=== PATIENT | male | born 1945 | race Caucasian/White ===

== ENCOUNTER 2020-01-14 12:02 | Outpatient (REF) | payer OTHER, SELFPAY ==
--- NOTE | 2020-01-14 12:10 | XR_ITS ---
EXAMINATION: XR KNEE, LEFT CLINICAL INFORMATION: Pain. Evaluate for arthritis. COMPARISON: None TECHNIQUE: Two views of the left knee. FINDINGS: Bone alignment is normal. No fracture or dislocation is seen. There is mild joint space narrowing at the medial femoral tibial joint. There are small osteophytes at the patellofemoral and femoral tibial joints. There is a small to moderate joint effusion. IMPRESSION: Mild osteoarthritis and joint effusion.
[2020-01-14 13:51] LABS: MANUAL DIFF FLAG NO
[2020-01-14 13:56] LABS: Basophils Percent Auto 0.3 % (0-2); Eosinophils Absolute Auto 0.1 X10*3/uL (0.0-0.4); Hematocrit 47.1 % (42-52); Hemoglobin 15.5 g/dl (14.0-18.0); Imm Gran Abs Auto 0.03 X10*3/uL (0.00-0.03); Imm Gran Pct Auto 0.3 % (0.0-0.4); Lymphocytes Absolute Auto 3.3 X10*3/uL (1.2-4.9); Lymphocytes Percent Auto 33.6 % (20-40); Mean Corpuscular HGB Conc 32.9 g/dl (31.0-36.0); Mean Corpuscular Volume 91.3 fL (80-98); Mean Platelet Volume 9.6 fL (9.4-12.4); Monocytes Absolute Auto 0.5 X10*3/uL (0.1-1.2); Monocytes Percent Auto 5.4 % (2-11); Neutrophils Absolute Auto 5.8 X10*3/uL (2.0-8.3); Neutrophils Percent Auto 59.4 % (45-73); Platelet Count 249 X10*3/uL (160-400); Red Blood Count 5.16 X10*6/uL (4.60-5.80); Red Cell Distribution Width 12.9 % (11.0-16.0); White Blood Count 9.7 X10*3/uL (4.8-10.8)
[2020-01-14 14:40] LABS: Anion Gap 10 (12-20); Blood Urea Nitrogen 15 mg/dL (9-16); C Reactive Protein 0.15 mg/dL (< or = 0.50); Calcium 9.1 mg/dL (8.4-10.2); Carbon Dioxide 32 mmol/L (22-29); Chloride 98 mmol/L (96-108); Estimated Glomerular Filt Rate 57; Glucose Random 120 mg/dL (60-115); Potassium 4.4 mmol/l (3.3-5.1); Sodium 136 mmol/L (135-145)
== END 2020-01-14 12:03 | disposition home or self-care (01) ==
LOC: HO.LAB 12:02
PROVIDERS: PCP Internal Medicine; Visit Provider Internal Medicine
DX: I12.9 Hypertensive chronic kidney disease with stage 1 through stage 4 chronic kidney disease, or unspecified chronic kidney disease (principal); N18.9 Chronic kidney disease, unspecified; I25.10 Atherosclerotic heart disease of native coronary artery without angina pectoris; M25.562 Pain in left knee
CPT/HCPCS: 36415; 73560; 80048; 85025; 86140

== ENCOUNTER 2020-02-07 14:15 | Outpatient (REF) | payer OTHER, SELFPAY ==
--- NOTE | 2020-02-07 14:17 | MR_ITS ---
EXAMINATION: MR KNEE WITHOUT CONTRAST, LEFT CLINICAL INFORMATION: Left knee pain. COMPARISON: Radiographs 01/14/2020. TECHNIQUE: MRI of the knee without contrast was performed using routine sequences on a high-field scanner. FINDINGS: MENISCI: Medial Meniscus: Irregular inner margin tearing throughout the posterior horn extending to the undersurface at the junction with the meniscal body which is slightly extruded. Lateral Meniscus: Ill-defined inner margin tearing of the body and posterior horn of a likely borderline discoid meniscus. LIGAMENTS: Cruciate: Intact. Collateral: Intact. EXTENSOR MECHANISM: Intact. ARTICULAR CARTILAGE/BONE: Patellofemoral Compartment: Articular cartilage thinning and surface irregularity throughout the medial patellar facet. There is focal near full-thickness cartilage loss with subchondral cyst formation of the medial trochlea. Medial Compartment: Diffuse cartilage thinning of the tibia. Partial-thickness loss and surface irregularity along the lateral aspect of the weightbearing femoral condyle. Full-thickness cartilage loss of the posterior nonweightbearing femoral condyle. Cartilage thinning with areas of full-thickness loss and prominent subchondral cysts throughout the posterior nonweightbearing femoral condyle. Lateral Compartment: Small marginal osteophytes with peripheral cartilage thinning. JOINT FLUID AND BURSAE: Moderate joint effusion and Marcelino's cyst. Lobulated fluid/ganglion extends along the popliteus tendon sheath. There is a small ganglion with synovitis in the posterior joint recess. MR/MR knee LT wo con IMPRESSION: Irregular inner margin tearing of the posterior horn of the medial meniscus extending to the undersurface at the junction with the extruded meniscal body. Probable discoid morphology with ill-defined inner margin tearing of the lateral meniscus. Moderate-severe medial compartment and mild patellofemoral/lateral compartment osteoarthritis with a moderate joint effusion and a small Marcelino's cyst. Diffuse synovitis.
== END 2020-02-07 14:16 | disposition home or self-care (01) ==
LOC: HO.MRI 14:15
PROVIDERS: Visit Provider Internal Medicine
DX: S83.402A Sprain of unspecified collateral ligament of left knee, initial encounter (principal)
CPT/HCPCS: 73721

== ENCOUNTER 2020-04-25 17:04 | Outpatient (REF) | payer OTHER, SELFPAY ==
[2020-04-25 18:03] LABS: MANUAL DIFF FLAG NO
[2020-04-25 18:04] LABS: Basophils Absolute Auto 0.1 X10*3/uL (0.0-0.2); Basophils Percent Auto 0.4 % (0-2); Eosinophils Absolute Auto 0.1 X10*3/uL (0.0-0.4); Eosinophils Percent Auto 0.6 % (0-4); Imm Gran Abs Auto 0.06 X10*3/uL (0.00-0.03); Imm Gran Pct Auto 0.5 % (0.0-0.4); Lymphocytes Absolute Auto 3.8 X10*3/uL (1.2-4.9); Lymphocytes Percent Auto 30.8 % (20-40); Mean Corpuscular HGB Conc 33.3 g/dl (31.0-36.0); Mean Corpuscular Hemoglobin 30.7 pg (27.0-33.0); Mean Platelet Volume 8.9 fL (9.4-12.4); Monocytes Absolute Auto 0.7 X10*3/uL (0.1-1.2); Monocytes Percent Auto 5.9 % (2-11); Neutrophils Absolute Auto 7.7 X10*3/uL (2.0-8.3); Neutrophils Percent Auto 61.8 % (45-73); Platelet Count 263 X10*3/uL (160-400); Red Blood Count 5.22 X10*6/uL (4.60-5.80); Red Cell Distribution Width 14.7 % (11.0-16.0); White Blood Count 12.4 X10*3/uL (4.8-10.8)
[2020-04-25 18:36] LABS: Alanine Aminotransferase 28 U/L (0-40); Albumin Level 4.3 g/dL (3.5-5.0); Alkaline Phosphatase 98 U/L (39-117); Anion Gap 13 (12-20); Aspartate Amino Transferase 25 U/L (5-37); Bilirubin Total 0.8 mg/dL (0.0-1.0); Blood Urea Nitrogen 18 mg/dL (9-16); C Reactive Protein 0.11 mg/dL (< or = 0.50); Calcium 9.1 mg/dL (8.4-10.2); Carbon Dioxide 30 mmol/L (22-29); Chloride 100 mmol/L (96-108); Estimated Glomerular Filt Rate 59; Glucose Random 111 mg/dL (60-115); Lactate Dehydrogenase 257 U/L (118-273); Potassium 4.2 mmol/L (3.3-5.1); Sodium 139 mmol/L (135-145); Total Protein 6.7 g/dL (6.5-8.0)
== END 2020-04-25 17:05 | disposition home or self-care (01) ==
LOC: HO.LAB 17:04
PROVIDERS: PCP Internal Medicine; Visit Provider Internal Medicine
DX: I12.9 Hypertensive chronic kidney disease with stage 1 through stage 4 chronic kidney disease, or unspecified chronic kidney disease (principal); N18.9 Chronic kidney disease, unspecified; J45.909 Unspecified asthma, uncomplicated; I25.10 Atherosclerotic heart disease of native coronary artery without angina pectoris
CPT/HCPCS: 36415; 80053; 83615; 85025; 86140

== ENCOUNTER → 2020-05-28 12:29 | Outpatient (BNVA) | payer OTHER, SELFPAY | PROVIDERS: PCP Internal Medicine; Visit Provider Internal Medicine Cardiovascular Disease | DX: I25.119 Atherosclerotic heart disease of native coronary artery with unspecified angina pectoris (principal); I10 Essential (primary) hypertension | CPT/HCPCS: 93005 ==

== ENCOUNTER → 2020-06-04 08:59 | Outpatient (REF) | payer OTHER, SELFPAY ==
--- NOTE | ~2020-06-04 | NM_ITS ---
EXERCISE MYOCARDIAL PERFUSION STUDY INDICATION: Chest pain, assess for coronary disease and ischemia TECHNIQUE: The patient was brought in for an exercise perfusion study on 06/04/2020. Patient performed exercise as per Ady protocol and was injected 30 mCi of sestamibi once target heart rate was achieved. Images were obtained using the SPECT gamma camera interlaced with the gating device. Images were obtained in supine position. Resting perfusion study was performed on 06/05/2020. Patient was administered 30 mCi of sestamibi intravenously at rest. Images were then obtained in supine position. Total DLP 112mGy-cm. Images were processed with the software and compared side to side in short axis, horizontal long axis and vertical long axis views. FINDINGS: Raw images were reviewed. The stress perfusion study showed mid to distal anterior wall, adjacent anterior septum, apical lateral wall, apical inferior wall, apex. Changes still present after attenuation correction changes are still present after CT attenuation correction. The gated study shows mildly diminished LV systolic function with calculated LVEF of 52%. LV cavity is normal in size. The gated study shows diminished wall thickening or contractility in the above segments. Resting study shows no significant perfusion abnormality. Gating at rest reveals normal wall motion with ejection fraction at 56%. The findings are consistent with reversible perfusion defect in the mid to distal anterior septum, adjacent septum, anterior wall, apex, apical lateral wall, apical inferior wall. NM/NM cardiolite stress test IMPRESSION: 1. Myocardial perfusion imaging study shows severe degree of ischemia in the LAD territory. 2. Gated LVEF is 52% during stress and 56% during rest.. 3. Transient ischemic dilatation ratio 1.42. EKG component of the test reported separately. Message sent to , primary aquatic scientist.
--- NOTE | 2020-06-04 09:15 | CA_ITS ---
Acquisition Time: 2020-06-04 09:12:01 Total Exercise Time: 00:05:05 Test Indications: Chest Pain Medications: AMLODIPINE HCTZ ASA ATORVASTATIN CARVEDILOL DIAZAPAM GABAPENTIN LOSARTAN EFFEXOR Protocol: NIGHAT Max HR: 125 BPM 85% of Pred: 146 BPM Max BP: 162/088 mmHG Max Work Load: 7.1 METS Exercises tress test using Nighat protocol, total of 5 min 5 sec. METS 7.20 and TAPHR up to 85%. Tolerated well CP 3/10 before exercise, that was gone after exercise. EKG with PVC's. Mild ST depressions in leads 2, 3. and V4-V6 Nuclear images to follow. Normotensive response to exercise. Test reviewed with Dr. Hendrix Referred By: Ki Connelly Overread By: Jose Harrington
== END ==
LOC: HO.CARD 08:59
PROVIDERS: PCP Internal Medicine; Visit Provider Internal Medicine Cardiovascular Disease
DX: I25.10 Atherosclerotic heart disease of native coronary artery without angina pectoris (principal)
CPT/HCPCS: 78452; 93016; 93017; 93018; A9500

== ENCOUNTER 2020-06-11 12:43 | Outpatient (REF) | payer OTHER, SELFPAY ==
[2020-06-11 13:10] LABS: Hematocrit 47.6 % (42-52); Hemoglobin 15.6 g/dl (14.0-18.0); Mean Corpuscular HGB Conc 32.8 g/dl (31.0-36.0); Mean Corpuscular Hemoglobin 30.4 pg (27.0-33.0); Mean Corpuscular Volume 92.6 fL (80-98); Mean Platelet Volume 8.8 fL (9.4-12.4); Platelet Count 210 X10*3/uL (160-400); Red Blood Count 5.14 X10*6/uL (4.60-5.80); Red Cell Distribution Width 13.3 % (11.0-16.0); White Blood Count 10.4 X10*3/uL (4.8-10.8)
[2020-06-11 13:15] LABS: INTERNATIONAL NORM RATIO 1.1 (0.9-1.1); Prothrombin Time 13.2 SEC (10.8-13.0)
[2020-06-11 15:20] LABS: Blood Urea Nitrogen 20 mg/dL (9-16); Calcium 8.9 mg/dL (8.4-10.2); Estimated Glomerular Filt Rate 52; Glucose Random 150 mg/dL (60-115)
[2020-06-11 15:21] LABS: Anion Gap 11 (12-20); Carbon Dioxide 33 mmol/L (22-29); Chloride 96 mmol/L (96-108); Potassium 4.2 mmol/L (3.3-5.1); Sodium 136 mmol/L (135-145)
== END 2020-06-11 12:44 | disposition home or self-care (01) ==
LOC: HO.LAB 12:43
PROVIDERS: PCP Internal Medicine; Visit Provider Internal Medicine Cardiovascular Disease
DX: R94.39 Abnormal result of other cardiovascular function study (principal)
CPT/HCPCS: 36415; 80048; 85027; 85610

== ENCOUNTER → 2020-07-17 14:27 | Outpatient (BNVA) | payer OTHER, SELFPAY | PROVIDERS: PCP Internal Medicine; Visit Provider Internal Medicine Cardiovascular Disease ==

== ENCOUNTER → 2020-08-05 15:19 | Outpatient (BNVA) | payer OTHER, SELFPAY | PROVIDERS: PCP Internal Medicine; Referring Provider Internal Medicine; Visit Provider Internal Medicine Cardiovascular Disease ==

== ENCOUNTER → 2020-11-20 14:48 | Outpatient (BNVA) | payer OTHER, SELFPAY | PROVIDERS: PCP Internal Medicine; Referring Provider Internal Medicine; Visit Provider Internal Medicine Cardiovascular Disease ==

== ENCOUNTER 2020-11-21 12:33 | Outpatient (REF) | payer OTHER, SELFPAY ==
[2020-11-21 13:28] LABS: Influenza A PCR NEGATIVE (Negative); Influenza B PCR NEGATIVE (Negative); Resp Syncy Virus RNA Qual PCR NEGATIVE (Negative); SARS COV2 PCR INHOUSE NEGATIVE (Negative)
== END 2020-11-21 12:34 | disposition home or self-care (01) ==
LOC: HO.LNP 12:33
PROVIDERS: Visit Provider Internal Medicine
DX: Z20.822 Contact with and (suspected) exposure to COVID-19 (principal); R05 Cough
CPT/HCPCS: 0241U

== ENCOUNTER 2020-11-28 10:31 | Outpatient (REF) | payer OTHER, SELFPAY ==
--- NOTE | ~2020-11-28 | XR_ITS ---
EXAMINATION: XR CHEST CLINICAL INFORMATION: Cough COMPARISON: Chest radiographs 04/02/2019, 02/19/2019 TECHNIQUE: 2 views of the chest were obtained. FINDINGS: There are subtle patchy groundglass opacities left lower zone. The remainder of the lungs are clear. The right lung shows no airspace consolidation or groundglass opacity. There is no effusion. The heart is normal in size. The vascularity is normal. There are low lung volumes. No hyperinflation. The hilar and mediastinal contours are normal. No acute bony abnormality. There is old hardware cervical spine. XR/XR chest 2V IMPRESSION: Subtle patchy groundglass opacities left lower zone. Right lung clear. No effusion.
--- NOTE | ~2020-11-28 | CT_ITS ---
EXAMINATION: CT CHEST WITHOUT CONTRAST CLINICAL INFORMATION: Cough and wheezing and rhonchi. Rule out Respiratory bronchiolitis and interstitial lung disease. COMPARISON: Previous chest x-ray from earlier the same day and chest CT February 2019 TECHNIQUE: Multidetector volumetric CT imaging of the chest was done. Axial MIP volume rendering provided. Sagittal and coronal reformatted images were obtained. This CT examination was performed using dose optimization techniques as appropriate, variously including the following: *Automated exposure control *Adjustment of mA and/or kV according to patient size (this includes techniques or standardized protocols for targeted exams where dose is matched to indication/reason for exam; i.e. extremities or head) *Use of iterative reconstruction technique DLP: 301 mGy-cm FINDINGS: LUNGS: There are clustered peribronchial nodular opacities and increased peribronchial attenuation seen in the lingula. There are denser peribronchial clustered nodular opacities and bronchial wall thickening and soft tissue opacification seen in the left lower lobe. Findings are suggestive of bronchopneumonia. Findings appear increased from November 2018 exam. These are seen in different areas on on on February 2019. Waxing and waning appearance favors an infectious or inflammatory process. There is a small area of increased peribronchial attenuation seen in the right upper lobe axial image 143 series 6 and bronchial wall thickening and increased peribronchial attenuation in the right lower lobe for example axial image 206 series 6 suggestive of airways disease as well. There is a 2 mm apical right upper lobe nodule axial image 38 series 6. This appears separate from areas of airways disease and is unchanged from 2019 exam.. No evidence of emphysema or interstitial lung disease is seen. MEDIASTINUM: There is shotty mediastinal lymphadenopathy. The heart does not appear enlarged. There is coronary artery calcification. There is no pericardial effusion. There is an esophageal hernia. PLEURA: There is no pleural effusion. No pleural mass or thickening. AXILLA: No lymphadenopathy. UPPER ABDOMEN: There is a 2 cm low-attenuation lesion in the upper pole of the right kidney probably representing a cyst. OSSEOUS STRUCTURES: There are degenerative changes of the spine. CT/CT chest wo con IMPRESSION: Left lower lobe and lingular bronchopneumonia. Follow-up chest CT scan following treatment to ensure resolution recommended. Scattered areas of mild airways disease in the right lung. Coronary artery calcification. Esophageal hernia.
[2020-11-28 11:33] LABS: MANUAL DIFF FLAG NO
[2020-11-28 11:39] LABS: Basophils Percent Auto 0.1 % (0-2); Eosinophils Percent Auto 0.1 % (0-4); Hematocrit 43.1 % (42-52); Hemoglobin 14.7 g/dl (14.0-18.0); Imm Gran Pct Auto 0.8 % (0.0-0.4); Lymphocytes Percent Auto 6.7 % (20-40); Mean Corpuscular HGB Conc 34.1 g/dl (31.0-36.0); Mean Corpuscular Hemoglobin 30.6 pg (27.0-33.0); Mean Corpuscular Volume 89.6 fL (80-98); Mean Platelet Volume 8.4 fL (9.4-12.4); Monocytes Percent Auto 3.5 % (2-11); Neutrophils Absolute Auto 19.2 X10*3/uL (2.0-8.3); Neutrophils Percent Auto 88.8 % (45-73); Platelet Count 328 X10*3/uL (160-400); Red Blood Count 4.81 X10*6/uL (4.60-5.80); Red Cell Distribution Width 12.9 % (11.0-16.0); White Blood Count 21.6 X10*3/uL (4.8-10.8)
[2020-11-28 11:40] LABS: Imm Gran Abs Auto 0.17 X10*3/uL (0.00-0.03); Lymphocytes Absolute Auto 1.4 X10*3/uL (1.2-4.9); Monocytes Absolute Auto 0.8 X10*3/uL (0.1-1.2)
[2020-11-28 11:54] LABS: Anion Gap 12 (12-20); Blood Urea Nitrogen 27 mg/dL (9-16); C Reactive Protein 0.46 mg/dL (< or = 0.50); Calcium 9.3 mg/dL (8.4-10.2); Carbon Dioxide 30 mmol/L (22-29); Chloride 92 mmol/L (96-108); Estimated Glomerular Filt Rate 54; Glucose Random 269 mg/dL (60-115); Potassium 3.8 mmol/L (3.3-5.1); Sodium 130 mmol/L (135-145)
== END 2020-11-28 10:32 | disposition home or self-care (01) ==
LOC: HO.XRAY 10:31
PROVIDERS: PCP Internal Medicine; Visit Provider Internal Medicine
DX: J84.115 Respiratory bronchiolitis interstitial lung disease (principal); R06.2 Wheezing; R05 Cough; I25.10 Atherosclerotic heart disease of native coronary artery without angina pectoris; I10 Essential (primary) hypertension
CPT/HCPCS: 36415; 71046; 71250; 80048; 85025; 86140

== ENCOUNTER 2020-12-25 10:04 | Outpatient (REF) | payer OTHER, SELFPAY ==
--- NOTE | ~2020-12-25 | XR_ITS ---
EXAMINATION: XR CHEST CLINICAL INFORMATION: Follow up pneumonia. COMPARISON: Previous dated 11/28/2020. TECHNIQUE: 2 views of the chest were obtained. FINDINGS: Persistent patchy left lower lobe density. No improvement and there may be some increase further cephalad in the lingula. There is increasing density at the right base consistent with atelectasis or infiltrate and some patchy opacity in the right midlung as well. There is no effusion. The hilar structures do not appear pathologically enlarged. Flowing osteophytes in the thoracic spine. XR/XR chest 2V IMPRESSION: No improvement and possible worsening at the left base with new findings at the right base and right midlung as described. This findings may be inflammatory in etiology. Continued follow-up is recommended. CT may be helpful for definitive evaluation.
[2020-12-25 11:01] LABS: Anion Gap 12 (12-20); Blood Urea Nitrogen 20 mg/dL (9-16); Calcium 8.9 mg/dL (8.4-10.2); Carbon Dioxide 31 mmol/L (22-29); Chloride 94 mmol/L (96-108); Estimated Glomerular Filt Rate 48; Glucose Random 198 mg/dL (60-115); Potassium 3.7 mmol/L (3.3-5.1); Sodium 133 mmol/L (135-145)
== END 2020-12-25 10:05 | disposition home or self-care (01) ==
LOC: HO.XRAY 10:04
PROVIDERS: PCP Internal Medicine; Visit Provider Internal Medicine
DX: R60.9 Edema, unspecified (principal); I12.9 Hypertensive chronic kidney disease with stage 1 through stage 4 chronic kidney disease, or unspecified chronic kidney disease; N18.9 Chronic kidney disease, unspecified; Z87.01 Personal history of pneumonia (recurrent)
CPT/HCPCS: 36415; 71046; 80048

== ENCOUNTER → 2021-01-06 12:51 | Outpatient (BNVA) | payer OTHER, SELFPAY | PROVIDERS: PCP Internal Medicine; Visit Provider Internal Medicine Pulmonary Disease ==

== ENCOUNTER 2021-01-07 12:19 | Outpatient (REF) | payer OTHER, SELFPAY ==
--- NOTE | ~2021-01-07 | US_ITS ---
EXAMINATION: US VENOUS ULTRASOUND WITH DOPPLER LOWER EXTREMITY, RIGHT ULTRASOUND ARTERIAL RIGHT LEG CLINICAL INFORMATION: Right leg pain and edema. COMPARISON: None TECHNIQUE: Ultrasound of the deep veins is performed from the hip to the calf with compression sonography and color and pulse Doppler assessment. Spectral analysis with color-flow imaging is performed. Routine ultrasound imaging of right lower leg and duplex arterial study was performed. FINDINGS: VENOUS STUDY: There is normal venous compression and respiratory variation and augmented flow. The visualized common femoral vein, superficial femoral vein, profunda femoral vein, popliteal vein, and the trifurcation region shows no evidence of deep venous thrombosis. There is no significant popliteal fossa cyst. Imaging through the right lower calf reveals moderate edema and fluid collection in the mid to distal calf midline around the plantaris/soleus tendon suggestive of plantaris tendon rupture. There is mild edema seen in medial gastrocnemius muscle. The lateral gastroc muscle is intact. ARTERIAL STUDY: There is normal patency and biphasic seen in CIVIL ENGINEERING PROJECT MANAGER, superficial proximal, middle and distal superficial femoral and popliteal arteries. A triphasic flow seen in the posterior tibial artery. There is mild atherosclerotic disease but no stenosis visualized. Peak systolic velocities common femoral arteries 116 cm/s, proximal profunda measures 68.6 cm/s, proximal and mid superficial femoral artery measures 90.3 and 86.8 cm/s, distal SFA measures 70.9 cm/s, popliteal artery measures 68.0 cm/s and posterior tibial artery measures 67.4 cm/s. US/US venous duplex LE RT IMPRESSION: No DVT demonstrated in the right lower extremity. Ruptured plantaris tendon with contusion of the medial gastroc muscle. Partial tear of the soleus/tendinous junction in the mid calf region cannot be excluded. The Achilles tendon appears minimally swollen but no tear visualized. Mild atherosclerotic changes of arteries of right leg but no focal stenosis or narrowing seen.
--- NOTE | ~2021-01-07 | US_ITS ---
EXAMINATION: US VENOUS ULTRASOUND WITH DOPPLER LOWER EXTREMITY, RIGHT ULTRASOUND ARTERIAL RIGHT LEG CLINICAL INFORMATION: Right leg pain and edema. COMPARISON: None TECHNIQUE: Ultrasound of the deep veins is performed from the hip to the calf with compression sonography and color and pulse Doppler assessment. Spectral analysis with color-flow imaging is performed. Routine ultrasound imaging of right lower leg and duplex arterial study was performed. FINDINGS: VENOUS STUDY: There is normal venous compression and respiratory variation and augmented flow. The visualized common femoral vein, superficial femoral vein, profunda femoral vein, popliteal vein, and the trifurcation region shows no evidence of deep venous thrombosis. There is no significant popliteal fossa cyst. Imaging through the right lower calf reveals moderate edema and fluid collection in the mid to distal calf midline around the plantaris/soleus tendon suggestive of plantaris tendon rupture. There is mild edema seen in medial gastrocnemius muscle. The lateral gastroc muscle is intact. ARTERIAL STUDY: There is normal patency and biphasic seen in SERVICES PROGRAM MANAGER, superficial proximal, middle and distal superficial femoral and popliteal arteries. A triphasic flow seen in the posterior tibial artery. There is mild atherosclerotic disease but no stenosis visualized. Peak systolic velocities common femoral arteries 116 cm/s, proximal profunda measures 68.6 cm/s, proximal and mid superficial femoral artery measures 90.3 and 86.8 cm/s, distal SFA measures 70.9 cm/s, popliteal artery measures 68.0 cm/s and posterior tibial artery measures 67.4 cm/s. US/US arterial duplex LE RT IMPRESSION: No DVT demonstrated in the right lower extremity. Ruptured plantaris tendon with contusion of the medial gastroc muscle. Partial tear of the soleus/tendinous junction in the mid calf region cannot be excluded. The Achilles tendon appears minimally swollen but no tear visualized. Mild atherosclerotic changes of arteries of right leg but no focal stenosis or narrowing seen.
== END 2021-01-07 12:20 | disposition home or self-care (01) ==
LOC: HO.US 12:19
PROVIDERS: PCP Internal Medicine; Visit Provider Internal Medicine
DX: R60.0 Localized edema (principal); M79.604 Pain in right leg
CPT/HCPCS: 93926; 93971

== ENCOUNTER 2021-01-09 14:13 | Outpatient (REF) | payer OTHER, SELFPAY ==
[2021-01-09 14:48] LABS: Basophils Absolute Auto 0.1 X10*3/uL (0.0-0.2); Basophils Percent Auto 0.4 % (0-2); Eosinophils Absolute Auto 0.2 X10*3/uL (0.0-0.4); Eosinophils Percent Auto 1.7 % (0-4); Hematocrit 39.6 % (42-52); Hemoglobin 13.6 g/dl (14.0-18.0); Imm Gran Abs Auto 0.12 X10*3/uL (0.00-0.03); Lymphocytes Absolute Auto 2.5 X10*3/uL (1.2-4.9); Lymphocytes Percent Auto 21.5 % (20-40); MANUAL DIFF FLAG NO; Mean Corpuscular HGB Conc 34.3 g/dl (31.0-36.0); Mean Corpuscular Hemoglobin 30.3 pg (27.0-33.0); Mean Corpuscular Volume 88.2 fL (80-98); Mean Platelet Volume 8.2 fL (9.4-12.4); Monocytes Absolute Auto 0.7 X10*3/uL (0.1-1.2); Monocytes Percent Auto 5.9 % (2-11); Neutrophils Absolute Auto 8.2 X10*3/uL (2.0-8.3); Neutrophils Percent Auto 69.5 % (45-73); Platelet Count 279 X10*3/uL (160-400); Red Blood Count 4.49 X10*6/uL (4.60-5.80); Red Cell Distribution Width 13.6 % (11.0-16.0); White Blood Count 11.8 X10*3/uL (4.8-10.8)
--- NOTE | 2021-01-09 17:30 | PFT_ITS ---
Forced vital capacity and FEV1 are both moderately reduced. [id number] and MVV also moderately reduced. Post bronchodilator therapy, there is no significant change. Total lung capacity is normal. Residual volume also normal. Diffusion capacity is markedly decreased. CONCLUSION: There is evidence of moderate degree of obstructive airway disorder. No response to bronchodilator therapy. Decreased diffusion capacity may be due to pulmonary emphysema, or non-pulmonary factors. For this, clinical correlation is recommended. MD TREASURE Neely/VALERIE / [phone]
[2021-01-10 11:42] LABS: IgA 130 mg/dL (70-320); IgG 925 mg/dL (600-1540); IgM 119 mg/dL (50-300)
[2021-01-14 20:36] LABS: Immunoglobulin G Subclass 1 474 mg/dL (382-929); Immunoglobulin G Subclass 2 239 mg/dL (241-700); Immunoglobulin G Subclass 3 94 mg/dL (22-178); Immunoglobulin G Subclass 4 46.9 mg/dL (4-86); Immunoglobulin G Total 927 mg/dL (600-1540)
== END 2021-01-09 14:14 | disposition home or self-care (01) ==
LOC: HO.RESP 14:13
PROVIDERS: PCP Internal Medicine; Visit Provider Internal Medicine Pulmonary Disease
DX: J45.909 Unspecified asthma, uncomplicated (principal); J18.9 Pneumonia, unspecified organism; Z01.82 Encounter for allergy testing
CPT/HCPCS: 36415; 82784; 82785; 85025; 86003; 94060; 94727; 94729

== ENCOUNTER → 2021-01-13 07:45 | Outpatient (REF) | payer OTHER, SELFPAY ==
--- NOTE | 2021-01-13 07:53 | CA_ITS ---
Transthoracic Echocardiogram Patient (Last, First, Middle): Lazaro Adams, Gender: Male Date of : 1945 Age: 75 Procedure Date: 01/13/2021 Procedure Type: Transthoracic Echocardiogram Location: OP Height: 170.18 cm Weight: 81.65 kg BSA: 1.93 m2 Heart Rate: bpm BP: 128 / 80 mmHg Night Patrol Inspector: Referring MD: Lan Dillon MD Symptoms: Z95.5 S/P ANGIOPLASY IMPLANT/GRAFT/R60.9 R05.9 COUGH S/P SHELBY Study Quality: Fair ECG Rhythm: Sinus Conclusions: - The left ventricular systolic function is normal. The calculated ejection fraction is 59% by biplane method. - No obvious valvular pathology seen on this study. Findings Left Ventricle Normal left ventricular cavity size. There is mildly increased left ventricular wall thickness. The left ventricular systolic function is normal. The calculated ejection fraction is 59% by biplane method. There is no evidence of regional wall motion abnormalities. Diastolic function is normal for age. Right Ventricle Normal right ventricular cavity size and systolic function. Atria The left atrium is mildly dilated. The right atrium is normal in size. Aortic Valve There is a normal trileaflet aortic valve. There is no aortic valve stenosis. There is no aortic valve regurgitation. Mitral Valve The mitral valve appears normal. There is no mitral valve regurgitation. There is no mitral valve stenosis. Pulmonic Valve The pulmonic valve was not well visualized. Tricuspid Valve Normal tricuspid valve structure. There is no tricuspid valve regurgitation. The pulmonary artery systolic pressure is normal. Great Vessels The aortic annulus, sinuses of valsalva, and asc aorta are normal in size. Venous The inferior vena cava is normal in size and collapses greater than 50% with inspiration. Pericardium/Pleural There is no evidence of pericardial effusion. Prior Study Comparison No significant change compared to prior study dated: 04/26/2018. Recommendations, Care & Conclusions No obvious valvular pathology seen on this study. Measurements 2D Linear Measurements IVSd: 1.41 0.6-0.9/0.6-1.0 cm LVIDd: 4.22 3.9-5.3/4.2-5.9 cm LVIDd Index: 2.19 2.4-3.2/2.2-3.1 cm/m2 LVIDs: 2.85 2.0-3.6 cm LVPWd: 1.43 0.7-1.1 cm Ao Root: 3.10 2.1-3.5 cm LA Diam: 3.80 2.7-3.8/3.0-4.0 cm LAIDs Index: 1.97 1.5-2.3 cm/m2 LV Mass: 287.81 67-162/88-224 g LV Mass Index: 149.13 43-95/49-115 g/m2 LVOT Diam: 2.00 3.0+(-)1.3 cm 2D Systolic Function EF 4C: 56.90 >55% EF 2C: 56.90 >55% EF BiP: 58.80 >55% Mitral Valve MV Pk E: 0.43 MV PK A: 0.55 MV Decel Time: 190.00 E/A: 0.80 E'Medial: 4.13 E/E' Med: 10.40 PHT: 56.00 MVA PHT: 3.93 Decel [place]: 2.25 Aortic Valve AoV Pk Sebastian: 1.13 AoV Mn Sebastian: 0.71 AoV VTI: 0.25 AoV Pk Grad: 5.00 Aov Mn Grad: 2.00 ANABELLA Cont.VTI: 2.11 LVOT LVOT Pk Sebastian: 0.76 LVOT Mn Sebastian: 0.48 LVOT VTI: 0.17 LVOT Pk Grad: 2.00 LVOT Mn Grad: 1.00 LVOT Diam: 2.00 LVOT Area: 3.14 Diastolic Function MV Pk E: 0.43 MV Pk A: 0.55 E/A: 0.80 E'Medial: 4.13 E/E' Med: 10.40 Right Ventricle TAPSE (mm): 29.00 TVS' Sebastian: 14.00 Tricuspid Valve TR Pk Sebastian: 1.96 TR Pk Grad: 15.00 Great Vessels Aorta Ao Root-2D: 3.10 2.0-3.7 cm Ao Asc: 3.20 2.1-3.4 cm Pulmonary Valve PV Pk Sebastian: 1.00 Peak PV Grad: 4.00 Updated in Other Vendor System with Status of Final Cristofer Steve MD electronically signed on 01/14/2021 12:05:13 PM with status of Final
== END ==
LOC: HO.CARD 07:45
PROVIDERS: PCP Internal Medicine; Visit Provider Internal Medicine
DX: R60.9 Edema, unspecified (principal); R05.9 Cough, unspecified; J18.9 Pneumonia, unspecified organism; Z95.5 Presence of coronary angioplasty implant and graft
CPT/HCPCS: 93306

== ENCOUNTER 2021-02-26 12:56 | Outpatient (REF) | payer OTHER, SELFPAY ==
--- NOTE | ~2021-02-26 | CT_ITS ---
EXAMINATION: CT CHEST WITHOUT CONTRAST CLINICAL INFORMATION: Pneumonia. COMPARISON: None. TECHNIQUE: Multidetector volumetric CT imaging of the chest was done. Axial MIP volume rendering provided. Sagittal and coronal reformatted images were obtained. This CT examination was performed using dose optimization techniques as appropriate, variously including the following: *Automated exposure control *Adjustment of mA and/or kV according to patient size (this includes techniques or standardized protocols for targeted exams where dose is matched to indication/reason for exam; i.e. extremities or head) *Use of iterative reconstruction technique DLP: 153 mGy-cm. FINDINGS: RENTAL AGENT: Unremarkable. LUNGS: The lungs are well expanded with patchy linear ground-glass attenuation changes in right upper lobe measuring approximately 7 mm on axial image 179/7. No additional ground-glass density changes seen. There is mild linear thickening of the right major fissure on axial image 291/7 and a focal 2 mL nodule left major fissure axial image 320/7. There is minimal reticular nodularity seen in the left lower lobe lateral basal segment axial image 320/7 through 362/7. There is mild bronchial wall thickening left lower lobe with intrabronchiolar debris on axial image 381/7 and lower, likely small airway disease or slowly resolving bronchopneumonic changes. Similar but lesser findings are seen in the right lower lobe posterior basal segment. There is plate-like atelectasis in both lower lobes. No large consolidation or mass seen. MEDIASTINUM: The thyroid lobes are symmetric and normal. The central trachea and bronchi are widely patent. Heart size and the great vessels are normal caliber. There are small shotty precarinal and subcarinal lymph nodes. There are coronary artery calcifications present. There is a small hiatal hernia. PLEURA: There is no pleural effusion. No pleural mass or thickening. AXILLA: No abnormal axillary lymph nodes seen. The chest wall appears unremarkable. UPPER ABDOMEN: Visualized liver, spleen, pancreas and bilateral adrenal glands are unremarkable. OSSEOUS STRUCTURES: There is mild ventral spondylosis mid and lower dorsal spine. No lytic or sclerotic process seen. CT/CT chest wo con IMPRESSION: Bilateral lower lobe peribronchial wall thickening, intrabronchiolar debris and patchy reticular opacities left greater than right, suggestive of resolving bronchopneumonitis and/or small airway disease. Associated linear atelectatic changes are seen in both lung bases. Mild thickening of the right major fissure and small nodule left major fissure likely intrafissural lymph node. No abnormal-sized mediastinal or hilar lymph nodes seen.
== END 2021-02-26 12:57 | disposition home or self-care (01) ==
LOC: HO.CT 12:56
PROVIDERS: PCP Internal Medicine; Visit Provider Internal Medicine Critical Care Medicine
DX: J18.9 Pneumonia, unspecified organism (principal)
CPT/HCPCS: 71250

== ENCOUNTER 2021-05-14 11:14 | Outpatient (REF) | payer OTHER, SELFPAY ==
[2021-05-14 13:57] LABS: MANUAL DIFF FLAG NO
[2021-05-14 14:05] LABS: Basophils Absolute Auto 0.1 X10*3/uL (0.0-0.2); Basophils Percent Auto 0.5 % (0-2); Eosinophils Absolute Auto 0.1 X10*3/uL (0.0-0.4); Eosinophils Percent Auto 0.8 % (0-4); Hematocrit 43.5 % (42.0-52.0); Hemoglobin 14.8 g/dl (14.0-18.0); Imm Gran Abs Auto 0.06 X10*3/uL (0.00-0.03); Imm Gran Pct Auto 0.6 % (0.0-0.4); Lymphocytes Absolute Auto 2.7 X10*3/uL (1.2-4.9); Lymphocytes Percent Auto 25.6 % (20-40); Mean Corpuscular Hemoglobin 29.4 pg (27.0-33.0); Mean Corpuscular Volume 86.5 fL (80.0-98.0); Mean Platelet Volume 8.6 fL (9.4-12.4); Monocytes Absolute Auto 0.8 X10*3/uL (0.1-1.2); Monocytes Percent Auto 7.6 % (2-11); Neutrophils Absolute Auto 6.9 x10*3/uL (2.0-8.3); Neutrophils Percent Auto 64.9 % (45-73); Platelet Count 308 X10*3/uL (160-400); Red Blood Count 5.03 X10*6/uL (4.60-5.80); Red Cell Distribution Width 13.6 % (11.0-16.0); White Blood Count 10.6 X10*3/uL (4.8-10.8)
[2021-05-14 14:12] LABS: Alanine Aminotransferase 21 U/L (0-40); Alkaline Phosphatase 78 U/L (39-117); Anion Gap 13 (12-20); Aspartate Amino Transferase 22 U/L (5-37); Bilirubin Total 0.5 mg/dL (0.0-1.0); Blood Urea Nitrogen 17 mg/dL (9-16); Calcium 9.3 mg/dL (8.4-10.2); Carbon Dioxide 29 mmol/L (22-29); Chloride 88 mmol/L (96-108); Estimated Glomerular Filt Rate 56; Glucose Random 149 mg/dL (60-115); Potassium 3.9 mmol/L (3.3-5.1); Sodium 126 mmol/L (135-145); Total Protein 6.6 g/dL (6.5-8.0)
[2021-05-14 14:13] LABS: Estimated Average Glucose 214 mg/dL; Hemoglobin A1c % 9.1 %
== END 2021-05-14 11:15 | disposition home or self-care (01) ==
LOC: HO.10HDL 11:14
PROVIDERS: Visit Provider Internal Medicine
DX: I10 Essential (primary) hypertension (principal); I25.10 Atherosclerotic heart disease of native coronary artery without angina pectoris; R73.03 Prediabetes
CPT/HCPCS: 36415; 80053; 83036; 85025

== ENCOUNTER 2021-05-15 07:56 | Outpatient (REF) | payer OTHER, SELFPAY ==
[2021-05-15 11:44] LABS: Creatinine Urine 82.34 mg/dL; Microalbumin Urine < 5.0 mg/L
== END 2021-05-15 07:57 | disposition home or self-care (01) ==
LOC: HO.10HDL 07:56
PROVIDERS: Visit Provider Internal Medicine
DX: I10 Essential (primary) hypertension (principal); I25.10 Atherosclerotic heart disease of native coronary artery without angina pectoris; R73.03 Prediabetes
CPT/HCPCS: 82043

== ENCOUNTER → 2021-05-25 14:49 | Outpatient (BNVA) | payer OTHER, SELFPAY | PROVIDERS: PCP Internal Medicine; Referring Provider Internal Medicine; Visit Provider Internal Medicine Cardiovascular Disease | DX: Z01.810 Encounter for preprocedural cardiovascular examination (principal); I25.119 Atherosclerotic heart disease of native coronary artery with unspecified angina pectoris | CPT/HCPCS: 93005 ==

== ENCOUNTER 2021-08-10 10:51 | Outpatient (REF) | payer OTHER, SELFPAY ==
[2021-08-10 13:54] LABS: Anion Gap 10 (12-20); Blood Urea Nitrogen 22 mg/dL (9-16); Calcium 9.2 mg/dL (8.4-10.2); Carbon Dioxide 31 mmol/L (22-29); Chloride 95 mmol/L (96-108); Estimated Glomerular Filt Rate 60; Glucose Random 152 mg/dL (60-115); Potassium 3.9 mmol/L (3.3-5.1); Sodium 132 mmol/L (135-145)
== END 2021-08-10 10:52 | disposition home or self-care (01) ==
LOC: HO.10HDL 10:51
PROVIDERS: Visit Provider Internal Medicine
DX: I12.9 Hypertensive chronic kidney disease with stage 1 through stage 4 chronic kidney disease, or unspecified chronic kidney disease (principal); N18.9 Chronic kidney disease, unspecified; E11.22 Type 2 diabetes mellitus with diabetic chronic kidney disease
CPT/HCPCS: 36415; 80048

== ENCOUNTER 2021-11-02 14:06 | Outpatient (REF) | payer OTHER, SELFPAY ==
[2021-11-02 14:56] LABS: Influenza A PCR NEGATIVE (Negative); Influenza B PCR NEGATIVE (Negative); Resp Syncy Virus RNA Qual PCR NEGATIVE (Negative); SARS COV2 PCR INHOUSE NEGATIVE (Negative)
== END 2021-11-02 14:07 | disposition home or self-care (01) ==
LOC: HO.LNP 14:06
PROVIDERS: Visit Provider Internal Medicine
DX: Z20.822 Contact with and (suspected) exposure to COVID-19 (principal); R53.83 Other fatigue; R11.0 Nausea
CPT/HCPCS: 0241U

== ENCOUNTER 2021-11-04 11:39 | Outpatient (REF) | payer OTHER, SELFPAY ==
[2021-11-04 13:40] LABS: MANUAL DIFF FLAG NO
[2021-11-04 13:47] LABS: Basophils Absolute Auto 0.1 X10*3/uL (0.0-0.2); Basophils Percent Auto 0.6 % (0-2); Eosinophils Absolute Auto 0.1 X10*3/uL (0.0-0.4); Hematocrit 41.7 % (42.0-52.0); Hemoglobin 14.1 g/dl (14.0-18.0); Imm Gran Abs Auto 0.04 X10*3/uL (0.00-0.03); Imm Gran Pct Auto 0.4 % (0.0-0.4); Lymphocytes Absolute Auto 2.1 X10*3/uL (1.2-4.9); Lymphocytes Percent Auto 21.5 % (20-40); Mean Corpuscular HGB Conc 33.8 g/dl (31.0-36.0); Mean Corpuscular Hemoglobin 30.2 pg (27.0-33.0); Mean Corpuscular Volume 89.3 fL (80.0-98.0); Mean Platelet Volume 8.7 fL (9.4-12.4); Monocytes Absolute Auto 0.7 X10*3/uL (0.1-1.2); Monocytes Percent Auto 6.7 % (2-11); Neutrophils Absolute Auto 6.8 x10*3/uL (2.0-8.3); Neutrophils Percent Auto 69.8 % (45-73); Platelet Count 291 X10*3/uL (160-400); Red Blood Count 4.67 X10*6/uL (4.60-5.80); Red Cell Distribution Width 13.2 % (11.0-16.0); White Blood Count 9.8 X10*3/uL (4.8-10.8)
[2021-11-04 14:10] LABS: Estimated Average Glucose 120 mg/dL; Hemoglobin A1C 150.6051 umol/L; Hemoglobin A1c % 5.8 %
[2021-11-04 14:17] LABS: Alanine Aminotransferase 20 U/L (0-40); Albumin Level 4.3 g/dL (3.5-5.0); Alkaline Phosphatase 85 U/L (39-117); Anion Gap 16 (12-20); Aspartate Amino Transferase 18 U/L (5-37); Bilirubin Total 0.5 mg/dL (0.0-1.0); Blood Urea Nitrogen 13 mg/dL (9-16); Calcium 9.2 mg/dL (8.4-10.2); Carbon Dioxide 27 mmol/L (22-29); Chloride 88 mmol/L (96-108); Estimated Glomerular Filt Rate > 60; Glucose Random 129 mg/dL (60-115); Potassium 4.1 mmol/L (3.3-5.1); Sodium 127 mmol/L (135-145); Total Protein 6.8 g/dL (6.5-8.0)
[2021-11-04 14:36] LABS: Vitamin B12 225 pg/mL (200-900)
[2021-11-04 14:40] LABS: Thyroid Stimulating Hormone 0.78 uIU/mL (0.32-4.0)
== END 2021-11-04 11:40 | disposition home or self-care (01) ==
LOC: HO.10HDL 11:39
PROVIDERS: Visit Provider Internal Medicine
DX: R53.83 Other fatigue (principal); D64.9 Anemia, unspecified; I25.10 Atherosclerotic heart disease of native coronary artery without angina pectoris; K21.9 Gastro-esophageal reflux disease without esophagitis
CPT/HCPCS: 36415; 80053; 82607; 83036; 84443; 85025

== ENCOUNTER 2022-01-18 10:49 | Outpatient (REF) | payer OTHER, SELFPAY ==
[2022-01-18 13:47] LABS: Alanine Aminotransferase 17 U/L (0-40); Alkaline Phosphatase 99 U/L (39-117); Anion Gap 14 (12-20); Aspartate Amino Transferase 18 U/L (5-37); Bilirubin Total 0.5 mg/dL (0.0-1.0); Blood Urea Nitrogen 19 mg/dL (9-16); Calcium 9.1 mg/dL (8.4-10.2); Carbon Dioxide 29 mmol/L (22-29); Chloride 94 mmol/L (96-108); Estimated Glomerular Filt Rate > 60; Glucose Random 163 mg/dL (60-115); Potassium 4.3 mmol/L (3.3-5.1); Sodium 133 mmol/L (135-145); Total Protein 6.3 g/dL (6.5-8.0)
== END 2022-01-18 10:50 | disposition home or self-care (01) ==
LOC: HO.10HDL 10:49
PROVIDERS: Absent Provider Internal Medicine Cardiovascular Disease; Visit Provider Internal Medicine
DX: I10 Essential (primary) hypertension (principal); I25.119 Atherosclerotic heart disease of native coronary artery with unspecified angina pectoris; R60.0 Localized edema; M19.079 Primary osteoarthritis, unspecified ankle and foot
CPT/HCPCS: 36415; 80053; 93005

== ENCOUNTER 2022-07-23 08:31 | Outpatient (REF) | payer MEDICARE, SELFPAY ==
[2022-07-23 10:18] LABS: MANUAL DIFF FLAG NO
[2022-07-23 10:22] LABS: Basophils Percent Auto 0.4 % (0-2); Eosinophils Absolute Auto 0.1 X10*3/uL (0.0-0.4); Eosinophils Percent Auto 1.1 % (0-4); Hematocrit 42.2 % (42.0-52.0); Hemoglobin 13.7 g/dl (14.0-18.0); Imm Gran Abs Auto 0.02 X10*3/uL (0.00-0.03); Imm Gran Pct Auto 0.2 % (0.0-0.4); Lymphocytes Absolute Auto 2.3 X10*3/uL (1.2-4.9); Lymphocytes Percent Auto 24.2 % (20-40); Mean Corpuscular HGB Conc 32.5 g/dl (31.0-36.0); Mean Corpuscular Hemoglobin 29.7 pg (27.0-33.0); Mean Corpuscular Volume 91.5 fL (80.0-98.0); Mean Platelet Volume 9.2 fL (9.4-12.4); Monocytes Absolute Auto 0.5 X10*3/uL (0.1-1.2); Monocytes Percent Auto 5.5 % (2-11); Neutrophils Absolute Auto 6.6 x10*3/uL (2.0-8.3); Neutrophils Percent Auto 68.6 % (45-73); Platelet Count 233 X10*3/uL (160-400); Red Blood Count 4.61 X10*6/uL (4.60-5.80); Red Cell Distribution Width 14.5 % (11.0-16.0); White Blood Count 9.6 X10*3/uL (4.8-10.8)
[2022-07-23 11:02] LABS: Estimated Average Glucose 117 mg/dL; Hemoglobin A1c % 5.7 %
[2022-07-23 11:22] LABS: Alanine Aminotransferase 26 U/L (0-40); Albumin Level 3.8 g/dL (3.5-5.0); Alkaline Phosphatase 90 U/L (39-117); Anion Gap 11 (12-20); Aspartate Amino Transferase 22 U/L (5-37); Bilirubin Total 0.6 mg/dL (0.0-1.0); Blood Urea Nitrogen 22 mg/dL (9-16); Carbon Dioxide 30 mmol/L (22-29); Chloride 96 mmol/L (96-108); Estimated Glomerular Filt Rate 57; Glucose Random 126 mg/dL (60-115); Potassium 4.1 mmol/L (3.3-5.1); Sodium 133 mmol/L (135-145)
[2022-07-23 11:24] LABS: Creatinine Urine 80.03 mg/dL; Microalbum/Creatinine Ratio Ur 23.7 ug/mg cr
== END 2022-07-23 08:32 | disposition home or self-care (01) ==
LOC: HO.10HDL 08:31
PROVIDERS: Visit Provider Internal Medicine
DX: I12.9 Hypertensive chronic kidney disease with stage 1 through stage 4 chronic kidney disease, or unspecified chronic kidney disease (principal); E11.22 Type 2 diabetes mellitus with diabetic chronic kidney disease; N18.9 Chronic kidney disease, unspecified
CPT/HCPCS: 36415; 80053; 82043; 83036; 85025

== ENCOUNTER → 2022-08-26 14:26 | Outpatient (BNVA) | payer MEDICARE, SELFPAY | PROVIDERS: PCP Internal Medicine; Referring Provider Internal Medicine; Visit Provider Internal Medicine Cardiovascular Disease | DX: I20.8 Other forms of angina pectoris (principal); I10 Essential (primary) hypertension | CPT/HCPCS: 93005; 99212 ==

== ENCOUNTER 2023-02-23 16:54 | Outpatient (REF) | payer MEDICARE, SELFPAY ==
--- NOTE | ~2023-02-23 | XR_ITS ---
EXAMINATION: XR CHEST CLINICAL INFORMATION: Cough COMPARISON: 02/03/2021 TECHNIQUE: 2 views of the chest were obtained. FINDINGS: There is mild opacification of the left lower lobe most likely due to pneumonia better visualized on the lateral view. XR/XR chest 2V IMPRESSION: Left lower lobe pneumonia
== END 2023-02-23 16:55 | disposition home or self-care (01) ==
LOC: HO.XRAY 16:54
PROVIDERS: PCP Internal Medicine; Visit Provider Internal Medicine
DX: R05.9 Cough, unspecified (principal)
CPT/HCPCS: 71046

== ENCOUNTER 2023-04-14 15:37 | Outpatient (REF) | payer MEDICARE, SELFPAY ==
[2023-04-14 15:52] LABS: MANUAL DIFF FLAG NO
[2023-04-14 17:32] LABS: Basophils Absolute Auto 0.1 X10*3/uL (0.0-0.2); Basophils Percent Auto 0.5 % (0-2); Eosinophils Absolute Auto 0.2 X10*3/uL (0.0-0.4); Eosinophils Percent Auto 1.4 % (0-4); Hematocrit 45.6 % (42.0-52.0); Imm Gran Abs Auto 0.05 X10*3/uL (0.00-0.03); Imm Gran Pct Auto 0.4 % (0.0-0.4); Lymphocytes Absolute Auto 3.3 X10*3/uL (1.2-4.9); Lymphocytes Percent Auto 27.6 % (20-40); Mean Corpuscular HGB Conc 32.9 g/dl (31.0-36.0); Mean Corpuscular Hemoglobin 30.1 pg (27.0-33.0); Mean Corpuscular Volume 91.4 fL (80.0-98.0); Mean Platelet Volume 9.7 fL (9.4-12.4); Monocytes Absolute Auto 0.7 X10*3/uL (0.1-1.2); Monocytes Percent Auto 6.2 % (2-11); Neutrophils Absolute Auto 7.6 x10*3/uL (2.0-8.3); Neutrophils Percent Auto 63.9 % (45-73); Platelet Count 230 X10*3/uL (160-400); Red Blood Count 4.99 X10*6/uL (4.60-5.80); Red Cell Distribution Width 14.4 % (11.0-16.0); White Blood Count 11.9 X10*3/uL (4.8-10.8)
[2023-04-14 18:07] LABS: Alanine Aminotransferase 36 U/L (0-40); Albumin Level 4.1 g/dL (3.5-5.0); Anion Gap 11 (12-20); Aspartate Amino Transferase 26 U/L (5-37); Bilirubin Total 0.5 mg/dL (0.0-1.0); Blood Urea Nitrogen 28 mg/dL (9-16); Calcium 9.5 mg/dL (8.4-10.2); Carbon Dioxide 32 mmol/L (22-29); Chloride 97 mmol/L (96-108); Cholesterol 135 mg/dL (<200); Estimated Glomerular Filt Rate 50; Glucose Random 96 mg/dL (60-115); HDL Cholesterol 53 mg/dL (>40); Potassium 3.8 mmol/L (3.3-5.1); Sodium 136 mmol/L (135-145); Triglycerides 86 mg/dL (<150)
[2023-04-14 18:08] LABS: Alkaline Phosphatase 89 U/L (39-117); LDL Cholesterol Calculated 65 mg/dL (<100)
[2023-04-14 18:14] LABS: Creatinine Urine 63.66 mg/dL; Microalbum/Creatinine Ratio Ur 9.4 ug/mg cr (<30)
[2023-04-15 05:27] LABS: Estimated Average Glucose 123 mg/dL; Hemoglobin A1c % 5.9 % (<6.0)
== END 2023-04-14 15:38 | disposition home or self-care (01) ==
LOC: HO.LAB 15:37
PROVIDERS: PCP Internal Medicine; Visit Provider Internal Medicine
DX: E11.9 Type 2 diabetes mellitus without complications (principal); I10 Essential (primary) hypertension; N18.9 Chronic kidney disease, unspecified; R97.20 Elevated prostate specific antigen [PSA]; K21.9 Gastro-esophageal reflux disease without esophagitis; K57.90 Diverticulosis of intestine, part unspecified, without perforation or abscess without bleeding; Z12.5 Encounter for screening for malignant neoplasm of prostate
CPT/HCPCS: 36415; 80053; 80061; 82043; 82570; 83036; 84153; 85025

== ENCOUNTER 2023-05-04 13:18 | Outpatient (AMB) | payer MEDICARE, SELFPAY ==
[2023-05-04 13:28] VITALS: BP 140/70; PULSE 91; BMI 26.0
--- NOTE | 2023-05-04 13:28 | MHC.OFFVIS ---
Intake Vital Signs 05/04/23 13:28 Height 5 ft 8 in Weight 171 lb 1.259 oz BMI 26.0 BP 140/70 H Blood Pressure Location Lt brachial Position Sitting Pulse 91 Intake Visit Reasons: 6 mthf/up Intake Note: pt its in the office today for a 6monht f/up pt states that he its feeling good. 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 Required: No Accompanied by: Self / Same As Patient Allergies latex Allergy (Unknown, Uncoded 08/26/22 14:36) uknown sulfa Allergy (Unknown, Uncoded 08/26/22 14:36) hives Medication List - Last Reconciled 05/04/23 by Ki Connelly MD aspirin (Adult Low Dose Aspirin) 81 mg PO DAILY atorvastatin 80 mg PO DAILY 90 days carvedilol 12.5 mg PO BID 90 days celecoxib (Celebrex) 200 mg PO BID diazepam 2.5 mg PO BEDTIME docusate sodium 100 mg PO BID gabapentin 600 mg PO TID glipizide ER 2.5 mg PO DAILY hydralazine 25 mg PO BID hydrochlorothiazide 12.5 mg PO DAILY losartan 100 mg PO DAILY venlafaxine ER (Effexor XR) 150 mg PO BID vitamin B complex (B Complex-Vitamin B12 tablet) 1 tab PO DAILY HPI HPI Comments History of Present Illness Details 78-year-old gentleman here for follow-up. He underwent cardiac catheterization and ostial LAD PCI with rotablation and drug-eluting stent. He also has background of hypertension. 05/04/2023: He returns for follow-up. He has been swimming more than 100 laps 3 times a week. No chest discomfort with exercise. He gets some pains on the side of his chest which are very different from his anginal discomfort. These are musculoskeletal pains. His blood pressure initially was 140/70 but repeat blood pressure manually is 132/70. He has been taking his medications regularly. Overall clinically stable. His labs were reviewed and in March 2023 he had lipid panel which showed total cholesterol of 135, triglyceride 86, LDL 65 and HDL 53. He is at target for LDL less than 70. [facility], [facility] Surgical History History of back surgery H/O heart artery stent History of orchiectomy History of knee surgery H/O hernia repair Family History Father CVD (cardiovascular disease) Mother Pancreatic cancer Social History Alcohol intake: current Alcohol intake frequency: holidays/special occasions only Patient Tobacco Use Status: Never used Tobacco Review of Systems Const Denies chills, Denies fatigue, Denies fever(s), Denies frequent falls, Denies weakness, Denies weight gain and Denies weight loss ENT Denies dizziness Card Denies chest pain, Denies leg edema, Denies lightheadedness, Denies palpitations, Denies dyspnea and Denies dyspnea on exertion Resp Denies cough, Denies dyspnea and Denies dyspnea on exertion GI Denies hematochezia Musc Denies abnormal gait, Denies muscle weakness, Denies numbness, Denies radiating pain into limb and Denies tingling Neuro Denies abnormal gait, Denies dizziness, Denies frequent falls, Denies numbness, Denies tingling and Denies weakness Endo Denies fatigue and Denies palpitations Physical Exam Vital Signs: BMI result Body Mass Index 26.0 GENERAL APPEARANCE: in no acute distress, pleasant. NECK: no carotid bruit, no jugular venous distention. SKIN: no suspicious lesions, warm and dry. HEART: no murmurs, regular rate and rhythm. LUNGS: clear to auscultation bilaterally. ABDOMEN: soft, nontender. EXTREMITIES: no edema. PERIPHERAL PULSES: equal. NEUROLOGIC: No gross deficits, AAO X 3 Office Procedures EKG Details: Sinus rhythm 91 beats per minute, left axis deviation, QTC 410 milliseconds. [id number], Complete Assessment & Plan Assessment & Plan (1) Stable angina: Code(s): I20.8 - Other forms of angina pectoris (2) Essential hypertension: Comment: Stable Code(s): I10 - Essential (primary) hypertension Plan Pleasant 78-year-old gentleman who is here for follow-up. He has known history of coronary disease with previous LAD PCI with rotablation. Clinically has been stable and doing well and has no exertional symptoms and is an avid swimmer 3 times a week. Blood pressure control is good. LDL is at target of less than 70. I think clinically he is doing quite well. He will follow-up with us in 6 months. Thank you for allowing me to participate in the care of your patient. Please feel free to contact me if you have any questions. Coding Level of Care Code Est Pt Level 4 (27273) Diagnoses Stable angina I20.8 Essential hypertension I10 CPT Codes EKG - CPT: 32245-[id number], Complete ([id number])
== END 2023-05-04 14:02 | disposition home or self-care (01) ==
PROVIDERS: PCP Internal Medicine; Visit Provider Internal Medicine Cardiovascular Disease
DX: I20.8 Other forms of angina pectoris (principal); I10 Essential (primary) hypertension
CPT/HCPCS: 93010; 99214

== ENCOUNTER → 2023-05-04 13:18 | Outpatient (BNVA) | payer MEDICARE, SELFPAY | PROVIDERS: PCP Internal Medicine; Visit Provider Internal Medicine Cardiovascular Disease | DX: I20.89 Other forms of angina pectoris (principal); I10 Essential (primary) hypertension | CPT/HCPCS: 93005; 99212 ==

== ENCOUNTER 2023-07-15 10:54 | Outpatient (REF) | payer MEDICARE, SELFPAY ==
--- NOTE | ~2023-07-15 | XR_ITS ---
EXAMINATION: XR CHEST CLINICAL INFORMATION: Patient states cough for 3 weeks. COMPARISON: 02/23/2023. TECHNIQUE: 2 views of the chest were obtained. FINDINGS: There is no gross pneumothorax. Cervical spinal hardware partially imaged. Dextroscoliosis of the thoracic spine. Heart size is normal. Persistent moderate left lower lobe opacity shows some interval improvement, suggesting improving pneumonia. No gross pleural effusion. XR/XR chest 2V IMPRESSION: Persistent moderate left lower lobe opacity shows some interval improvement, suggesting improving pneumonia.
== END 2023-07-15 10:55 | disposition home or self-care (01) ==
LOC: HO.XRAY 10:54
PROVIDERS: PCP Internal Medicine; Visit Provider Internal Medicine
DX: R05.9 Cough, unspecified (principal); R09.89 Other specified symptoms and signs involving the circulatory and respiratory systems
CPT/HCPCS: 71046

== ENCOUNTER 2023-07-20 14:23 | Outpatient (REF) | payer MEDICARE, SELFPAY ==
--- NOTE | ~2023-07-20 | CT_ITS ---
EXAMINATION: CT CHEST WITHOUT CONTRAST CLINICAL INFORMATION: Left lower lobe scarring. COMPARISON: Chest radiograph 07/15/2023: Persistent moderate left lower lobe opacity shows some interval improvement, suggesting improving pneumonia. CT chest 02/26/2021. TECHNIQUE: Multidetector volumetric CT imaging of the chest was done. Axial MIP volume rendering provided. Sagittal and coronal reformatted images were obtained. This CT examination was performed using dose optimization techniques as appropriate, variously including the following: *Automated exposure control *Adjustment of mA and/or kV according to patient size (this includes techniques or standardized protocols for targeted exams where dose is matched to indication/reason for exam; i.e. extremities or head) *Use of iterative reconstruction technique DLP: 160 mGy-cm. FINDINGS: LUNGS: Mild emphysematous changes are present. Moderate bronchial thickening is present, especially in the left lower lobe, with left lower lobe bronchial occlusion and dense left lower lobe consolidation, with some traction bronchiectasis. In 2020, multiple areas of bronchial inspissation were present along with tree-in-bud opacities, but the dense consolidation was not seen. Scattered ground-glass opacities are seen, some unchanged (for example, 1.3 cm right upper lobe 11:53, compare prior 7:171). Multiple new ground-glass opacities are present in the right middle lobe and lingula as well as in the right lower lobe (Dooley images have been saved). MEDIASTINUM: The mediastinum is normal. CORONARY ARTERY CALCIFICATION: Extensive. PLEURA: There is no pleural effusion. No pleural mass or thickening. AXILLA: No lymphadenopathy. UPPER ABDOMEN: Moderate-sized hiatal hernia is present. OSSEOUS STRUCTURES: Unremarkable. CT/CT chest wo IV con IMPRESSION: 1. Dense left lower lobe consolidation with bronchial occlusion and traction bronchiectasis. With multiple new ground-glass opacities in the right middle lobe, lingula and right lower lobe. Findings consistent with inflammatory/infectious disease 2. Moderate-sized hiatal hernia. 3. Mild emphysematous changes. Fleischner guidelines were followed.
== END 2023-07-20 14:24 | disposition home or self-care (01) ==
LOC: HO.CT 14:23
PROVIDERS: PCP Internal Medicine; Visit Provider Internal Medicine
DX: J84.10 Pulmonary fibrosis, unspecified (principal)
CPT/HCPCS: 71250

== ENCOUNTER 2023-09-12 01:50 | Emergency (ER) | payer MEDICARE, SELFPAY ==
[2023-09-12 01:53] VITALS: BP 152/68; PULSE 75; RESP 18; TEMP 36.4; O2SAT 89; BMI 23.9
--- NOTE | 2023-09-12 02:04 | PC.NURSE ---
maritime guard visable in triage in the back of the pt throat. Dr Estrada seen pt and removed the over 20 year old bite block.
--- NOTE | 2023-09-12 02:05 | ED.SKABFB ---
HPI - Skin/Abscess/Foreign Bdy General Chief complaint: Skin/Abscess/Foreign Body Stated complaint: swallowed deputy building guard Time Seen by Provider: 09/12/23 02:04 Source: patient Mode of arrival: ambulatory Limitations: no limitations History of Present Illness ED Provider: ADELAIDA HPI narrative: Patient wears deputy building guard apparently while sleeping swallowed the upper deputy building guard lodged in his throat no shortness of breath Related Data Home Medications ?Medication ?Instructions ?Recorded ?Confirmed aspirin 81 mg tablet,delayed 81 mg PO DAILY 05/28/20 05/04/23 release (Adult Low Dose Aspirin) docusate sodium 100 mg capsule 100 mg PO BID 05/28/20 05/04/23 losartan 100 mg tablet 100 mg PO DAILY 05/28/20 05/04/23 venlafaxine 150 mg 150 mg PO BID 05/28/20 05/04/23 capsule,extended release 24 hr (Effexor XR) diazepam 5 mg tablet 2.5 mg PO BEDTIME 07/17/20 05/04/23 celecoxib 100 mg capsule (Celebrex) 200 mg PO BID 11/20/20 05/04/23 glipizide 2.5 mg tablet, extended 2.5 mg PO DAILY 01/18/22 05/04/23 release 24 hr hydralazine 25 mg tablet 25 mg PO BID 01/18/22 05/04/23 hydrochlorothiazide 12.5 mg tablet 12.5 mg PO DAILY 01/18/22 05/04/23 vitamin B complex (B 1 tab PO DAILY 01/18/22 05/04/23 Complex-Vitamin B12 tablet) gabapentin 300 mg capsule 600 mg PO TID 08/26/22 05/04/23 Previous Rx's ?Medication ?Instructions ?Recorded atorvastatin 80 mg tablet 80 mg PO DAILY 90 days #90 tabs 03/24/20 carvedilol 12.5 mg tablet 12.5 mg PO BID 90 days #180 tabs 07/27/21 Allergies Allergy/AdvReac Type Severity Reaction Status Date / Time latex Allergy Unknown uknown Uncoded 09/12/23 01:55 sulfa Allergy Unknown hives Uncoded 09/12/23 01:55 Review of Systems Review of Systems: Yes all other systems are reviewed and are negative PMFSH Past Medical History Surgical History History of back surgery H/O heart artery stent History of orchiectomy History of knee surgery H/O hernia repair Family History Family History Father CVD (cardiovascular disease) Mother Pancreatic cancer Social History Social History Alcohol intake: never Patient Tobacco Use Status: Never used Tobacco Smoked in Last 30 Days: No Use of substances other than those prescribed or required for medical reasons: No Advance Directives: No Advance Directives Information Provided: Yes Do you have a plan to hurt others: No Plan Physical Exam Vital Signs: Vital Signs: Last Vital Signs Temp 97.6 F 09/12/23 02:13 Pulse 75 09/12/23 02:13 Resp 18 09/12/23 02:13 BP 152/68 H 09/12/23 02:13 Pulse Ox 98 09/12/23 02:13 O2 Del Method Room Air 09/12/23 02:13 BMI result Body Mass Index 23.9 Appearance: Alert. Oriented X3. No acute distress. ENT: deputy building guard in the oropharynx Oral Mucosa moist Neck: Normal inspection. Neck supple. CVS: Normal heart rate and rhythm. Pulses normal. Respiratory: No respiratory distress. Equal air entry bilateral, Abdomen: Soft and nontender. Bowel sounds are present, no mass palpable, no CVA tenderness Medical Decision Making Medical Decision Making MDM Narrative: Using Tanesha clamps foreign body deputy building guard was removed easily patient feels much better back to normal will discharge him on Discharge Plan Discharge Clinical Impression: Foreign body in throat Patient Disposition: Home, Self-Care Instructions: Foreign Body Ingestion (ED) Additional Instructions: Change your mouth guards to soft one Prescriptions: No Action atorvastatin 80 mg tablet 80 mg PO DAILY 90 Days Qty: 90 3RF carvedilol 12.5 mg tablet 12.5 mg PO BID 90 Days Qty: 180 2RF Rx Instructions: must administer with a meal/food aspirin [Adult Low Dose Aspirin] 81 mg tablet,delayed release (DR/EC) 81 mg PO DAILY venlafaxine [Effexor XR] 150 mg capsule,extended release 24hr 150 mg PO BID losartan 100 mg tablet 100 mg PO DAILY docusate sodium 100 mg capsule 100 mg PO BID diazepam 5 mg tablet 2.5 mg PO BEDTIME celecoxib [Celebrex] 100 mg capsule 200 mg PO BID hydrochlorothiazide 12.5 mg tablet 12.5 mg PO DAILY hydralazine 25 mg tablet 25 mg PO BID glipizide 2.5 mg tablet extended release 24hr 2.5 mg PO DAILY vitamin B complex [B Complex-Vitamin B12] Tablet 1 tab PO DAILY gabapentin 300 mg capsule 600 mg PO TID Interventions: ED Discharge Assessment Last Done: 09/12/23 02:13 Discharge Date/Time: 09/12/23 02:15 Print Language: Somali
[2023-09-12 02:13] VITALS: BP 152/68; PULSE 75; RESP 18; TEMP 36.4; O2SAT 98
== END 2023-09-12 02:15 | disposition home or self-care (01) ==
PROVIDERS: Emergency Provider Internal Medicine; PCP Internal Medicine
DX: T17.298A Other foreign object in pharynx causing other injury, initial encounter (principal); T17.208A Unspecified foreign body in pharynx causing other injury, initial encounter; W44.9XXA Unspecified foreign body entering into or through a natural orifice, initial encounter; Y93.9 Activity, unspecified; Y92.9 Unspecified place or not applicable; Y99.8 Other external cause status; Z79.899 Other long term (current) drug therapy
CPT/HCPCS: 42809; 99283; 99284

== ENCOUNTER 2023-12-19 15:19 | Outpatient (AMB) | payer MEDICARE, SELFPAY ==
[2023-12-19 15:23] VITALS: BP 124/72; PULSE 71; BMI 24.3
--- NOTE | 2023-12-19 15:23 | MHC.OFFVIS ---
Vital Signs 12/19/23 15:23 Height 5 ft 9 in Weight 164 lb 7.437 oz BMI 24.3 BP 124/72 Blood Pressure Location Lt brachial Position Sitting Pulse 71 Pulse Source Pulse Oximeter Intake Visit Reasons: 6 m follow up Intake Note: 6 mth f/up Senior Care Assistant Required: No Accompanied by: Self / Same As Patient Allergies latex Allergy (Unknown, Uncoded 09/12/23 01:55) uknown sulfa Allergy (Unknown, Uncoded 09/12/23 01:55) hives Medication List - Last Reconciled 12/19/23 by Ki Connelly MD aspirin (Adult Low Dose Aspirin) 81 mg PO DAILY atorvastatin 80 mg PO DAILY 90 days carvedilol 12.5 mg PO BID 90 days celecoxib (Celebrex) 200 mg PO BID diazepam 2.5 mg PO BEDTIME docusate sodium 100 mg PO BID gabapentin 600 mg PO TID glipizide ER 2.5 mg PO DAILY hydralazine 25 mg PO BID hydrochlorothiazide 12.5 mg PO DAILY losartan 100 mg PO DAILY venlafaxine ER (Effexor XR) 150 mg PO BID vitamin B complex (B Complex-Vitamin B12 tablet) 1 tab PO DAILY HPI Comments Details: 78-year-old gentleman here for follow-up. He underwent cardiac catheterization and ostial LAD PCI with rotablation and drug-eluting stent. He also has background of hypertension. 05/04/2023: He returns for follow-up. He has been swimming more than 100 laps 3 times a week. No chest discomfort with exercise. He gets some pains on the side of his chest which are very different from his anginal discomfort. These are musculoskeletal pains. His blood pressure initially was 140/70 but repeat blood pressure manually is 132/70. He has been taking his medications regularly. Overall clinically stable. His labs were reviewed and in March 2023 he had lipid panel which showed total cholesterol of 135, triglyceride 86, LDL 65 and HDL 53. He is at target for LDL less than 70. 12/19/2023: He is here for follow-up. Blood pressure is well controlled. Denying any anginal symptoms. He had severe pneumonia in 07/16/2023 and was on multiple antibiotic courses. He has seen his research program assistant and also had bronchoscopy performed. He is saying he has recovered and is back to his normal self and has started swimming recently. [facility] Surgical History History of back surgery H/O heart artery stent History of orchiectomy History of knee surgery H/O hernia repair Family History Father CVD (cardiovascular disease) Mother Pancreatic cancer Social History Alcohol intake: never Patient Tobacco Use Status: Never used Tobacco Review of Systems Const Denies chills, Denies fatigue, Denies fever(s), Denies frequent falls, Denies weakness, Denies weight gain and Denies weight loss ENT Denies dizziness Card Denies chest pain, Denies leg edema, Denies lightheadedness, Denies palpitations, Denies dyspnea and Denies dyspnea on exertion Resp Denies cough, Denies dyspnea and Denies dyspnea on exertion GI Denies hematochezia Musc Denies abnormal gait, Denies muscle weakness, Denies numbness, Denies radiating pain into limb and Denies tingling Neuro Denies abnormal gait, Denies dizziness, Denies frequent falls, Denies numbness, Denies tingling and Denies weakness Endo Denies fatigue and Denies palpitations Physical Exam Vital Signs: Last Vital Signs Pulse 71 12/19/23 15:23 BP 124/72 12/19/23 15:23 BMI result Body Mass Index 24.3 GENERAL APPEARANCE: in no acute distress, pleasant. NECK: no carotid bruit, no jugular venous distention. SKIN: no suspicious lesions, warm and dry. HEART: no murmurs, regular rate and rhythm. LUNGS: clear to auscultation bilaterally. ABDOMEN: soft, nontender. EXTREMITIES: no edema. PERIPHERAL PULSES: equal. NEUROLOGIC: No gross deficits, AAO X 3 Assessment & Plan Assessment & Plan (1) Stable angina: Code(s): I20.8 - Other forms of angina pectoris Category: Medical (2) Essential hypertension: Comment: Stable Code(s): I10 - Essential (primary) hypertension Category: Medical Plan [age] year gentleman who is here for follow-up. He has known history of coronary artery disease with previous ostial LAD PCI with rotablation. Blood pressure is well controlled. Clinically stable and has no anginal symptoms. Continue same medications for now. If he has any anginal symptoms then we will consider further workup. My inclination will be repeat angiography in that case. Thank you for allowing me to participate in the care of your patient. Please feel free to contact me if you have any questions. Coding Level of Care Code Est Pt Level 4 (48368) Diagnoses Stable angina I20.8 Essential hypertension I10
== END 2023-12-19 15:46 | disposition home or self-care (01) ==
PROVIDERS: PCP Internal Medicine; Visit Provider Internal Medicine Cardiovascular Disease
DX: I20.89 Other forms of angina pectoris (principal); I10 Essential (primary) hypertension
CPT/HCPCS: 99214

== ENCOUNTER → 2023-12-19 15:19 | Outpatient (BNVA) | payer MEDICARE, SELFPAY | PROVIDERS: PCP Internal Medicine; Visit Provider Internal Medicine Cardiovascular Disease | DX: I20.89 Other forms of angina pectoris (principal); I10 Essential (primary) hypertension | CPT/HCPCS: 99212 ==

== ENCOUNTER 2024-08-06 13:52 | Outpatient (AMB) | payer MEDICARE, SELFPAY ==
--- OUTSIDE RECORDS SUMMARY | 2024-08-06 14:09 | XMS_ITS | Patient Health Record ---
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 Name Role Phone Sukumar Beltran MD Primary Care Provider Meghana De La Rosa Unavailable [phone] Gaby Schneider Unavailable [phone] Allergies Allergen (clinical drug ingredient) Drug/Non Drug Allergy documented on EMR Reaction Allergy Type Onset Date Status sulfamethoxazole / trimethoprim Bactrim hives, swelling Drug Allergy Active Latex Latex skin irritation Allergy Acti ve Results Component Value Reference Range Notes HEMOGLOBIN A1C (GLYCOHEMOGLO BIN) Reviewed date:04/02/2024 08:05:35 AM Interpretation: Performing Lab: Notes/Report: HEMOGLOBIN A1C % (HH) 6.4 HEMOGLOBIN A1C (GLYCOHEMOGLO BIN) Reviewed date:04/26/2024 03:04:52 PM Interpretation: Performing Lab: Notes/Report: HEMOGLOBIN A1C % (HH) 5.7 HEMOGLOBIN A1C (GLYCOHEMOGLO BIN) Reviewed date:01/23/2024 03:14:07 PM Interpretation: Performing Lab: Notes/Report: TOTAL HEMOGLOBIN (HGBA1C) 6.4 Reason For Referral No Information Medications Medication SIG (Take, Route, Frequency, Duration) Notes Start Date End Date Status Ammonium Lactate 12 % 1 application Externally to affected areas of dry skin to feet except for between the toes Twice a day for 30 days Active diazePAM 5 MG Orally Active Atorvastatin Calcium 20 MG 1 tablet Oral ly Once a day for 30 day(s) Not-Taking Gabapentin 300 MG Orally 4 tabs daily Active Effexor XR 150 MG 1 capsule with food Orally Once a day for 30 day(s) Not-Taking Losartan Potassium 100 MG as directed Orally Active Cipro 500 MG 1 tablet Orally every 12 hrs for 7 days 08/28/2018 Not-Taking Atorvastatin Calcium 80 MG Orally Active Doxycycline Hyclate 100 MG 1 capsule Ora lly Twice a day for 7 days 08/22/2018 Not-Taking Ciclopirox Olamine 0.77 % 1 application to affected area Externally Twice a day for 14 days Not-Taking Ciclopirox Olamine 0.77 % 1 application to affected area Externally to feet Twice a day for 30 days Not-Taking Effexor 150 mg BID Active Carvedilol 12.5 MG as directed Orally Active Ciclopirox Olamine 0.77 % 1 application to affected area Externally to feet Twice a day for 30 days Not-Taking Aspirin 81 MG Orally Active Melatonin 3 MG 1 tablet at bedtime as needed Orally Once a day for 30 day(s) Active Lisinopril 10 MG 1 tablet Orally Once a day Not-Taking Celecoxib 200 MG 1 capsule with food Orally Once a day for 30 day(s) Active Cipro 500 MG 1 tablet Orally every 12 hrs for 10 days 11/15/2018 Not-Taking flonase PRN Active Iron Not-Taking Mucinex 600 MG 1 tablet as needed Orally every 12 hrs Active Brilinta 90 MG Orally Twice a day Not-Taking hydrALAZINE HCl 25 MG 1 tablet with food Orally Three times a day Active Clotrimazole-Betamethasone 1-0.05 % APPLY TOPICALLY TO THE AFFECTED AREA ON FEET TWICE DAILY. for 30 Not-Taking glipiZIDE Active Ammonium Lactate 12 % 1 application to affected area Externally to feet Once a day for 30 days Not-Taking OT Refurbishment Refurbish with full length extensions Hammertoes and pes planus b/l 12/15/2018 Not-Taking Vitamin B12 Active Betamethasone Dipropionate Aug 0.05 % 1 application to affected area Externally Once a day for 30 days 12/27/2018 Not-Taking Meloxicam 15 MG 1 tablet Orally Once a day for 30 day(s) Not-Taking Stool Softener Not-T aking clonazePAM 1 MG 1 tablet Orally Once a day Not-Taking Citrucel Active MiraLax Active Spironolactone 25 MG 1 tablet Orally Active amLODIPine Besylate 5 MG Orally Not-Taking Trelegy Ellipta Acti ve Move Free Joint Health Advance Not-Taking hydroCHLOROthiazide 12.5 MG as directed Orally Once a day for 30 days Not-Taking Stool Softener 100 MG 1 capsule as neede d Orally Once a day Not-Taking Wixela Inhub 100-50 MCG/DOSE 1 puff Inha lation Twice a day Not-Taking OT Refurbishment Refurbish with full length extensions 04/26/2017 Not-Taking Tylenol Active Gabapentin 300mg three times a day orally daily Not-Taking Tinactin 1 % 1 application Externally Once a day 12/06/2022 Active diazePAM 5 MG 1 tablet as needed Orally Twice a day Not-Taking Immunizations Vaccine Route Administration Date Status Comme nts Influenza Unknown 11/28/2017 Administered Influenza Unknown 11/26/2021 Administered Influenza Unknown 12/27/2022 Administered Social History Tobacco Use: Social History Observation Description Date Details (start date - stop date) Never Smoker NA - NA Tobacco Use/Smoking Question Answer Notes Are you a: nonsmoker Additional Findings: Tobacco Non-User Current no n-smoker Alcohol Screen Question Answer Notes Did you have a drink contain ing alcohol in the past year? Yes How often did you have a dri nk containing alcohol in the past year? Monthly or less (1 point) How many drinks did you have on a typical day when you were drinking in the past year? 1 or 2 drinks (0 point) How often did you have 6 or more drinks on one occasion in the past year? Never (0 point) Points 1 Interpretation Negative Tobacco use other than smoking: Question Answer Notes Are you an other tobacco user? No Problems Problem Type SNOMED Code ICD Code Onset Dates Problem Status W/U Status Risk Notes Problem Acquired hammer toe of right foot (2526491934212726) Other hammer toe(s) (acquired), right foot (M20.41) Active confirmed Problem Acquired hammer toe of left foot (6059766172405621) Other hammer toe(s) (acquired), left foot (M20.42) Active confirmed Problem Acquired hallux valgus (07314020) Hallux valgus (acquired), left foot (M20.12) Active confirmed Problem Type II diabetes mellitus without complication (980451853) Type 2 diabetes mellitus without complications (E11.9) Active confirmed Problem Raynaud's disease (805363653) Raynaud's disease without gangrene (I73.00) Active confirmed Problem Localized, primary osteoarthritis of the ankle and/or foot () Osteoarthritis of left ankle and foot (M19.072) Active confirmed Problem Atherosclerosis of grindstone arteries of the extremities (577632436470156) Atherosclerosis of grindstone artery of both lower extremities, with unspecified presence of clinical manifestation (I70.203) Active confirmed Q7(A), Q8(2B), Q9(1B,2 C) Problem Pronation of foot (36908037) 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) Active confirmed Problem Localized, primary osteoarthritis of the ankle and/or foot () Arthritis of joint of lesser toe, left (M19.072) Active confirmed Problem Localized, primary osteoarthritis of the ankle and/or foot () Arthritis of joint of lesser toe, right (M19.071) Active confirmed Vital Signs Blood pressure diastolic 70 mm Hg 04/26/2024 Height 5 ft 7 in in 04/26/2024 Blood pressure systolic 126 mm Hg 04/26/2024 Weight 169 lbs 04/26/2024 BMI 26.47 kg/m2 04/26/2024 Procedures Procedure Date Ordered Date Performed Result Body Sit e 74765-BILQXTO NAIL, 6 OR MORE 10/17/2023 N/A 84832-VOFO SKIN LESIONS, OVER 4 10/17/2023 N/A 42259-IVPZJVG NAIL, 6 OR MORE 01/23/2024 N/A 52580-BZNY SKIN LESIONS, OVER 4 01/23/2024 N/A 77308-GRIECSN NAIL, 6 OR MORE 04/26/2024 N/A 66410-FBYE SKIN LESIONS, OVER 4 04/26/2024 N/A Encounters Encounter [facility] Date [facility] [address] 10/17/2023 Meghana Black Tinea unguium B35.1 ; Atherosclerosis of artery of both lower extremities I70.203 ; Pain in right toe(s) M79.674 ; Pain in left toe(s) M79.675 and Type 2 diabetes mellitus without complications E11.9 [facility] [address] 11/07/2023 Meghana Black Pain in right toe(s) M79.674 ; Other hammer toe(s) (acquired), right foot M20.41 ; Pain in left toe(s) M79.675 and Other hammer toe(s) (acquired), left foot M20.[address] [address] 01/23/2024 Meghana Black Tinea unguium B35.1 ; Pain in right toe(s) M79.674 ; Pain in left toe(s) M79.675 ; Other hammer toe(s) (acquired), right foot M20.41 ; Arthritis of joint of lesser toe, right M19.071 ; Other hammer toe(s) (acquired), left foot M20.42 ; Arthritis of joint of lesser toe, left M19.072 ; Subluxation of metatarsophalangeal joint of toe, initial encounter S93.149A ; Atherosclerosis of grindstone artery of both lower extremities, with unspecified presence of clinical manifestation I70.203 and Diabetes mellitus with peripheral vascular disease E11.[address] [address] 04/26/2024 Meghana Black Tinea unguium B35.1 ; Atherosclerosis of grindstone artery of both lower extremities, with unspecified presence of clinical manifestation I70.203 ; Pain in right toe(s) M79.674 ; Pain in left toe(s) M79.675 ; Diabetes mellitus with peripheral vascular disease E11.51 and Xerosis of skin L85.[address] [address] 09/05/2023 Gaby Schneider [address] [address] 11/07/2023 Meghana Doty [address] [address] 07/26/2024 Meghana Doty Assessments Encounter Date Diagnosis (ICD Code) Assessment Notes Treatment Notes Treatment Clinical Notes Section Notes 10/17/2023 Tinea unguium (ICD-1 0 - B35.1) 10/17/2023 Atherosclerosis of artery of both lower extremities (ICD-10 - I70.203) 11/07/2023 Other hammer toe(s) (acquired), right foot (ICD-10 - M20.41) 11/07/2023 Pain in right toe(s) (ICD-10 - M79.674) 01/23/2024 Tinea unguium (ICD-1 0 - B35.1) 01/23/2024 Pain in right toe(s) (ICD-10 - M79.674) 04/26/2024 Tinea unguium (ICD-1 0 - B35.1) 04/26/2024 Atherosclerosis of grindstone artery of both lower extremities, with unspecified presence of clinical manifestation (ICD-10 - I70.203) Q7(A), Q8(2B), Q9(1B,2C) 04/26/2024 Pain in right toe(s) (ICD-10 - M79.674) 01/23/2024 Pain in left toe(s) (ICD-10 - M79.675) 11/07/2023 Pain in left toe(s) (ICD-10 - M79.675) 10/17/2023 Pain in right toe(s) (ICD-10 - M79.674) 10/17/2023 Pain in left toe(s) (ICD-10 - M79.675) 01/23/2024 Other hammer toe(s) (acquired), right foot (ICD-10 - M20.41) 11/07/2023 Other hammer toe(s) (acquired), left foot (ICD-10 - M20.42) 04/26/2024 Pain in left toe(s) (ICD-10 - M79.675) 04/26/2024 Diabetes mellitus wi th peripheral vascular disease (ICD-10 - E11.51) 01/23/2024 Arthritis of joint o f lesser toe, right (ICD-10 - M19.071) 10/17/2023 Type 2 diabetes mellitus without complications (ICD-10 - E11.9) 01/23/2024 Other hammer toe(s) (acquired), left foot (ICD-10 - M20.42) 04/26/2024 Xerosis of skin (ICD -10 - L85.3) 01/23/2024 Arthritis of joint o f lesser toe, left (ICD-10 - M19.072) 01/23/2024 Subluxation of metatarsophalangeal joint of toe, initial encounter (ICD-10 - S93.149A) 01/23/2024 Atherosclerosis of grindstone artery of both lower extremities, with unspecified presence of clinical manifestation (ICD-10 - I70.203) Q7(A), Q8(2B), Q9(1B,2C) 01/23/2024 Diabetes mellitus wi th peripheral vascular disease (ICD-10 - E11.51) Plan Of Treatment Pending Test Test Name Order Date X ray : Foot, left 3V 08/16/2012 40357-IDGOBBM NAIL, 6 OR MORE 02/10/2023 00714-TPNJSST NAIL, 6 OR MORE 05/26/2023 98878-YTMPGHR NAIL, 6 OR MORE 10/17/2023 28123-JPRPUHB NAIL, 6 OR MORE 01/23/2024 52502-ARPRETR NAIL, 6 OR MORE 04/26/2024 60558- Debride <25 sq cm 12/06/2022 83239 I&D ABSCESS- SIMPLE,SINGLE 023 99510-GBDF SKIN LESIONS, OVER 4 10/17/19 24 78076-TTTY SKIN LESIONS, OVER 4 01/23/20 24 72180-FXYR SKIN LESIONS, OVER 4 04/26/19 25 08135-DVJBXFLX OF HEMATOMA/FLUID 019 Next Appt Details Provider Name:Meghana Doty , 10/25/2024 03:00:00 PM, [address] [facility], [place], [address], Insurance Providers Payer Name Payer Address Payer Phone Subscriber Number Group Number Insured Name Patient Relationship to Insured Coverage Start Date Coverage End Date Medicare [facility] [address] [place] [address] [id number] Lazaro Esparza Self - patient is the insured [employer] [address] [place] [address] [id number] Lazaro Esparza Self - patient is the insured Medical (General) History Medical History History ICD Code back, hip, knee pain cholesterol cancer crohns disease depression diabetic high blood pressure raynauds syndrome chronic sinusitis chicken pox measles mumps hepatitis B Joint implants/screws Surgical History Surgery Date(Month/Year) orchiectomy 03/1993 inguinal hernia repair 03/2007 right knee arthroscopy testicular tumor removal cervial spinal fusion 02/2017 laminectomy radiculopathy failed rotator cuff tear repair 02/2016 heart stent 11/2017 spinal stenosis surgery 05/2017 Hospitalization History Reason Date(Month/Year) Manuel and woman 02/2017
--- OUTSIDE RECORDS SUMMARY | 2024-08-06 14:09 | XMS_ITS ---
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 Name Role Phone Ruby MARROQUIN, Sukumar Primary Care Provider Meghana De La Rosa [phone] Encounters Encounter Location Date Provider Diagnosis [address] [address] 07/26/2024 Meghana Doty Plan Of Treatment Next Appt Details Provider Name:Meghana Doty , 10/25/2024 03:00:00 PM, [address] [place], [address], Progress Notes * Lazaro GARCIADOB: [birth year] (79 yo M)Acc No.[id number]:07/26/2024 Progress Note Patient:?Lazaro GARCIA Provider:?Meghana Doty DPM :1945???Age:79 Y???Sex:Male Brock e:07/26/2024 Address:[address] [place] [address] Pcp:Sukumar Beltran MD Subjective: * Chief Complaints: * ??? * Medical History:? Objective: * Vitals:? Assessment: Plan: * Treatment: * Images: * The named appointment provid er may or may not be the originator of this progress note, and it is not deemed complete until electronically signed by the appointment provider. Sign off status: Pending * Provider:?Meghana Doty DPM Date:?2024 Generated for Wero wiggins/Mark/Christina on:?08/06/2024 02:09 PM EDT
--- OUTSIDE RECORDS SUMMARY | 2024-08-06 14:09 | XMS_ITS | Continuity of Care Document ---
Author Organization 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 Name Role Phone Fang Horton Unavailable Unavailable Allergies, Adverse Reactions, Alerts Substance Reaction Status Criticality Sulfa (Sulfonamide Antibiotics) Active No Information Medications Medication Instructions Dosage Effective Dates (start - stop) Status Comments EFFEXOR XR (unknown strength) take 1 capsule by oral route every day with food Not Available - Active MELOXICAM (unknown strength) take 5 milliliter by oral route every day Not Available - Active LISINOPRIL (unknown strength) take 1 tablet by oral route every day Not Available - Active LIPITOR (unknown strength) take 1 tablet by oral route every day Not Available - Active Procedures Procedure Date Office/outpatient visit,new, min 2012 Advance Directives Directive Yes / No Effective Date File Name No Information Encounters Encounter Description Practice Location Reason(s) For Visit Diagnoses Date Provider Office/outpatien t visit,new, min [facility], [address], [place], [id number], tel:[phone] DO IC PS sty in the right eye (chief complaint) [address] [facility], [address], [place], [address]. tel:[phone] Family History Family Member Type Diagnosis Age At Onset No Information Payers Payer name Insurance type Covered republican ID Authoriza tion(s) No Information Social History Type Description Quantity Date Captured Comments Sex Male Smoking Status No Information Vital Signs Date / Time: Height Weight BMI Pulse Rate Blood Pressure Temperature Respiratory Rate Body Surface Area Head Circumference Head Circ. Percentile Wt./Keyur. Percentile BMI percentile Pulse Ox Inhaled Ox 8:19 AM 68.00 in 170.00 lbs 25.8 5 kg/m eter (2) 87 /min 158/96 mm[Hg] 97.50 F 16 /min Chief Complaint And Reason For Visit From encounter dated '06/15/2012 08:45'. sty in the right eye (chief complaint) History Of Present Illness Encounter Date Complaint History Of Prese nt Illness No Information Instructions Date Instruction Additional Infor mation No Information Assessments Type Assessment Date No Information
--- OUTSIDE RECORDS SUMMARY | 2024-08-06 14:09 | XMS_ITS ---
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 Name Role Phone Sukumar Beltran MD Primary Care Provider Meghana De La Rosa Unavailable [phone] Allergies Allergen (clinical drug ingredient) Drug/Non Drug Allergy documented on EMR Reaction Allergy Type Onset Date Status sulfamethoxazole / trimethoprim Bactrim hives, swelling Drug Allergy Active Latex Latex skin irritation Allergy Acti ve REASON FOR VISIT At Risk Footcare, Painful nail(s) aggrevated by shoes causing difficulty standing/walking, Skin problem(s) Medications Medication SIG (Take, Route, Frequency, Duration) Notes Start Date End Date Status Stool Softener 100 MG 1 capsule as neede d Orally Once a day Not-Taking OT Refurbishment Refurbish with full length extensions 04/26/2017 Not-Taking diazePAM 5 MG 1 tablet as needed Orally Twice a day Not-Taking Meloxicam 15 MG 1 tablet Orally Once a day for 30 day(s) Not-Taking clonazePAM 1 MG 1 tablet Orally Once a day Not-Taking Gabapentin 300mg three times a day orally daily Not-Taking Atorvastatin Calcium 20 MG 1 tablet Oral ly Once a day for 30 day(s) Not-Taking Effexor XR 150 MG 1 capsule with food Orally Once a day for 30 day(s) Not-Taking Cipro 500 MG 1 tablet Orally every 12 hrs for 7 days 08/28/2018 Not-Taking Doxycycline Hyclate 100 MG 1 capsule Ora lly Twice a day for 7 days 08/22/2018 Not-Taking Ciclopirox Olamine 0.77 % 1 application to affected area Externally to feet Twice a day for 30 days Not-Taking Lisinopril 10 MG 1 tablet Orally Once a day Not-Taking Cipro 500 MG 1 tablet Orally every 12 hrs for 10 days 11/15/2018 Not-Taking Ciclopirox Olamine 0.77 % 1 application to affected area Externally Twice a day for 14 days Not-Taking Ciclopirox Olamine 0.77 % 1 application to affected area Externally to feet Twice a day for 30 days Not-Taking Iron Not-Taking Brilinta 90 MG Orally Twice a day Not-Taking Clotrimazole-Betamethasone 1-0.05 % APPLY TOPICALLY TO THE AFFECTED AREA ON FEET TWICE DAILY. for 30 Not-Taking Ammonium Lactate 12 % 1 application to affected area Externally to feet Once a day for 30 days Not-Taking Betamethasone Dipropionate Aug 0.05 % 1 application to affected area Externally Once a day for 30 days 12/27/2018 Not-Taking amLODIPine Besylate 5 MG Orally Not-Taking Move Free Joint Health Advance Not-Taking Wixela Inhub 100-50 MCG/DOSE 1 puff Inha lation Twice a day Not-Taking OT Refurbishment Refurbish with full length extensions Hammertoes and pes planus b/l 12/15/2018 Not-Taking Stool Softener Not-T aking hydroCHLOROthiazide 12.5 MG as directed Orally Once a day for 30 days Not-Taking Tylenol Active Tinactin 1 % 1 application Externally Once a day 12/06/2022 Active diazePAM 5 MG Orally Active Gabapentin 300 MG Orally 4 tabs daily Active Effexor 150 mg BID Active Carvedilol 12.5 MG as directed Orally Active Aspirin 81 MG Orally Active Losartan Potassium 100 MG as directed Orally Active Atorvastatin Calcium 80 MG Orally Active Melatonin 3 MG 1 tablet at bedtime as needed Orally Once a day for 30 day(s) Active Celecoxib 200 MG 1 capsule with food Orally Once a day for 30 day(s) Active flonase PRN Active Mucinex 600 MG 1 tablet as needed Orally every 12 hrs Active glipiZIDE Active Citrucel Active MiraLax Active Trelegy Ellipta Acti ve hydrALAZINE HCl 25 MG 1 tablet with food Orally Three times a day Active Vitamin B12 Active Spironolactone 25 MG 1 tablet Orally Active Ammonium Lactate 12 % 1 application Externally to affected areas of dry skin to feet except for between the toes Twice a day for 30 days Active Social History Tobacco Use: Social History Observation Description Date Details (start date - stop date) Never Smoker NA - NA Tobacco Use/Smoking Question Answer Notes Are you a: nonsmoker Additional Findings: Tobacco Non-User Current no n-smoker Tobacco use other than smoking: Question Answer Notes Are you an other tobacco user? No Problems Problem Type SNOMED Code ICD Code Onset Dates Problem Status W/U Status Risk Notes Problem Acquired hammer toe of right foot (9815592467273971) Other hammer toe(s) (acquired), right foot (M20.41) Active confirmed Problem Acquired hammer toe of left foot (3283645799200061) Other hammer toe(s) (acquired), left foot (M20.42) Active confirmed Problem Localized, primary osteoarthritis of the ankle and/or foot (292090092) Arthritis of joint of lesser toe, left (M19.072) Active confirmed Vital Signs Height 5 ft 7 in in 04/26/2024 Weight 169 lbs 04/26/2024 BMI 26.47 kg/m2 04/26/2024 Blood pressure systolic 126 mm Hg 04/26/19 25 Blood pressure diastolic 70 mm Hg 025 Procedures Procedure Date Ordered Date Performed Result Body Sit e 65378-EGZSWKP NAIL, 6 OR MORE 04/26/2024 N/A 95413-LAXG SKIN LESIONS, OVER 4 04/26/2024 N/A Encounters Encounter Location Date Provider Diagnosis [facility] [address] [place] [address] 04/26/2024 Meghana Black Tinea unguium B35.1 ; Atherosclerosis of nenana artery of both lower extremities, with unspecified presence of clinical manifestation I70.203 ; Pain in right toe(s) M79.674 ; Pain in left toe(s) M79.675 ; Diabetes mellitus with peripheral vascular disease E11.51 and Xerosis of skin L85.3 Assessments Encounter Date Diagnosis (ICD Code) Assessment Notes Treatment Notes Treatment Clinical Notes Section Notes 04/26/2024 Tinea unguium (ICD-10 - B35.1) 04/26/2024 Atherosclerosis of nenana artery of both lower extremities, with unspecified presence of clinical manifestation (ICD-10 - I70.203) Q7(A), Q8(2B), Q9(1B,2C) 04/26/2024 Pain in right toe(s) (ICD-10 - M79.674) 04/26/2024 Pain in left toe(s) (ICD-10 - M79.675) 04/26/2024 Diabetes mellitus with peripheral vascular disease (ICD-10 - E11.51) 04/26/2024 Xerosis of skin (ICD-10 - L85.3) Plan Of Treatment Medication Medication Name Sig Start Date Stop Date Notes Ammonium Lactate 12 % 1 application Exte rnally to affected areas of dry skin to feet except for between the toes Twice a day for 30 days Pending Test Test Name Order Date 91345-IGQIIMO NAIL, 6 OR MORE 04/26/2024 03999-ASKT SKIN LESIONS, OVER 4 04/26/19 25 Next Appt Details Follow Up: prn, Reason: Provider Name:Meghana Doty , 10/25/2024 03:00:00 PM, [address] [place] [address], [phone], Procedure Notes * Category Sub-Category Detail Notes Debride Nail 6-10 Nail debridement Due to the cl inical pathology outlined in the exam findings, performance of this nail treatment is medically necessary as its management by an unskilled/untrained nonprofessional would put this patients foot and overall health at risk. Therefore, debridement to affected nail(s), as described in exam ( ,T7, T8, T9, T2, T3, T4, ), was performed exclusively by the physician of record to reduce/remove overall nail length, girth, thickness, subungual debris, and necrotic tissue, by manual and/or electrical means through the use of a nail nipper and/or dremel-type nut grinder, to a more viable healthy nail plate or bed tissue 6-10 nails in total. Silver nitrate was used for any petechial bleeding as necessary. Definitive antifungal treatment options, both pharmaceutical and surgical, have been reviewed and discussed with the patient. The patient solely prefers the use of intermittent/as needed professional debridement services for their nail condition and understands the need for additional periodic treatments to maintain effectiveness in symptomatic relief - 24694 Keratoma Treatment Parring or Cutting o f Benign Hyperkeratotic Lesion(s) (-57) More than 4 Lesions - Due to the at risk nature of the patients medical condition as documented in the exam findings, performance of this keratoderma treatment is medically necessary as its management by an unskilled/untrained nonprofessional would put this patients foot and overall health at risk. Therefore, the benign hyperkeratotic lesions, ( 6 ) in total, locations as stated and described in the exam ( T1, T6, Dorsal, TA, , T5, Midfoot , Left , SUB MTH (s) , 5 , , Left ), were pared, and/or cut utilizing a sterile 15 blade, tissue nippers, and/or power dremel instrumentation by the physician of record - 46539 Progress Notes * Lazaro GARCIADOB: [birth year] (79 yo M)Acc No.[id number]:04/26/2024 Progress Note Patient:?JOSE Lazaro Provider:?Meghana Doty DPM :1945???Age:79 Y???Sex:Male Brock e:04/26/2024 Address:[address] [place], [place] [id number] Pcp:Sukumar Beltran MD Subjective: * Chief Complaints: * ???At Risk FootcarePainful n ail(s) aggrevated by shoes causing difficulty standing/walkingSkin problem(s) * HPI: ???Painful Nails:?Pt States Last PCP Visit:?Date:?01/19/2024 ???At Risk footcare:?Pt States Last PCP Visit:?Date?01/19/2024 ???Skin problems:?Nature:?dryness.?Location:?B/L.?Duration:?several days.?Course:?worse.? * ROS:?General/Constitutional:?Nausea?denies.?Vomiting?denies.?Hunger Thirst?denies.?Loss appetite?denies.?Chills?denies.?Fatigue?denies.?Fever?denies.?Night Sweats?denies.?Unexplained weight loss?denies.?Unexplained weight gain?denies.?HEENTM:?Dentures?denies.?Dizziness?denies.?Glasses/contacts?admits.?Retinopathy?den ies.?Blurred/double vision?denies.?TMJ?denies.?Discharge/drainage?denies.?Implants?denies.?Sore throat?denies.?Dental implants?denies.?Hard of hearing ?denies.?Difficulty chewing/swallowing/speaking?denies.?Nose bleeds?denies.?Sore mouth?denies.?Respiratory:?On O xygen?denies.?Pneumonia/pleurisy?denies.?Bronchitis?denies.?Emphysema?denies.?Co ughing?denies.?Cough blood?denies.?Shortness of breath?denies.?Wheezing?denies.?Cardiovascular:?Pacemaker?denies.?MVP?denies.?WPW?denies.?CHF?denies.?Heart attack?denies.?Septal defect?denies.?Rapid beat?denies.?Chest pain ?denies.?Atrial Fib.?denies.?Murmur/Palpitations?denies.?Gastrointestinal:?Hemorrhoids?denies.?Stomach/Abdominal pain?denies.?Dark blood stool?denies.?Irritable bowel ?denies.?Constipation?denies.?Diarrhea?denies.?Hematology:?Swelling?denies.?Clots?denies.?Varicose Veins?denies.?Bruising?denies.?Bleeding problem?denies.?Genitourinary:?Blood urine?denies.?Frequent/Painfu/urination/bladder control?denies.?Kidney stones?denies.?Infection (UTI)?denies.?Nephropathy?denies.?sex trans dis (STD)?denies.?Prostate?denies.?Musculoskeletal:?Hammertoes?admits.?Bunions?denies.?Back Pain?denies.?Muscle Cramps/ Resting?denies.?Muscle cramps / walking?denies.?Generalized aches and pains?admits.?Weakness?denies.?Integ.:?[place]?denies.?Scars?denies.?Corns/calluses?, admits.?Ingrown nails?denies.?Painful nails?admits.?Open Sores?denies.?Rashes?denies.?Neurologic:?Difficulty sleeping?denies.?Brain disorder?denies.?Numbness?denies.?Balance t rouble?denies.?Confusion?denies.?Fainting/blackouts?denies.?Tingling?denies.?Parker mors?denies.? * Medical History:? * Surgical History:?orchiectom y 03/1993inguinal hernia repair 03/2007right knee arthroscopy testicular tumor removal cervial spinal fusion 02/2017laminectomy radiculopathy failed rotator cuff tear repair 02/2016heart stent 11/2017spinal stenosis surgery 05/2017 * Hospitalization/Major Diagno stic Procedure:?[facility] 02/2017 * Family History:?Mother: dece ased, cancer, foot problems, high blood pressure, arthritis, diagnosed with Other malignant neoplasm of unspecified site.?Father: , foot problems, high blood pressure, arthritis.? * Social History:?Tobacco Use:?Tobacco Use/Smoking?Are you a:?nonsmoker ?Additional Findings: Tobacco Non-User?Current non-smoker ?Tobacco use other than smoking?Are you an other tobacco user??No ???Miscellaneous:?Caffeine: yes, frequency:, 3-5 cups per day. ?Children: no. ?Exercise: yes, swimming, , 3-4 times per week. ?Marital status: . 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 * Medications:?TakingSpironola ctone 25 MG Tablet 1 tablet Orally Trelegy Ellipta Citrucel MiraLax Vitamin B12 hydrALAZINE HCl 25 MG Tablet 1 tablet with food Orally Three times a day glipiZIDE flonase , Notes to Pharmacist: PRNMucinex 600 MG Tablet Extended Release 12 Hour 1 tablet as needed Orally every 12 hrs Melatonin 3 MG Tablet 1 tablet at bedtime as needed Orally Once a day Celecoxib 200 MG Capsule 1 capsule with food Orally Once a day Carvedilol 12.5 MG Tablet as directed Orally Aspirin 81 MG Tablet Delayed Release Orally Effexor 150 mg BID Losartan Potassium 100 MG Tablet as directed Orally Atorvastatin Calcium 80 MG Tablet Orally diazePAM 5 MG Tablet Orally Gabapentin 300 MG Capsule Orally 4 tabs daily Tylenol Tinactin 1 % Aerosol Powder 1 application Externally Once a day Taking Spironolactone 25 MG Tablet 1 tablet Orally Taking Trelegy Ellipta Taking Citrucel Taking MiraLax Taking Vitamin B12 Taking hydrALAZINE HCl 25 MG Tablet 1 tablet with food Orally Three times a day Taking glipiZIDE Taking flonase , Notes to Pharmacist: PRNTaking Mucinex 600 MG Tablet Extended Release 12 Hour 1 tablet as needed Orally every 12 hrs Taking Melatonin 3 MG Tablet 1 tablet at bedtime as needed Orally Once a day Taking Celecoxib 200 MG Capsule 1 capsule with food Orally Once a day Taking Carvedilol 12.5 MG Tablet as directed Orally Taking Aspirin 81 MG Tablet Delayed Release Orally Taking Effexor 150 mg BID Taking Losartan Potassium 100 MG Tablet as directed Orally Taking Atorvastatin Calcium 80 MG Tablet Orally Taking diazePAM 5 MG Tablet Orally Taking Gabapentin 300 MG Capsule Orally 4 tabs daily Taking Tylenol Taking Tinactin 1 % Aerosol Powder 1 application Externally Once a day Not-Taking/PRNhydroCHLOROthiazide 12.5 MG Tablet as directed Orally Once a day Wixela Inhub 100-50 MCG/DOSE Aerosol Powder Breath Activated 1 puff Inhalation Twice a day amLODIPine Besylate 5 MG Tablet Orally Move Free [facility] Advance Stool Softener OT Refurbishment Refurbish with full length extensions Hammertoes and pes planus b/l Betamethasone Dipropionate Aug 0.05 % Cream 1 application to affected area Externally Once a day Clotrimazole-Betamethasone 1-0.05 % Cream APPLY TOPICALLY TO THE AFFECTED AREA ON FEET TWICE DAILY. Ammonium Lactate 12 % Cream 1 application to affected area Externally to feet Once a day Iron Brilinta 90 MG Tablet Orally Twice a day Lisinopril 10 MG Tablet 1 tablet Orally Once a day Cipro 500 MG Tablet 1 tablet Orally every 12 hrs Ciclopirox Olamine 0.77 % Cream 1 application to affected area Externally to feet Twice a day Ciclopirox Olamine 0.77 % Cream 1 application to affected area Externally Twice a day Ciclopirox Olamine 0.77 % Cream 1 application to affected area Externally to feet Twice a day Cipro 500 MG Tablet 1 tablet Orally every 12 hrs Doxycycline Hyclate 100 MG Capsule 1 capsule Orally Twice a day Atorvastatin Calcium 20 MG Tablet 1 tablet Orally Once a day Effexor XR 150 MG Capsule Extended Release 24 Hour 1 capsule with food Orally Once a day Gabapentin 300mg tablets three times a day orally daily diazePAM 5 MG Tablet 1 tablet as needed Orally Twice a day Stool Softener 100 MG Capsule 1 capsule as needed Orally Once a day OT Refurbishment Refurbish with full length extensions clonazePAM 1 MG Tablet 1 tablet Orally Once a day Meloxicam 15 MG Tablet 1 tablet Orally Once a day Medication List reviewed and reconciled with the patientNot-Taking/PRN hydroCHLOROthiazide 12.5 MG Tablet as directed Orally Once a day Not-Taking/PRN Wixela Inhub 100-50 MCG/DOSE Aerosol Powder Breath Activated 1 puff Inhalation Twice a day Not-Taking/PRN amLODIPine Besylate 5 MG Tablet Orally Not-Taking/PRN Move Free Joint Health Advance Not-Taking/PRN Stool Softener Not-Taking/PRN OT Refurbishment Refurbish with full length extensions Hammertoes and pes planus b/l Not-Taking/PRN Betamethasone Dipropionate Aug 0.05 % Cream 1 application to affected area Externally Once a day Not-Taking/PRN Clotrimazole-Betamethasone 1-0.05 % Cream APPLY TOPICALLY TO THE AFFECTED AREA ON FEET TWICE DAILY. Not-Taking/PRN Ammonium Lactate 12 % Cream 1 application to affected area Externally to feet Once a day Not-Taking/PRN Iron Not-Taking/PRN Brilinta 90 MG Tablet Orally Twice a day Not-Taking/PRN Lisinopril 10 MG Tablet 1 tablet Orally Once a day Not-Taking/PRN Cipro 500 MG Tablet 1 tablet Orally every 12 hrs Not-Taking/PRN Ciclopirox Olamine 0.77 % Cream 1 application to affected area Externally to feet Twice a day Not-Taking/PRN Ciclopirox Olamine 0.77 % Cream 1 application to affected area Externally Twice a day Not-Taking/PRN Ciclopirox Olamine 0.77 % Cream 1 application to affected area Externally to feet Twice a day Not-Taking/PRN Cipro 500 MG Tablet 1 tablet Orally every 12 hrs Not-Taking/PRN Doxycycline Hyclate 100 MG Capsule 1 capsule Orally Twice a day Not-Taking/PRN Atorvastatin Calcium 20 MG Tablet 1 tablet Orally Once a day Not-Taking/PRN Effexor XR 150 MG Capsule Extended Release 24 Hour 1 capsule with food Orally Once a day Not-Taking/PRN Gabapentin 300mg tablets three times a day orally daily Not- Taking/PRN diazePAM 5 MG Tablet 1 tablet as needed Orally Twice a day Not-Taking/PRN Stool Softener 100 MG Capsule 1 capsule as needed Orally Once a day Not-Taking/PRN OT Refurbishment Refurbish with full length extensions Not-Taking/PRN clonazePAM 1 MG Tablet 1 tablet Orally Once a day Not-Taking/PRN Meloxicam 15 MG Tablet 1 tablet Orally Once a day Medication List reviewed and reconciled with the patient * Allergies:?Bactrim: hives, s wellingLatex: skin irritation - Side Effectsyes[Allergies Verified] Objective: * Vitals:?Ht: 5 ft 7 in, Wt: 1 69, BMI: 26.47, Shoe size: 10.5, BP: 126/70 mm Hg, BS: not taken, Ht-cm: 170.18 cm, Wt-k.66 kg. * ???Past Orders: ???Lab:HEMOGLOBIN A1C (GLYCO HEMOGLOBIN) (Order Date - 03/28/2024) (Collection Date & Time - 03/28/2024 03:04 PM) ? Value Reference Range ?HEMOGLOBIN A1C % (HH) 5.7 * Examination: ???Ophthalmology Referral: ?DIABETES EYE EXAM?Procedure Performed:?Yes ?Date of Exam Performed?10/27/2023 ?Findings of Diabetic Eye Exam:?no retinopathy?General Examination: ?GENERAL APPEARANCE:?Reveals a pleasant, alert, well nourished, well- developed, well hydrated individual, who demonstrates proper attention to hygiene/body habitus, and is in no acute distress, Pt serves as own historian for office visit today.?ORIENTED:?person, place, and time.?Nails: ?NAILS are:?Elongated, overgrown, dystrophic, lytic, greater than 3mm thick, discolored and friable with crumbly malodorous subungual debris, with pain on palpation ,T7, T8, T9,?T2, T3, T4,?.?Vascular: ?DP PULSES (B):?2/4, B/L.?PT PULSES (B):?, 1/4 , RIGHT , 0/4 , , LEFT ,.?CAPILLARY FILL TIME:?delayed, all digits, B/L?.?TROPHIC CONDITION-TEXTURE/ELASTICITY/TURGOR/HAIR GROWTH (B):?decreased, fragile, thin, shiny skin, with sparse to absent hair growth, B/L.?TEMPERTURE GRADIENT (C):? decreased, cool to cool, proximal to distal, B/L.?PIGMENTATION:?brawny , B/L?.?EDEMA (C):?3/4 , non-pitting , Left , 2/4 , Right ,?.?CLAUDICATION (C):?denies, B/L.?REST PAIN:?denies, B/L.?PARESTHESIA (C):?absent, B/L.?BURNING (C):?absent, B/L.?Neurological: ?SENSORY:?Neurological exam reveals intact sensorium, pain sensation normal, vibration sensation intact, pinprick sensation is normal in the lower extremities, Pt denies, anesthesia, burning, paresthesia, tingling, B/L ,?.?Dermatologic: ?SKIN FINDINGS:?Skin exam reveals Keratotic lesion(s) located at, T1, T6, Dorsal, TA, , T5, Midfoot , Left , SUB MTH (s) , 5 , , Left , Skin shows sign(s) of, dryness, scaling, in a stocking fashion, no fissure(s) present, B/L.? Assessment: * Assessment: 1.?Tinea unguium - B35.1???2 .?Atherosclerosis of nenana artery of both lower extremities, with unspecified presence of clinical manifestation - I70.203 (Primary)???Notes :Q7(A), Q8(2B), Q9(1B,2C)???3.?Pain in right toe(s) - M79.674???4.?Pain in left toe(s) - M79.675???5.?Diabetes mellitus with peripheral vascular disease - E11.51???6.?Xerosis of skin - L85.3???Specify :Acute problem, Uncomplicated (3),Rx Management (4)??? Plan: * Treatment: 2.?Tinea unguium?Procedure: [id number] NAIL, 6 OR MORE 3.?Xerosis of skin? Start Ammonium Lactate Cream, 12 %, 1 application, Externally to affected areas of dry skin to feet except for between the toes, Twice a day, 30 days, 280, Refills 3.?? * Procedures:?Debride Nail 6-10:?Nail debridement?Due to the clinical pathology outlined in the exam findings, performance of this nail treatment is medically necessary as its management by an unskilled/untrained nonprofessional would put this patients foot and overall health at risk. Therefore, debridement to affected nail(s), as described in exam ( ,T7, T8, T9, T2, T3, T4, ), was performed exclusively by the physician of record to reduce/remove overall nail length, girth, thickness, subungual debris, and necrotic tissue, by manual and/or electrical means through the use of a nail nipper and/or dremel-type nut grinder, to a more viable healthy nail plate or bed tissue 6-10 nails in total. Silver nitrate was used for any petechial bleeding as necessary. Definitive antifungal treatment options, both pharmaceutical and surgical, have been reviewed and discussed with the patient. The patient solely prefers the use of intermittent/as needed professional debridement services for their nail condition and understands the need for additional periodic treatments to maintain effectiveness in symptomatic relief - 78692.?Keratoma Treatment:?Parring or Cutting of Benign Hyperkeratotic Lesion(s)?(-57) More than 4 Lesions - Due to the at risk nature of the patients medical condition as documented in the exam findings, performance of this keratoderma treatment is medically necessary as its management by an unskilled/untrained nonprofessional would put this patients foot and overall health at risk. Therefore, the benign hyperkeratotic lesions, ( 6 ) in total, locations as stated and described in the exam ( T1, T6, Dorsal, TA, , T5, Midfoot , Left , SUB MTH (s) , 5 , , Left ), were pared, and/or cut utilizing a sterile 15 blade, tissue nippers, and/or power dremel instrumentation by the physician of record - 12218.? * Procedure Codes:?24847 DEBRI DE NAIL, 6 OR MORE, Modifiers: XS 55581 TRIM SKIN LESIONS, OVER 4, Modifiers: Q8 * Preventive Medicine:? ??Counseling:?Discussion:?-13: Office or other outpatient visit for the evaluation and management of an established patient, which required a medically appropriate history and/or examination and LOW level of DECISION MAKING for: 1 STABLE ACUTE UNCOMPLICATED PROBLEM, 2 OR MORE MINOR PROBLEMS, OR 1 STABLE CHRONIC PROBLEM, THAT POSE(S) A LOW RISK FOR MORBIDITY/MORTALITY. The visit on the day of the encounter encompassed interpreting the data and educating the patient as to the nature of their condition, treatment options available according to their individual PMH, meds, allergies, and overall health/living conditions, as well as any potential risks or complications that may occur from a failure to adhere to, and participate in, the recommended course of therapy. The discussion included a complete verbal, and/or written explanation of the examination results, any x-rays taken, the proposed diagnosis, and outline of the treatment plan. A schedule for future care needs was also explained. The patient verbalized an understanding of the instructions at this time and agreed to be an active participant in their treatment. If the patient should think of any questions or concerns after the visit, I have encouraged the patient to call the office.?Xerosis:?The patient was counseled on the diagnosis, potential etiologies, and treatment options for their skin condition. We discussed the risks and benefits of each option from performing no treatment, to utilizing OTC topical skin creams/ointments, to utilizing prescription topical creams/ointments, to utilizing customized compounded topical medications and use of nocturnal occlusion with any/all previously detailed therapies. We discussed the advantages and disadvantages of each possible treatment and importance for adherence to all the recommended therapies for optimum success and avoid potential complications such as open sore/infection/possible hospitalization. We discussed the potential effectiveness of each topical preparation as well as each ones possible side effects and/or patient medication interactions. Patient questions re: use, dosage, successful outcomes, and application consistency were reviewed and the patient verbalized that all answers were clearly understood. The patient has decided to apply Rx skin creams to their feet save the interspaces while paying special attention to the heels. Such was sent to their pharmacy at the time of visit.? * Follow Up:?prn * Images: * Sign off status: Completed true * Provider:?Meghana Doty DPM Date:?2024 Generated for Wero wiggins/Mark/Christina on:?08/06/2024 02:09 PM EDT History and Physical Notes * HPI (History of Present Illness) Category Sub-Category Detail Notes Category Not es Painful Nails Pt States Last PCP Visit: Date:: 01/19/2024 Skin problems Nature: dryness Location: B/L Duration: several days Course: worse At Risk footcare Pt States Last PCP Visit: Date: Examination Category Sub-Category Detail Notes Category Not es Neurological SENSORY: Neurological exa m reveals intact sensorium, pain sensation normal, vibration sensation intact, pinprick sensation is normal in the lower extremities, Pt denies, anesthesia, burning, paresthesia, tingling, B/L , TINEL'S COMPRESSION: Dermatologic SKIN FINDINGS: Skin exam reveal s Keratotic lesion(s) located at, T1, T6, Dorsal, TA, , T5, Midfoot , Left , SUB MTH (s) , 5 , , Left , Skin shows sign(s) of, dryness, scaling, in a stocking fashion, no fissure(s) present, B/L General Examination GENERAL APPEARANCE: Reveals a pleasant, alert, well nourished, well-developed, well hydrated individual, who demonstrates proper attention to hygiene/body habitus, and is in no acute distress, Pt serves as own historian for office visit today ORIENTED: person, place, and t krystina Ophthalmology Referral DIABETES EYE EXAM Procedure Perform ed:: Yes ?Date of Exam Performed: 10/27/2023 Findings of Diabetic Eye Exam:: no retin opathy Vascular DP PULSES (B): 2/4, B/L PT PULSES (B): , 1/4 , RIGHT , 0/4 , , LEFT , CAPILLARY FILL TIME: delayed, all digits , B/L TEMPERTURE GRADIENT (C): decreased, cool to cool, proximal to distal, B/L TROPHIC CONDITION-TEXTURE/ELASTICITY/TURGOR/HAIR GROWTH (B): decreased, fragile, thin, shiny skin, wi th sparse to absent hair growth, B/L EDEMA (C): 3/4 , non-pitting , Left , 2/4 , Right , ELEV. PALOR: CLAUDICATION (C): denies, B/L REST PAIN: denies, B/L PIGMENTATION: brawny , B/L PARESTHESIA (C): absent, B/L BURNING (C): absent, B/L Nails NAILS are: Elongated, overg rown, dystrophic, lytic, greater than 3mm thick, discolored and friable with crumbly malodorous subungual debris, with pain on palpation ,T7, T8, T9, T2, T3, T4,
--- OUTSIDE RECORDS SUMMARY | 2024-08-06 14:10 | XMS_ITS ---
Author Organization [facility] Address [address] [place] [address] Care Team Providers Care Sewing Machine Repairer Helper Name Role Phone Sukumar Beltran MD Primary Care Provider Meghana De La Rosa [phone] REASON FOR VISIT SD Reschedule/Cancel Encounters Encounter Location Date Provider Diagnosis [address] [address] 07/26/2024 Meghana Doty Plan Of Treatment Next Appt Details Provider Name:Meghana Canelo Doty , 10/25/2024 03:00:00 PM, [address] [place] [address], [id number], Progress Notes * JOSE LazaroDOB: [birth year] (79 yo M)Acc No.[id number]:07/26/2024 Patient:?JOHNNYHAZELJOAQUIN Lazaro :1945???Age:79 Y???Sex:Male Address:[address] [place] [address] * true * Date:? Generated for Printi ng/Faarchieg/eTransmitting on:?08/06/2024 02:09 PM EDT
--- NOTE | 2024-08-06 14:27 | MHC.OFFVIS ---
Vital Signs 08/06/24 14:28 Height 5 ft 9 in Weight 168 lb 13.985 oz BMI 24.9 BP 130/72 Blood Pressure Location Lt brachial Position Sitting Pulse 75 Pulse Source Monitor Intake Visit Reasons: 6 mth f/up Intake Note: 6 mth f/up Squilgeer Required: No Accompanied by: Self / Same As Patient Allergies latex Allergy (Unknown, Uncoded 09/12/23 01:55) uknown sulfa Allergy (Unknown, Uncoded 09/12/23 01:55) hives Medication List - Last Reconciled 08/06/24 by Ki Connelly MD aspirin (Adult Low Dose Aspirin) 81 mg PO DAILY atorvastatin 80 mg PO DAILY 90 days carvedilol 12.5 mg PO BID 90 days celecoxib (Celebrex) 200 mg PO BID diazepam 2.5 mg PO BEDTIME docusate sodium 100 mg PO BID gabapentin 600 mg PO TID glipizide ER 2.5 mg PO DAILY hydralazine 25 mg PO BID losartan 100 mg PO DAILY omeprazole 20 mg PO DAILY spironolactone 50 mg PO DAILY venlafaxine ER (Effexor XR) 150 mg PO BID vitamin B complex (B Complex-Vitamin B12 tablet) 1 tab PO DAILY HPI Comments Details: 79-year-old gentleman here for follow-up. He underwent cardiac catheterization and ostial LAD PCI with rotablation and drug-eluting stent. He also has background of hypertension. 05/04/2023: He returns for follow-up. He has been swimming more than 100 laps 3 times a week. No chest discomfort with exercise. He gets some pains on the side of his chest which are very different from his anginal discomfort. These are musculoskeletal pains. His blood pressure initially was 140/70 but repeat blood pressure manually is 132/70. He has been taking his medications regularly. Overall clinically stable. His labs were reviewed and in March 2023 he had lipid panel which showed total cholesterol of 135, triglyceride 86, LDL 65 and HDL 53. He is at target for LDL less than 70. 12/19/2023: He is here for follow-up. Blood pressure is well controlled. Denying any anginal symptoms. He had severe pneumonia in 07/16/2023 and was on multiple antibiotic courses. He has seen his host/hostess and also had bronchoscopy performed. He is saying he has recovered and is back to his normal self and has started swimming recently. 08/06/2024: He is here for follow-up. 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 He is saying he has been taking care of him and has not been able to exercise for approximately 3-4 months. His main exercise was swimming which he was doing quite well with and was able to 70 laps every day. More recently has noticed that when he is going uphill he gets short of breath but does not get any anginal symptoms. [facility] Surgical History History of back surgery H/O heart artery stent History of orchiectomy History of knee surgery H/O hernia repair Family History Father CVD (cardiovascular disease) Mother Pancreatic cancer Social History Alcohol intake: never Patient Tobacco Use Status: Never used Tobacco Review of Systems Const Denies chills, Denies fatigue, Denies fever(s), Denies frequent falls, Denies weakness, Denies weight gain and Denies weight loss ENT Denies dizziness Card Denies chest pain, Denies leg edema, Denies lightheadedness, Denies palpitations, Denies dyspnea and Denies dyspnea on exertion Resp Denies cough, Denies dyspnea and Denies dyspnea on exertion GI Denies hematochezia Musc Denies abnormal gait, Denies muscle weakness, Denies numbness, Denies radiating pain into limb and Denies tingling Neuro Denies abnormal gait, Denies dizziness, Denies frequent falls, Denies numbness, Denies tingling and Denies weakness Endo Denies fatigue and Denies palpitations Physical Exam Vital Signs: Last Vital Signs Pulse 75 08/06/24 14:28 BP 130/72 08/06/24 14:28 BMI result Body Mass Index 24.9 GENERAL APPEARANCE: in no acute distress, pleasant. NECK: no carotid bruit, no jugular venous distention. SKIN: no suspicious lesions, warm and dry. HEART: no murmurs, regular rate and rhythm. LUNGS: clear to auscultation bilaterally. ABDOMEN: soft, nontender. EXTREMITIES: no edema. PERIPHERAL PULSES: equal. NEUROLOGIC: No gross deficits, AAO X 3 Office Procedures EKG Details: Sinus rhythm 75 beats per minute, poor R-wave progression, QTC 393 milliseconds [id number], Complete Assessment & Plan Assessment & Plan (1) Stable angina: Code(s): I20.8 - Other forms of angina pectoris Category: Medical (2) Essential hypertension: Comment: Stable Code(s): I10 - Essential (primary) hypertension Category: Medical Plan Pleasant 79 year gentleman who is here for follow-up. He underwent complex PCI to ostial LAD in the past with rotablation. He has done well since then. He does not have any anginal symptoms at this point. He has some dyspnea on exertion but he has not been able to exercise for 3-4 months due to family issues. He is saying that he we will be restarting swimming. I think we can see how he progresses with exercise. if he does not progress with exercise and continues to have limiting dyspnea or develops any anginal symptoms during exercise and exercise stress testing will be indicated. Currently I think he has not been exercising and some of the dyspnea is related to chest deconditioning. Not in heart failure clinically. Same medications for now. Thank you for allowing me to participate in the care of your patient. Please feel free to contact me if you have any questions. Coding Level of Care Code Est Pt Level 4 (19797) Diagnoses Stable angina I20.8 Essential hypertension I10 CPT Codes EKG - CPT: [id number], Complete ([id number])
[2024-08-06 14:28] VITALS: BP 130/72; PULSE 75; BMI 24.9
== END 2024-08-06 14:49 | disposition home or self-care (01) ==
LOC: HO.HCS 13:52
PROVIDERS: PCP Internal Medicine; Visit Provider Internal Medicine Cardiovascular Disease
DX: I20.89 Other forms of angina pectoris (principal); I10 Essential (primary) hypertension
CPT/HCPCS: 93010; 99214

== ENCOUNTER → 2024-08-06 13:52 | Outpatient (BNVA) | payer MEDICARE, SELFPAY | PROVIDERS: PCP Internal Medicine; Visit Provider Internal Medicine Cardiovascular Disease | DX: I20.89 Other forms of angina pectoris (principal); I10 Essential (primary) hypertension; R94.31 Abnormal electrocardiogram [ECG] [EKG] | CPT/HCPCS: 93005; 99212 ==

== ENCOUNTER 2024-12-24 10:01 | Outpatient (AMB) | payer MEDICARE, SELFPAY ==
--- OUTSIDE RECORDS SUMMARY | 2024-07-26 11:00 | XMS_ITS ---
Author Organization [facility] Address [address] [place] [id number] Care Team Providers Care Vice President Biostatistics Name Role Phone Ruby MARROQUIN, Sukumar Primary Care Provider Meghana De La Rosa [phone] Encounters Encounter Location Date Provider Diagnosis [facility] [address] [place] [address] 07/26/2024 Meghana Doty Plan Of Treatment No Information Progress Notes * Lazaro GARCIADOB: [birth year] (79 yo M)Acc No.[id number]:07/26/2024 Progress Note Patient: Lazaro JOHN Provider: Meggan Doty DPM :1945 A ge:79 Y S ex:Male Date:07/26/2024 Address:[address] [place], [place] [id number] Pcp:Sukumar Beltran MD Subjective: * Chief Complaints: * * Medical History: Objective: * Vitals: Assessment: Plan: * Treatment: * Images: * The named appointment provid er may or may not be the originator of this progress note, and it is not deemed complete until electronically signed by the appointment provider. Sign off status: Pending * Provider: Meggan Doty DPM Date: 07/26/2024 Generated for Printi ng/Faxing/eTransmitting on: 12/24/2024 11:04 AM EDT
--- OUTSIDE RECORDS SUMMARY | 2024-10-25 11:00 | XMS_ITS ---
Author Organization [facility] Address [address] [place] [id number] Care Team Providers Care Heavy Equipment Service Technician Name Role Phone Ruby MARROQUIN, Sukumar Primary Care Provider Meghana De La Rosa [phone] Encounters Encounter Location Date Provider Diagnosis [facility] [address] [place] [address] 10/25/2024 Meghana Doty Plan Of Treatment No Information Progress Notes * Lazaro GARCIADOB: [birth year] (79 yo M)Acc No.[id number]:10/25/2024 Progress Note Patient: Lazaro JOHN Provider: Meggan Doty DPM :1945 A ge:79 Y S ex:Male Date:10/25/2024 Address:[address] [place], [place] [id number] Pcp:Sukumar Beltran MD Subjective: * Chief Complaints: * * Medical History: Objective: * Vitals: Assessment: Plan: * Treatment: * Images: * The named appointment provid er may or may not be the originator of this progress note, and it is not deemed complete until electronically signed by the appointment provider. Sign off status: Pending * Provider: Meggan Doty DPM Date: 10/25/2024 Generated for Printi ng/Faxing/eTransmitting on: 12/24/2024 11:00 AM EDT
--- OUTSIDE RECORDS SUMMARY | 2024-12-19 10:00 | XMS_ITS | Encounter Summary ---
Author Organization [facility] Address [email or web address] [place] [address] Phone Care Team Providers Care Straight Line Edger Name Role Phone Sukumar Beltran MD Primary Care Provider [phone] Reason for Visit * Auth/Cert (Routine) Specialty Diagnoses / Procedures Referred By Hilda mcdaniels Referred To Contact Referral ID Status Reason Start Date Expiration Date Visits Re quested Visits Authorized [id number] 1 1 Encounter Details Date Type Department Care Team (Late st Contact Info) Description 12/19/2024 10:00 AM EDT Home Care Visit [facility] [address] [place] [phone] Mary Flores, TAMELA [address] [place] [address] [email or web address] SN HOME VISIT Social History Tobacco Use Types Packs/Day Years Used Date Smoking Tobacco: Never Smokeless Tobacco: Never Alcohol Use Standard Drinks/Week Comments Not Currently 0 (1 standard drink = 0.6 oz pur e alcohol) Home Health Assessment: Transportation Answer Date Recorded Lack of Transportation (Medical) No 11/02/2024 Lack of Transportation (Non-Medical) No 11/02/2024 Patient Unable or Declines to Respond No 11/02/2024 Child or Family Care Answer Date Record ed Do you have problems with on e of the following making it difficult for you to work, study, or receive health care? No 12/28/2023 Education Answer Date Recorded Are you interested in more education? Not on rachael e 07/26/2022 Are you concerned about learning? Not on file 07/26/2022 No 07/26/2022 No 07/26/2022 Food Answer Date Recorded Within the past 6 months we worried whether our food would run out before we got money to buy more. Never True 10/24/2024 Within the past 6 months the food we bought just didn't last and we didn't have enough money to get more. Never True Residential Stability Answer Date Recor ded What is your housing situation today? I have katerina sing 10/24/2024 How many times have you move d in the past 12 months? Zero (I did not move) 10/24/2024 Paying for Meds Answer Date Recorded Do you have trouble paying for medicines? No 10/24/2024 Paying Utility Bills Answer Date Record ed Do you have trouble paying your heating or elect ricity bill? No 10/24/2024 Transportation Answer Date Recorded Has the lack of transportati on kept you from medical appointments or from getting medications? No 10/24/2024 Digital Access Answer Date Recorded No 10/24/2024 Yes 10/24/2024 Do you have reliable internet access at home? Ye s 10/24/2024 Do you have a device (e.g., phone, tablet, computer) with a working camera? Yes 10/24/2024 Intimate Partner Violence Answer Date R ecorded Are you denied basic needs s uch as food, clothing, or medical care? No 10/24/2024 In the past 12 months have y ou been in a relationship with a person who hurts, threatens, or tries to control you? No 10/24/2024 Are you denied basic needs s uch as food, clothing, or medical care? No 10/24/2024 In the past 12 months have y ou been in a relationship with a person who hurts, threatens, or tries to control you? No 10/24/2024 Sex and Gender Information Value Date Recorded Sex Assigned at Not on file Legal Sex Male 5:09 PM EST Gender Identity Not on file Sexual Orientation Not on file documented as of this encounter Last Filed Vital Signs Vital Sign Reading Time Taken Comments Blood Pressure 122/68 12/19/2024 10:22 AM EDT Pulse 90 12/19/2024 10:22 AM EDT Temperature 36.7 C (98.1 F) 12/19/2024 10:22 AM EDT Respiratory Rate - - Oxygen Saturation 98% 12/19/2024 10:22 AM EDT Inhaled Oxygen Concentration - - Weight - - Height - - Body Mass Index - - documented in this encounter Plan of Treatment Upcoming Encounters Date Type Department Care Team (Late st Contact Info) Description 12/13/2024 Procedure Pass [facility], Ct Scan - [address] [address] 12/24/2024 1:00 PM EDT [facility] [address] [place] [phone] Mary Flores RN [address] [place] [phone] 12/26/2024 1:00 AM EDT Home Care Visit [facility] [address] [place] [phone] Mary Flores RN [address] [place] [address] 12/28/2024 12:30 AM EDT Appointment [facility] [address] [place] [phone] Mary Flores RN [address] [place] [address] 12/31/2024 3:00 PM EDT Office Visit [address] [address] Sukumar Beltran MD 22 [facility], [address] [place] [address] 01/09/2025 2:30 PM EDT Office Visit [facility] [address] [place] [phone] Lee King DO [address] [facility], [place] [address] 01/10/2025 2:45 PM EDT Office Visit [address] [address] Lee King DO [address] [facility], [place] [address] Jessa Sanchez, PT [address] [place] [address] 01/15/2025 11:30 AM EDT Office Visit [address] [address] Lee King, DO [address] [facility], [place] [address] Jessa Sanchez, PT 8 [place] [address] 01/17/2025 2:00 PM EDT Office Visit [address] [place] [address] Lee King, DO [address] [facility], [place] [address] Jessa Sanchez, PT 8 [place] [address] 01/22/2025 11:30 AM EDT Office Visit [facility] [address] [place] [address] Lee King, DO 4 [facility], [facility] [place] [address] Jessa Sanchez, PT [address] [place] [address] 01/24/2025 2:00 PM EDT Office Visit [facility] [address] [place] [address] Lee King, DO 4 [facility], [facility] [place] [address] Jessa Sanchez, PT 8 [place] [address] 01/29/2025 11:30 AM EST Office Visit [facility] [address] [place] [address] Lee King, DO 4 [facility], [facility] [place] [address] Jessa Sanchez, PT [address] [place] [address] 01/31/2025 2:00 PM EST Office Visit [facility] [address] [place] [address] Lee King, DO 4 [facility], [place] [address] Jessa Sanchez, PT 8 [place] [address] 02/12/2025 11:30 AM EST Office Visit [facility] [address] [place] [address] Lee King, DO [address] [facility] Orth[facility] [place] [address] Laura Jessa, PT 8 [place] [address] 02/14/2025 2:00 PM EST Office Visit [facility] [address] [place] [address] Lee King, DO [address] [facility] Orthopedics [facility], [facility] [place] [address] Kika Sancheznifer, PT [address] [place] [address] 03/14/2025 1:30 PM EST Appointment [facility], Ct Scan - [address] [address] Sabino Green MD, MS [address] [address] 03/14/2025 2:00 PM EST Appointment [facility] [address] [place] [address] Sabino Green MD, [place] [address] [address] 04/03/2025 11:45 AM EST Office Visit [facility] [address] [place] [address] [place] [address] Sabino Green MD, MS [address] 2nd [place] [address] [email or web address] documented as of this encounter Visit Diagnoses Not on filedocumented in this encounter Additional Health Concerns Assessment Noted Time PHQ-2 Depression Total Score: 1 08/04/19 25 2:09 PM EDT documented as of this encounter Home Health Visit - Care Plan Visit Details Visit Type -SN HOME VISIT Discipline -Assisted Problems Problem Description Start Date Status Goals Interve ntions HH - Medication Management Disciplines: All Active Home Health Disciplines 11/02/2024 Active 1 goal linked to scheduled/document ed intervention 2 goal interventions scheduled/document ed in this visit HH - Focus of Care and Teaching Disciplines: All Active Home Health Disciplines w/RD 11/02/2024 Active 1 goal linked to scheduled/document ed intervention 1 goal intervention scheduled/document ed in this visit HH - Emergency Planning - Knowledge of Disciplines: All Active Home Health Disciplines 11/02/2024 Active 1 goal linked to scheduled/document ed intervention 2 goal interventions scheduled/document ed in this visit HH - Infection - Actual or Risk of Disciplines: All Active Home Health Disciplines 11/02/2024 Active 1 goal linked to scheduled/document ed intervention 1 goal intervention scheduled/document ed in this visit HH - Standard of Care Disciplines: All Active Home Health Disciplines 11/02/2024 Active 1 goal linked to scheduled/document ed intervention 2 goal interventions scheduled/document ed in this visit HH - Pain Disciplines: All Active Home Health Disciplines 11/02/2024 Active 1 goal linked to scheduled/document ed intervention 1 goal intervention scheduled/document ed in this visit HH - Wound Disciplines: All Active Home Health Disciplines, Assisted 11/02/2024 Active 1 goal linked to scheduled/document ed intervention 1 problem intervention scheduled/document ed in this visit 2 goal interventions scheduled/document ed in this visit Goals Goal Associated Problem Outcome Goal Met? Visit Notes HH - Safe medication management, avoid unnecessary harm related to medication errors and/or interactions HH - Medication Management No HH - Communication and collaboration to achieve patient goals HH - Focus of Care and Teaching No HH - Knowledge of options for managing care in the event of an emergency related situation. HH - Emergency Planning - Knowledge of No HH - Patient will have no new infection; any new infection that occurs will be identified and treated promptly; existing infection will resolve without complication Description: Patient and caregiver(s) will demonstrate understanding of infection prevention, monitoring, and treatment as appropriate HH - Infection - Actual or Risk of No HH - Achieve care management for a safe to home/community discharge from homecare HH - Standard of Care No HH - Frequency of pain interfering with patient's activity or movement will improve with activity or movement by discharge. Description: Pain will be managed over the course of care. Patient's acceptable level of pain is 1 - pain that doesn't interfere. HH - Pain No HH - Demonstrate/verbalize wound care management, wound/lesion will be free from complications HH - Wound No Interventions Intervention Associated Problem/Goal Status Variance Visit Notes - I/E medication management: administration, purpose, dosages, preparation, setup, scheduling, side effects, food/drug interactions, and potential complications as indicated Description: Update patient's copy of medication list as needed. Problem: - Medication Management Goal: - Safe medication management, avoid unnecessary harm related to medication errors and/or interactions Completed - Complete medication review every visit and medication reconciliation as indicated. Pharmacy information: Description: done soc Problem:HH - Medication Management Goal:HH - Safe medication management, avoid unnecessary harm related to medication errors and/or interactions Completed - Focus of care, teaching completed and plan for next visit Problem: - Focus of Care and Teaching Goal: - Communication and collaboration to achieve patient goals Completed Primary Clinical Focus this Visit & Instruction Provided: *vs wnl, pt a/ox3, occasional pain to right foot, feels it may be related to poor support from wearing croc shoe. no pain to wound site. no s/s infection noted. wound care provided. Instruction Provided to: patient Response to Instruction/Teachin g: Is partially able to teach back topics as evidenced by needs rienforcement. Plan for Next Visit Specific Focus & Education Needed: wound care New Orders: Updated Discharge Plan: - I/E management of care in an urgent or emergency (ER) situation: When to call your Home Care Team/911, ER plans, supplies, evacuation, when to contact local ER officials and how to stay informed Problem: - Emergency Planning - Knowledge of Goal:HH - Knowledge of options for managing care in the event of an emergency related situation. Completed - Emergency planning assessment: the emergency plan, supplies needed, emergency contact numbers and an evacuation plan were reviewed Description: Patient and Caregiver is/are knowledgeable of emergency plans. Problem:HH - Emergency Planning - Knowledge of Goal:HH - Knowledge of options for managing care in the event of an emergency related situation. Completed - I/E infection Description: adhere to infection precautions, infection prevention measures and s/s of infection Problem:HH - Infection - Actual or Risk of Goal:HH - Patient will have no new infection; any new infection that occurs will be identified and treated promptly; existing infection will resolve without complication Completed - Assess vital signs, pulse oximetry, pain, and as indicated, orthostatic vital signs Description: use agency-specific parameters Problem: - Standard of Care Goal: - Achieve care management for a safe to home/community discharge from homecare Completed - Assess skin integrity Problem: - Standard of Care Goal:HH - Achieve care management for a safe to home/community discharge from homecare Completed - I/E pain management Problem: - Pain Goal: - Frequency of pain interfering with patient's activity or movement will improve with activity or movement by discharge. Completed HH - Assess wounds/lesions/flores Description: LOCATION: R heel Problem: - Wound Goal:HH - Demonstrate/verbalize wound care management, wound/lesion will be free from complications Completed - I/E wound management Description: edema management and nutrition to promote wound healing Problem: - Wound Goal:HH - Demonstrate/verbalize wound care management, wound/lesion will be free from complications Completed - Wound care: Description: right heel Wound care to E, 3x/week Remove old dressing. Cleanse as follows: Vashe Apply (dressing type): apply collagen dressing to wound care cover with foam, kerlex and elysia Problem:HH - Wound Completed documented in this encounter Care Teams Straight Line Edger Relationship Specialty Start Date End Date Sukumar Beltran MD [address] [place] [address], [address] [place] [address] [email or web address] PCP - General Family Medicine 12/28/23 documented as of this encounter Additional Source Comments The information contained in this document represents components of the legal health record. It is not the complete legal health record.[facility]
--- OUTSIDE RECORDS SUMMARY | 2024-12-21 10:30 | XMS_ITS | Encounter Summary ---
Author Organization [facility] Address [facility] [address] [place] [address] Phone Care Team Providers Care Receiving Weigher Name Role Phone Sukumar Beltran MD Primary Care Provider [phone]- [phone] Reason for Visit * Auth/Cert (Routine) Specialty Diagnoses / Procedures Referred By Hilda mcdaniels Referred To Contact Referral ID Status Reason Start Date Expiration Date Visits Re quested Visits Authorized [id number] 1 1 Encounter Details Date Type Department Care Team (Late st Contact Info) Description 12/21/2024 10:30 AM EDT Home Care Visit [facility] [address] [place] [phone] Izabella Melgar RN 30 [place] [address] [email or web address] SN HOME VISIT Social History Tobacco Use [...] Sign Reading Time Taken Comments Blood Pressure 112/60 12/21/2024 10:37 AM EDT Pulse 72 12/21/2024 10:37 AM EDT Temperature 36.5 C (97.7 F) 12/21/2024 10:37 AM EDT Respiratory Rate 16 12/21/2024 10:37 AM EDT Oxygen Saturation 97% 12/21/2024 10:37 AM EDT Inhaled Oxygen Concentration - - Weight - - Height - - Body Mass Index - - documented in this encounter Plan of Treatment Upcoming Encounters Date Type Department Care Team (Late st Contact Info) Description 12/13/2024 Procedure Pass [facility], Ct Scan - [address] [address] 12/24/2024 1:00 PM EDT Home Care Visit [facility] [address] [place] [phone] Mary Flores RN [address] [place] [phone] [email or web address] 12/26/2024 1:00 AM EDT Home Care Visit [facility] [address] [place] [address] Mary Flores RN [address] [place] [phone] [email or web address] 12/28/2024 12:30 AM EDT Appointment [facility] [address] [place] [address] Mary Flores RN [address] [place] [phone] [email or web address] 12/31/2024 3:00 PM EDT Office Visit [facility] Medical [address] [place] [address] Sukumar Beltran MD 22 [facility], [address] [place] [address] 01/09/2025 2:30 PM EDT Office Visit [facility] Medicine [address] [place] [address] Lee King, DO 4 [facility], [place] [address] 01/10/2025 2:45 PM EDT Office Visit [address] [address] Lee King, DO 4 [facility], [place] [address] Jessa Sanchez, PT 8 [place] [address] 01/15/2025 11:30 AM EDT Office Visit [address] [address] Lee King, DO 4 [facility], [place] [address] [email or web address] Jessa Sanchez, PT 8 [place] [address] 01/17/2025 2:00 PM EDT Office Visit [facility] 8 [place] [address] Lee King, DO 4 [facility], [place] [address] Jessa Sanchez, PT 8 [place] [address] 01/22/2025 11:30 AM EDT Office Visit [facility] [address] [place] [address] Lee King, DO 4 [facility] [place] [facility], [facility] [place] [address] Jessa Sanchez, PT 8 [place] [address] 01/24/2025 2:00 PM EDT Office Visit [facility] [address] [place] [address] Lee King, DO 4 [facility], [place] [address] Jessa Sanchez, PT 8 [place] [address] 01/29/2025 11:30 AM EST Office Visit [facility] [address] [place] [address] Lee King, DO 4 [facility], [place] [address] Jessa Sanchez, PT 8 [place] [address] 01/31/2025 2:00 PM EST Office Visit [facility] [address] [place] [address] Lee King, DO 4 [facility], [facility] [place] [address] Jessa Sanchez, PT 8 [place] [address] 02/12/2025 11:30 AM EST Office Visit [facility] 8 [place] [address] Lee King, DO 4 [facility] [place] [address] [email or web address] RubensJessa melissa, PT 8 [place] [address] 02/14/2025 2:00 PM EST Office Visit [facility] 8 [place] [address] Lee King, DO 4 [facility], [place] [address] [email or web address] Rubenskota Jessa, PT 8 [place] [address] 03/14/2025 1:30 PM EST Appointment [facility], Ct Scan - [address] [address] Sabino Green MD, MS [address] [address] 03/14/2025 2:00 PM EST Appointment [facility] PFT Lab 30 [place] [address] Sabino Green MD, MS [address] [address] 04/03/2025 11:45 AM EST Office Visit [facility] Pulmonary, Allergy and Critical Care Medicine [address] [place] [address] Sabino Green MD, MS 10 [facility] 2nd [place] [address] [email or web address] documented as of this encounter Visit Diagnoses Not on filedocumented in this encounter Additional Health Concerns Assessment Noted Time PHQ-2 Depression Total Score: 1 08/04/19 25 2:09 PM EDT documented as of this encounter Home Health Visit - Care Plan Visit Details Visit Type -SN HOME VISIT Discipline -Halfway Problems Problem Description Start Date Status Goals [...] scheduled/document ed in this visit HH - Falls - Risk of Disciplines: All Active Home Health Disciplines 11/02/2024 Active 1 goal linked to scheduled/document ed intervention HH - Standard of Care Disciplines: All Active Home Health Disciplines 11/02/2024 Active 1 goal linked to scheduled/document ed intervention 2 goal interventions scheduled/document ed in this visit HH - Pain Disciplines: All Active Home Health Disciplines 11/02/2024 Active 1 goal linked to scheduled/document ed intervention 1 goal intervention scheduled/document ed in this visit HH - Wound Disciplines: All Active Home Health Disciplines, Halfway 11/02/2024 Active 1 goal linked to scheduled/document ed intervention 1 problem intervention scheduled/document ed in this visit 1 goal intervention scheduled/document ed in this visit Goals Goal Associated Problem Outcome Goal Met? Visit Notes HH - Safe medication management, avoid unnecessary harm related to medication errors and/or interactions HH - Medication Management Progressing No HH - Communication and collaboration to [...] - Infection - Actual or Risk of Progressing No HH - Knowledge and management of fall prevention measures. HH - Falls - Risk of Progressing No HH - Achieve care management for a safe to home/community discharge from homecare HH - Standard of Care Progressing No HH - Frequency of pain interfering with patient's activity or movement will improve with activity or movement by discharge. Description: Pain will be managed over the course of care. Patient's acceptable level of pain is 1 - pain that doesn't interfere. HH - Pain Progressing No HH - Demonstrate/verbalize wound care management, wound/lesion will be free from complications HH - Wound Progressing No Interventions Intervention Associated Problem/Goal Status Variance Visit Notes - I/E medication management: administration, purpose, dosages, preparation, setup, scheduling, side effects, food/drug interactions, and potential complications as indicated Description: Update patient's copy of medication list as needed. Problem:HH - Medication Management Goal:HH - Safe medication management, avoid unnecessary harm related to medication errors and/or interactions Completed HH - Complete medication review every visit and [...] Clinical Focus this Visit & Instruction Provided: Pt A/Ox4, VSS, afebrile, BS BL clear, breathing unlabored, Pt reports he is doing well today, Wound care comp[leted per order. No S/S of infection. Pt tolerated wound care. Instruction Provided to: patient Response to Instruction/Teaching : Is fully able to teach back topics as evidenced by acknowledges understanding. Plan for Next Visit Specific Focus & Education Needed: wound care New Orders: no Updated Discharge Plan: when wound resolves HH - I/E management of care in an [...] of an emergency related situation. Completed - Assess infection risk and s/s Problem: - Infection - Actual or Risk of [...] safe to home/community discharge from homecare Completed HH - Assess pain Problem: - Pain Goal: - Frequency of pain interfering with patient's activity or movement will improve with activity or movement by discharge. Completed - Assess wounds/lesions/flores Description: LOCATION: R heel Problem: - Wound Goal: - Demonstrate/verbalize wound care management, wound/lesion will be free from complications Completed - Wound care: Description: right heel Wound care to [facility], 3x/week Remove old dressing. Cleanse as follows: Vashe Apply (dressing type): apply collagen dressing to wound care cover with foam, kerlex and elysia Problem:HH - Wound Completed documented in this encounter Care Teams Receiving Weigher Relationship Specialty Start Date End Date Sukumar Beltran MD [address] [place] [address], [address] [place] [phone] [email or web address] PCP - General Family Medicine 12/28/23 documented as of this encounter Additional Source Comments The information contained in this document represents components of the legal health record. It is not the complete legal health record.[facility]
[2024-12-24 10:19] VITALS: BP 120/62; PULSE 74; BMI 23.6
--- NOTE | 2024-12-24 10:19 | A.OFFVIS_ITS ---
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 Required: No Accompanied by: Self / Same As Patient Allergies latex Allergy (Unknown, Uncoded 09/12/23 01:55) uknown sulfa Allergy (Unknown, Uncoded 09/12/23 01:55) hives Medication List - Last Reconciled 12/24/24 by Ki Connelly MD acetaminophen ER (Tylenol 8 Hour) 650 mg PO Q8H PRN aspirin (Adult Low Dose Aspirin) 81 mg PO DAILY atorvastatin 80 mg PO DAILY 90 days carvedilol 12.5 mg PO BID 90 days celecoxib (Celebrex) 200 mg PO BID diazepam 2.5 mg PO BEDTIME docusate sodium 100 mg PO BID aolyosiqeqa-qzrqflhjl-mprzzfyj 200-62.5-25 mcg (Trelegy Ellipta) 1 inh inhalation DAILY gabapentin 600 mg PO TID glipizide ER 2.5 mg PO DAILY hydralazine 25 mg PO BID losartan 100 mg PO DAILY melatonin 3 mg PO BEDTIME PRN omeprazole 20 mg PO DAILY PRN spironolactone 25 mg PO DAILY venlafaxine ER (Effexor XR) 150 mg PO BID vitamin B complex (B Complex-Vitamin B12 tablet) 1 tab PO DAILY HPI Comments Details: 79-year-old gentleman here for follow-up. He underwent cardiac catheterization and ostial LAD PCI with rotablation and drug-eluting stent. He also has background of hypertension. 05/04/2023: He returns for follow-up. He has been swimming more than 100 laps 3 times a week. No chest discomfort with exercise. He gets some pains on the side of his chest which are very different from his anginal discomfort. These are musculoskeletal pains. His blood pressure initially was 140/70 but repeat blood pressure manually is 132/70. He has been taking his medications regularly. Overall clinically stable. His labs were reviewed and in March 2023 he had lipid panel which showed total cholesterol of 135, triglyceride 86, LDL 65 and HDL 53. He is at target for LDL less than 70. 12/19/2023: He is here for follow-up. Blood pressure is well controlled. Denying any anginal symptoms. He had severe pneumonia in 07/16/2023 and was on multiple antibiotic courses. He has seen his burrer hand and also had bronchoscopy performed. He is saying he has recovered and is back to his normal self and has started swimming recently. 08/06/2024: He is here for follow-up. 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 He is saying he has been taking care of him and has not been able to exercise for approximately 3-4 months. His main exercise was swimming which he was doing quite well with and was able to 70 laps every day. More recently has noticed that when he is going uphill he gets short of breath but does not get any anginal symptoms. 12/24/2024: He is here for follow-up. He had Achilles tendon rupture in the left side. He has been conservatively managed and surgery was not offered to him because of poor circulation issues reportedly. He also had some open wounds and is currently following with wound care. No chest discomfort shortness of breath. Blood pressure controlled. [facility] Surgical History History of back surgery H/O heart artery stent History of orchiectomy History of knee surgery H/O hernia repair Family History Father CVD (cardiovascular disease) Mother Pancreatic cancer Social History Alcohol intake: never Patient Tobacco Use Status: Never used Tobacco Review of Systems Const Denies daytime sleepiness, Denies difficulty sleeping, Denies snoring, Denies stops breathing during sleep and Denies weakness Card Denies chest pain, Denies rapid heart rate, Denies irregular heart rhythm, Denies claudication, Denies leg edema, Denies lightheadedness, Denies palpi tations, Denies dyspnea, Denies dyspnea on exertion, Denies orthopnea, Denies paroxysmal nocturnal dyspnea and Denies slow heart rate Resp Denies cough, Denies dyspnea, Denies dyspnea on exertion and Denies snoring GI Reports no additional complaints, Denies hematochezia, Denies change in stool character and Denies dyspepsia Musc Denies abnormal gait, Denies muscle weakness and Denies numbness Neuro Denies abnormal gait, Denies numbness and Denies weakness Endo Denies palpitations Physical Exam Vital Signs: Last Vital Signs Pulse 74 12/24/24 10:19 BP 120/62 12/24/24 10:19 BMI result Body Mass Index 23.6 GENERAL APPEARANCE: in no acute distress, pleasant. NECK: no carotid bruit, no jugular venous distention. SKIN: no suspicious lesions, warm and dry. HEART: no murmurs, regular rate and rhythm. LUNGS: clear to auscultation bilaterally. ABDOMEN: soft, nontender. EXTREMITIES: no edema. PERIPHERAL PULSES: equal. NEUROLOGIC: No gross deficits, AAO X 3 Assessment & Plan Assessment & Plan (1) Stable angina: Code(s): I20.8 - Other forms of angina pectoris Category: Medical (2) Essential hypertension: Comment: Stable Code(s): I10 - Essential (primary) hypertension Category: Medical Plan Pleasant 79 year gentleman who is here for follow-up. He underwent complex PCI to ostial LAD in the past with rotablation. He has done well since then. He does not have any anginal symptoms at this point. Blood pressure is well controlled. He is recovering from tendon Achilles rupture. Clinically stable currently and we will see us back in 4 months. Thank you for allowing me to participate in the care of your patient. Please feel free to contact me if you have any questions. Coding Level of Care Code Est Pt Level 4 (75136) Diagnoses Stable angina I20.8 Essential hypertension I10
--- OUTSIDE RECORDS SUMMARY | 2024-12-24 11:00 | XMS_ITS | Encounter Summary ---
Author Organization [facility] Address [facility] [address] [place] [address] Phone Care Team Providers Care Painter Aircraft Name Role Phone Sukumar Beltran MD Primary Care Provider [phone]- [phone] Encounter Details Date Type Department Care Team (Late st Contact Info) Description 07/16/2024 Ancillary Orders [address] [phone] Ashley Holden MD [address] [place] [address] Orthopedics & Sports Medicine, [facility]. [place], [place] [phone] [email or web address] Bilateral shoulder pain, unspecified chronicity (Primary Dx) Social History Tobacco Use Types Packs/Day Years Used Date Smoking Tobacco: Never Smokeless Tobacco: Never Alcohol Use Standard Drinks/Week Comments Not Currently 0 (1 standard drink = 0.6 oz pur e alcohol) Child or Family Care Answer Date Record [...] got money to buy more. Never True 07/11/2024 Within the past 6 months the food we bought just didn't last and we didn't have enough money to get more. Never True Residential Stability Answer Date Recor ded What is your housing situation today? I have katerina sing 07/11/2024 How many times have you move d in the past 12 months? Zero (I did not move) 07/11/2024 Paying for Meds Answer Date Recorded Do you have trouble paying for medicines? No 07/11/2024 Paying Utility Bills Answer Date Record ed Do you have trouble paying your heating or elect ricity bill? No 07/11/2024 Transportation Answer Date Recorded Has the lack of transportati on kept you from medical appointments or from getting medications? No 07/11/2024 Digital Access Answer Date Recorded No 07/11/2024 Yes 07/11/2024 Do you have reliable internet access at home? Ye s 07/11/2024 Do you have a device (e.g., phone, tablet, computer) with a working camera? Yes 07/11/2024 Intimate Partner Violence Answer Date R ecorded Are you denied basic needs s uch as food, clothing, or medical care? No 07/11/2024 In the past 12 months have y ou been in a relationship with a person who hurts, threatens, or tries to control you? No 07/11/2024 Are you denied basic needs s uch as food, clothing, or medical care? No 07/11/2024 In the past 12 months have y ou been in a relationship with a person who hurts, threatens, or tries to control you? No 07/11/2024 Sex and Gender Information Value Date Recorded Sex Assigned at Not on file Legal Sex Male 5:09 PM EST Gender Identity Not on file Sexual Orientation Not on file documented as of this encounter Plan of Treatment Upcoming Encounters Date Type Department Care Team (Late st Contact Info) Description 12/13/2024 Procedure Pass [facility], Ct Scan - [address] [address] 12/24/2024 1:00 PM EDT Home Care Visit [facility] [address] [place] [phone] aMry Flores RN [address] [place] [address] 12/26/2024 1:00 AM EDT Home Care Visit [facility] [address] [place] [phone] Mary Flores RN [address] [place] [address] 12/28/2024 12:30 AM EDT Appointment [facility] [address] [place] [phone] Mary Flores RN [address] [place] [address] 12/31/2024 3:00 PM EDT Office Visit [facility] Family Medicine [address] [place] [address] Sukumar Beltran MD 22 [facility], [address] [place] [address] 01/09/2025 2:30 PM EDT Office Visit [facility]ics [facility] Sports Medicine [address] [place] [address] Lee King DO 4 [facility] Orth[facility] [place] [address] 01/10/2025 2:45 PM EDT Office Visit [facility] Rehabilitation Services 8 [place] [address] Lee King DO 4 [facility] Orthopedics & Sports [facility] [place] [address] Jessa Sanchez, PT 8 [place] [address] 01/15/2025 11:30 AM EDT Office Visit [facility] [address] [place] [address] Lee King, DO 4 [facility] Orthopedics Sports [facility] [place] [address] Jessa Sanchez, PT 8 [place] [address] 01/17/2025 2:00 PM EDT Office Visit [facility] 8 [place] [address] Lee King, DO 4 [facility] Orthoped[facility] Sports [facility] [place] [address] Jessa Sanchez, PT 8 [place] [address] 01/22/2025 11:30 AM EDT Office Visit [facility] [address] [place] [address] Lee King, DO 4 [facility] Sports [facility], [facility] [place] [address] Jessa Sanchez, PT 8 [place] [address] 01/24/2025 2:00 PM EDT Office Visit [facility] [address] [place] [address] Lee King, DO 4 [facility] Sports [facility] [place] [address] Jessa Sanchez, PT 8 [place] [address] 01/29/2025 11:30 AM EST Office Visit [facility] 8 [place] [address] Lee King, DO 4 [facility], [facility] [place] [address] Jessa Sanchez, PT 8 [place] [address] 01/31/2025 2:00 PM EST Office Visit [facility] 8 [place] [address] Lee King, DO 4 [facility], [place] [address] Jessa Sanchez, PT 8 [place] [address] 02/12/2025 11:30 AM EST Office Visit [facility] 8 [place] [address] Lee King, DO 4 [facility], [facility] [place] [address] Jessa Sanchez, PT 8 [place] [address] 02/14/2025 2:00 PM EST Office Visit [facility] Rehabilitation Services 8 [place] [address] Lee King DO 4 [facility] Orthopedics & Sports Medicine, [facility] [place] [address] Jessa Sanchez, PT 8 [place] [address] 03/14/2025 1:30 PM EST Appointment [facility], Ct Scan - [address] [address] Sabino Green MD, MS [address] [address] 03/14/2025 2:00 PM EST Appointment [facility] PFT Lab [address] [place] [address] Sabino Green MD, MS [address] [address] 04/03/2025 11:45 AM EST Office Visit [facility] Pulmonary, Allergy and Critical Care Medicine [address] [place] [address] Sabino Green MD, MS [address] [address] Pending Results Name Type Priority Associated Diagnoses Date /Time FL Guidance Needle Placement Non-Spine Imaging Routine Bilateral shoulder pain, unspecified chronicity 07/17/2024 12:00 PM EDT Scheduled Orders Name Type Priority Associated Diagnoses Orde r Schedule FL Guidance Needle Placement Non-Spine Imaging Routine Bilateral shoulder pain, unspecified chronicity 1 Occurrences starting 07/16/2024 until 10/15/2024 documented as of this encounter Visit Diagnoses Diagnosis Bilateral shoulder pain, unspecified chronicity- Primary documented in this encounter Additional Health Concerns Assessment Noted Time PHQ-2 Depression Total Score: 1 12/28/19 24 11:18 AM EDT documented as of this encounter Care Teams Painter Aircraft Relationship Specialty Start Date End Date Sukumar Beltran MD [address] [place] [address], [address] [place] [phone] [email or web address] PCP - General Family Medicine 12/28/23 documented as of this encounter Additional Source Comments The information contained in this document represents components of the legal health record. It is not the complete legal health record.[facility]
--- OUTSIDE RECORDS SUMMARY | 2024-12-24 11:00 | XMS_ITS | Encounter Summary ---
Author Organization [facility] Address [address] [place] [address] Phone Care Team Providers Care Cath Lab Technologist Name Role Phone Sukumar Beltran MD Primary Care Provider [phone]- [phone] Encounter Details Date Type Department Care Team (Late st Contact Info) Description 04/19/2024 Procedure Pass [facility], Ct Scan - [facility] [address] [place] [address] Social History Tobacco Use Types Packs/Day Years [...] got money to buy more. Never True 12/28/2023 Within the past 6 months the food we bought just didn't last and we didn't have enough money to get more. Never True Residential Stability Answer Date Recor ded What is your housing situation today? I have katerina tamayo 12/28/2023 How many times have you move d in the past 12 months? Zero (I did not move) 12/28/2023 Paying for Meds Answer Date Recorded Do you have trouble paying for medicines? No 12/28/2023 Paying Utility Bills Answer Date Record ed Do you have trouble paying your heating or elect ricity bill? No 12/28/2023 Transportation Answer Date Recorded Has the lack of transportati on kept you from medical appointments or from getting medications? No 12/28/2023 Digital Access Answer Date Recorded No 12/28/2023 Yes 12/28/2023 Do you have reliable internet access at home? Ye s 12/28/2023 Do you have a device (e.g., phone, tablet, computer) with a working camera? Yes 12/28/2023 Intimate Partner Violence Answer Date R ecorded Are you denied basic needs s uch as food, clothing, or medical care? No 12/28/2023 In the past 12 months have y ou been in a relationship with a person who hurts, threatens, or tries to control you? No 12/28/2023 Are you denied basic needs s uch as food, clothing, or medical care? No 12/28/2023 In the past 12 months have y ou been in a relationship with a person who hurts, threatens, or tries to control you? No 12/28/2023 Sex and Gender Information Value Date Recorded Sex Assigned at Not on file Legal Sex Male 5:09 PM EST Gender Identity Not on file Sexual Orientation Not on file documented as of this encounter Plan of Treatment Upcoming Encounters Date Type Department Care Team (Late st Contact Info) Description 12/13/2024 Procedure Pass [facility] - [facility] [address] [place] [address] 12/24/2024 1:00 PM EDT Home Care Visit [facility] [address] [place] [address] Mary Flores, TAMELA [address] [place] [address] 12/26/2024 1:00 AM EDT Home Care Visit [facility] [address] [place] [address] Mary Flores RN [address] [place] [address] 12/28/2024 12:30 AM EDT Appointment [facility] [address] [place] [address] Mary Flores RN [address] [place] [address] 12/31/2024 3:00 PM EDT Office Visit [facility] Medicine [address] [place] [address] Sukumar Beltran MD 22 [facility], [address] [place] [address] 01/09/2025 2:30 PM EDT Office Visit [facility] Orth[facility]ics [facility] Sports Medicine [address] [place] [address] Lee King DO [address] [place] [address] Orthopedics & Sports [facility] [place] [address] 01/10/2025 2:45 PM EDT Office Visit [facility] Services [address] [place] [address] Lee King DO 4 [facility] Orthopedics Sports [facility] [place] [address] Jessa Sanchez, PT 8 [place] [address] 01/15/2025 11:30 AM EDT Office Visit [facility] [address] [place] [address] Lee King, DO 4 [facility] Sports [facility], [facility] [place] [address] Jessa Sanchez, PT [address] [place] [address] 01/17/2025 2:00 PM EDT Office Visit [facility] [address] [place] [address] Lee King, DO 4 [facility], [place] [address] Jessa Sanchez, PT [address] [place] [address] 01/22/2025 11:30 AM EDT Office Visit [facility] [address] [place] [address] Lee King, DO 4 [facility], [place] [address] Jessa Sanchez, PT [address] [place] [address] 01/24/2025 2:00 PM EDT Office Visit [facility] [address] [place] [address] Lee King, DO 4 [facility], [place] [address] Jessa Sanchez, PT [address] [place] [address] 01/29/2025 11:30 AM EST Office Visit [facility] [address] [place] [address] Lee Kign, DO 4 [facility] Orthopedics Sports [facility], [facility] [place] [address] Jessa Sanchez, PT [address] [place] [address] 01/31/2025 2:00 PM EST Office Visit [facility] 8 [place] [address] Lee King, DO 4 [facility], [facility] [place] [address] Jessa Sanchez, PT [address] [place] [address] 02/12/2025 11:30 AM EST Office Visit [facility] [address] [place] [address] Lee King, DO 4 [facility] Sports [facility] [place] [address] Jessa Sanchez, PT 8 [place] [address] 02/14/2025 2:00 PM EST Office Visit [facility] [address] [place] [address] Lee King, DO 4 [facility] Orthopedics Sports [facility] [place] [address] Jessa Sanchez, PT 8 [place] [address] 03/14/2025 1:30 PM EST Appointment [facility], Ct Scan - [address] [address] Sabino Green MD, MS [address] [address] 03/14/2025 2:00 PM EST Appointment [facility] [address] [place] [address] Sabino Green MD, MS [address] [address] 04/03/2025 11:45 AM EST Office Visit [facility], All[facility] Critical [facility] Medicine [address] [place] [address] [phone] Sabino Green MD, MS [address] [phone] documented as of this encounter Visit Diagnoses Not on filedocumented in this encounter Additional Health Concerns Assessment Noted Time PHQ-2 Depression Total Score: 1 12/28/19 11:18 AM EDT documented as of this encounter Care Teams Cath Lab Technologist Relationship Specialty Start Date End Date Sukumar Beltran MD 22 [facility], [address] [place] [address] PCP - General Family Medicine 12/28/23 documented as of this encounter Additional Source Comments The information contained in this document represents components of the legal health record. It is not the complete legal health record.[facility]
--- OUTSIDE RECORDS SUMMARY | 2024-12-24 11:00 | XMS_ITS | Encounter Summary ---
Author Organization [facility] Address [address] [place] [address] Phone Care Team Providers Care Certified Caregiver Name Role Phone Sukumar Beltran MD Primary Care Provider [phone]- [phone] Encounter Details Date Type Department Care Team (Late st Contact Info) Description 09/07/2024 Procedure Pass [facility], Ct Scan - [facility] [address] [place] [address] Social History Tobacco Use Types Packs/Day Years [...] housing situation today? I have katerina tamayo 07/11/2024 How many times have you move [...] as food, clothing, or medical care? No 08/03/2024 In the past 12 months have y ou been in a relationship with a person who hurts, threatens, or tries to control you? No 08/03/2024 Are you denied basic needs s uch as food, clothing, or medical care? No 08/03/2024 In the past 12 months have y ou been in a relationship with a person who hurts, threatens, or tries to control you? No 08/03/2024 Sex and Gender Information Value Date Recorded Sex Assigned at Not on file Legal Sex Male 5:09 PM EST Gender Identity Not on file Sexual Orientation Not on file documented as of this encounter Plan of Treatment Upcoming Encounters Date Type Department Care Team (Late st Contact Info) Description 12/13/2024 Procedure Pass [facility], Ct [facility] - [facility] [address] [place] [address] 12/24/2024 1:00 PM EDT Home Care Visit [facility] [address] [place] [address] Mary Flores, TAMELA [address] [place] [address] 12/26/2024 1:00 AM EDT Home Care Visit [facility] [address] [place] [address] Mary Flores RN 168 [place] [address] 12/28/2024 12:30 AM EDT Appointment [facility] [address] [place] [address] Mary Flores RN 168 [place] [address] 12/31/2024 3:00 PM EDT Office Visit [facility] 22 [place] [address] Sukumar Beltran MD 22 [facility], [address] [place] [address] 01/09/2025 2:30 PM EDT Office Visit [facility] Orthopedics & Sports Medicine [address] [place] [address] Lee King DO [address] [place] [address] Orthopedics & Sports [facility] [address] 01/10/2025 2:45 PM EDT Office Visit [facility] Services [address] [place] [address] Lee King DO 4 [facility] Orthopedics Sports [facility] [place] [address] Jessa Sanchez, PT 8 [place] [address] 01/15/2025 11:30 AM EDT Office Visit [facility] [address] [place] [address] Lee King, DO 4 [facility] Sports [facility], [facility] [place] [address] Jessa Sanchez, PT 8 [place] [address] 01/17/2025 2:00 PM EDT Office Visit [facility] [address] [place] [address] Lee King, DO 4 [facility], [place] [address] Jessa Sanchez, PT 8 [place] [address] 01/22/2025 11:30 AM EDT Office Visit [facility] [address] [place] [address] Lee King, DO 4 [facility], [place] [address] Jessa Sanchez, PT 8 [place] [address] 01/24/2025 2:00 PM EDT Office Visit [facility] [address] [place] [address] Lee King, DO 4 [facility], [place] [address] Jessa Sanchez, PT 8 [place] [address] 01/29/2025 11:30 AM EST Office Visit [facility] [address] [place] [address] Lee King, DO 4 [facility] Orthopedics Sports [facility], [facility] [place] [address] Jessa Sanchez, PT 8 [place] [address] 01/31/2025 2:00 PM EST Office Visit [facility] 8 [place] [address] Lee King, DO 4 [facility], [facility] [place] [address] Jessa Sanchez, PT 8 [place] [address] 02/12/2025 11:30 AM EST Office Visit [facility] 8 [place] [address] Lee King, DO 4 [facility] Sports [facility] [place] [address] Jessa Sanchez, PT 8 [place] [address] 02/14/2025 2:00 PM EST Office Visit [facility] [address] [place] [address] Lee King, DO 4 [facility] Orthopedics Sports [facility] [place] [address] Jessa Sanchez, PT 8 [place] [address] 03/14/2025 1:30 PM EST Appointment [facility], Ct Scan - [address] [address] Sabino Green MD, MS [address] [address] 03/14/2025 2:00 PM EST Appointment [facility] [address] [place] [address] Sabino Green MD, MS [address] [address] 04/03/2025 11:45 AM EST Office Visit [facility] [address] [place] [address] [phone] Sabino Green MD, MS [address] [phone] documented as of this encounter Visit Diagnoses Not on filedocumented in this encounter Additional Health Concerns Assessment Noted Time PHQ-2 Depression Total Score: 1 08/04/19 25 2:09 PM EDT documented as of this encounter Care Teams Certified Caregiver Relationship Specialty Start Date End Date Sukumar Beltran MD 22 [facility], [address] [place] [address] PCP - General Family Medicine 12/28/23 documented as of this encounter Additional Source Comments The information contained in this document represents components of the legal health record. It is not the complete legal health record.[facility]
--- OUTSIDE RECORDS SUMMARY | 2024-12-24 11:00 | XMS_ITS | Encounter Summary ---
Author Organization [facility] Address [facility] [address] [place] [address] Phone Care Team Providers Care Service Captain Name Role Phone Lan Dillon MD Primary Care Provider Sukumar Beltran MD Primary Care Provider [phone]- [phone] Encounter Details Date Type Department Care Team (Late st Contact Info) Description 03/06/2021 Ancillary Orders [facility],Outside Imaging [address] [place] [address] System, Provider [place] In, [place] [address] Social History Tobacco Use Types Packs/Day Years Used Date Smoking Tobacco: Never Smokeless Tobacco: Never Alcohol Use Standard Drinks/Week Comments Yes 2 (1 standard drink = 0.6 oz pur e alcohol) Sex and Gender Information Value Date Recorded Sex Assigned at Not on file Legal Sex Male 5:09 PM EST Gender Identity Not on file Sexual Orientation Not on file documented as of this encounter Plan of Treatment Upcoming Encounters Date Type Department Care Team (Late Contact Info) Description 12/13/2024 Procedure Pass [facility], Ct Scan - [facility] 30 [place] [address] 12/24/2024 1:00 PM EDT Home Care Visit [facility] [address] [place] [address] Mary Flores RN 168 [place] [address] 12/26/2024 1:00 AM EDT Home Care Visit [facility] [address] [place] [address] Mary Flores RN 168 [place] [address] 12/28/2024 12:30 AM EDT Appointment [facility] [address] [place], [place] [phone] Mary Flores RN 168 [place] [address] 12/31/2024 3:00 PM EDT Office Visit [facility] [address] [place] [address] Sukumar Beltran MD 22 [facility], [address] [place] [address] 01/09/2025 2:30 PM EDT Office Visit [facility] Orthopedics & Sports Medicine [address] [place] [address] Lee King DO 4 [facility] Orthopedics & Sports [place], [place] [address] 01/10/2025 2:45 PM EDT Office Visit [facility] Rehabilitation Services 8 [place] [address] Lee King DO 4 [facility] Orthopedics & Sports [place], [place] [address] Jessa Sanchez, PT 8 [place] [address] 01/15/2025 11:30 AM EDT Office Visit [facility] [address] [place] [address] Lee King, DO 4 [facility], [place] [address] Jessa Sanchez, PT 8 [place] [address] 01/17/2025 2:00 PM EDT Office Visit [facility] 8 [place] [address] Lee King, DO 4 [facility], [place] [address] Jessa Sanchez, PT 8 [place] [address] 01/22/2025 11:30 AM EDT Office Visit [facility] [address] [place] [address] Lee King, DO 4 [facility], [place] [address] Jessa Sanchez, PT 8 [place] [address] 01/24/2025 2:00 PM EDT Office Visit [facility] [address] [place] [address] Lee King, DO 4 [facility], [place] [address] [email or web address] Jessa Sanchez, PT 8 [place] [address] [email or web address] 01/29/2025 11:30 AM EST Office Visit [facility] [address] [place] [address] Lee King, DO 4 [facility] Orthopedics Sports [facility] [place] [address] Jessa Sanchez, PT 8 [place] [address] 01/31/2025 2:00 PM EST Office Visit [facility] [address] [place] [address] Lee King, DO 4 [facility], [place] [address] Jessa Sanchez, PT 8 [place] [address] [email or web address] 02/12/2025 11:30 AM EST Office Visit [facility] [address] [place] [address] Lee King, DO 4 [facility] [place] [address] Jessa Sanchez, PT 8 [place] [address] 02/14/2025 2:00 PM EST Office Visit [facility] 8 [place] [address] Lee King DO 4 [facility] Orthopedics & Sports Medicine, [place] [address] Rubensbelén Jessa, PT 8 [place] [address] 03/14/2025 1:30 PM EST Appointment [facility], Ct Scan - [address] [address] Sabino Green MD, MS [address] [address] 03/14/2025 2:00 PM EST Appointment [facility] [address] [place] [address] Sabino Green MD, MS [address] [address] 04/03/2025 11:45 AM EST Office Visit [facility] [address] [place] [address] Sabino Green MD, MS [address] [phone] documented as of this encounter Results * CT Chest Outside (No Interpretation) (02/26/2021 12:00 AM EST) Narrative SYSTEMGENERATED, DOCUMENTATION - 03/06/2021 11:57 AM EST This study is for PACS storage only and not for interpretation. us Provider Not In System PhD IMG OUTSIDE IMAGING W /OUT INTERPRETATION Final Result documented in this encounter Visit Diagnoses Not on filedocumented in this encounter Additional Health Concerns Infection Onset Date Last Indicated Resolved Time Metapneumovirus 10/10/2023 10/10/2023 10/17/2023 1 :22 AM EDT documented as of this encounter Care Teams Service Captain Relationship Specialty Start Date End Date Lan Dillon MD [address] [place] [address] [facility] [place] [address] PCP - General Internal Medicine 12/13/16 12/27/23 Sukumar Beltran MD [address] [place] [address], [address] [place] [address] [email or web address] PCP - General Family Medicine 12/28/23 documented as of this encounter Additional Source Comments The information contained in this document represents components of the legal health record. It is not the complete legal health record.[facility]
--- OUTSIDE RECORDS SUMMARY | 2024-12-24 11:00 | XMS_ITS | Encounter Summary ---
Author Organization [facility] Address [facility] [address] [place] [address] Phone Care Team Providers Care Adolescent Counselor Name Role Phone Lan Dillon MD Primary Care Provider Sukumar Beltran MD Primary Care Provider [phone]- [phone] Reason for Visit * Reason Comments Medication Refill Encounter Details Date Type Department Care Team (Late st Contact Info) Description 01/27/2018 Refill [facility] Department of Orthopaedics [address] [place] [address] Jeanie Hammer PA-C [address] [place] [address] [email or web address] Medication Refill Social History Tobacco Use Types Packs/Day Years [...] st Contact Info) Description 12/13/2024 Procedure Pass [facility], Ct Scan - [address] [address] 12/24/2024 1:00 PM EDT Home Care Visit [facility] [address] [place] [address] Mary Flores RN [address] [place] [address] 12/26/2024 1:00 AM EDT Home Care Visit [facility] [address] [place] [address] Mary Flores RN 168 [place] [address] 12/28/2024 12:30 AM EDT Appointment [facility] [address] [place] [address] Mary Flores RN 168 [place] [address] 12/31/2024 3:00 PM EDT Office Visit [facility] Medicine [address] [place] [address] Sukumar Beltran MD 22 [facility], [address] [place] [address] 01/09/2025 2:30 PM EDT Office Visit [facility] Orthopedics & Sports Medicine 4 [place] [address] Lee King DO 4 [facility] Orthopedics & Sports Medicine, [facility] [place] [address] 01/10/2025 2:45 PM EDT Office Visit [facility] Rehabilitation Services [address] [place] [address] Lee King DO 4 [facility] [place] [address] Jessa Sanchez, PT 8 [place] [address] 01/15/2025 11:30 AM EDT [facility] [address] [place] [address] Lee King, DO 4 [facility] Orthopedics Sports [facility] [place] [address] Jessa Sanchez, PT 8 [place] [address] 01/17/2025 2:00 PM EDT [facility] [address] [place] [address] Lee King, DO 4 [facility] [place] [address] Jessa Sacnhez, PT 8 [place] [address] 01/22/2025 11:30 AM EDT [facility] [address] [place] [address] Lee King, DO 4 [facility] [place] [address] Jessa Sanchez, PT 8 [place] [address] 01/24/2025 2:00 PM EDT [facility] [address] [place] [address] Lee King, DO 4 [facility], [place] [address] Jessa Sanchez, PT 8 [place] [address] 01/29/2025 11:30 AM EST [facility] [address] [place] [address] Lee King, DO 4 [facility], [place] [address] Jessa Sanchez, PT 8 [place] [address] 01/31/2025 2:00 PM EST [facility] [address] [place] [address] Lee King, DO 4 [facility], [place] [address] Jessa Sanchez, PT 8 [place] [address] 02/12/2025 11:30 AM EST [facility] [address] [place] [address] Lee King, 4 [facility], [place] [address] Jessa Sanchez, PT 8 [place] [address] [email or web address] 02/14/2025 2:00 PM EST Office Visit [facility] Rehabilitation Services 8 [place] [address] Lee King DO 4 [facility] Orthopedics & Sports Medicine, [facility] [place] [address] Jessa Sanchez, PT 8 [place] [address] 03/14/2025 1:30 PM EST Appointment [facility], Ct Scan - [address] [address] Sabino Green MD, MS [address] [address] [email or web address] 03/14/2025 2:00 PM EST Appointment [facility] [address] [place] [address] Sabino Green MD, MS [address] [address] [email or web address] 04/03/2025 11:45 AM EST Office Visit [facility], All[facility] Critical [facility] Medicine [address] [place] [address] Sabino Green MD, MS [address] [address] documented as of this encounter Visit Diagnoses Not on filedocumented in this encounter Additional Health Concerns Infection Onset Date Last Indicated Resolved Time Metapneumovirus 10/10/2023 10/10/2023 10/17/2023 1 :22 AM EDT documented as of this encounter Care Teams Adolescent Counselor Relationship Specialty Start Date End Date Lan Dillon MD [address] [place] [address] [place] [address] PCP - General Internal Medicine 12/13/16 12/27/23 Sukumar Beltran MD [address] [place] [address], [address] [place] [address] [email or web address] PCP - General Family Medicine 12/28/23 documented as of this encounter Additional Source Comments The information contained in this document represents components of the legal health record. It is not the complete legal health record.[facility]
--- OUTSIDE RECORDS SUMMARY | 2024-12-24 11:01 | XMS_ITS | Encounter Summary ---
Author Organization [facility] Address [address] [facility] [address] [place] [address] Phone Care Team Providers Care Crook Operator Name Role Phone Lan Dillon MD Primary Care Provider Sukumar Beltran MD Primary Care Provider +1- [phone] Encounter Details Date Type Department Care Team (Late st Contact Info) Description 02/24/2017 Procedure Pass [facility] Periop 6th floor [address] [place] [address] Social History Tobacco Use Types Packs/Day Years Used Date Smoking Tobacco: Never Smokeless Tobacco: Never Sex and Gender Information Value Date Recorded Sex Assigned at Not on file Legal Sex Male 5:09 PM EST Gender Identity Not on file Sexual Orientation Not on file documented as of this encounter Plan of Treatment Upcoming Encounters Date Type Department Care Team (Late st Contact Info) Description 12/13/2024 Procedure Pass [facility], Ct Scan - [facility] 30 [place] [address] 12/24/2024 1:00 PM EDT Home Care Visit [facility] 30 [place] [phone] Mary Flores RN [address] [place] [address] 12/26/2024 1:00 AM EDT Home Care Visit [facility] 30 [place] [address] Mary Flores RN [address] [place] [address] 12/28/2024 12:30 AM EDT Appointment [facility] 30 [place] [address] Mary Flores RN [address] [place] [address] 12/31/2024 3:00 PM EDT Office Visit [facility] Medicine 22 [place] [address] Sukumar Beltran MD 22 [facility], [address] [place] [address] 01/09/2025 2:30 PM EDT Office Visit [facility] Orth[facility]ics & Sports Medicine [address] [place] [address] Lee King, DO [address] [place] [address] [facility] [place] [address] 01/10/2025 2:45 PM EDT Office Visit [facility] Services 8 [place] [address] Lee King DO [address] [facility] Orth[facility], [place] [address] Jessa Sanchez, PT 8 [place] [address] 01/15/2025 11:30 AM EDT Office Visit [facility] [address] [place] [address] Lee King, DO 4 [facility], [facility] [place] [address] Jessa Sanchez, PT 8 [place] [address] 01/17/2025 2:00 PM EDT Office Visit [facility] [address] [place] [address] Lee King, DO 4 [facility], [place] [address] Jessa Sanchez, PT 8 [place] [address] 01/22/2025 11:30 AM EDT Office Visit [facility] [address] [place] [address] Lee King, DO 4 [facility], [place] [address] Jessa Sanchez, PT 8 [place] [address] 01/24/2025 2:00 PM EDT Office Visit [facility] [address] [place] [address] Lee King, DO 4 [facility], [place] [address] Jessa Sanchez, PT 8 [place] [address] 01/29/2025 11:30 AM EST Office Visit [facility] [address] [place] [address] Lee King, DO 4 [facility], [place] [address] Jessa Sanchez, PT 8 [place] [address] 01/31/2025 2:00 PM EST Office Visit [facility] 8 [place] [address] Lee King, DO 4 [facility], [place] [address] Jessa Sanchez, PT 8 [place] [address] 02/12/2025 11:30 AM EST Office Visit [facility] [address] [place] [address] Lee King, DO 4 [facility], [place] [address] Jessa Sanchez, PT 8 [place] [address] 02/14/2025 2:00 PM EST Office Visit [facility] [address] [place] [address] Lee King, DO 4 [facility], [place] [address] Jessa Sanchez, PT 8 [place] [address] 03/14/2025 1:30 PM EST Appointment [facility], Ct Scan - [address] [address] Sabino Green MD, MS [address] [address] 03/14/2025 2:00 PM EST Appointment [facility] [address] [place] [address] [phone] Sabino Green MD, MS [address] [phone] 04/03/2025 11:45 AM EST Office Visit [facility], Allergy and Critical Care Medicine [address] [place] [address] [phone] Sabino Green MD, MS [address] [phone] documented as of this encounter Visit Diagnoses Not on filedocumented in this encounter Additional Health Concerns Infection Onset Date Last Indicated Resolved Time Metapneumovirus 10/10/2023 10/10/2023 10/17/2023 1 :22 AM EDT documented as of this encounter Care Teams Crook Operator Relationship Specialty Start Date End Date Lan Dillon MD [address] [place] [address] [place] [address] PCP - General Internal Medicine 12/13/16 12/27/23 Sukumar Beltran MD 22 [facility], [address] [place] [address] [email or web address] PCP - General Family Medicine 12/28/23 documented as of this encounter Additional Source Comments The information contained in this document represents components of the legal health record. It is not the complete legal health record.[facility]
--- OUTSIDE RECORDS SUMMARY | 2024-12-24 11:01 | XMS_ITS | Encounter Summary ---
Author Organization [facility] Address [address] [place] [address] [address] [place] [address] Phone Care Team Providers Care Vat Washer Name Role Phone Sukumar Beltran MD Primary Care Provider [phone]- [phone] Reason for Visit * Reason Onset Date Comments Patient Called Back Inquiring Status 10/18/2024 Pt missed call from office 10/18 Encounter Details Date Type Department Care Team (Late st Contact Info) Description 10/18/2024 Telephone [employer] [address] [phone] Sukumar Beltran MD 22 [facility], [address] [place], [place] [phone] [email or web address] Patient Called Back Inquiring Status (Pt missed call from office 10/18) Social History Tobacco Use Types Packs/Day Years [...] on file documented as of this encounter Progress Notes * Batsheva Roth RN - 10/18/2024 11:21 AM EDT No documented outgoing calls from triage * Shaun Keisha - 10/18/2024 11:13 AM EDT Pt called in stating he received a call from our office and when he answered the line was . No TE outgoing call to pt. Please contact and advise. Central Support Marketing Business Analyst (Please do not reply to this user; this inbox is not monitored.) Thank you. documented in this encounter Plan of Treatment Upcoming Encounters Date Type Department Care Team (Late st Contact Info) Description 12/13/2024 Procedure Pass [facility], Ct Scan - [address] [address] 12/24/2024 1:00 PM EDT [facility] [address] [place] [phone] Mary Flores RN [address] [place] [address] 12/26/2024 1:00 AM EDT [facility] [address] [place] [phone] Mary Flores RN [address] [place] [address] 12/28/2024 12:30 AM EDT Appointment [facility] [address] [place] [phone] Mary Flores RN [address] [place] [address] 12/31/2024 3:00 PM EDT Office Visit [facility] [address] [place] [address] Sukumar Beltran MD 22 [facility], [address] [place] [address] 01/09/2025 2:30 PM EDT Office Visit [facility] & Sports Medicine [address] [place] [address] Lee King, DO [address] [place] [address] [facility], [place] [address] 01/10/2025 2:45 PM EDT Office Visit [address] [address] Lee King, DO [address] [place] [address] [facility], [place] [address] Jessa Sanchez, PT 8 [place] [address] 01/15/2025 11:30 AM EDT Office Visit [address] [address] Lee King, DO [address] [place] [address] [facility], [place] [address] Jessa Sanchez, PT 8 [place] [address] 01/17/2025 2:00 PM EDT Office Visit [address] [place] [address] Lee King, DO [address] [place] [address] [facility], [place] [address] Jessa Sanchez, PT 8 [place] [address] 01/22/2025 11:30 AM EDT Office Visit [facility] [address] [place] [address] Lee King, DO 4 [facility], [facility] [place] [address] Jessa Sanchez, PT 8 [place] [address] 01/24/2025 2:00 PM EDT Office Visit [address] [address] Lee King, DO 4 [facility], [place] [address] Jessa Sanchez, PT 8 [place] [address] 01/29/2025 11:30 AM EST Office Visit [facility] 8 [place] [address] Lee King, DO 4 [facility], [facility] [place] [address] Jessa Sanchez, PT 8 [place] [address] 01/31/2025 2:00 PM EST Office Visit [facility] 8 [place] [address] Lee King, DO 4 [facility] [place] [address] Jessa Sanchez, PT 8 [place] [address] 02/12/2025 11:30 AM EST Office Visit [facility] [address] [place] [address] Lee King, 4 [facility] Orthopedics & Sports [facility] [place] [address] Jessa Sanchez, PT 8 [place] [address] 02/14/2025 2:00 PM EST Office Visit [facility] 8 [place] [address] Lee King, DO 4 [facility] [place] [address] Jessa Sanchez, PT 8 [place] [address] 03/14/2025 1:30 PM EST Appointment [facility], Ct Scan - [address] [address] Sabino Green MD, MS [address] [address] 03/14/2025 2:00 PM EST Appointment [facility] [address] [place] [address] Sabino Green MD, MS [address] [address] 04/03/2025 11:45 AM EST Office Visit [facility] All[facility] Critical [facility] Medicine [address] [place] [address] Sabino Green MD, MS [address] [address] [email or web address] documented as of this encounter Visit Diagnoses Not on filedocumented in this encounter Additional Health Concerns Assessment Noted Time PHQ-2 Depression Total Score: 1 08/04/19 25 2:09 PM EDT documented as of this encounter Care Teams Vat Washer Relationship Specialty Start Date End Date Sukumar Beltran MD [address] [place] [address], [address] [place] [address] [email or web address] PCP - General Family Medicine 12/28/23 documented as of this encounter Additional Source Comments The information contained in this document represents components of the legal health record. It is not the complete legal health record.[facility]
--- OUTSIDE RECORDS SUMMARY | 2024-12-24 11:01 | XMS_ITS | Encounter Summary ---
Author Organization [facility] Address [email or web address] [place] [address] Phone Care Team Providers Care Client Coordinator Name Role Phone Sukumar Beltran MD Primary Care Provider +1- [phone] Encounter Details Date Type Department Care Team (Late st Contact Info) Description 10/26/2024 Procedure Pass [facility] 30 [place] [address] Social History Tobacco Use Types Packs/Day Years [...] housing situation today? I have katerina tamayo 10/24/2024 How many times have you move [...] Contact Info) Description 12/13/2024 Procedure Pass [facility], [facility] 30 [place] [address] 12/24/2024 1:00 PM EDT Home Care Visit [facility] and Hospice 30 [place] [address] Mary Flores, TAMELA [address] [place] [address] 12/26/2024 1:00 AM EDT Home Care Visit [facility] H[facility] 30 [place] [address] Mary Flores RN 168 [place] [address] 12/28/2024 12:30 AM EDT Appointment [facility] 30 [place] [address] Mary Flores RN 168 [place] [address] 12/31/2024 3:00 PM EDT Office Visit [facility] Medicine 22 [place] [address] Sukumar Beltran MD 22 [facility], 201 [place] [address] 01/09/2025 2:30 PM EDT Office Visit [facility] Orthopedics & Sports Medicine [address] [place] [address] Lee King DO [address] [place] [address] Orthopedics & Sports [facility] [place] [address] 01/10/2025 2:45 PM EDT Office Visit [facility] [address] [place] [address] Lee King DO 4 [facility] Orth[facility] [place] [address] Jessa Sanchez, PT 8 [place] [address] 01/15/2025 11:30 AM EDT Office Visit [facility] 8 [place] [address] Lee King, DO 4 [facility], [place] [address] Jessa Sanchez, PT 8 [place] [address] 01/17/2025 2:00 PM EDT Office Visit [facility] [address] [place] [address] Lee King, DO 4 [facility], [place] [address] Jessa Sanchez, PT 8 [place] [address] 01/22/2025 11:30 AM EDT Office Visit [facility] [address] [place] [address] Lee King, DO 4 [facility], [place] [address] Jessa Sanchez, PT 8 [place] [address] 01/24/2025 2:00 PM EDT Office Visit [facility] [address] [place] [address] Lee King, DO 4 [facility], [place] [address] Jessa Sanchez, PT 8 [place] [address] 01/29/2025 11:30 AM EST Office Visit [facility] [address] [place] [address] Lee King, DO 4 [facility] [place] [address] Jessa Sanchez, PT 8 [place] [address] 01/31/2025 2:00 PM EST Office Visit [facility] 8 [place] [address] Lee King, DO 4 [facility], [place] [address] Jessa Sanchez, PT 8 [place] [address] 02/12/2025 11:30 AM EST Office Visit [facility] 8 [place] [address] Lee King, DO 4 [facility] [place] [address] Jessa Sanchez, PT 8 [place] [address] 02/14/2025 2:00 PM EST Office Visit [facility] [address] [place] [address] Lee King, DO 4 [facility] [place] [address] Jessa Sanchez, PT 8 [place] [address] 03/14/2025 1:30 PM EST Appointment [facility], Ct Scan - [address] [address] Sabino Green MD, MS [address] [address] 03/14/2025 2:00 PM EST Appointment [facility] [address] [place] [address] Sabino Green MD, MS [address] [address] 04/03/2025 11:45 AM EST Office Visit [facility], Allergy and Critical Care Medicine [address] [place] [address] Sabino Green MD, MS [address] [phone] documented as of this encounter Visit Diagnoses Not on filedocumented in this encounter Additional Health Concerns Assessment Noted Time PHQ-2 Depression Total Score: 1 08/04/19 25 2:09 PM EDT documented as of this encounter Care Teams Client Coordinator Relationship Specialty Start Date End Date Sukumar Beltran MD 22 [facility], [address] [place] [address] PCP - General Family Medicine 12/28/23 documented as of this encounter Additional Source Comments The information contained in this document represents components of the legal health record. It is not the complete legal health record.[facility]
--- OUTSIDE RECORDS SUMMARY | 2024-12-24 11:01 | XMS_ITS | Encounter Summary ---
Author Organization [facility] Address [facility] [address] [place] [address] Phone Care Team Providers Care Cooker Syrup Name Role Phone Sukumar Beltran MD Primary Care Provider +1- [phone] Reason for Visit * Reason Onset Date Comments VNA Update 11/13/2024 Encounter Details Date Type Department Care Team (Late st Contact Info) Description 11/13/2024 Telephone [employer] [facility] 22 [place], [place] [phone] Sukumar Beltran MD 22 [facility], [address] [place], [place] [phone] [email or web address] VNA Update Social History Tobacco Use Types Packs/Day Years [...] as of this encounter Progress Notes * Vikram Atkinson - 11/15/2024 2:46 PM EDT VNA called to f/u. Caller stated that OT Evaluation of the pt has been completed, and that the pt does not require OT at this time. Central Support Log Buncher (Please do not reply to this user; this inbox is not monitored.) Thank you. * Aubree Monge - 11/13/2024 3:46 PM EDT Calling to report a delay in OT intake - pt is scheduled for 11/15/2024 Central Support Log Buncher (Please do not reply to this user; this inbox is not monitored.) Thank you. documented in this encounter Plan of Treatment Upcoming Encounters Date Type Department Care Team (Late st Contact Info) Description 12/13/2024 Procedure Pass [facility], Ct Scan - [address] [address] 12/24/2024 1:00 PM EDT [facility] [address] [place] [address] Mary Flores, TAMELA [address] [place] [address] 12/26/2024 1:00 AM EDT [facility] [address] [place] [address] Mary Flores RN [address] [place] [address] 12/28/2024 12:30 AM EDT [facility]ointment [facility] [address] [place] [address] Mary Flores RN [address] [place] [address] 12/31/2024 3:00 PM EDT Office Visit [facility] 22 [place] [address] Sukumar Beltran MD 22 [facility], [address] [place] [address] 01/09/2025 2:30 PM EDT Office Visit [facility] Orthopedics & Sports Medicine [address] [place] [address] Lee King, DO [address] [place] [address] Orthopedics Sports [facility], [place] [address] 01/10/2025 2:45 PM EDT Office Visit [facility] 8 [place] [address] Lee King, DO [address] [place] [address] Orthopedics [facility], [place] [address] Jessa Sanchez, PT 8 [place] [address] 01/15/2025 11:30 AM EDT Office Visit [facility] 8 [place] [address] Lee King DO [address] [place] [address] Orth[facility], [place] [address] Jessa Sanchez, PT 8 [place] [address] 01/17/2025 2:00 PM EDT Office Visit [facility] [address] [place] [address] Lee King, DO 4 [facility] Sports [facility] [place] [place] [address] Jessa Sanchez, PT 8 [place] [address] 01/22/2025 11:30 AM EDT Office Visit [facility] 8 [place] [address] Lee King, DO 4 [facility], [place] [address] Jessa Sanchez, PT 8 [place] [address] 01/24/2025 2:00 PM EDT Office Visit [address] [address] Lee King, DO 4 [facility], [place] [address] Jessa Sanchez, PT 8 [place] [address] 01/29/2025 11:30 AM EST Office Visit [facility] 8 [place] [address] Lee King DO 4 [facility], [facility] [place] [address] Jessa Sanchez, PT 8 [place] [address] 01/31/2025 2:00 PM EST Office Visit [facility] [address] [place] [address] Lee King, DO 4 [facility] Orthopedics Sports [facility], [place] [address] Jessa Sanchez, PT 8 [place] [address] 02/12/2025 11:30 AM EST Office Visit [facility] [address] [place] [address] Lee King, 4 [facility] Orthopedics [facility], [place] [address] Jessa Sanchez, PT 8 [place] [address] 02/14/2025 2:00 PM EST Office Visit [facility] 8 [place] [address] Lee King, DO 4 [facility] Orthopedics Sports [facility], [place] [address] Jessa Sanchez, PT 8 [place] [address] 03/14/2025 1:30 PM EST Appointment [facility], Ct Scan - [address] [address] Sabino Green MD, MS [address] [address] 03/14/2025 2:00 PM EST Appointment [facility] 30 [place] [address] Sabino Green MD, MS [address] [address] 04/03/2025 11:45 AM EST Office Visit [facility], All[facility] Critical [facility] Medicine [address] [place] [address] Sabino Green MD, MS [address] [address] [email or web address] documented as of this encounter Visit Diagnoses Not on filedocumented in this encounter Additional Health Concerns Assessment Noted Time PHQ-2 Depression Total Score: 1 08/04/19 25 2:09 PM EDT documented as of this encounter Care Teams Cooker Syrup Relationship Specialty Start Date End Date Sukumar Beltran MD [address] [place] [address], [address] [place] [address] [email or web address] PCP - General Family Medicine 12/28/23 documented as of this encounter Additional Source Comments The information contained in this document represents components of the legal health record. It is not the complete legal health record.[facility]
--- OUTSIDE RECORDS SUMMARY | 2024-12-24 11:01 | XMS_ITS | Patient Health Record ---
Author Organization [facility] Address [address] [place] [address] Care Team Providers Care Legislative Advocate Name Role Phone Santana (RETIRED) Lan MARROQUIN Primary Care Provide r Unavailable Jeremías Tate Unavailable [phone] Reason For Referral No Information Plan Of Treatment No Information
--- OUTSIDE RECORDS SUMMARY | 2024-12-24 11:01 | XMS_ITS | Encounter Summary ---
Author Organization [facility] Address [address] [facility] [address] [place] [address] Phone Care Team Providers Care Medical Instrument Cable Fabricator Name Role Phone Lan Dillon MD Primary Care Provider Sukumar Beltran MD Primary Care Provider [phone]- [phone] Encounter Details Date Type Department Care Team (Late st Contact Info) Description 05/02/2017 Procedure Pass [facility], [place] [address] [place] [address] Social History Tobacco Use Types Packs/Day Years [...] st Contact Info) Description 12/13/2024 Procedure Pass [facility], Ct Scan - [facility] [address] [place] [address] 12/24/2024 1:00 PM EDT Home Care Visit [facility] [address] [place] [phone] Mary Flores RN [address] [place] [address] 12/26/2024 1:00 AM EDT Home Care Visit [facility] [address] [place] [address] Mary Flores RN [address] [place] [address] 12/28/2024 12:30 AM EDT Appointment [facility] [address] [place] [address] Mary Flores RN [address] [place] [address] 12/31/2024 3:00 PM EDT Office Visit [facility] Family Medicine [address] [place] [address] Sukumar Beltran MD 22 [facility], [address] [place] [address] 01/09/2025 2:30 PM EDT Office Visit [facility] Medicine [address] [place] [address] Lee King, DO [address] [place] [address] [facility] [place] [place] [address] 01/10/2025 2:45 PM EDT Office Visit [facility] [address] [place] [address] Lee King DO 4 [facility], [place] [address] Jessa Sanchez, PT 8 [place] [address] 01/15/2025 11:30 AM EDT Office Visit [facility] [address] [place] [address] Lee King, DO 4 [facility] [place] [address] Jessa Sanchez, PT 8 [place] [address] 01/17/2025 2:00 PM EDT Office Visit [facility] [address] [place] [address] Lee King, DO 4 [facility], [place] [address] Jessa Sanchez, PT 8 [place] [address] 01/22/2025 11:30 AM EDT Office Visit [facility] [address] [place] [address] Lee King, DO 4 [facility], [place] [address] Jessa Sanchez, PT 8 [place] [address] 01/24/2025 2:00 PM EDT Office Visit [facility] [address] [place] [address] Lee King, DO 4 [facility], [place] [address] Jessa Sanchez, PT 8 [place] [address] 01/29/2025 11:30 AM EST Office Visit [facility] [address] [place] [address] Lee King, DO 4 [facility], [place] [address] Jessa Sanchez, PT 8 [place] [address] 01/31/2025 2:00 PM EST Office Visit [facility] 8 [place] [address] Lee King, DO 4 [facility], [place] [address] Jessa Sanchez, PT 8 [place] [address] 02/12/2025 11:30 AM EST Office Visit [facility] [address] [place] [address] Lee King, DO 4 [facility], [place] [address] Jessa Sanchez, PT 8 [place] [address] 02/14/2025 2:00 PM EST Office Visit [facility] [address] [place] [address] Lee King, DO 4 [facility], [place] [address] Jessa Sanchez, PT 8 [place] [address] 03/14/2025 1:30 PM EST Appointment [facility], Ct Scan - [address] [address] Sabino Green MD, MS [address] [address] 03/14/2025 2:00 PM EST Appointment [facility] [address] [place] [address] [phone] Sabino Green MD, MS [address] [phone] 04/03/2025 11:45 AM EST Office Visit [facility] All[facility] Critical [facility] Medicine [address] [place] [address] [phone] Sabino Green MD, MS [address] [phone] documented as of this encounter Visit Diagnoses Not on filedocumented in this encounter Additional Health Concerns Infection Onset Date Last Indicated Resolved Time Metapneumovirus 10/10/2023 10/10/2023 10/17/2023 1 :22 AM EDT documented as of this encounter Care Teams Medical Instrument Cable Fabricator Relationship Specialty Start Date End Date Lan Dillon MD [address] [place] [address] [place] [address] PCP - General Internal Medicine 12/13/16 12/27/23 Sukumar Beltran MD 22 [facility], [address] [place] [address] [email or web address] PCP - General Family Medicine 12/28/23 documented as of this encounter Additional Source Comments The information contained in this document represents components of the legal health record. It is not the complete legal health record.[facility]
--- OUTSIDE RECORDS SUMMARY | 2024-12-24 11:01 | XMS_ITS | Encounter Summary ---
Author Organization [facility] Address [address] [place] [address] [address] [place] [address] Phone Care Team Providers Care Fretted Instrument Repairer Name Role Phone Sukumar Beltran MD Primary Care Provider [phone]- [phone] Reason for Visit * Reason Onset Date Comments No Show 10/17/2024 SV 10/18 Encounter Details Date Type Department Care Team (Late st Contact Info) Description 10/17/2024 Telephone [facility] 22 [place], [place] [phone] Sukumar Beltran MD 22 [facility], [address] [place], [place] [phone] [email or web address] No Show (SV 10/18) Social History Tobacco Use Types Packs/Day [...] as of this encounter Progress Notes * Keisha Dunn - 10/17/2024 4:15 PM EDT [facility] PEN Top Smart Phrases: 24-48 Hour No-Show Notice If caller not the patient: Name: Relationship: Cancel Appt Visit Type: SICK VISIT Cancelation Reason: Personal Reasons Cancelation Detail: Pt saw ortho provider for heel pain Was Appt Reschedule: Yes Why Reschedule was not performed (W/Detail) R/s as FUV with PCP for 10/29 regarding treated heel pain Awareness: I have reiterated our late cancellation policy to the caller. Agent Action: > Reason for Call: NO SHOW > Comment: Enter Cancel Appt date > Route: Route to FD if the No-Show is a future date. > Route: OXBOW SDV and Sick Visit No-Show, route to RN for rescheduling. Do not Call Center: Ensure the appt has been cancel from the future tab > Reiterate Scripting: Provide our late cancellation policy to the caller Required Scripting for Existing Patients: Thank you for notifying us about the cancellation. We will inform the provider. As a reminder, our policy requires at least 24 hours' notice for cancellations, as providers reserve time for your appointment, and short notice often makes it difficult to reschedule. You can cancel appointments anytime through your Patient [facility]. We appreciate your understanding. Required Scripting for New Patients: Thank you for notifying us about the cancellation. We will inform the provider. Please be aware of our 48-hour cancellation policy for new patients. If you need to cancel or reschedule, we ask for at least 48 hours' notice. If you miss an appointment or cancel without sufficient notice, it will be marked as a No-Show appointment. We allow for two unforeseen circumstances under this policy. This policy ensures that our providers can manage their schedules effectively. Additionally, you can cancel appointments anytime through your Patient Keller. documented in this encounter Plan of Treatment Upcoming Encounters Date Type Department Care Team (Late st Contact Info) Description 12/13/2024 Procedure Pass [facility], Ct Scan - [facility] [address] [place] [address] 12/24/2024 1:00 PM EDT Home Care Visit [facility] [address] [place] [phone] Mary Flores, TAMELA [address] [place] [address] [place] [address] 12/26/2024 1:00 AM EDT Home Care Visit [facility] [address] [place] [address] Mary Flores RN 168 [place] [address] 12/28/2024 12:30 AM EDT Appointment [facility] [address] [place] [address] Mary Flores RN 168 [place] [address] 12/31/2024 3:00 PM EDT Office Visit [facility] Medicine [address] [place] [address] Sukumar Beltran MD 22 [facility], [address] [place] [address] 01/09/2025 2:30 PM EDT Office Visit [facility] Orthopedics & Sports Medicine [address] [place] [address] Lee King DO 4 [facility] Orthopedics & Sports [facility] [place] [address] 01/10/2025 2:45 PM EDT Office Visit [facility] [address] [place] [address] Lee King DO 4 [facility] [address] Jessa Sanchez, PT 8 [place] [address] 01/15/2025 11:30 AM EDT Office Visit [facility] [address] [place] [address] Lee King, DO 4 [facility], [place] [address] Jessa Sanchez, PT 8 [place] [address] 01/17/2025 2:00 PM EDT Office Visit [facility] [address] [place] [address] Lee King, DO 4 [facility], [place] [address] Jessa Sanchez, PT 8 [place] [address] 01/22/2025 11:30 AM EDT Office Visit [facility] 8 [place] [address] Lee King, DO 4 [facility] [place] [address] Jessa Sanchez, PT 8 [place] [address] 01/24/2025 2:00 PM EDT Office Visit [facility] [address] [place] [address] Lee King, DO 4 [facility], [place] [address] Jessa Sanchez, PT 8 [place] [address] 01/29/2025 11:30 AM EST Office Visit [facility] [address] [place] [address] Lee King DO 4 [facility], [place] [address] Jessa Sanchez, PT 8 [place] [address] 01/31/2025 2:00 PM EST Office Visit [facility] [address] [place] [address] Lee King, DO 4 [facility], [place] [address] Jessa Sanchez, PT 8 [place] [address] 02/12/2025 11:30 AM EST Office Visit [facility] [address] [place] [address] Lee King, DO 4 [facility], [place] [address] Jessa Sanchez, PT 8 [place] [address] 02/14/2025 2:00 PM EST Office Visit [facility] [address] [place] [address] Lee King DO 4 [facility] [place] [address] Jessa Sanchez, PT 8 [place] [address] 03/14/2025 1:30 PM EST Appointment [facility], Ct Scan - [address] [address] Sabino Green MD, MS [address] [address] 03/14/2025 2:00 PM EST Appointment [facility] [address] [place] [address] Sabino Green MD, MS [address] [address] 04/03/2025 11:45 AM EST Office Visit [facility] All[facility] [address] [place] [address] [phone] Sabino Green MD, MS [address] [phone] documented as of this encounter Visit Diagnoses Not on filedocumented in this encounter Additional Health Concerns Assessment Noted Time PHQ-2 Depression Total Score: 1 08/04/19 25 2:09 PM EDT documented as of this encounter Care Teams Fretted Instrument Repairer Relationship Specialty Start Date End Date Sukumar Beltran MD 22 [facility], [address] [place] [address] PCP - General Family Medicine 12/28/23 documented as of this encounter Additional Source Comments The information contained in this document represents components of the legal health record. It is not the complete legal health record.[facility]
--- OUTSIDE RECORDS SUMMARY | 2024-12-24 11:01 | XMS_ITS | Encounter Summary ---
Author Organization [facility] Address [address] [place] [address] Phone Care Team Providers Care Counseling Aide Name Role Phone Sukumar Beltran MD Primary Care Provider [phone]- [phone] Encounter Details Date Type Department Care Team (Late st Contact Info) Description 07/11/2024 Procedure Pass [facility], Ct Scan - [facility] [address] [place] [address] Social History Tobacco Use Types Packs/Day Years [...] on file documented as of this encounter Functional Status * Calculated C-SSRS Risk Score (Lifetime/Recent) Answer Date of Assessment Author No Risk Indicated 07/11/2024 1:32 PM EDT Andi Del Rosario, RN * [place] Suicide Severity Rating Scale (Screener/Recent Self-Report) Question Answer Date of Assessment Author 1. Wish to be (Past 1 Month) No 025 1:32 PM EDT Andi Del Rosario, RN 2. Non-Specific Active Suici danika Thoughts (Past 1 Month) No 07/11/2024 1:32 PM EDT Andi Del Rosario, RN 6. Suicidal Behavior (Lifetime) No 1:32 PM EDT Andi Del Rosario RN documented as of this encounter Plan of Treatment Upcoming Encounters Date Type Department Care Team (Late st Contact Info) Description 12/13/2024 Procedure Pass [facility], Ct Scan - [address] [address] 12/24/2024 1:00 PM EDT [facility] [address] [place] [phone] Mary Flores RN [address] [place] [address] 12/26/2024 1:00 AM EDT [facility] [address] [place] [phone] Mary Flores RN [address] [place] [address] 12/28/2024 12:30 AM EDT Appointment [facility] [address] [place] [phone] Mary Flores RN [address] [place] [address] 12/31/2024 3:00 PM EDT Office Visit [address] [address] Sukumar Beltran MD [address] [place], [place] [phone] [place] [address] 01/09/2025 2:30 PM EDT Office Visit [facility]ics [facility] Sports Medicine [address] [place] [address] Lee King DO [address] [place] [address] Orthopedics & Sports Medicine, [facility] [place] [address] 01/10/2025 2:45 PM EDT [facility] [address] [place] [address] Lee King, DO 4 [facility] Sports [facility], [place] [address] Jessa Sanchez, PT 8 [place] [address] 01/15/2025 11:30 AM EDT [facility] [address] [place] [address] Lee King, DO 4 [facility], [place] [address] Jessa Sanchez, PT 8 [place] [address] 01/17/2025 2:00 PM EDT [facility] [address] [place] [address] Lee King, DO 4 [facility], [place] [address] Jessa Sanchez, PT 8 [place] [address] 01/22/2025 11:30 AM EDT [facility] [address] [place] [address] Lee King, DO 4 [facility], [place] [address] Jessa Sanchez, PT 8 [place] [address] 01/24/2025 2:00 PM EDT [facility] [address] [place] [address] Lee King, DO 4 [facility] Sports [facility], [facility] [place] [address] Jessa Sanchez, PT 8 [place] [address] 01/29/2025 11:30 AM EST [facility] 8 [place] [address] Lee King DO 4 [facility], [facility] [address] Jessa Sanchez, PT 8 [place] [address] 01/31/2025 2:00 PM EST [facility] Visit [facility] 8 [place] [address] Lee King, 4 [facility], [facility] [address] Jessa Sanchez, PT 8 [place] [address] 02/12/2025 11:30 AM EST [facility] [address] [place] [address] Lee King DO 4 [facility] [place] [address] Rubensbelén Jessa, PT 8 [place] [address] 02/14/2025 2:00 PM EST Office Visit [facility] 8 [place] [address] Lee King DO 4 [facility] Orthopedics & Sports [facility] [place] [address] Rubenskota Jessa, PT 8 [place] [address] 03/14/2025 1:30 PM EST Appointment [facility], Ct Scan - [address] [address] Sabino Green MD, MS [address] [place] [address] 03/14/2025 2:00 PM EST Appointment [facility] [address] [place] [address] Sabino Green MD, MS [address] [address] 04/03/2025 11:45 AM EST Office Visit [facility] [address] [place] [address] [phone] Sabino Green MD, MS [address] [address] documented as of this encounter Visit Diagnoses Not on filedocumented in this encounter Additional Health Concerns Assessment Noted Time PHQ-2 Depression Total Score: 1 12/28/19 24 11:18 AM EDT documented as of this encounter Care Teams Counseling Aide Relationship Specialty Start Date End Date Sukumar Beltran MD [address] [place] [address], [address] [place] [phone] [email or web address] PCP - General Family Medicine 12/28/23 documented as of this encounter Additional Source Comments The information contained in this document represents components of the legal health record. It is not the complete legal health record.[facility]
--- OUTSIDE RECORDS SUMMARY | 2024-12-24 11:01 | XMS_ITS | Clinical Summary ---
Author Organization [facility] Address Pending sale to [facility] [address] [place] [address] Phone Care Team Providers Care Manager Talent Name Role Phone Sukumar Beltran MD Primary Care Provider [phone] Allergies Active Allergy Reactions Criticality Noted Date Comments Amlodipine Swelling Low 12/28/2023 Latex, Natural Rubber Itching Low 06/10/2017 Levofloxacin Tendonitis High 10/26/2023 Course complicated by tendinopathy ~ 2013, but tolerated a 7-days course of Levaquin 500 mg in August 2023. Lisinopril Cough Low 12/28/2023 Sulfamethoxazole-Trimethop rim Rash Low 06/03/2021 Other reaction(s): hives, swelling Medications methylcellulose, laxative, (CITRUCEL) Powd Take 2 g by mouth daily. Active docusate sodium (COLACE) 100 MG capsule Take 200 mg by mouth 3 (three) times a day. Taking 4 tables at night daily Active melatonin 3 mg Tab Take 5 mg by mouth nightly at bedtime. Active acetaminophen (TYLENOL) 650 MG CR tablet Take 1,300 mg by mouth 2 (two) times a day. Active polyethylene glycol (MIRALAX) 17 gram/dose powder Take 17 g by mouth daily. holding 11/03/19 25 Active aspirin (ASPIR-81 ORAL) Take by mouth. Active cyanocobalamin, vitamin B-12, (VITAMIN B12 ORAL) Take by mouth. Activ e guaiFENesin (MUCINEX) 600 mg ER biphasic tablet 1 tablet as needed Orally every 12 hrs Active TRELEGY ELLIPTA 200-62.5-25 mcg inhalerIndicatio ns:Severe persistent asthma, uncomplicated Inhale 1 puff into the lungs daily. 180 each 3 12/28/19 24 Active glipiZIDE (GLUCOTROL XL) 2.5 MG 24 hr tablet Take 1 tablet (2.5 mg total) by mouth daily. 90 tablet 3 12/28/19 24 Active fluticasone propionate (FLONASE) 50 mcg/actuation nasal spray SHAKE LIQUID AND INSTILL 1 SPRAY INTO EACH NOSTRIL TWICE DAILY. 16 g 11 12/28/19 24 Active carvedilol (COREG) 12.5 MG tablet Take 1 tablet (12.5 mg total) by mouth 2 (two) times a day. 180 tablet 3 12/28/19 24 2024 Active atorvastatin (LIPITOR) 80 MG tablet Take 1 tablet (80 mg total) by mouth nightly at bedtime. 90 tablet 3 12/28/19 24 Active gabapentin (NEURONTIN) 300 MG capsule Take 3 capsules (900 mg total) by mouth 2 (two) times a day. 540 capsule 1 04/11/19 25 Active celecoxib (CELEBREX) 200 MG capsule Take 1 capsule (200 mg total) by mouth 2 (two) times a day. 180 capsule 3 04/11/19 25 2025 Active omeprazole (PRILOSEC) 20 MG capsule TAKE 1 CAPSULE BY MOUTH EVERY DAY 90 capsule 3 07/11/19 25 Active hydrALAZINE (APRESOLINE) 25 MG tablet TAKE 1 TABLET BY MOUTH TWICE A DAY 180 tablet 1 07/31/19 25 Active venlafaxine (EFFEXOR-XR) 150 MG 24 hr capsule Take 1 capsule (150 mg total) by mouth 2 (two) times a day. 180 capsule 3 08/04/19 25 2025 Active benzonatate (TESSALON) 200 MG capsule Take 1 capsule (200 mg total) by mouth nightly at bedtime. 60 capsule 1 08/29/19 25 Active losartan (COZAAR) 50 MG tablet Take 50 mg by mouth daily. Active gabapentin (NEURONTIN) 300 MG capsule Take 900 mg by mouth 2 (two) times a day. 11/02 holding 11/03/19 25 Active Saccharomyces boulardii (FLORASTOR) 250 mg capsule Take 250 mg by mouth 2 (two) times a day. 11/03/19 25 Active loperamide (IMODIUM) 2 mg capsule Take 2 mg by mouth 4 (four) times a day as needed for diarrhea. 11/03/19 25 Active ammonium lactate (AMLACTIN) 12 % cream Apply 1 Application topically as needed. Active spironolactone (ALDACTONE) 50 MG tabletIndication s:Primary hypertension TAKE 1 AND 1/2 TABLETS BY MOUTH DAILY 135 tablet 1 11/17/19 25 Active diazePAM (VALIUM) 5 MG tablet TAKE 1/2 TO 1 TABLET (2.5 TO 5MG) BY MOUTH IN THE EVENING AT BEDTIME 90 tablet 11/24/19 25 Active triamcinolone acetonide 0.1 % creamIndications :Eczema, unspecified type Apply topically daily for 14 days. Apply to eczematous rash daily for 2 weeks. 30 g 12/04/19 25 Active oxyCODONE 5 MG immediate release tablet Take 1 tablet (5 mg total) by mouth every 6 (six) hours as needed for pain (specific location in comments). Partial fill ok 12 tablet 11/07/19 25 2024 Discontinued celecoxib (CELEBREX) 200 MG capsule Take 200 mg by mouth daily. 2024 Discontinued ammonium lactate (AMLACTIN) 12 % cream Apply 1 Application topically as needed (for itch). 280 g 1 11/10/19 25 2024 Active Problems Problem Noted Date Diagnosed Date Open wound of ankle and foot 11/09/2024 Transaminitis 10/24/2024 Assessment & Plan (10/31/2024 3:06 PM EDT): Mild, resolving Assessment & Plan (10/30/2024 1:39 PM EDT): Mild, resolving Assessment & Plan (10/29/2024 10:31 AM EDT): Mild, resolving Assessment & Plan (10/28/2024 10:42 AM EDT): Mild, resolving Recommend follow-up LFTs Assessment & Plan (10/27/2024 10:03 AM EDT): Resolved Assessment & Plan (10/26/2024 10:10 AM EDT): Resolved Assessment & Plan (10/25/2024 12:06 PM EDT): Improved -Mild transminitis on admission: AST 47; ALT 66; Alk Phos 180 -likely due to hypovolemia and dehydration due to decreased oral intake in combination with cellulitis -AST & ALT normal; Alk Phos remains mildly elevated at 129 but consistent with recent labs Assessment & Plan (10/24/2024 3:47 PM EDT): -Mild transminitis on admission: AST 47; ALT 66; Alk Phos 180 -likely due to hypovolemia and dehydration due to decreased oral intake in combination with cellulitis -IVF, LFTs with morning labs Pulmonary nodules 09/07/2024 Assessment & Plan (12/13/2024 1:24 PM EDT): New 7 mm pulmonary nodule noted on recent CT, though overall parenchymal appearance has improved. We will repeat a chest CT scan in 3 months and reconvene thereafter. Orders: CT Chest; Future Assessment & Plan (09/07/2024 1:50 PM EDT): We will repeat a chest CT scan in a few month interval, sometime in late October, prior to follow-up.. Orders: CT Chest; Future Decreased diastolic blood pressure 07/26/2024 Assessment & Plan (07/26/2024 2:18 PM EDT): Plan to hold spironolactone tomorrow morning, push PO fluids, and if feeling better in 48 hours, restart at 1 tablet (50 mg) instead of 1-1/2 tab. He is seeing his PCP on 08/03 for BP recheck and med adjustment. Osteoarthritis, localized, shoulder, left 2024 Primary localized osteoarthrosis of ankle and fo ot 05/20/2024 Bilateral renal cysts 05/20/2024 Aspergillus 01/19/2024 Overview (01/19/2024): Grew from bronchial washings performed 10/10/2023 along with Mycelia sterilia. Assessment & Plan (07/26/2024 2:18 PM EDT): Suspect colonizer. Repeat fungal sputum analysis. Assessment & Plan (04/19/2024 2:30 PM EST): Grew from bronchial washings performed 10/10/2023 along with Mycelia sterilia. Suspect colonizer. Assessment & Plan (01/19/2024 4:09 PM EDT): Suspect colonizer. Cross-sectional chest imaging not suggestive of invasive fungal infection. Clinical improvements were also argue against this. Additionally, none of these organisms were identified on BAL or brushings. For now, would monitor clinically. If he develops recurrent infectious symptoms, would send sputum analysis for Gram stain and culture, AFB and fungal analyses. Additionally, if future chest CT scans reveal progressive parenchymal abnormalities, consideration could be given to additional serologic testing with galactomannan, Fungitell and possibly ABPA testing, though I do not believe this is indicated at the current juncture. 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 Suspect colonizer, never treated. 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 Suspect colonizer, never treated. Assessment & Plan (07/26/2024 2:18 PM EDT): Suspect colonizer. Repeat sputum AFB. Assessment & Plan (04/19/2024 2:30 PM EST): Suspect colonization. Monitor clinically without intervention at this time. Assessment & Plan (01/19/2024 4:07 PM EDT): Suspect colonizer. Assessment & Plan (10/26/2023 1:52 PM EDT): Suspect NTM, and probably a colonizer. If so, likely will not warrant treatment at this juncture. Awaiting identification and sensitivities. S/P total knee replacement using cement, right 0 08/31/2021 Coronary artery disease invo lving [place] coronary artery of [place] heart without angina pectoris 07/24/2021 Assessment & Plan (10/31/2024 3:06 PM EDT): History of stents Continue aspirin, Coreg, atorvastatin Assessment & Plan (10/30/2024 1:39 PM EDT): History of coronary stents Continue aspirin, Coreg, atorvastatin Assessment & Plan (10/29/2024 10:31 AM EDT): History of coronary stents Continue aspirin, Coreg, atorvastatin Assessment & Plan (10/28/2024 10:42 AM EDT): History of coronary stents Continue aspirin, Coreg, atorvastatin Assessment & Plan (10/27/2024 10:03 AM EDT): S/P coronary stents x2 No active chest symptoms Assessment & Plan (10/26/2024 10:10 AM EDT): S/P coronary stents x2 No active chest symptoms continue home medication regimen Assessment & Plan (10/25/2024 12:06 PM EDT): S/P coronary stents x2 -cont ASA, Statin, Hydralazine Assessment & Plan (10/24/2024 3:47 PM EDT): S/P coronary stents x2 -cont ASA, Statin Assessment & Plan (08/05/2024 4:02 PM EDT): I recommend that he discuss any potential medication change with regards to beta-blockade with his director of billing on Tuesday. Type 2 diabetes mellitus wit hout complication, without long-term current use of insulin 07/24/2021 Assessment & Plan (10/31/2024 3:06 PM EDT): 08/19 A1c 7.0, glucoses controlled here -patient on glipizide 2.5g QD, HOLD while inpatient -POCC/ISS Assessment & Plan (10/30/2024 1:39 PM EDT): 08/19 A1c 7.0 -patient on glipizide 2.5g QD, HOLD while inpatient C/w jg Glucoses have been fairly well-controlled Assessment & Plan (10/29/2024 10:31 AM EDT): 08/19 A1c 7.0 -patient on glipizide 2.5g QD, HOLD while inpatient C/w jg Glucoses have been fairly well-controlled Assessment & Plan (10/28/2024 10:42 AM EDT): 08/19 A1c 7.0 -patient on glipizide 2.5g QD, HOLD while inpatient C/w jg Glucoses have been fairly well-controlled Assessment & Plan (10/27/2024 10:03 AM EDT): 08/19 A1c 7.0 -patient on glipizide 2.5g QD, HOLD while inpatient C/w jg Assessment & Plan (10/26/2024 10:10 AM EDT): 08/19 A1c 7.0 -patient on glipizide 2.5g QD, HOLD while inpatient -lispro SS Stable overnight Assessment & Plan (10/25/2024 8:18 AM EDT): 08/19 A1c 7.0 -patient on glipizide 2.5g QD, HOLD while inpatient -lispro SS (low) as patient is insulin niave; [facility] Assessment & Plan (10/24/2024 3:47 PM EDT): 525 A1c 7.0 -patient on glipizide 2.5g QD, HOLD while inpatient -lispro SS (low) as patient is insulin niave; [facility] Assessment & Plan (07/24/2021 8:26 AM EDT): This is a relatively new diagnosis to the patient. He tells me his last hemoglobin A1c was 9 and he was started on glipizide 2.5 mg twice daily. His hemoglobin A1c has quickly fallen to 7.4. He will not take the glipizide on the morning of surgery. He should be on a consistent carbohydrate diet. The hospitalist service should be consulted for basal bolus insulin therapy during the hospital stay GERD (gastroesophageal reflux disease) Assessment & Plan (04/19/2024 2:30 PM EST): Continue PPI. Adequate control of reflux symptoms is important in the setting of underlying obstructive lung disease. Assessment & Plan (07/24/2021 1:49 PM EDT): Continue H2 nicki. Adequate control of reflux symptoms is important in the setting of underlying obstructive lung disease. Assessment & Plan (04/13/2021 4:22 PM EST): Continue H2 nicki. Adequate control of reflux symptoms is important in the setting of underlying obstructive lung disease. Recurrent pneumonia 02/03/2021 Assessment & Plan (12/13/2024 1:24 PM EDT): Overall improved without evidence of active infection currently. Assessment & Plan (09/07/2024 1:50 PM EDT): No evidence of recurrence at this time. Monitor clinically off antibiotics. Encouraged use of incentive spirometer. Assessment & Plan (07/26/2024 2:18 PM EDT): The presence of waxing and waning pulmonary nodules along with groundglass opacities and lower lobe predominant bronchial wall thickening and mucous plugging remains of unclear etiology. For now, we agreed to monitor clinically, obtain basic blood work and repeat sputum analyses, and repeat a chest CT scan in approximately 6 weeks. If symptoms (cough) or radiographic abnormalities persist, would then consider prescribing a nebulizer, albuterol and Hypersal Nebules and initiating a pulmonary toilet regimen with Aerobika or Acapella PCP therapy. Additionally, repeat bronchoscopy could be considered. Finally, barium swallow could be considered as well to rule out silent aspiration. Orders: CBC and differential; Future C-Reactive Protein; Future Sedimentation rate (ESR) Comprehensive metabolic panel; Future Respiratory Culture/Gram Stain; Future Mycobacterial culture/smear; Future Fungal culture; Future Procalcitonin; Future CT Chest; Future Assessment & Plan (04/19/2024 2:38 PM EST): Etiology for this remains unclear, though his chest CT scans reveal possible mild bronchiectasis, which I reviewed with him today, along with bronchial airway wall thickening in the context of underlying asthma. Immunoglobulins are normal. Bronchoscopy last September revealed several colonizers including Aspergillus and ROXANNA. For now, will monitor clinically and repeat a chest CT scan in 3 months. Overall, his recent CT performed few weeks ago reveals ongoing improvements compared to December and August cross-sectional imaging studies. Orders: CT Chest; Future Assessment & Plan (01/19/2024 4:07 PM EDT): Etiology for this is unclear. Immunoglobulins are normal. Summer infection was felt secondary to human metapneumovirus, which was identified at the time of bronchoscopy. Recent chest CT scan is markedly improved compared to prior. Faint right upper lobe and lingular opacities are noted, and we will follow-up with a repeat CT scan in 3 months. That being said, clinical presentation today along with normal inflammatory markers and WBC would argue against active infection. Will monitor clinically for now. I gave him 2 sterile sputum cups in specimen bags to keep at home in case he were to develop recurrent productive cough in months to come. Assessment & Plan (10/26/2023 1:52 PM EDT): Underwent bronchoscopy 10/05/2023. Will plan repeat chest CT in approximately 3 months, to be performed with IV contrast, and reconvene thereafter. Assessment & Plan (10/05/2023 5:02 PM EDT): Etiology is unclear. He has been unable to submit a sputum for analysis. Immunoglobulins are normal. His most recent chest CT performed 2 weeks ago revealed bilateral multifocal consolidative airspace opacities for which he was prescribed Levaquin. Thankfully, he has clinically improved as a result, though continues to feel weak with an ongoing cough and some sputum production. At this juncture, we agreed that bronchoscopy is indicated as next step. This will be scheduled next Monday 10/09 while I am covering the hospital critical care and pulmonary service given limited time I have available for these procedures. He will stop Celebrex 3 days prior to the procedure, continue aspirin 81 mg daily throughout. Instructions provided both verbally and in writing to the patient. Continue symptomatic management with Mucinex and Tessalon. No indication for further antibiotic or prednisone therapy at this juncture. Assessment & Plan (08/09/2023 4:22 PM EDT): Based on history, I suspect his chest CT findings represent resolving pneumonia. However, symptoms have not completely resolved. There does not appear to be enough sputum to send for analysis based on history. Therefore, will empirically treat with 7 days of Augmentin. Will obtain basic blood work now, and repeat in about a month. Will plan repeat chest CT in about 6 weeks, and we will reconvene thereafter. If the opacities persist, will consider PET CT scan versus bronchoscopy. I have asked my office staff to obtain prior chest imaging performed at [facility] in the past 6 months. Assessment & Plan (04/13/2021 4:21 PM EST): Clinically and radiographically, this has resolved. That being said, his chest [place]20[place] [facility] [place] lower lobe peribronchial wall thickening with central bronchial or debris and patchy reticular opacities, likely consistent with bronchitis which was clinically present at the time of the scan per his history. Additional chest CT scanning should be performed as determined by clinical need. No further dedicated longitudinal CT is warranted. Assessment & Plan (02/03/2021 1:28 PM EST): He has had 2 pneumonias within the span of 2 years. While this may be bad luck , IgG subclasses were checked, and are nearly normal. He did have recurrent episodes of bronchitis as a child, but outgrew these in adulthood and was mostly healthy and had a few years ago. Therefore, I would be inclined to monitor him clinically going forward. We will plan a repeat chest CT scan and evaluate for bronchiectasis or any other underlying pulmonary parenchymal abnormality in the near future as long as his chest x-ray remains mostly clear. If he continues to develop recurrent pneumonias, then repeat immunoglobulins and additional work-up with serologic testing of response to vaccines could be considered. Severe persistent asthma, uncomplicated 02/04/20 21 Assessment & Plan (12/13/2024 1:24 PM EDT): Thankfully, his respiratory status has remained fairly stable. We will continue low-dose Trelegy. We will repeat PFT in 3 months at an annual interval and reconvene thereafter. Unfortunately, he is not able to swim currently because of his Achilles injury and ankle cellulitis. He is being seen by physical therapy. I encouraged him to remain active as able. Orders: Pulmonary Function Test Reason for Exam: Asthma; Type of PFT Test: Spirometry with bronchodilator, Lung Volumes, DLCO; Additional Testing: Exhaled Nitric Oxide Test ([facility], [facility], [facility], [facility] and [facility] only); Performing Location: [facility]; Future albuterol 90 mcg/actuation inhaler 2-4 puff albuterol 2.5 mg /3 mL (0.083 %) nebulizer solution 2.5 mg Assessment & Plan (09/07/2024 1:50 PM EDT): Will continue Trelegy for now. Consider repeating PFT this fall at an annual interval. Assessment & Plan (08/05/2024 4:02 PM EDT): Continue inhaler regimen. Follow-up with pulmonology. Assessment & Plan (07/26/2024 2:18 PM EDT): Continue high-dose Trelegy. Consider repeat annual spirometry next fall. Assessment & Plan (04/19/2024 2:38 PM EST): Continue high-dose Trelegy. Consider repeat PFT next December at an annual interval. Assessment & Plan (01/19/2024 4:07 PM EDT): Continue high-dose Trelegy. Consider repeat PFT next December on an annual basis. Assessment & Plan (10/26/2023 1:52 PM EDT): Will continue high-dose Trelegy for now. Will plan to obtain repeat PFT in 3 months and reconvene thereafter. Assessment & Plan (10/05/2023 4:59 PM EDT): Will continue high-dose Trelegy. Consider repeat PFT once recurrent pulmonary infections are no longer an issue. Assessment & Plan (08/09/2023 4:20 PM EDT): Continue high-dose Trelegy for now. Consider repeat PFT once cough/acute respiratory symptoms have improved. Assessment & Plan (07/24/2021 1:48 PM EDT): Doing very well on low-dose Trelegy (a significant improvement compared to Wixela), which we will continue. We will reconvene in 6 months and consider repeat annual pulmonary function studies then. Assessment & Plan (07/24/2021 8:25 AM EDT): Patient follows with Dr. Green. He had a couple of bad pneumonias with the last being at the end of November 2000. His asthma was not being very well controlled. They subsequently switched him to Trelegy and as needed albuterol. He is doing much better and has returned to being able to swim 74 laps without difficulty. He is not using his rescue inhaler frequently at all. Again early ambulation is [place]. Increase pulmonary toilet if necessary. Patient is to bring his Trelegy with him Assessment & Plan (04/13/2021 4:22 PM EST): We will try to switch from Wixela to low-dose Trelegy (adding a LAMA component). A sample was given to him along with instructions, and a prescription was sent to his pharmacy. Assessment & Plan (02/03/2021 1:29 PM EST): The diagnosis is uncertain to me based on history and symptoms, and PFT are difficult to interpret. I would consider repeat PFT once his cough is improved; this could potentially be ordered at his next visit here. Post-traumatic osteoarthritis of right knee 10/27 HTN (hypertension) 03/03/2017 Assessment & Plan (10/31/2024 4:01 PM EDT): Home meds were held due to low normal blood pressures however with some hypertensive rates today will resume his home care aide Called placed to update but reached Assessment & Plan (10/30/2024 1:39 PM EDT): Patient's blood pressures are still lower than baseline, will continue to hold Cozaar and spironolactone for now Assessment & Plan (10/29/2024 10:31 AM EDT): Patient's blood pressures are still lower than baseline, will continue to hold Cozaar and spironolactone for now Assessment & Plan (10/28/2024 10:42 AM EDT): Patient's blood pressures are still lower than baseline, will continue to hold Cozaar and spironolactone for now Assessment & Plan (10/27/2024 10:03 AM EDT): Restart home meds am Assessment & Plan (10/26/2024 10:10 AM EDT): Nephrotoxic meds on hold in the setting of MARIAELENA Assessment & Plan (10/25/2024 8:54 AM EDT): Uncontrolled Patient with hx of CAD and HLD; s/p stents x2 Cont hydralazine, carvedilol, -Hold spironolactone and losartan 2/2 MARIAELENA -pain management Assessment & Plan (10/24/2024 3:53 PM EDT): Uncontrolled Patient with hx of CAD and HLD; s/p stents x2 Cont losartan, hydralazine, carvedilol, -Hold spironolactone 2/2 MARIAELENA -pain management Assessment & Plan (08/05/2024 4:02 PM EDT): Continue present antihypertensive regimen. BP improved with reduced dose of spironolactone. Orders: spironolactone (ALDACTONE) 50 MG tablet; Take 1 tablet (50 mg total) by mouth daily. Assessment & Plan (02/12/2024 11:01 AM EST): Recent change in diuretic to spironolactone due to concern for sodium levels. Blood pressure elevated at current visit. -Monitor blood pressure. -Continue spironolactone as prescribed. Assessment & Plan (07/24/2021 8:24 AM EDT): Patient has decent control that we will need some fine-tuning as an outpatient. He will continue his Coreg through the perioperative period. He can take his amlodipine as well on the morning of surgery. He is losartan needs to be held on the morning of surgery, and if he is on hydrochlorothiazide at the time of surgery that needs to be held on the morning of surgery as well. He will also need a BMP after surgery. Cervical spinal stenosis Spinal stenosis of lumbar re gion with neurogenic claudication Chronic pain Assessment & Plan (10/31/2024 3:06 PM EDT): Continue gabapentin, avoid nephrotoxic medications Assessment & Plan (10/30/2024 1:39 PM EDT): Continue gabapentin, avoid nephrotoxic medications Assessment & Plan (10/29/2024 10:31 AM EDT): Continue gabapentin, avoid nephrotoxic medications Assessment & Plan (10/28/2024 10:42 AM EDT): Continue gabapentin, NSAIDs are on hold in the setting of MARIAELENA Assessment & Plan (10/27/2024 10:03 AM EDT): Continue gabapentin NSAIDs are on hold Assessment & Plan (10/26/2024 10:10 AM EDT): Patient with hx of cervical spinal stenosis, OA, and total right knee replacement -CR[employer] SPECIALIST reviewed -Cont gabapentin, will reduce dose to 300mg BID due to kidney function -Hold celebrex 2/2 MARIAELENA, avoid NSAIDs and nephrotoxic meds -tylenol and oxy IR for pain Assessment & Plan (10/25/2024 10:54 AM EDT): Patient with hx of cervical spinal stenosis, OA, and total right knee replacement -CROP SPECIALIST reviewed -Cont gabapentin, will reduce dose to 300mg BID due to kidney function -Hold celebrex 2/2 MARIAELENA, avoid NSAIDs and nephrotoxic meds -tylenol and oxy IR for pain Assessment & Plan (10/24/2024 3:53 PM EDT): Patient with hx of cervical spinal stenosis, OA, and total right knee replacement -CROP SPECIALIST reviewed -Cont gabapentin -Hold celebrex 2/2 MARIAELENA, avoid NSAIDs and nephrotoxic meds -tylenol and oxy IR for pain Resolved Problems Problem Noted Date Diagnosed Date Resolved Date Cellulitis of right lower extremity 10/24/2024 12/03/2024 Assessment & Plan (10/31/2024 3:06 PM EDT): -Leukocytosis resolved after switching to Zosyn, prev on ancef, remains afebrile -Orthopedics felt this was a nonsurgical cellulitis, recommended weightbearing as tolerated. Team discussed results of MRI with dr king. He recommends wound care. - if any inc pain, would repeat imaging to rule out abscess however all other parameters seem to indicate improvement -ct wound care, jorge in outpt setting once dc will aid with healing Assessment & Plan (10/30/2024 2:12 PM EDT): Leukocytosis resolved after switching to Zosyn Orthopedist felt this was a nonsurgical cellulitis, recommended weightbearing as tolerated. Discussed results of MRI with orthopedist yesterday, he will reround on the patient but feels that fluid is related to the patient's injury rather than abscess. Afebrile, CRP trending down Patient received 2.5 days (#5 doses) of Ancef 1 g Q12H before being transitioned to Zosyn every 8H on 10/27 (we are on day #4). Will consider transitioning to oral augmentin or Doxy for gram negative coverage when stable. Patient has bactrim allergy - Although 5 days of antibiotics are typically sufficient for cellulitis due to patient's condition consider covering for 7 days. 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 No indication for further imaging at this time Will continue elevation, Zosyn for now, suspect polymicrobial cellulitis, no wound cultures were done on admission as there were no open wounds at that time and it appears they opened over the weekend on their own. Blood cultures NTD. MRSA screen negative. -Continue wound care, will order morphine as needed with dressing changes; PT - I reached out to orthopedics in regards if he needs a special walking device or boot for right lower extremity upon DC. Per Dr King he does not. Patient was informed that he may use croc or slippers with open back to avoid friction on heel Assessment & Plan (10/29/2024 12:48 PM EDT): Leukocytosis resolved after switching to Zosyn Orthopedist felt this was a nonsurgical cellulitis, recommended weightbearing as tolerated. Discussed results of MRI with orthopedist yesterday, he will reround on the patient but feels that fluid is related to the patient's injury rather than abscess. Afebrile, CRP trending down Patient received 2.5 days (#5 doses) of Ancef 1 g Q12H before being transitioned to Zosyn every 8H on 10/27 (we are on day #3). Will consider transitioning to oral augmentin or Doxy for gram negative coverage. Patient has bactrim allergy Will continue elevation, Zosyn for now, suspect polymicrobial cellulitis, no wound cultures were done on admission. Blood cultures NTD. MRSA screen negative. Continue wound care; PT Assessment & Plan (10/28/2024 10:42 AM EDT): Leukocytosis resolved after switching to Zosyn Orthopedist felt this was a nonsurgical cellulitis, recommended weightbearing as tolerated. Discussed results of MRI with orthopedist yesterday, he will reround on the patient but feels that fluid is related to the patient's injury rather than abscess. Afebrile, CRP now trending down Will continue elevation, Zosyn for now, suspect polymicrobial cellulitis, no wound cultures were done on admission. Blood cultures NTD. MRSA screen negative. Exam today shows considerable improvement, marked decrease in erythema edema warmth and intensity Assessment & Plan (10/27/2024 10:03 AM EDT): White blood cell count slowly coming down overnight, afebrile no tachycardia or hypotension Orthopedist felt this was a nonsurgical cellulitis, recommended weightbearing as tolerated Patient feels he is not clinically improving, ongoing pain, wound is draining at times. Still with a leukocytosis although no fever Patient continues on Ancef consider broadening to Zosyn, discussed with attending MD Just back from MRI, rule out fluid collection/abscess Assessment & Plan (10/26/2024 10:10 AM EDT): White blood cell count slowly coming down overnight, afebrile no tachycardia or hypotension Orthopedist felt this was a nonsurgical cellulitis, recommended weightbearing as tolerated Patient continues on Ancef Will MRSA screen Continue elevation and antibiotics, patient clinically improving, PT feels that he will be able to go home Assessment & Plan (10/25/2024 12:06 PM EDT): Patient presented with right lower extremity edema and erythema following recent rupture of achilles tendon. experienced rupture of right achilles tendon approx 1.5 weeks ago. Seen by Ortho 10/17, placed in boot. Was told to f/u in a week with plans to start PT in a couple of weeks. He states he was told to remove boot for bathing only. -blood cultures taken and final results pending -Patient experienced suspected brief episode of hypoxia in ED, will order d dimer ordered, elevated. Will hold on CTA chest due to poor kidney function -follow up RLE U/S positive for fluid collection v cystic lesion to right heel - BLE venous duplex negative for DVT -IVF Normal saline to LR -cont Ancef -elevate RLE -Pt/OT -CTA chest r/o PE -surgery consult / presence of fluid in right heel -ortho consult pending Assessment & Plan (10/24/2024 3:47 PM EDT): Patient presented with right lower extremity edema and erythema following recent rupture of achilles tendon. experienced rupture of right achilles tendon approx 1.5 weeks ago. Seen by Ortho 10/17, placed in boot. Was told to f/u in a week with plans to start PT in a couple of weeks. He states he was told to remove boot for bathing only. -blood cultures taken and final results pending -IVF overnight -cont Ancef 2gm Q8H -elevate RLE -follow up ultrasound of right ankle/foot to assess for fluid collection -Pt/OT MARIAELENA (acute kidney injury) 10/24/2024 Assessment & Plan (10/28/2024 10:42 AM EDT): Resolved Blood pressures are still borderline low I will continue to hold his ARB and spironolactone today Assessment & Plan (10/27/2024 10:03 AM EDT): resolved Restart ARB and spironolactone in a.m. Assessment & Plan (10/26/2024 10:10 AM EDT): Improving -UA positive for trace blood -US of kidney and bladder ordered due to increase in creat overnight: Negative for stenosis and hydronephrosis. Positive for right renal atrophy -Post void Bladder scan: 196 mL Nephrotoxic medications on hold Stop IV fluid Assessment & Plan (10/25/2024 12:06 PM EDT): Creatinine on admit 2.2. Baseline appears to be 1.2-1.3 -patient reports decreased oral intake the last few days -reports hx of urinary hesitancy and frequency -Given 1L NS bolus in ED -UA positive for trace blood -US of kidney and bladder ordered due to increase in creat overnight: Negative for stenosis and hydronephrosis. Positive for right renal atrophy -Post void Bladder scan: 196 mL Plan: -NS 150/hr switched to LR 150/H -avoid nephrotoxic meds -home celebrex not ordered during admission -holding spironolactone; Losartan -gabapenten dose reduced to 300mg bid -consider nephrology referral if kidney function worsens -1500 BMP Assessment & Plan (10/24/2024 7:36 PM EDT): Creatinine on admit 2.2. Baseline appears to be 1.2-1.3 -patient reports decreased oral intake the last few days -reports hx of urinary hesitancy and frequency -Given 1L NS bolus in ED -NS 150/hr overnight -avoid nephrotoxic meds -home celebrex not ordered during admission -Bladder scan to r/o post renal obstruction -UA with reflex to culture -holding spironolactone Pneumonia due to human metapneumovirus 10/26/2023 01/19/2024 Overview (10/26/2023): Found during bronchoscopy performed 10/15/2023. Assessment & Plan (01/19/2024 2:50 PM EDT): This appears clinically and radiographically resolved. Assessment & Plan (10/26/2023 1:53 PM EDT): Patient has clinically recovered. Pre-op exam 07/24/2021 08/09/2023 Assessment & Plan (07/24/2021 8:23 AM EDT): This is a medically complex patient of Dr. Dillon, Dr. Singh, Dr Green and Dr. Wise for planned elective right knee replacement in early August. The patient's surgical risk assessment is as follows. His Edward cardiovascular score shows a 0.7% percent risk of cardiovascular event perioperatively or in the first 30 days. His RCRI score shows a 0.9% risk of cardiovascular event including arrhythmia and CHF. This is considered a low risk score on the scale. His NSQIP cardiovascular score was 0.5% risk of event with a slightly elevated risk of any other complication for his age. His stop bang score was 3, which puts him at high risk for apnea though he has no history of or symptoms to suggest that he has significant sleep apnea. This will just need to be monitored closely in the PACU. He has a calcium score of 48.45 and is able to achieve 8.7 METS. 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 We will get the EKG and cardiology note scanned into the chart. He stopped taking Plavix on May 26 for his most recent LAD stent placed in 2019. This patient swims 74 laps in the pool every day and is in decent condition for this procedure. He will be seeing Dr. Green in the near future as well. His asthma seems to have come under excellent control with the Trelegy inhaler added at the last visit. He should take that on the morning of surgery and bring it with him since we do not have it. Aggressive pulmonary toilet would be appropriate with early ambulation. Will need standard DVT and antibiotic prophylaxis after the surgery. The patient did his outpatient blood work for the surgery on the . This shows an unremarkable CBC and INR. His hemoglobin A1c is acceptable at 7.4, and is down from his most recent of 9 with the addition of glipizide. Sodium was noted to be 128, only prior is going back to 2018 in the area of 132. He is seeing his PCP about this on the . I gave Lazaro a note of my concern to give to Dr. Dillon, with my phone number to call if we can be of any assistance. This may be his hydrochlorothiazide, Dr. Dillon will have more recent BMPs to make an adequate assessment. We will need to monitor this postoperatively. His surgery we will recommend that he hold his hydrochlorothiazide( assuming he is still on it), Cozaar, and glipizide on the morning of surgery. He should take his amlodipine, Coreg and Trelegy inhaler the morning of surgery. He is stopped his supplements 1 week prior to surgery and specifically stop his Celebrex 1 week prior to surgery. Given his coronary disease, it would be ideal if surgery and anesthesia would allow him to continue his aspirin through the perioperative period. If not, I would favor a short discontinuation of about 3 days and reinitiation immediately after surgery. Hyponatremia 07/24/2021 10/31/2024 Assessment & Plan (10/31/2024 3:06 PM EDT): Resolved Assessment & Plan (10/30/2024 1:39 PM EDT): Resolved Chronic, will continue to monitor while inpatient Assessment & Plan (10/29/2024 10:31 AM EDT): Resolved Chronic, will continue to monitor while inpatient Assessment & Plan (10/28/2024 10:42 AM EDT): Resolved Assessment & Plan (10/27/2024 10:03 AM EDT): Resolved Assessment & Plan (10/26/2024 10:10 AM EDT): Resolved Assessment & Plan (10/25/2024 12:06 PM EDT): Resolved. -Chronic -Patient admitted with MARIAELENA -Admitted with level of 129. Baseline appears to be 127-131 -Noted to be confused at PCP office morning of admission. Patient reports taking extra Valium last night for insomnia due to persistent pain. Neurologically intact upon admission Plan: -cont to monitor neuro status and BMP -IV fluids as above Assessment & Plan (10/24/2024 3:47 PM EDT): Chronic -Patient admitted with MARIAELENA -Admitted with level of 129. Baseline appears to be 127-131 -Noted to be confused at PCP office this morning. Patient reports taking extra Valium last night for insomnia due to persistent pain. Neurologically intact upon admission - IVF as Above -cont to monitor neuro status and BMP Preop pulmonary/respiratory exam 07/24/2021 08/09/2023 Assessment & Plan (07/24/2021 1:46 PM EDT): Patient has been scheduled for right knee replacement by Dr. Wise in early August. I would expect he is at low risk of perioperative pulmonary complications. He is doing very well on Trelegy. In this context, I would proceed to the operating without additional pulmonary testing or intervention. He should continue to use Trelegy on a daily basis, including on the day of the operation. Routine perioperative pulmonary management (incentive spirometry, early ambulation) recommended at the discretion of the surgical team. Abnormal chest CT 02/03/2021 04/13/2021 Assessment & Plan (02/03/2021 1:26 PM EST): His chest CTs from February 2019 and November 2020 revealed scattered areas of consolidative and nodular / groundglass bronchopneumonia, and a different distribution between the 2 studies suggesting an inflammatory/infectious etiology. This is supported by his clinical pneumonia (cough, sputum production, dyspnea, fevers and leukocytosis) back in early November. [place] [facility] [place] a persistent left basilar infiltrate vs. scarring. We agreed to repeat a CXR today, and if mostly clear, to proceed with a repeat chest CT scan in early February, at a 3-month interval. 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 Assessment & Plan (02/03/2021 8:51 AM EST): This is just below the lower limit of normal. My first step in evaluation would probably be to repeat this in a few months. If concerns persist about underlying immunodeficiency, then additional work-up could be considered. Post-traumatic osteoarthritis of left knee 11/21/2020 07/24/2021 Left shoulder pain 06/07/2018 Degenerative lumbar spinal stenosis 06/16/2017 07/24/2021 Hyperlipidemia 03/03/2017 07/24/2021 Degenerative spondylolisthesis 07/24/2021 Encounters Date Type Department Care Team Description 12/21/2024 10:30 AM EDT Home Care Visit [facility] [address] [place] [phone] Izabella Melgar, RN SN HOME VISIT 12/20/2024 Telephone [facility] [address] [address] [place] [address] Sukumar Beltran MD Request For Records 12/19/2024 10:00 AM EDT Home Care Visit [facility] [address] [place] [address] Mary Flores, TAMELA SN HOME VISIT 12/17/2024 11:30 AM EDT Home Care Visit [facility] [address] [place] [address] Brianna Alfredo RN SN HOME VISIT 12/14/2024 1:30 PM EDT Home [facility] Visit [facility] [address] [place] [address] Mary Flores RN SN HOME VISIT 12/13/2024 1:00 PM EDT Office Visit [facility] [address] [place] [phone] Sabino Green MD, MS Severe persistent asthma, uncomplicated (Primary Dx); Pulmonary nodules; Recurrent pneumonia; Pulmonary mycobacteria 12/12/2024 12:30 PM EDT Home Care Visit [facility] [address] [place] [address] Paulette Osborn, PT PT DISCIPLINE DISCHARGE VISIT 12/12/2024 11:00 AM EDT Home Care Visit [facility] [address] [place] [phone] Mary Flores, TAMELA SN HOME VISIT 12/10/2024 2:30 AM EDT Home Care Visit [facility] [address] [place] [phone] Gurinder Monsalve LPN HOME VISIT 12/07/2024 12:30 PM EDT Home Care Visit [facility] [address] [place] [address] Mary Flores RN SN HOME VISIT 12/05/2024 12:00 PM EDT Home Care Visit [facility] [address] [place] [address] Paulette Osborn, PT PT HOME VISIT 12/05/2024 11:30 AM EDT Home Care Visit [facility] [address] [place] [phone] Mary Flores, RN SN HOME VISIT 12/03/2024 2:30 PM EDT Office Visit [address] [address] Sukumar Beltran MD Open wound of ankle and foot (Primary Dx); Primary hypertension; Spinal stenosis of lumbar region with neurogenic claudication; Eczema, unspecified type; Dry skin 12/03/2024 11:30 AM EDT Home Care Visit [facility] [address] [place] [address] Mary Flores RN SN HOME VISIT 12/03/[address] [address] Sukumar Beltran MD VNA Update; Wound Care 11/30/2024 12:00 PM EDT Home Care Visit [facility] [address] [place] [address] Gurinder Monsalve REMARKETING REP HOME VISIT 11/28/2024 12:00 PM EDT Home Care Visit [facility] [address] [place] [address] Paulette Osborn, PT PT HOME VISIT 11/28/2024 11:00 AM EDT Home Care Visit [facility] [address] [place] [phone] Barbie Guan LPN REMARKETING REP HOME VISIT 11/25/2024 11:30 AM EDT [facility] [address] [place] [phone] Riccardo Vega RN SN HOME VISIT 11/23/2024 12:30 PM EDT [facility] [address] [place] [phone] Mary Flores RN SN HOME VISIT 11/23/2024 9:45 AM EDT Office Visit [facility] [address] [place] [address] Lee King DO Rupture of right Achilles tendon, sequela (Primary Dx); Cellulitis of right heel 11/22/2024 11:31 AM EDT - 11/22/2024 11:59 PM EDT Hospital Encounter [facility], Ct Scan - [address] [address] Sabino Green MD, MS Discharge Disposition: Home or Self Care 11/22/2024 Refill [facility] [address] [place] [address] Sukumar Beltran MD Medication Refill 11/21/2024 12:30 PM EDT Home Care Visit [facility] [address] [place] [phone] Mary Flores RN SN HOME VISIT 11/19/2024 10:30 AM EDT Home Care Visit [facility] [address] [place] [phone] Gurinder Monsalve LPN HOME VISIT 11/19/2024 9:30 AM EDT Home Care Visit [facility] [address] [place] [phone] Milly Machado, PT PT EVALUATION 11/19/2024 Episode Documentation Update [facility] [address] [place] [phone] Gill Bautista 11/17/2024 1:00 AM EDT Home Care Visit [facility] [address] [place] [phone] Gurinder Monsalve LPN HOME VISIT 11/16/[address] [place] [address] Sukumar Beltran MD Medication Refill 11/15/2024 2:00 PM EDT Home [facility] Visit [facility] [address] [place] [phone] Isak Nieves, OT OT EVALUATION 11/15/2024 12:30 AM EDT Home Care Visit [facility] [address] [place] [phone] Carol Ann Locke LPN LPN HOME VISIT 11/13/2024 2:00 AM EDT Home Care Visit [facility] [address] [place] [phone] Gurinder Monsalve LPN HOME VISIT 11/13/2024 Home Care Visit [facility] [address] [place] [phone] Isak Nieves, OT TELEPHONE ENCOUNTER 11/13/2024 Home Care Visit [facility] [address] [place] [phone] Isak Nieves, OT TELEPHONE ENCOUNTER 11/13/[address] [place] [address] Sukumar Beltran MD VNA Update 11/12/2024 Home Care Visit [facility] [address] [place] [phone] Roshni Reeves, RADIO PROGRAM CHECKER CLINICAL COMMUNICATION 11/12/[address] [place] [address] Sukumar Beltran MD Flu Vaccine 11/10/2024 2:00 AM EDT Home Care Visit [facility] [address] [place] [phone] Gurinder Monsalve LPN HOME VISIT 11/09/2024 2:15 PM EDT Office Visit [address] [address] Sukumar Beltran MD Altered mental status, unspecified altered mental status type (Primary Dx); Cellulitis of right lower extremity; Primary hypertension; Open wound of ankle and foot; Severe persistent asthma, uncomplicated 11/09/2024 10:30 AM EDT [facility] [address] [place] [phone] Mary Flores, TAMELA SN HOME VISIT 11/08/2024 1:30 PM EDT Home Care Visit [facility] [address] [place] [phone] Mary Flores, TAMELA SN HOME VISIT 11/08/[address] [address] Sukumar Beltran MD 11/07/2024 12:00 PM EDT Home Care Visit [facility] [address] [place] [phone] Mary Flores, RN SN HOME VISIT 11/06/2024 2:30 AM EDT Home Care Visit [facility] [address] [place] [phone] Gurinder Monsalve LPN HOME VISIT 11/06/2024 Home Care Visit [facility] [address] [place] [phone] Keyonna Martinez, PT TELEPHONE ENCOUNTER 11/06/[address] [address] Sukumar Beltran MD Medication Refill (/oxyCODONE 5 MG immediate release tablet /) 11/05/2024 10:30 AM EDT Home Care Visit [facility] [address] [place] [phone] Izabella Melgar, RN SN HOME VISIT 11/04/2024 12:30 PM EDT Home Care Visit [facility] [address] [place] [phone] Mary Flores, TAMELA SN HOME VISIT 11/03/2024 1:30 PM EDT Home Care Visit [facility] [address] [place] [phone] Srinivas Williamson, TAMELA SN HOME VISIT 11/02/2024 1:00 PM EDT Home Care Visit [facility] [address] [place] [phone] Indiana Licea, TAMELA SN OASIS START OF CARE (SOC) 11/02/2024 Plan of Care [facility] [address] [place] [phone] 11/02/2024 Nurse Triage [facility] [address] [place] [address] Sukumar Beltran MD Triage (VNA Update + Diarrhea) 10/26/2024 Procedure Pass [facility], [facility] [address] [place] [phone] 10/26/2024 Orders Only [facility] [address] [place] [phone] Homehealth, Interface MD Nata 10/24/2024 10:29 AM EDT - 11/01/2024 10:39 AM EDT Hospital Encounter [facility] [address] [address] Du Schmitz MD Russo, Margaret A, MD Arepally, Sandeep, MD Barbosa-Angles, Brianna R, DO, MPH Cole Byrne DO, MPH Discharge Disposition: Home-Health Care [facility] 10/24/2024 9:45 AM EDT Office Visit [address] [place] [address] Sukumar Beltran MD Altered mental status, unspecified altered mental status type (Primary Dx); Cellulitis of right lower extremity; Hypoxemia 10/23/[address] [place] [address] Sukumar Beltran MD Triage (Red + mental confusion/memory issues + 1 week) 10/18/[address] [place] [address] Sukumar Beltran MD Patient Called Back Inquiring Status (Pt missed call from office 10/18) 10/17/2024 2:45 PM EDT Office Visit [facility] [address] [place] [address] Lee King DO Rupture of right Achilles tendon, sequela (Primary Dx); Pain of both shoulder joints; Rotator cuff arthropathy of both shoulders 10/17/2024 2:31 PM EDT - 10/17/2024 11:59 PM EDT Hospital Encounter [address] [address] Lee King DO Discharge Disposition: Home or Self Care 10/17/2024 2:30 PM EDT Hospital Encounter [address] [address] Lee King DO Discharge Disposition: Home or Self Care 10/17/[address] [place] [address] Sukumar Beltran MD No Show (SV 10/18) 10/17/[address] [place] [address] Sukumar Beltran MD Triage (Green - Heel Pain) 10/09/2024 10:30 AM EDT Office Visit [address] [place] [address] Sukumar Beltran MD Generalized pruritus (Primary Dx); Intrinsic eczema; Primary hypertension; Dizziness 10/04/2024 Telephone [facility] [address] [place] [address] Sukumar Beltran MD Triage (Red+difficulty breathing+dizzy+Rash +laceration on leg,Bruising on arms) 09/07/2024 Procedure Pass [facility], Ct Scan - [address] [address] from Last 3 Months Immunizations Immunization Administration Dates Next Due Influenza High-Dose Quadriva lent Preservative Free IM 11/17/2022,12/03/2021 Influenza High-Dose Trivalen t Preservative Free IM 11/01/2023,12/06/2016,12/17/2015,12/06,12/22/2013,12/19/2012,12/24/2011 Influenza Trivalent Adjuvant ed Preservative free IM 11/12/2024 Pneumococcal conjugate PCV20 12/21/2022 Pneumococcal polysaccharide PPSV23 12/19/2012 RSV Vaccine (bivalent) 11/17/2022 Td (adult) 5 Lf Tetanus Toxo id, PF, Adsorbed 02/17/2024 Zoster live 12/19/2012 Zoster recombinant 03/15/2018,01/10/2018 Family History Medical History Relation Comments Heart disease Father Cancer Mother Pancreatic cancer Mother Infl. arthritis Unspecified Lung disease Neg Hx Relation Status Comments Brother Other Father Mother Unspecified Social History Tobacco Use Types Packs/Day Years Used Date Smoking Tobacco: Never Smokeless Tobacco: Never Tobacco Cessation:Counseling Given: Not Answered Alcohol Use Standard Drinks/Week Comments Not Currently [...] on file Sexual Orientation Not on file Last Filed Vital Signs Vital Sign Reading Time Taken Comments Blood Pressure 112/60 12/21/2024 10:37 AM EDT Pulse 72 12/21/2024 10:37 AM EDT Temperature 36.5 C (97.7 F) 12/21/2024 10:37 AM EDT Respiratory Rate 16 12/21/2024 10:37 AM EDT Oxygen Saturation 97% 12/21/2024 10:37 AM EDT Inhaled Oxygen Concentration 22% 10/10/2023 1 :32 PM EDT Weight 71.5 kg (157 lb 9.6 oz) 12/13/2024 12:46 PM EDT Height 162.6 cm (5' 4.02 ) 12/03/2024 2:20 PM ED T Body Mass Index 27.04 12/03/2024 2:20 PM EDT Plan of Treatment Upcoming Encounters Date Type Department Care Team (Late st Contact Info) Description 12/13/2024 Procedure Pass [facility], Ct Scan - [address] [address] 12/24/2024 1:00 PM EDT [facility] [address] [place] [phone] Mary Flores, TAMELA [address] [place] [address] 12/26/2024 1:00 AM EDT [facility] [address] [place] [phone] Mary Flores, TAMELA [address] [place] [address] 12/28/2024 12:30 AM EDT Appointment [facility] [address] [place] [phone] Mary Flores, TAMELA [address] [place] [address] 12/31/2024 3:00 PM EDT Office Visit [facility] [address] [place] [address] Sukumar Beltran MD [address] [facility], [address] [place] [address] 01/09/2025 2:30 PM EDT Office Visit [facility] [address] [place] [address] Lee King, DO 4 [facility], [place] [address] 01/10/2025 2:45 PM EDT Office Visit [facility] [address] [place] [address] Lee King DO 4 [facility] [place] [address] Jessa Sanchez, PT 8 [place] [address] 01/15/2025 11:30 AM EDT Office Visit [facility] [address] [place] [address] Lee King DO 4 [facility], [facility] [address] Jessa Sanchez, PT 8 [place] [address] 01/17/2025 2:00 PM EDT Office Visit [facility] [address] [place] [address] Lee King, DO 4 [facility] [place] [address] Jessa Sanchez, PT 8 [place] [address] 01/22/2025 11:30 AM EDT Office Visit [facility] [address] [place] [address] Lee King, DO 4 [facility], [facility] [place] [address] Jessa Sanchez, PT 8 [place] [address] 01/24/2025 2:00 PM EDT Office Visit [facility] [address] [place] [address] Lee King, DO 4 [facility], [facility] [place] [address] Jessa Sanchez, PT 8 [place] [address] 01/29/2025 11:30 AM EST Office Visit [facility] [address] [place] [address] Lee King, DO 4 [facility], [facility] [place] [address] Jessa Sanchez, PT 8 [place] [address] 01/31/2025 2:00 PM EST Office Visit [facility] [address] [place] [address] Lee King, 4 [facility] [place] [address] Jessa Sanchez, PT 8 [place] [address] 02/12/2025 11:30 AM EST Office Visit [address] [place] [address] Lee King, 4 [facility] [place] [address] Jessa Sanchez, PT 8 [place] [address] 02/14/2025 2:00 PM EST Office Visit [facility] [address] [place] [address] Lee King, 4 [facility] [place] [address] Jessa Sanchez, PT 8 [place] [address] 03/14/2025 1:30 PM EST Appointment [facility], Ct Scan - [address] [address] Sabino Green MD, MS [address] [address] 03/14/2025 2:00 PM EST Appointment [facility] [address] [place] [address] Sabino Green MD, MS [address] [address] [email or web address] 04/03/2025 11:45 AM EST Office Visit [facility] 10 [facility] [place] [address] Sabino Green MD, MS [address] [address] [email or web address] Health Maintenance Due Date Last Done Comments DIABETIC EYE EXAM 07/24/2021 HEMOGLOBIN A1C 02/01/2025 08/01/2024, 10/0 10/2023, 07/20/2021 BLOOD PRESSURE 06/20/2025 12/21/2024 DEPRESSION SCREENING 08/03/2025 08/03/2024 CREATININE LEVEL 11/01/2025 11/01/2024, 07/2024, 10/29/2024, Additional history exists POTASSIUM LEVEL 11/01/2025 11/01/2024, 0807/2024, 10/29/2024, Additional history exists Adult Td,Tdap Booster 02/16/2034 02/17/2024 ZOSTER VACCINES Completed 03/15/2018, 12/26, 12/19/2012 RSV VACCINE Completed 11/17/2022 PNEUMOCOCCAL VACCINES (50+ years) Completed 12/21/2022, 12/19/2012 HEPATITIS C SCREENING Completed 01/03/2024 COVID-19 VACCINE Completed 06/18/2024, 03/2023, 12/13/2022, Additional history exists INFLUENZA VACCINE Completed 11/12/2024, , 11/17/2022, Additional history exists SMOKING STATUS SCREENING (Once After 26 Yrs) Completed 12/03/2024 HEPATITIS A VACCINES Aged Out No long er eligible based on patient's age to complete this topic HIB VACCINES Aged Out No longer eligi ble based on patient's age to complete this topic MENINGOCOCCAL VACCINES (ACWY) Aged Out No longer eligible based on patient's age to complete this topic MENINGOCOCCAL VACCINES (B) Aged Out N o longer eligible based on patient's age to complete this topic Medical Devices Implanted Type 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 Or 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 Device Identifier Shelf Expiration Date Model / Serial / Lot Screw Nicki 3.5mm Bone Spine Posterior Cervical Ti Oasys Elenita Ii Ea - [id number] Implanted:Qty: 10 on 03/17/2017 by Danial Marcano MD at [facility] NODATA Spine Cervical JESSICA SPINE [id number] / / Screw Bone 7x50mm Spine Polyaxial Expedium Titanium Ea - [id number] Implanted:Qty: 6 on 06/16/2017 by Danial Marcano MD at [facility] NODATA N/A: Back [facility] [employer]ISION [id number] / / Screw Bone Spine Inner Set Single Titanium Ea - [id number] Implanted:Qty: 6 on 06/16/2017 by Danial Marcano MD at [facility] NODATA N/A: Back [facility] [employer] [id number] / / Julio Spinal Pre Lordosed W/ Ln 65mm - [id number] Implanted:Qty: 2 on 06/16/2017 by Danial Marcano MD at [facility] NODATA N/A: Back [facility] [employer] [id number] / / Stent Implanted:Qty: 2 Stent Heart 4 Pins Right Shoulder Screw Bone 3.5x14mm Posterior Cervical Oasys Polyaxial Biased Angle Ea - [id number] Implanted:Qty: 10 on 03/17/2017 by Danial Marcano MD at [facility] Spine Cervical JESSICA SPINE [id number] / / Julio Oasys 3.5x70mm - [id number] Implanted:Qty: 2 on 03/17/2017 by Danial Marcano MD at [facility] Spine Cervical JESSICA SPINE [id number] / / Bone Cement Antibiotic Refobacin - [id number] Implanted:Qty: 2 on 08/31/2021 by Alonso Wise MD at [facility] Right: Knee SONAL / DIV OF [employer] 08/26/2023 [id number] / / [id number] Knee Implant 5.0deg Component Tibial Persona Titanium Stemmed Cemented Rt Size G - [id number] Implanted:Qty: 1 on 08/31/2021 by Alonso Wise MD at [facility] Right: Knee SONAL / DIV OF [facility] 12/23/2030 [id number] / / [id number] Knee Implant 9.5x38mm Persona Vivacit E Highly Crossedlinked All Poly Patella Cemented 06 Nc - [id number] Implanted:Qty: 1 on 08/31/2021 by Alonso Wise MD at [facility] Right: Knee SONAL / DIV OF [facility] 08/08/2025 [id number] / / [id number] Knee Implant Component Size 9 Femoral Persona [place] Cement Cruciate Retaining Narrow Right - [id number] Implanted:Qty: 1 on 08/31/2021 by Alonso Wise MD at [facility] Right: Knee SONAL / DIV OF [facility] 12/06/2030 [id number] / / [id number] Knee Implant 10mm 8 11 Component Articular Surface Persona Polyethylene Vivacite E Cruciate Retaining Fixed Rt Gh - [id number] Implanted:Qty: 1 on 08/31/2021 by Alonso Wise MD at [facility] Right: Knee SONAL / DIV OF [facility] [employer] 04/14/2026 [id number] / / [id number] Procedures Procedure Name Priority Date/Time Associated Diagnosis Comments CT CHEST WITHOUT CONTRAST Routine 11/22/2024 11:44 AM EDT Pulmonary nodule 1 cm or greater in diameter POCT GLUCOSE Routine 11/01/2024 8:02 AM EDT SEDIMENTATION RATE (ESR) Routine 11/01/2024 5:33 AM EDT C-REACTIVE PROTEIN Routine 11/01/2024 5: 33 AM EDT CBC Routine 11/01/2024 5:33 AM EDT COMPREHENSIVE METABOLIC PANEL Routine 11/01/2024 5:33 AM EDT POCT GLUCOSE Routine 10/31/2024 8:35 PM EDT POCT GLUCOSE Routine 10/31/2024 4:45 PM EDT POCT GLUCOSE Routine 10/31/2024 11:43 AM EDT POCT GLUCOSE Routine 10/31/2024 7:13 AM EDT POCT GLUCOSE Routine 10/30/2024 9:22 PM EDT POCT GLUCOSE Routine 10/30/2024 4:52 PM EDT POCT GLUCOSE Routine 10/30/2024 11:50 AM EDT POCT GLUCOSE Routine 10/30/2024 8:30 AM EDT C-REACTIVE PROTEIN Routine 10/30/2024 5: 41 AM EDT CBC Routine 10/30/2024 5:41 AM EDT BASIC METABOLIC PANEL Routine 10/30/2024 5:41 AM EDT POCT GLUCOSE Routine 10/29/2024 8:03 PM EDT POCT GLUCOSE Routine 10/29/2024 4:36 PM EDT POCT GLUCOSE Routine 10/29/2024 11:36 AM EDT POCT GLUCOSE Routine 10/29/2024 7:40 AM EDT C-REACTIVE PROTEIN Routine 10/29/2024 5: 32 AM EDT BASIC METABOLIC PANEL Routine 10/29/2024 5:32 AM EDT CBC Routine 10/29/2024 5:32 AM EDT POCT GLUCOSE Routine 10/28/2024 9:02 PM EDT POCT GLUCOSE Routine 10/28/2024 4:10 PM EDT POCT GLUCOSE Routine 10/28/2024 11:38 AM EDT POCT GLUCOSE Routine 10/28/2024 7:45 AM EDT C-REACTIVE PROTEIN Routine 10/28/2024 6: 30 AM EDT COMPREHENSIVE METABOLIC PANEL Routine 10/28/2024 6:30 AM EDT CBC Routine 10/28/2024 6:30 AM EDT POCT GLUCOSE Routine 10/27/2024 8:41 PM EDT POCT GLUCOSE Routine 10/27/2024 5:26 PM EDT POCT GLUCOSE Routine 10/27/2024 11:41 AM EDT MRI FOOT WITH AND WITHOUT CONTRAST (RIGHT) Routine 10/27/2024 9:21 AM EDT POCT GLUCOSE Routine 10/27/2024 7:57 AM EDT C-REACTIVE PROTEIN Routine 10/27/2024 5: 53 AM EDT COMPREHENSIVE METABOLIC PANEL Routine 10/27/2024 5:53 AM EDT CBC AND DIFFERENTIAL Routine 10/27/2024 5:53 AM EDT POCT GLUCOSE Routine 10/26/2024 8:27 PM EDT POCT GLUCOSE Routine 10/26/2024 4:43 PM EDT MRSA PCR SCREEN Routine 10/26/2024 2:09 PM EDT POCT GLUCOSE Routine 10/26/2024 11:47 AM EDT IP CONSULT TO WOUND NURSE Routine 10/26/2024 11:02 AM EDT MRSA NASAL SCREEN Routine 10/26/2024 8:1 1 AM EDT POCT GLUCOSE Routine 10/26/2024 7:57 AM EDT BASIC METABOLIC PANEL Routine 10/26/2024 5:52 AM EDT CBC Routine 10/26/2024 5:52 AM EDT POCT GLUCOSE Routine 10/25/2024 8:59 PM EDT POCT GLUCOSE Routine 10/25/2024 4:21 PM EDT BASIC METABOLIC PANEL Routine 10/25/2024 4:21 PM EDT POCT GLUCOSE Routine 10/25/2024 11:42 AM EDT US LOWER EXTREMITY VEINS DUPLEX COMPLETE (BILATERAL) Routine 10/25/2024 9:41 AM EDT Edema, unspecified type Swelling, limb Right leg pain US KIDNEYS AND BLADDER Routine 9:40 AM EDT US LOWER EXTREMITY NON-VASCULAR LIMITED (RIGHT) Routine 10/25/2024 9:39 AM EDT Edema, unspecified type Swelling, limb POCT GLUCOSE Routine 10/25/2024 7:45 AM EDT PHOSPHORUS Routine 10/25/2024 6:06 AM EDT MAGNESIUM Routine 10/25/2024 6:06 AM EDT CBC Routine 10/25/2024 6:06 AM EDT COMPREHENSIVE METABOLIC PANEL Routine 10/25/2024 6:06 AM EDT D-DIMER Routine 10/25/2024 6:06 AM EDT POCT GLUCOSE Routine 10/24/2024 8:09 PM EDT URINALYSIS W/REFLEX URINE CULTURE STAT 10/24/2024 5:22 PM EDT POCT GLUCOSE Routine 10/24/2024 5:02 PM EDT LAB ADD ON Routine 10/24/2024 2:50 PM EDT ECG 12-LEAD STAT 10/24/2024 12:35 PM EDT XR CHEST PORTABLE Routine 10/24/2024 11: 01 AM EDT LACTIC ACID (LACTATE) STAT 10/24/2024 11:01 AM EDT LFTS (HEPATIC PANEL) STAT 10/24/2024 11:01 AM EDT BASIC METABOLIC PANEL STAT 10/24/2024 11:01 AM EDT CBC AND DIFFERENTIAL STAT 10/24/2024 11:01 AM EDT BLOOD CULTURE, ROUTINE STAT 11:01 AM EDT BLOOD CULTURE, ROUTINE STAT 11:01 AM EDT XR SHOULDER 2 VIEWS (RIGHT) Routine 10/17/2024 2:52 PM EDT Pain of both shoulder joints XR SHOULDER 2 VIEWS (LEFT) Routine 10/17/2024 2:52 PM EDT Pain of both shoulder joints HEMOGLOBIN A1C Routine 08/01/2024 9:48 AM EDT Type 2 diabetes mellitus without complication, without long-term current use of insulin HEPATITIS C ANTIBODY, QUALITATIVE Routine 01/03/2024 10:30 AM EDT Need for hepatitis C screening test from Last 3 Months or Most Recently Relevant to Health Maintenance Results * CT CHEST WITHOUT CONTRAST (11/22/2024 11:44 AM EDT) Anatomical Region Laterality Modality Chest Computed Tomogra phy 11/27/2024 7:29 AM EDT Impressions 11/27/2024 7:40 AM EDT 1. Waxing and waning, with overall decrease, in centrilobular nodules most likely representing recurrent aspiration or pneumonia. Narrative 11/27/2024 7:[address] CHEST WITHOUT CONTRAST Referring clinician's provided indication for this examination in Epic: * Lung nodule, > 8mm TECHNIQUE: Multidetector CT of the chest was performed without intravenous contrast using tailored dose modulation. COMPARISON: CT CHEST WITHOUT CONTRAST FINDINGS: Devices/Tubes/Lines: None. Lungs: The central airways are patent. Increase in debris or mucous plugging in the right mainstem bronchus. Unchanged debris or mucous plugging and associated mild cylindrical bronchiectasis involving the segmental bronchi of the left lower lobe. Decrease in mucous plugging within basilar segmental bronchi of the right lower lobe. Resolution of previously demonstrated 11 mm nodule in the right upper lobe. Interval development of a 7 mm peripheral nodule in the right upper lobe. Decrease in centrilobular nodularity in the right lower lobe and left lower lobe and left lingula. Unchanged 4 mm right lower lobe nodule, 3:58. Pleura: Normal. No pleural effusion or pneumothorax. Mediastinum: Normal. No thyroid nodules. Heart and pericardium are normal. Severe amount of coronary calcifications. Small hiatal hernia. Lymph Nodes: Normal. No enlarged supraclavicular, axillary, mediastinal, or hilar lymph nodes. Upper Abdomen: Cortical cyst left kidney. Relative atrophy of the right kidney which may be renovascular. Chest Wall: Normal. No chest wall mass. Bones: No suspicious lytic or blastic lesions. Procedure Note Luis Stevenson MD - 11/27/2024 CT CHEST WITHOUT CONTRAST Referring clinician's provided indication for this examination in Epic: *Lung nodule, > 8mm TECHNIQUE: Multidetector CT of the chest was performed without intravenouscontrast using tailored dose modulation. COMPARISON: CT CHEST WITHOUT CONTRAST FINDINGS: Devices/Tubes/Lines: None. Lungs: The central airways are patent. Increase in debris or mucousplugging in the right mainstem bronchus. Unchanged debris or mucousplugging and associated mild cylindrical bronchiectasis involving thesegmental bronchi of the left lower lobe. Decrease in mucous pluggingwithin basilar segmental bronchi of the right lower lobe. Resolution of previously demonstrated 11 mm nodule in the right upperlobe. Interval development of a 7 mm peripheral nodule in the right upperlobe. Decrease in centrilobular nodularity in the right lower lobe and leftlower lobe and left lingula. Unchanged 4 mm right lower lobe nodule, 3:58. Pleura: Normal. No pleural effusion or pneumothorax. Mediastinum: Normal. No thyroid nodules. Heart and pericardium are normal.Severe amount of coronary calcifications. Small hiatal hernia. Lymph Nodes: Normal. No enlarged supraclavicular, axillary, mediastinal,or hilar lymph nodes. Upper Abdomen: Cortical cyst left kidney. Relative atrophy of the rightkidney which may be renovascular. Chest Wall: Normal. No chest wall mass. Bones: No suspicious lytic or blastic lesions. IMPRESSION: 1. Waxing and waning, with overall decrease, in centrilobular nodulesmost likely representing recurrent aspiration or pneumonia. us Sabino Green MD, MS IMG CT CHEST Final Re sult * (ABNORMAL) POCT Glucose (11/01/2024 8:02 AM EDT) Only the most recent of31 resultswithin the time period is included. Glucose, POCT 104(H) 70 - 100 mg/dL [facility] 11/01/2024 8:02 AM EDT 11/01/2024 8:04 AM EDT us Cole Byrne DO, MPH POINT OF CARE TEST ORDERAB LES Final Result [address] [address] * (ABNORMAL) Comprehensive metabolic panel (11/01/2024 5:33 AM EDT) Only the most recent of4 resultswithin the time period is included. SODIUM 136 133 - 146 mmol/L [facility] POTASSIUM 4.0 3.3 - 5.1 mmol/L [facility] CHLORIDE 99 96 - 108 mmol/L [facility] CO2 23 21 - 35 mmol/L [facility] BUN 13 6 - 19 mg/dL [facility] CREATININE 1.20 0.5 - 1.5 mg/dL [facility] GLUCOSE 109(H) 70 - 99 mg/dL [facility] ALBUMIN 3.0(L) 3.9 - 4.8 g/dL [facility] TOTAL PROTEIN 6.9 6.5 - 8.0 g/dL [facility] CALCIUM 8.6 8.4 - 10.3 mg/dL [facility] ALKALINE PHOSPHATASE 145(H) 39 - 117 U/L [facility] TOTAL BILIRUBIN 0.4 0.0 - 1.2 mg/dL [facility] AST 30 0 - 37 U/L [facility] ALT 17 0 - 40 U/L [facility] GLOBULIN 3.9 1 - 4.8 g/dL [facility] EGFR 62 >59 mL/min/1.7 3m2 [facility] Comment:Estimated glomerular filtration rate calculated using the CKD-EPI refit equation. ANION GAP 18 10 - 20 mmol/L [facility] Blood 11/01/2024 5:33 AM EDT 11/01/2024 5:40 AM EDT us Cole Byrne DO, MPH LAB BLOOD ORDERABLES Final Result [address] [address] * (ABNORMAL) Sedimentation rate (ESR) (11/01/2024 5:33 AM EDT) ESR 78(H) 0 - 20 mm/h [facility] Blood 11/01/2024 5:33 AM EDT 11/01/2024 5:40 AM EDT us Cole Byrne DO, MPH LAB BLOOD ORDERABLES Final Result Performing Organization Address [facility]/ZIP Co de Phone Number [address] [address] * (ABNORMAL) CBC (11/01/2024 5:33 AM EDT) Only the most recent of6 resultswithin the time period is included. WBC 10.87 4.00 - 11.00 K/uL [facility] RBC 3.71(L) 4.50 - 5.90 M/uL [facility] HGB 10.8(L) 13.5 - 17.5 g/dL [facility] HCT 33.7(L) 41.0 - 53.0 % [facility] PLT 471(H) 150 - 450 K/uL [facility] MCV 90.8 80.0 - 100.0 fL [facility] MCH 29.1 27.0 - 31.0 pg [facility] MCHC 32.0 32.0 - 36.0 g/dL [facility] RDW 13.8 11.5 - 14.5 % [facility] MPV 8.5 8.4 - 12.0 fL [facility] NRBC 0.00 0.00 /100 WBCs [facility] ABSOLUTE NRBC 0.00 0.00 K/uL [facility] Blood 11/01/2024 5:33 AM EDT 11/01/2024 5:40 AM EDT us Cole Byrne DO, MPH LAB BLOOD ORDERABLES Final Result Performing Organization Address City/[facility]/ZIP Co de Phone Number [address] [address] * (ABNORMAL) C-Reactive Protein (11/01/2024 5:33 AM EDT) Only the most recent of5 resultswithin the time period is included. Pathologist [facility] C REACTIVE PROTEIN 28.6(H) 0.0 - 4.0 mg/L [facility] Blood 11/01/2024 5:33 AM EDT 11/01/2024 5:40 AM EDT us Cole Byrne DO, MPH LAB BLOOD ORDERABLES Final Result Performing Organization Address [facility] Co de Phone Number [address] [address] * Basic metabolic panel (10/30/2024 5:41 AM EDT) Only the most recent of5 resultswithin the time period is included. [facility] SODIUM 134 133 - 146 mmol/L [facility] CHLORIDE 98 96 - 108 mmol/L [facility] POTASSIUM 4.1 3.3 - 5.1 mmol/L [facility] CO2 27 21 - 35 mmol/L [facility] BUN 14 6 - 19 mg/dL [facility] CREATININE 1.20 0.5 - 1.5 mg/dL [facility] GLUCOSE 93 70 - 99 mg/dL [facility] CALCIUM 8.6 8.4 - 10.3 mg/dL [facility] EGFR 62 >59 mL/min/1.7 3m2 [facility] Comment:Estimated glomerular filtration rate calculated using the CKD-EPI refit equation. 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 discussed by phone [facility] Anatomical Region Laterality Modality Foot Right Magnetic Resonan ce 10/27/2024 9:38 AM EDT Impressions 10/27/2024 10:20 AM EDT 1. Subacute rupture of the Achilles tendon with a long segment rim-enhancing fluid collection within the defect which extends to the skin surface posteriorly. Given the patient's history (including leukocytosis), superinfection/abscess is possible. No findings of osteomyelitis. 2. Diffuse subcutaneous edema with skin thickening, and diffuse muscular atrophy with edema. A clinically significant result was initiated on 10/27/2024 10:20 AM, Message ID [id number]. Narrative 10/27/2024 10:20 AM EDT MRI FOOT WITH AND WITHOUT CONTRAST (RIGHT) Referring clinician's provided indication for this examination in Epic: * Soft tissue mass, foot, no prior imaging TECHNIQUE: Multi-sequence, multi-planar MRI of the foot (centered on the hindfoot)with and without intravenous contrast. COMPARISON: None FINDINGS: Some sequences are motion degraded which limits evaluation. There is subacute complete rupture of the Achilles tendon in the critical zone noting a rim enhancing fluid collection within the defect. The collection extends posteriorly to the skin surface at the level of the talus (series 13, image 31; series 12, image 45). In short axis, the collection measures 1.3 x 0.7 cm. The craniocaudal dimension is difficult to measure as the collection courses cranially out of the [id number], however it is at least 10.0 cm. Distally, the collection extends to the retro-Achilles space, posterior to the Achilles insertion at the calcaneal tuberosity. Otherwise, there is diffuse subcutaneous edema. Diffuse muscular atrophy with edema is also seen. No evidence of osteomyelitis. The peroneal tendons, posterior tibialis and flexor tendons, and extensor tendons are within normal limits. The distal tibiofibular syndesmotic ligaments, anterior talofibular, calcaneofibular, and posterior talofibular ligaments are intact. The deltoid ligament complex is difficult to evaluate due to the motion degradation. Spring ligament is intact. Subcentimeter subcortical cystic change versus fibro-osseous lesion in the posteromedial tibia is seen. Procedure Note Leonardo Stuart MD - 10/27/2024 MRI FOOT WITH AND WITHOUT CONTRAST (RIGHT) Referring clinician's provided indication for this examination in Epic: *Soft tissue mass, foot, no prior imaging TECHNIQUE: Multi-sequence, multi-planar MRI of the foot (centered on thehindfoot)with and without intravenous contrast. COMPARISON: None FINDINGS: Some sequences are motion degraded which limits evaluation. There is subacute complete rupture of the Achilles tendon in the criticalzone noting a rim enhancing fluid collection within the defect. Thecollection extends posteriorly to the skin surface at the level of thetalus (series 13, image 31; series 12, image 46). In short axis, thecollection measures 1.3 x 0.7 cm. The craniocaudal dimension is difficultto measure as the collection courses cranially out of the [id number],however it is at least 10.0 cm. Distally, the collection extends to theretro-Achilles space, posterior to the Achilles insertion at the calcanealtuberosity. Otherwise, there is diffuse subcutaneous edema. Diffuse muscular atrophywith edema is also seen. No evidence of osteomyelitis. The peronealtendons, posterior tibialis and flexor tendons, and extensor tendons arewithin normal limits. The distal tibiofibular syndesmotic ligaments,anterior talofibular, calcaneofibular, and posterior talofibular ligamentsare intact. The deltoid ligament complex is difficult to evaluate due tothe motion degradation. Spring ligament is intact. Subcentimetersubcortical cystic change versus fibro-osseous lesion in the posteromedialtibia is seen. IMPRESSION: 1. Subacute rupture of the Achilles tendon with a long segmentrim-enhancing fluid collection within the defect which extends to the skinsurface posteriorly. Given the patient's history (including leukocytosis),superinfection/abscess is possible. No findings of osteomyelitis. 2. Diffuse subcutaneous edema with skin thickening, and diffuse muscularatrophy with edema. A clinically significant result was initiated on 10/27/2024 10:20 AM,Message ID [id number]. us Jessa Phelan [employer] IMG MR EXTREMITY Final Result * (ABNORMAL) CBC and differential (10/27/2024 5:53 AM EDT) Only the most recent of2 resultswithin the time period is included. WBC 15.29(H) 4.00 - 11.00 K/uL [facility] RBC 3.86(L) 4.50 - 5.90 M/uL [facility] HGB 11.3(L) 13.5 - 17.5 g/dL [facility] HCT 35.0(L) 41.0 - 53.0 % [facility] PLT 355 150 - 450 K/uL [facility] MCV 90.7 80.0 - 100.0 fL [facility] MCH 29.3 27.0 - 31.0 pg [facility] MCHC 32.3 32.0 - 36.0 g/dL [facility] RDW 13.9 11.5 - 14.5 % [facility] MPV 8.4 8.4 - 12.0 fL [facility] NRBC 0.00 0.00 /100 WBCs [facility] ABSOLUTE NRBC 0.00 0.00 K/uL [facility] DIFF METHOD Auto [facility] NEUTS 76.3(H) 48.0 - 76.0 % [facility] LYMPHS 16.7(L) 18.0 - 41.0 % [facility] MONOS 4.6 4.0 - 11.0 % [facility] EOS 1.2 0.0 - 5.0 % [facility] BASOS 0.4 0.0 - 1.5 % [facility] Granulocytes, immature (%) 0.8 0.0 - 0.9 % [facility] ABSOLUTE NEUTS 11.68(H) 1.92 - 7.60 K/uL [facility] ABSOLUTE LYMPHS 2.55 0.72 - 4.10 K/uL [facility] ABSOLUTE MONOS 0.70 0.16 - 1.10 K/uL [facility] ABSOLUTE EOS 0.18 0.00 - 0.50 K/uL [facility] ABSOLUTE BASOS 0.06 0.00 - 0.15 K/uL [facility] Granulocytes, immature 0.12(H) 0.00 - 0.09 K/uL [facility] Blood 10/27/2024 5:53 AM EDT 10/27/2024 6:02 AM EDT Jessa Phelan NP LAB BLOOD ORDERABLES Fi nal Result Performing Organization Address [facility]/ZIP Co de Phone Number [address] [address] * MRSA PCR SCREEN (10/26/2024 2:09 PM EDT) Pathologist [facility] MRSA PCR SCREEN Negative Negative [facility] Comment:The Xpert MRSA Assay is intended to aid in the prevention and control of MRSA infections in healthcare settings. The assay is not intended to diagnose nor to guide or monitor treatment for MRSA infections. Other (Nasal) 10/26/2024 2:0 9 PM EDT 10/26/2024 3:03 PM EDT us Jessa Phelan NP NON CULTURE MICROBIOLOG Y Final Result Performing Organization Address [facility] de Phone Number [address] [address] * MRSA Nasal Screen (10/26/2024 8:11 AM EDT) Pathologist [facility] Special Requests None 10/26/2024 8:11 AM EDT [facility] MRSA Nasal Culture NEGATIVE FOR MRSA (Methicillin Resistant S.aureus) 10/27/2024 12:29 PM EDT [facility] Other (Nasal) 10/26/2024 8:1 1 AM EDT 10/26/2024 11:13 AM EDT us Jessa Phelan NP MICROBIOLOGY - GENERAL ORDERABLES Final Result Performing Organization Address [facility]/ZIP Co de Phone Number [address] [address] * US Lower Extremity Veins Duplex Complete (Bilateral) (10/25/2024 9:41 AM EDT) Anatomical Region Laterality Modality Ultrasound 10/25/2024 11:0 3 AM EDT Impressions 10/25/2024 11:06 AM EDT * No evidence of deep or superficial venous thrombosis in the visualized veins of the right lower extremity. * No evidence of deep or superficial venous thrombosis in the visualized veins of the left lower extremity. Narrative 10/25/2024 11:06 AM EDT US LOWER EXTREMITY VEINS DUPLEX COMPLETE (BILATERAL) Referring clinician's provided indication for this examination in Epic: Edema; Right Leg Pain; Swelling of Limb TECHNIQUE: Lower extremity venous ultrasound with color and spectral Doppler. COMPARISON: US LOWER EXTREMITY NON-VASCULAR LIMITED (RIGHT) 08:40:18.000 FINDINGS: Exam Quality: Technically adequate exam demonstrates: Right lower extremity: Common femoral vein: Normal compressibility and flow characteristics. Femoral vein: Normal compressibility and flow characteristics. Proximal profunda femoral vein: Normal compressibility. Popliteal vein: Normal compressibility and flow characteristics. Posterior tibial veins: Normal compressibility. Peroneal veins: Normal compressibility. Great saphenous vein: Normal compressibility at the saphenofemoral junction. Right calf fluid collection spanning a length of approximately 17 cm. This is more completely characterized on the separately acquired and reported same day musculoskeletal protocol ultrasound. Left lower extremity: Common femoral vein: Normal compressibility and flow characteristics. Femoral vein: Normal compressibility and flow characteristics. Proximal profunda femoral vein: Normal compressibility. Popliteal vein: Normal compressibility and flow characteristics. Posterior tibial veins: Normal compressibility. Peroneal veins: Normal compressibility. Great saphenous vein: Normal compressibility at the saphenofemoral junction. Procedure Note Mil Kendall MD, KEREN - 10/25/2024 US LOWER EXTREMITY VEINS DUPLEX COMPLETE (BILATERAL) Referring clinician's provided indication for this examination in Epic:Edema; Right Leg Pain; Swelling of Limb TECHNIQUE: Lower extremity venous ultrasound with color and spectralDoppler. COMPARISON: US LOWER EXTREMITY NON-VASCULAR LIMITED (RIGHT) :40:18.000 FINDINGS: Exam Quality: Technically adequate exam demonstrates: Right lower extremity: Common femoral vein: Normal compressibility and flow characteristics. Femoral vein: Normal compressibility and flow characteristics. Proximal profunda femoral vein: Normal compressibility. Popliteal vein: Normal compressibility and flow characteristics. Posterior tibial veins: Normal compressibility. Peroneal veins: Normal compressibility. Great saphenous vein: Normal compressibility at the saphenofemoraljunction. Right calf fluid collection spanning a length of approximately 17 cm. Thisis more completely characterized on the separately acquired and musculoskeletal protocol ultrasound. Left lower extremity: Common femoral vein: Normal compressibility and flow characteristics. Femoral vein: Normal compressibility and flow characteristics. Proximal profunda femoral vein: Normal compressibility. Popliteal vein: Normal compressibility and flow characteristics. Posterior tibial veins: Normal compressibility. Peroneal veins: Normal compressibility. Great saphenous vein: Normal compressibility at the saphenofemoraljunction. IMPRESSION: * No evidence of deep or superficial venous thrombosis in the visualizedveins of the right lower extremity. * No evidence of deep or superficial venous thrombosis in the visualizedveins of the left lower extremity. us [employer] CV US VASCULAR Final Result * US Kidneys and Bladder (10/25/2024 9:40 AM EDT) Anatomical Region Laterality Modality Abdomen, Kidney Ultrasound 10/25/2024 9:42 AM EDT Impressions 10/25/2024 9:44 AM EDT 1. No hydronephrosis 2. Right renal atrophy. Narrative 10/25/2024 9:44 AM EDT US KIDNEYS AND BLADDER Referring clinician's provided indication for this examination in Epic: Renal failure, acute; incre TECHNIQUE: Kidney Ultrasound. COMPARISON: MRI ABDOMEN (KIDNEYS) WITH AND WITHOUT CONTRAST ; US KIDNEYS FINDINGS: Right Kidney: Size: 8.1 cm Cortical thinning. No stones or hydronephrosis. Simple cysts measure up to 1 cm. Left Kidney: Size: 12 cm No stones or hydronephrosis. Similar simple cysts measuring up to 1.8 cm. Bladder: Normal. Procedure Note Jose Alvarenga MD - 10/25/2024 US KIDNEYS AND BLADDER Referring clinician's provided indication for this examination in Epic:Renal failure, acute; incre TECHNIQUE: Kidney Ultrasound. COMPARISON: MRI ABDOMEN (KIDNEYS) WITH AND WITHOUT CONTRAST ;US KIDNEYS FINDINGS: Right Kidney: Size: 8.1 cm Cortical thinning. No stones or hydronephrosis. Simple cysts measure upto 1 cm. Left Kidney: Size: 12 cm No stones or hydronephrosis. Similar simple cysts measuring up to 1.8cm. Bladder: Normal. IMPRESSION: 1. No hydronephrosis 2. Right renal atrophy. us [employer] [facility] IMG US RENAL Final Result * US LOWER EXTREMITY NON-VASCULAR LIMITED (RIGHT) (10/25/2024 9:39 AM EDT) Anatomical Region Laterality Modality Hip Right, Thigh Right, Knee Right, Leg Right, Ankle Right, Foot Right Ultrasound 10/25/2024 9:52 AM EDT Impressions 10/25/2024 9:57 AM EDT Complex fluid collection or cystic lesion within the soft tissues of the right heel, measuring at least 3.7 x 2.1 x 3.0 cm. Internal debris and complexity, but no demonstrable internal vascularity. Etiology and clinical significance is uncertain. Correlate clinically for infection, as this could represent an abscess in the clinical setting of infection. (Please note that the same day lower extremity venous study is performed and reported separately, however the technologist indicates that this collection may communicate with the fluid collections seen within the calf on this separate exam). If the etiology is uncertain, MRI of the lower extremity could provide further assessment. Narrative 10/25/2024 9:57 AM EDT CLINICAL HISTORY: Pain, edema, swelling, assess for fluid collection. COMPARISONS: None. FINDINGS: Targeted grayscale and color Doppler sonography was performed in the region of the right heel in the area of reported clinical concern. There appears to be a large complex fluid collection or cystic lesion imaged, measuring at least 3.7 x 2.1 x 3.0 cm. It is difficult to fully and accurately evaluate this collection or cystic lesion on this study. There is however no significant internal vascularity demonstrated. There are internal echoes and some areas of debris in complexity within it. The deeper soft tissues and adjacent bones are not assessed on this study. Adjacent vessels not assessed on this exam. Procedure Note Marlo Cano MD - 10/25/2024 CLINICAL HISTORY: Pain, edema, swelling, assess for fluid collection. COMPARISONS: None. FINDINGS: Targeted grayscale and color Doppler sonography was performedin the region of the right heel in the area of reported clinical concern.There appears to be a large complex fluid collection or cystic lesionimaged, measuring at least 3.7 x 2.1 x 3.0 cm. It is difficult to fullyand accurately evaluate this collection or cystic lesion on this study.There is however no significant internal vascularity demonstrated. Thereare internal echoes and some areas of debris in complexity within it. Thedeeper soft tissues and adjacent bones are not assessed on this study.Adjacent vessels not assessed on this exam. IMPRESSION: Complex fluid collection or cystic lesion within the soft tissues of theright heel, measuring at least 3.7 x 2.1 x 3.0 cm. Internal debris andcomplexity, but no demonstrable internal vascularity. Etiology andclinical significance is uncertain. Correlate clinically for infection, asthis could represent an abscess in the clinical setting of infection.(Please note that the same day lower extremity venous study is performedand reported separately, however the technologist indicates that thiscollection may communicate with the fluid collections seen within the calfon this separate exam). If the etiology is uncertain, MRI of the lowerextremity could provide further assessment. us [employer] IMG US EXTREMITY Final Result * (ABNORMAL) D-dimer (10/25/2024 6:06 AM EDT) D-DIMER 1,896(H) <500 ng/mL FEU [facility] Comment:In patients with low to moderate pre-test probability scores for VTE (PE or DVT), a D-Dimer cut-off less than 500 ng/mL (FEU) has a negative predictive value (NPV) of 97 to 100%. Blood 10/25/2024 6:06 AM EDT 10/25/2024 6:16 AM EDT [facility] LAB BLOOD ORDERABLES Final Res ult Performing Organization Address City/[facility]/ZIP Co de Phone Number [address] [address] * Phosphorus (10/25/2024 6:06 AM EDT) PHOSPHORUS 4.5 2.7 - 4.5 mg/dL [facility] 10/25/2024 6:06 AM EDT 10/25/2024 6:16 AM EDT [facility] LAB BLOOD ORDERABLES Final Res ult Performing Organization Address [facility] Co de Phone Number [address] [address] * Magnesium (10/25/2024 6:06 AM EDT) MAGNESIUM 2.0 1.6 - 2.6 mg/dL [facility] 10/25/2024 6:06 AM EDT 10/25/2024 6:16 AM EDT [facility] LAB BLOOD ORDERABLES Final Res ult Performing Organization Address [facility] Co de Phone Number [address] [address] * (ABNORMAL) Urinalysis w/reflex Urine Culture (10/24/2024 5:22 PM EDT) COLOR Yellow Yellow [facility] CLARITY Clear [facility] GLUCOSE Negative Negative [facility] BILI Negative Negative [facility] KETONES Negative Negative [facility] SPECIFIC GRAVITY <1.005 1.005 - 1.030 [facility] BLOOD Trace(A) Negative [facility] PH 6.0 5.0 - 8.0 [facility] Protein-UA Negative Negative [facility] NITRITE Negative Negative [facility] Leukocyte esterase, ur Negative Negative [facility] Urine (Urine) 10/24/2024 5:2 2 PM EDT 10/24/2024 5:27 PM EDT [employer] [facility] URINE ORDERABLES Final Result Performing Organization Address [facility] Co de Phone Number [address] [address] * Lab Add On: d dimer (10/24/2024 2:50 PM EDT) TEST REQUESTED D DIMER [facility] Comments (Chemistry) Add on order being processed. Floor or provider will be notified if testing cannot be performed [facility] 10/24/2024 2:50 PM EDT 10/24/2024 2:52 PM EDT [employer] [facility] LAB BLOOD ORDERABLES Final Res ult Performing Organization Address [facility] Co de Phone Number [address] [address] * ECG 12-LEAD (10/24/2024 12:35 PM EDT) Ventricular Rate EKG/MIN 81 BPM [facility] Atrial Rate 81 BPM [facility] TX Interval 152 ms [facility] QRS Duration 94 ms [facility] QT Interval 374 ms [facility] QTC Interval 434 ms [facility] P Iron 61 degrees [facility] R Wave Iron -27 degrees [facility] T Wave Iron 31 degrees [facility] 10/24/2024 12:3 5 PM EDT 10/24/2024 10:40 PM EDT Narrative [facility] - 10/24/2024 10:40 PM EDT Normal sinus rhythm Normal ECG When compared with ECG of 21-Jul-2021 16:17, No significant change was found Confirmed by Narciso GARCIAS ([id number]) on 10/24/2024 10:40:41 PM us Du Schmitz MD ECG ORDERABLES Final Result [facility] * XR Chest Portable (10/24/2024 11:01 AM EDT) Anatomical Region Laterality Modality Chest Computed Radiogr aphy 10/24/2024 11:5 5 AM EDT Impressions 10/24/2024 11:56 AM EDT Mild atelectasis at the lung bases. Possible small left pleural effusion. Narrative 10/24/2024 11:56 AM EDT XR CHEST PORTABLE Referring clinician's provided indication for this examination in [facility]: Cough; Pneumonia COMPARISON: XR CHEST PA AND LATERAL 2 VIEWS FINDINGS: Devices/Tubes/Lines: None. Lungs: There is atelectasis at the lung bases. No other airspace consolidation. Pleura: Possible small left effusion. No pneumothorax. Heart/Mediastinum: Stable mild cardiac silhouette enlargement. Bones/Soft Tissues: Degenerative changes of the thoracic spine. Procedure Note Chantale Darby MD, PhD - 10/24/2024 XR CHEST PORTABLE Referring clinician's provided indication for this examination in [facility]:Cough; Pneumonia COMPARISON: XR CHEST PA AND LATERAL 2 VIEWS FINDINGS: Devices/Tubes/Lines: None. Lungs: There is atelectasis at the lung bases. No other airspaceconsolidation. Pleura: Possible small left effusion. No pneumothorax. Heart/Mediastinum: Stable mild cardiac silhouette enlargement. Bones/Soft Tissues: Degenerative changes of the thoracic spine. IMPRESSION: Mild atelectasis at the lung bases. Possible small left pleuraleffusion. us Du Schmitz MD IMG XR CHEST Final Result * Blood Culture, Routine (10/24/2024 11:01 AM EDT) Only the most recent of2 resultswithin the time period is included. Special Requests None 10/24/2024 10:48 AM EDT [facility] BLOOD CULTURE NO GROWTH 5 DAYS 10/29/2024 11:44 AM EDT [facility] Blood (Blood) 10/24/2024 11: 01 AM EDT 10/24/2024 11:33 AM EDT us Du Schmitz MD MICROBIOLOGY - GENERAL ORDERABL ES Final Result Performing Organization Address City/[facility]/ZIP Co de Phone Number [address] [address] * (ABNORMAL) LFTs (hepatic panel) (10/24/2024 11:01 AM EDT) ALKALINE PHOSPHATASE 180(H) 39 - 117 U/L [facility] TOTAL BILIRUBIN 0.6 0.0 - 1.2 mg/dL [facility] DIRECT BILIRUBIN 0.3(H) 0.0 - 0.2 mg/dL [facility] Bilirubin (Indirect) 0.3 0 - 1.5 mg/dL [facility] AST 47(H) 0 - 37 U/L [facility] ALT 66(H) 0 - 40 U/L [facility] TOTAL PROTEIN 8.0 6.5 - 8.0 g/dL [facility] ALBUMIN 3.6(L) 3.9 - 4.8 g/dL [facility] GLOBULIN 4.4 1 - 4.8 g/dL [facility] A/G Ratio 0.82(L) 1.00 - 4.80 RATIO [facility] Blood 10/24/2024 11:0 1 AM EDT 10/24/2024 11:35 AM EDT us Du Schmitz MD LAB BLOOD ORDERABLES Final Resu lt [address] [address] * Lactate (10/24/2024 11:01 AM EDT) LACTATE 1.95 0.50 - 2.20 mmol/L [facility] Blood 10/24/2024 11:0 1 AM EDT 10/24/2024 11:31 AM EDT Du Schmitz MD LAB BLOOD ORDERABLES Final Resu lt [address] [address] * XR SHOULDER 2 VIEWS (RIGHT) (10/17/2024 2:52 PM EDT) Narrative SYSTEMGENERATED, DOCUMENTATION - 10/17/2024 2:52 PM EDT This image report has been auto-finalized and has not been read by a Radiologist. Interpretation has been included in the provider encounter note for this date of service. Lee King DO IMG XR UPPER EXTREMITY Martha l Result * XR SHOULDER 2 VIEWS (LEFT) (10/17/2024 2:52 PM EDT) Narrative SYSTEMGENERATED, DOCUMENTATION - 10/17/2024 2:52 PM EDT This image report has been auto-finalized and has not been read by a Radiologist. Interpretation has been included in the provider encounter note for this date of service. us Lee King DO IMG XR UPPER EXTREMITY Martha l Result * (ABNORMAL) Hemoglobin A1c (08/01/2024 9:48 AM EDT) HEMOGLOBIN A1C 7.0(H) 4.3 - 5.8 % [facility] Blood 08/01/2024 9:48 AM EDT 08/01/2024 9:51 AM EDT Sukumar Beltran MD LAB BLOOD ORDERABLES Final Result [address] [address] * Hepatitis C antibody, qualitative (01/03/2024 10:30 AM EDT) HCV NON-REACTIV E NON-REACTI VE [facility] Blood 01/03/2024 10:3 0 AM EDT 01/03/2024 10:49 AM EDT us Sukumar Beltran MD LAB BLOOD ORDERABLES Final Result Performing Organization Address City/[facility]/ZIP Co de Phone Number [address] [address] from Last 3 Months or Most Recently Relevant to Health Maintenance Insurance MEDICARE PART A & B [facility] MEDEX SUPPLEMENT MEDICARE PART A & B [employer] SUPPLEMENT MEDICARE PART A & B [employer] SUPP[employer]MENT MEDICARE PART A & B [employer] SUPPLEMENT MEDICARE PART A & B [employer] SUPPLEMENT MEDICARE PART A & B [facility] MEDEX SUPPLEMENT Advance Directives For more information, please contact: [phone] (9AM - 5PM [place], Tuesday-Tuesday) Documents on File Type Date Recorded Patient Second [facility] Proxy 09/02/2021 11:10 AM Healthcare Proxy 06/18/2017 7:35 AM signed on 05/16/2003 * Full Code (Latest Code Status on File) Date Activated Date Inactivated Comments 10/24/2024 3:01 PM Question Answer Comments Code Status Confirmed With: Patient * Full Code Date Activated Date Inactivated Comments 08/31/2021 3:40 PM 10/24/2024 3:01 PM Question Answer Comments Code Status Confirmed With: Patient * Full Code Date Activated Date Inactivated Comments 08/31/2021 6:18 AM 08/31/2021 3:40 PM Question Answer Comments Code Status Confirmed With: Patient * Full Code (Presumed) Date Activated Date Inactivated Comments 06/16/2017 6:13 PM 06/21/2017 3:11 PM * Full Code (Presumed) Date Activated Date Inactivated Comments 06/16/2017 7:20 AM 06/16/2017 6:13 PM Healthcare Agents on File Name Relationship Healthcare Agent Relationship Communication Jeremías Hughes Spouse .Primary Health Care Agent (Proxy form on file) Care Teams Manager Talent Relationship Specialty Start Date End Date Sukumar Beltran MD [address] [place] [address], [address] [place] [address] PCP - General Family Medicine 12/28/23 Additional Source Comments The information contained in this document represents components of the legal health record. It is not the complete legal health record.[facility]
--- OUTSIDE RECORDS SUMMARY | 2024-12-24 11:01 | XMS_ITS | Encounter Summary ---
Author Organization [facility] Address [facility] [address] [place] [address] Phone Care Team Providers Care Instructor Pilot Name Role Phone Sukumar Beltran MD Primary Care Provider [phone]- [phone] Reason for Visit * Reason Onset Date Comments Request For Records 12/20/2024 Encounter Details Date Type Department Care Team (Late st Contact Info) Description 12/20/2024 Telephone [facility] [address] [phone] Sukumar Beltran MD [address] [facility], [address] [place], [place] [phone] [email or web address] Request For Records Social History Tobacco Use Types Packs/Day Years [...] as of this encounter Progress Notes * Abby Russ - 12/20/2024 10:52 AM EDT Called and informed pt that I had faxed over the notes to Dr Connelly office today, . Received conformation that the fax went through. Pt called in. 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 He is looking for office notesfrom 10/24 and 12/03 along with his hospital stay faxed over to Dr Connelly [phone]. Please let pt know when all set. Central Support Senior Adults Director (Please do not reply to this user; this inbox is not monitored.) Thank you. * Alejandrina Gillette - 12/20/2024 10:43 AM EDT Pt called in. 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 He is looking for office notesfrom 10/24 and 12/03 along with his hospital stay faxed over to Dr Connelly [phone]. Please let pt know when all set. Central Support Senior Adults Director (Please do not reply to this user; this inbox is not monitored.) Thank you. documented in this encounter Plan of Treatment Upcoming Encounters Date Type Department Care Team (Late st Contact Info) Description 12/13/2024 Procedure Pass [facility], Ct Scan - [address] [address] 12/24/2024 1:00 PM EDT [facility] [address] [place] [address] Mary Flores RN [address] [place] [address] 12/26/2024 1:00 AM EDT Home Care Visit [facility] [address] [place] [address] Mary Flores RN 168 [place] [address] 12/28/2024 12:30 AM EDT Appointment [facility] 30 [place] [address] Mary Flores RN 168 [place] [address] 12/31/2024 3:00 PM EDT Office Visit [facility] Family Medicine [address] [place] [address] Sukumar Beltran MD 22 [facility], [address] [place] [address] 01/09/2025 2:30 PM EDT Office Visit [facility] Orthopedics & Sports Medicine [address] [place] [address] Lee King, 4 [facility] [place] [address] 01/10/2025 2:45 PM EDT Office Visit [facility] Services [address] [place] [address] Lee King DO [address] [facility] Orthopedics [facility] [place] [address] Jessa Sanchez, PT 8 [place] [address] 01/15/2025 11:30 AM EDT Office Visit [facility] Rehabilitation Services 8 [place] [address] Lee King DO [address] [facility] Orthopedics [facility] [place] [address] Jessa Sanchez, PT 8 [place] [address] 01/17/2025 2:00 PM EDT Office Visit [facility] [address] [place] [address] Lee King, DO [address] [facility] Orthopedics [facility] [place] [address] Jessa Sanchez, PT 8 [place] [address] 01/22/2025 11:30 AM EDT Office Visit [facility] [address] [place] [address] Lee King, DO 4 [facility] [place] [address] Jessa Sanchez, PT 8 [place] [address] 01/24/2025 2:00 PM EDT Office Visit [facility] [address] [place] [address] Lee King, DO 4 [facility], [place] [address] Jessa Sanchez, PT 8 [place] [address] 01/29/2025 11:30 AM EST Office Visit [facility] [address] [place] [address] Lee King, DO 4 [facility], [facility] [place] [address] Jessa Sanchez, PT 8 [place] [address] 01/31/2025 2:00 PM EST Office Visit [facility] [address] [place] [address] Lee King, 4 [facility], [place] [address] Jessa Sanchez, PT 8 [place] [address] 02/12/2025 11:30 AM EST Office Visit [facility] [address] [place] [address] Lee King, DO 4 [facility], [place] [address] Jessa Sanchez, PT 8 [place] [address] 02/14/2025 2:00 PM EST Office Visit [facility] [address] [place] [address] Lee King, DO 4 [facility], [place] [address] Jessa Sanchez, PT 8 [place] [address] 03/14/2025 1:30 PM EST Appointment [facility], Ct Scan - [address] [address] Sabino Green MD, MS [address] [address] 03/14/2025 2:00 PM EST Appointment [facility] [address] [place] [address] Sabino Green MD, MS [address] [address] 04/03/2025 11:45 AM EST Office Visit [facility] Pulmonary, Allergy and Critical Care Medicine [address] [place] [address] Sabino Green MD, MS [address] [address] documented as of this encounter Visit Diagnoses Not on filedocumented in this encounter Additional Health Concerns Assessment Noted Time PHQ-2 Depression Total Score: 1 08/04/19 25 2:09 PM EDT documented as of this encounter Care Teams Instructor Pilot Relationship Specialty Start Date End Date Sukumar Beltran MD [address] [place], [place] [id number] [place] [address] PCP - General Family Medicine 12/28/23 documented as of this encounter Additional Source Comments The information contained in this document represents components of the legal health record. It is not the complete legal health record.[facility]
--- OUTSIDE RECORDS SUMMARY | 2024-12-24 11:01 | XMS_ITS | Encounter Summary ---
Author Organization [facility] Address [facility] [address] [place] [address] Phone Care Team Providers Care Manufacturing Software Engineer Name Role Phone Lan Dillon MD Primary Care Provider Sukumar Beltran MD Primary Care Provider [phone]- [phone] Encounter Details Date Type Department Care Team (Late st Contact Info) Description 02/06/2021 Ancillary Orders [facility],Outside Imaging [address] [place] [address] System, Provider [place] In, [place] [address] Social History Tobacco Use Types Packs/Day Years [...] (Late Contact Info) Description 12/13/2024 Procedure Pass [facility], Ct Scan - [facility] 30 [place] [address] 12/24/2024 1:00 PM EDT Home Care Visit [facility] 30 [place] [address] Mary Flores RN 168 [place] [address] 12/26/2024 1:00 AM EDT Home Care Visit [facility] 30 [place] [address] Mary Flores RN [address] [place] [address] 12/28/2024 12:30 AM EDT Appointment [facility] [address] [place], [place] [phone] Mary Flores RN [address] [place] [address] 12/31/2024 3:00 PM EDT Office Visit [facility] Family Medicine 22 [place] [address] Sukumar Beltran MD 22 [facility], [address] [place] [address] 01/09/2025 2:30 PM EDT Office Visit [facility] Orthopedics & Sports Medicine [address] [place] [address] Lee King DO 4 [facility] Orthopedics & Sports Medicine, [place] [address] 01/10/2025 2:45 PM EDT Office Visit [facility] Rehabilitation Services 8 [place] [address] Lee King DO 4 [facility] Orth[facility], [place] [address] Jessa Sanchez, PT 8 [place] [address] 01/15/2025 11:30 AM EDT Office Visit [facility] [address] [place] [address] Lee King, DO 4 [facility], [place] [address] Jessa Sanchez, PT 8 [place] [address] 01/17/2025 2:00 PM EDT Office Visit [facility] 8 [place] [address] Lee King, DO 4 [facility], [place] [address] Jessa Sanchez, PT 8 [place] [address] 01/22/2025 11:30 AM EDT Office Visit [facility] [address] [place] [address] Lee King, DO 4 [facility], [facility] [place] [address] Jessa Sanchez, PT 8 [place] [address] 01/24/2025 2:00 PM EDT Office Visit [facility] [address] [place] [address] Lee King, DO 4 [facility], [place] [address] Jessa Sanchez, PT 8 [place] [address] 01/29/2025 11:30 AM EST Office Visit [facility] [address] [place] [address] Lee King, DO 4 [facility] Orthopedics Sports [facility], [place] [address] Jessa Sanchez, PT 8 [place] [address] 01/31/2025 2:00 PM EST Office Visit [facility] [address] [place] [address] Lee King, DO 4 [facility], [facility] [place] [address] Jessa Sanchez, PT 8 [place] [address] 02/12/2025 11:30 AM EST Office Visit [facility] [address] [place] [address] Lee King, DO 4 [facility], [place] [address] Jessa Sanchez, PT 8 [place] [address] 02/14/2025 2:00 PM EST Office Visit [facility] 8 [place] [address] Lee King DO 4 [facility] Orthopedics & Sports Medicine, [facility] [place] [address] Rubensbelén Jessa, PT 8 [place] [address] 03/14/2025 1:30 PM EST Appointment [facility], Ct Scan - [address] [address] Sabino Green MD, MS [address] [address] 03/14/2025 2:00 PM EST Appointment [facility] [address] [place] [address] Sabino Green MD, MS [address] [address] 04/03/2025 11:45 AM EST Office Visit [facility] Allergy [facility] Critical [facility] Medicine [address] [place] [address] Sabino Green MD, MS [address] [address] documented as of this encounter Results * CT Chest Outside (No Interpretation) (11/28/2020 12:15 AM EDT) Narrative SYSTEMGENERATED, DOCUMENTATION - 02/06/2021 11:59 AM EST This study is for PACS [...] documented as of this encounter Care Teams Manufacturing Software Engineer Relationship Specialty Start Date End Date Lan Dillon MD [address] [place] [address] [place] [address] PCP - General Internal Medicine 12/13/16 12/27/23 Sukumar Beltran MD [address] [place] [address], [address] [place] [address] [email or web address] PCP - General Family Medicine 12/28/23 documented as of this encounter Additional Source Comments The information contained in this document represents components of the legal health record. It is not the complete legal health record.[facility]
--- OUTSIDE RECORDS SUMMARY | 2024-12-24 11:02 | XMS_ITS | Encounter Summary ---
Author Organization [facility] Address [facility] [address] [place] [address] Phone Care Team Providers Care Electro Mechanical Solar Technician Name Role Phone Lan Dillon MD Primary Care Provider Sukumar Beltran MD Primary Care Provider [phone]- [phone] Encounter Details Date Type Department Care Team (Latest Contact Info) Description 10/21/2023 Ancillary Orders [address] [phone] Ashley Holden MD [address] [place] [address] Orthopedics & Sports Medicine, [place], [place] [phone] [email or web address] Osteoarthritis of both shoulders, unspecified osteoarthritis type (Primary Dx) Social History Tobacco Use Types Packs/Day Years Used Date Smoking Tobacco: Never Smokeless Tobacco: Never Alcohol Use Standard Drinks/Week Comments Not Currently 0 (1 standard drink = 0.6 oz pur e alcohol) Education Answer Date Recorded Are you interested in more education? Not on rachael e 07/26/2022 Are you concerned about learning? Not on file 07/26/2022 No 07/26/2022 No 07/26/2022 Digital Access Answer Date Recorded No 08/22/2022 No 08/22/2022 Reliable internet access at home? Not on file 08/22/2022 Device with a working camera? Not on file Sex and Gender Information Value Date Recorded Sex Assigned at Not on file Legal Sex Male 5:09 PM EST Gender Identity Not on file Sexual Orientation Not on file documented as of this encounter Plan of Treatment Upcoming Encounters Date Type Department Care Team (Late st Contact Info) Description 12/13/2024 Procedure Pass [facility], Ct Scan - [facility] [address] [place] [address] 12/24/2024 1:00 PM EDT [facility] [address] [place] [phone] Mary Flores RN [address] [place] [address] 12/26/2024 1:00 AM EDT [facility] [address] [place] [phone] Mary Flores RN [address] [place] [address] 12/28/2024 12:30 AM EDT Appointment [facility] [address] [place] [phone] Mary Flores RN [address] [place] [address] 12/31/2024 3:00 PM EDT Office Visit [facility] Family Medicine [address] [place] [address] Sukumar Beltran MD [address] [place] [address], [address] [place] [address] 01/09/2025 2:30 PM EDT Office Visit [facility] Orthopedics & Sports Medicine [address] [place] [address] Lee King DO 4 [facility] Sports [facility] [place] [place] [address] 01/10/2025 2:45 PM EDT Office Visit [facility] [address] [place] [address] Lee King, DO 4 [facility], [facility] Sports [facility], [facility] [place] [address] Jessa Sanchez, PT 8 [place] [address] 01/15/2025 11:30 AM EDT Office Visit [facility] [address] [place] [address] Lee King, DO 4 [facility] Sports [facility] [place] [address] Jessa Sanchez, PT 8 [place] [address] 01/17/2025 2:00 PM EDT Office Visit [facility] [address] [place] [address] Lee King, DO 4 [facility], [facility] [place] [address] Jessa Sanchez, PT 8 [place] [address] 01/22/2025 11:30 AM EDT Office Visit [facility] [address] [place] [address] Lee King, DO 4 [facility] Sports [facility] [place] [address] Jessa Sanchez, PT 8 [place] [address] 01/24/2025 2:00 PM EDT Office Visit [facility] [address] [place] [address] Lee King, DO 4 [facility], [facility] [place] [address] Jessa Sanchez, PT 8 [place] [address] 01/29/2025 11:30 AM EST Office Visit [facility] 8 [place] [address] Lee King, DO 4 [facility], [place] [address] Jessa Sanchez, PT 8 [place] [address] 01/31/2025 2:00 PM EST Office Visit [facility] [address] [place] [address] Lee King, DO 4 [facility], [facility] [place] [address] Jessa Sanchez, PT 8 [place] [address] 02/12/2025 11:30 AM EST Office Visit [facility] 8 [place] [address] Lee King DO 4 [facility] Orthopedics & Sports [facility], [facility] [place] [address] Jessa Sanchez, PT 8 [place] [address] 02/14/2025 2:00 PM EST Office Visit [facility] 8 [place] [address] Lee King DO 4 [facility] Orthopedics [facility], [place] [address] Jessa Sanchez, PT 8 [place] [address] 03/14/2025 1:30 PM EST Appointment [facility], Ct Scan - [address] [address] Sabino Green MD, MS [address] [address] 03/14/2025 2:00 PM EST Appointment [facility] [address] [place] [address] Sabino Green MD, MS [address] [address] 04/03/2025 11:45 AM EST Office Visit [facility] Critical [facility] Medicine [address] [place] [address] Sabino Green MD, MS [address] [address] [email or web address] Pending Results Name Type Priority Associated Diagnoses Date /Time FL Guidance Needle Placement Non-Spine Imaging Routine Osteoarthritis of both shoulders, unspecified osteoarthritis type 10/25/2023 11:42 AM EDT Scheduled Orders Name Type Priority Associated Diagnoses Orde r Schedule FL Guidance Needle Placement Non-Spine Imaging Routine Osteoarthritis of both shoulders, unspecified osteoarthritis type 1 Occurrences starting 10/21/2023 until 01/21/2024 documented as of this encounter Visit Diagnoses Diagnosis Osteoarthritis of both shoulders, unspecified osteoarthritis type- Primary documented in this encounter Care Teams Electro Mechanical Solar Technician Relationship Specialty Start Date End Date Lan Dillon MD [address] [place] [address] [place] [address] PCP - General Internal Medicine 12/13/16 12/27/23 Sukumar Beltran MD [address] [place] [address], [address] [place] [address] [email or web address] PCP - General Family Medicine 12/28/23 documented as of this encounter Additional Source Comments The information contained in this document represents components of the legal health record. It is not the complete legal health record.[facility]
--- OUTSIDE RECORDS SUMMARY | 2024-12-24 11:02 | XMS_ITS | Encounter Summary ---
Author Organization [facility] Address [address] [employer] [facility] [address] [place] [address] Phone Care Team Providers Care Poultry Trimmer Name Role Phone Lan Dillon MD Primary Care Provider Sukumar Beltran MD Primary Care Provider [phone]- [phone] Encounter Details Date Type Department Care Team (Late st Contact Info) Description 01/06/2022 Procedure Pass [facility] MR Imaging, [place] [address] [place] [address] Social History Tobacco Use Types Packs/Day Years [...] st Contact Info) Description 12/13/2024 Procedure Pass [facility], Ct Scan - [facility] 30 [place] [address] 12/24/2024 1:00 PM EDT Home Care Visit [facility] 30 [place] [phone] Mary Flores RN 168 [place] [address] 12/26/2024 1:00 AM EDT Home Care Visit [facility] 30 [place] [address] Mary Flores RN 168 [place] [address] 12/28/2024 12:30 AM EDT Appointment [facility] 30 [place] [address] Mary Flores RN 168 [place] [address] 12/31/2024 3:00 PM EDT Office Visit [facility] Medicine 22 [place] [address] Sukumar Beltran MD 22 [facility], 201 [place] [address] 01/09/2025 2:30 PM EDT Office Visit [facility] Orthopedics & Sports Medicine [address] [place] [address] Lee King DO [address] [place] [place] [address] Orthopedics & Sports [facility], [place] [address] 01/10/2025 2:45 PM EDT Office Visit [facility] Rehabilitation Services 8 [place] [address] Lee King DO 4 [facility] Orthopedics & Sports [facility], [place] [address] Jessa Sanchez, PT 8 [place] [address] 01/15/2025 11:30 AM EDT Office Visit [facility] [address] [place] [address] Lee King, DO 4 [facility] Sports [facility], [facility] [place] [address] Jessa Sanchez, PT 8 [place] [address] 01/17/2025 2:00 PM EDT Office Visit [facility] [address] [place] [address] Lee King, DO 4 [facility], [facility] [place] [address] Jessa Sanchez, PT 8 [place] [address] 01/22/2025 11:30 AM EDT Office Visit [facility] [address] [place] [address] Lee King, DO 4 [facility], [facility] [place] [address] Jessa Sanchez, PT 8 [place] [address] 01/24/2025 2:00 PM EDT Office Visit [facility] [address] [place] [address] Lee King, DO 4 [facility], [facility] [place] [address] Jessa Sanchez, PT 8 [place] [address] 01/29/2025 11:30 AM EST Office Visit [facility] 8 [place] [address] Lee King, DO 4 [facility] Sports [facility], [facility] [place] [address] Jessa Sanchez, PT 8 [place] [address] 01/31/2025 2:00 PM EST Office Visit [facility] 8 [place] [address] Lee King, DO 4 [facility], [facility] [place] [address] Jessa Sanchez, PT 8 [place] [address] 02/12/2025 11:30 AM EST Office Visit [facility] 8 [place] [address] Lee King, DO 4 [facility], [facility] [address] Jessa Sanchez, PT 8 [place] [address] 02/14/2025 2:00 PM EST Office Visit [facility] [address] [place] [address] Lee King, DO 4 [facility] Orthopedics [facility] Sports [place], [place] [address] Rubensbelén Jessa, PT 8 [place] [address] 03/14/2025 1:30 PM EST Appointment [facility], Ct Scan - [address] [address] Sabino Green MD, MS [address] [address] 03/14/2025 2:00 PM EST Appointment [facility] [address] [place] [address] Sabino Green MD, MS [address] [address] 04/03/2025 11:45 AM EST Office Visit [facility] Pul[facility], Allergy and Critical Care Medicine [address] [place] [address] Sabino Green MD, MS [address] [address] [email or web address] documented as of this encounter Visit Diagnoses Not on filedocumented in this encounter Additional Health Concerns Infection Onset Date Last Indicated Resolved Time Metapneumovirus 10/10/2023 10/10/2023 10/17/2023 1 :22 AM EDT documented as of this encounter Care Teams Poultry Trimmer Relationship Specialty Start Date End Date Lan Dillon MD [address] [place] [address] [place] [address] PCP - General Internal Medicine 12/13/16 12/27/23 Sukumar Beltran MD [address] [place] [address], [address] [place] [address] [email or web address] PCP - General Family Medicine 12/28/23 documented as of this encounter Additional Source Comments The information contained in this document represents components of the legal health record. It is not the complete legal health record.[facility]
--- OUTSIDE RECORDS SUMMARY | 2024-12-24 11:02 | XMS_ITS | Encounter Summary ---
Author Organization [facility] Address [address] access hospital [address] [place] [address] Phone Care Team Providers Care Salvage Grinder Name Role Phone Lan Dillon MD Primary Care Provider Sukumar Beltran MD Primary Care Provider +1- [phone] Encounter Details Date Type Department Care Team (Late Contact Info) Description 10/26/2023 Procedure Pass [facility], Ct Scan - [address] [address] Social History Tobacco Use Types Packs/Day Years [...] (Late Contact Info) Description 12/13/2024 Procedure Pass [facility], Ct Scan - Main Hospital 30 [place] [address] 12/24/2024 1:00 PM EDT Home Care Visit [facility] 30 [place] [address] Mary Flores RN [address] [place] [address] 12/26/2024 1:00 AM EDT Home Care Visit [facility] [address] [place] [address] Mary Flores RN [address] [place] [address] 12/28/2024 12:30 AM EDT Appointment [facility] [address] [place] [phone] Mary Flores RN [address] [place] [address] 12/31/2024 3:00 PM EDT Office Visit [facility] Family Medicine [address] [place] [address] Sukumar Beltran MD 22 [facility], [address] [place] [address] 01/09/2025 2:30 PM EDT Office Visit [facility] Medicine [address] [place] [address] Lee King DO [address] [place] [address] Orthopedics & Sports Medicine, [place] [address] 01/10/2025 2:45 PM EDT Office Visit [facility] Rehabilitation Services 8 [place] [address] Lee King, DO 4 [facility], [place] [address] Jessa Sanchez, PT 8 [place] [address] 01/15/2025 11:30 AM EDT Office Visit [facility] [address] [place] [address] Lee King, DO 4 [facility], [place] [address] Jessa Sanchez, PT 8 [place] [address] 01/17/2025 2:00 PM EDT Office Visit [facility] [address] [place] [address] Lee King, DO 4 [facility], [place] [address] Jessa Sanchez, PT 8 [place] [address] 01/22/2025 11:30 AM EDT Office Visit [facility] [address] [place] [address] Lee King, DO 4 [facility], [place] [address] Jessa Sanchez, PT 8 [place] [address] 01/24/2025 2:00 PM EDT Office Visit [facility] [address] [place] [address] Lee King, DO 4 [facility], [place] [address] Jessa Sanchez, PT 8 [place] [address] 01/29/2025 11:30 AM EST Office Visit [facility] [address] [place] [address] Lee King, DO 4 [facility], [place] [address] Jessa Sanchez, PT 8 [place] [address] 01/31/2025 2:00 PM EST Office Visit [facility] [address] [place] [address] Lee King, DO 4 [facility] [place] [address] Jessa Snachez, PT 8 [place] [address] 02/12/2025 11:30 AM EST Office Visit [facility] [address] [place] [address] Lee King, DO 4 [facility] [place] [address] Jessa Sanchez, PT 8 [place] [address] 02/14/2025 2:00 PM EST Office Visit [facility] Rehabilitation Services 8 [place] [address] Lee King DO 4 [facility], [place] [address] Jessa Sanchez, PT 8 [place] [address] 03/14/2025 1:30 PM EST Appointment [facility], Ct Scan - [address] [address] Sabino Green MD, MS [address] [place] [address] 03/14/2025 2:00 PM EST Appointment [facility] [address] [place] [address] Sabino Green MD, MS [address] [address] 04/03/2025 11:45 AM EST Office Visit [facility] Pulmonary, Allergy and Critical Care Medicine [address] [place] [address] Sabino Green MD, MS [address] [phone] documented as of this encounter Visit Diagnoses Not on filedocumented in this encounter Additional Health Concerns Assessment Noted Time PHQ-2 Depression Total Score: 1 12/28/19 24 11:18 AM EDT documented as of this encounter Care Teams Salvage Grinder Relationship Specialty Start Date End Date Lan Dillon MD [address] [place] [address] [place] [address] PCP - General Internal Medicine 12/13/16 12/27/23 Sukumar Beltran MD [address] [place] [address], [address] [place] [address] [email or web address] PCP - General Family Medicine 12/28/23 documented as of this encounter Additional Source Comments The information contained in this document represents components of the legal health record. It is not the complete legal health record.[facility]
--- OUTSIDE RECORDS SUMMARY | 2024-12-24 11:02 | XMS_ITS | Encounter Summary ---
Author Organization [facility] Address [address] [facility] [address] [place] [address] Phone Care Team Providers Care Shaving Machine Operator Name Role Phone Lan Dillon MD Primary Care Provider Sukumar Beltran MD Primary Care Provider [phone]- [phone] Encounter Details Date Type Department Care Team (Late st Contact Info) Description 03/17/2017 Procedure Pass [facility] Periop [address] [place] [address] Social History Tobacco Use Types Packs/Day Years [...] st Contact Info) Description 12/13/2024 Procedure Pass [facility], Ct Scan - [facility] 30 [place] [address] 12/24/2024 1:00 PM EDT Home Care Visit [facility] 30 [place] [phone] Mary Flores, TAMELA 168 [place] [address] 12/26/2024 1:00 AM EDT Home Care Visit [facility] 30 [place] [address] Mary Flores RN 168 [place] [address] 12/28/2024 12:30 AM EDT Appointment [facility] 30 [place] [address] Mary Flores RN 168 [place] [address] 12/31/2024 3:00 PM EDT Office Visit [facility] Medicine 22 [place] [address] Sukumar Beltran MD 22 [facility], [address] [place] [address] 01/09/2025 2:30 PM EDT Office Visit [facility] Orthopedics & Sports Medicine [address] [place] [address] Lee King DO [address] [place] [address] Orthopedics & Sports [facility], [place] [address] 01/10/2025 2:45 PM EDT Office Visit [facility] Services 8 [place] [address] Lee King DO 4 [facility] Orthopedics & Sports [facility], Inc. [place], [place] [phone] Jessa Sanchez, PT 8 [place] [address] 01/15/2025 11:30 AM EDT Office Visit [facility] 8 [facility] [place] [address] Lee King, DO 4 [facility], [place] [address] Jessa Sanchez, PT 8 [place] [address] 01/17/2025 2:00 PM EDT Office Visit [facility] [address] [place] [address] Lee King, DO 4 [facility], [place] [address] Jessa Sanchez, PT 8 [place] [address] 01/22/2025 11:30 AM EDT Office Visit [facility] [address] [place] [address] Lee King, DO 4 [facility], [place] [address] Jessa Sanchez, PT 8 [place] [address] 01/24/2025 2:00 PM EDT Office Visit [facility] [address] [place] [address] Lee King, 4 [facility], [place] [address] Jessa Sanchez, PT 8 [place] [address] 01/29/2025 11:30 AM EST Office Visit [facility] [address] [place] [address] Lee King, DO 4 [facility], [facility] [place] [address] Jessa Sanchez, PT 8 [place] [address] 01/31/2025 2:00 PM EST Office Visit [facility] [address] [place] [address] Lee King, DO 4 [facility], [place] [address] Jessa Sanchez, PT 8 [place] [address] 02/12/2025 11:30 AM EST Office Visit [facility] [address] [place] [address] Lee King, DO 4 [facility], [facility] [place] [address] Jessa Sanchez, PT 8 [place] [address] 02/14/2025 2:00 PM EST Office Visit [facility] [address] [place] [address] Lee King, DO 4 [facility], [facility] [place] [address] Jessa Sanchez, PT 8 [place] [address] 03/14/2025 1:30 PM EST Appointment [facility], Ct Scan - [address] [address] Sabino Green MD, MS [address] [address] 03/14/2025 2:00 PM EST Appointment [facility] [address] [place] [address] Sabino Green MD, MS [address] [address] 04/03/2025 11:45 AM EST Office Visit [facility] Allergy [facility] Critical [facility] Medicine [address] [place] [address] Sabino Green MD, MS [address] [address] documented as of this encounter Visit Diagnoses Not on filedocumented in this encounter Additional Health Concerns Infection Onset Date Last Indicated Resolved Time Metapneumovirus 10/10/2023 10/10/2023 10/17/2023 1 :22 AM EDT documented as of this encounter Care Teams Shaving Machine Operator Relationship Specialty Start Date End Date Lan Dillon MD [address] [place] [address] [place] [address] PCP - General Internal Medicine 12/13/16 12/27/23 Sukumar Beltran MD 22 [facility], [address] [place] [address] ([email or web address]) [email or web address] PCP - General Family Medicine 12/28/23 documented as of this encounter Additional Source Comments The information contained in this document represents components of the legal health record. It is not the complete legal health record.[facility]
--- OUTSIDE RECORDS SUMMARY | 2024-12-24 11:02 | XMS_ITS | Encounter Summary ---
Author Organization [facility] Address [address] [facility] [address] [place] [address] Phone Care Team Providers Care Applied Technologist Name Role Phone Lan Dillon MD Primary Care Provider Sukumar Beltran MD Primary Care Provider [phone]- [phone] Encounter Details Date Type Department Care Team (Late st Contact Info) Description 02/11/2017 Procedure Pass [facility], [place] [address] [place] [address] Social History Tobacco Use Types Packs/Day Years [...] st Contact Info) Description 12/13/2024 Procedure Pass [facility], Ct Scan - [facility] 30 [place] [address] 12/24/2024 1:00 PM EDT Home Care Visit [facility] 30 [place] [phone] Mary Flores RN [address] [place] [address] 12/26/2024 1:00 AM EDT Home Care Visit [facility] 30 [place] [address] Mary Flores RN 168 [place] [address] 12/28/2024 12:30 AM EDT Appointment [facility] 30 [place] [address] Mary Flores RN 168 [place] [address] 12/31/2024 3:00 PM EDT Office Visit [facility] Family Medicine 22 [place] [address] Sukumar Beltran MD 22 [facility], [address] [place] [address] 01/09/2025 2:30 PM EDT Office Visit [facility] Orthopedics & Sports Medicine [address] [place] [address] Lee King, DO [address] [place] [address] Orthopedics & Sports [place], [place] [address] 01/10/2025 2:45 PM EDT Office Visit [facility] Services 8 [place] [address] Lee King DO 4 [facility] Orthopedics & Sports Medicine, [place] [address] Jessa Sanchez, PT 8 [place] [address] 01/15/2025 11:30 AM EDT Office Visit [facility] 8 [place] [address] Lee King, DO 4 [facility], [facility] [place] [address] Jessa Sanchez, PT 8 [place] [address] 01/17/2025 2:00 PM EDT Office Visit [facility] [address] [place] [address] Lee King, DO 4 [facility], [place] [address] Jessa Sanchez, PT 8 [place] [address] 01/22/2025 11:30 AM EDT Office Visit [facility] [address] [place] [address] Lee King, DO 4 [facility], [place] [address] Jessa Sanchez, PT 8 [place] [address] 01/24/2025 2:00 PM EDT Office Visit [facility] [address] [place] [address] Lee King, DO 4 [facility], [place] [address] Jessa Sanchez, PT 8 [place] [address] 01/29/2025 11:30 AM EST Office Visit [facility] [address] [place] [address] Lee King, DO 4 [facility], [place] [address] Jessa Sanchez, PT 8 [place] [address] 01/31/2025 2:00 PM EST Office Visit [facility] 8 [place] [address] Lee King, DO 4 [facility], [place] [address] Jessa Sanchez, PT 8 [place] [address] 02/12/2025 11:30 AM EST Office Visit [facility] [address] [place] [address] Lee King, DO 4 [facility], [place] [address] Jessa Sanchez, PT 8 [place] [address] 02/14/2025 2:00 PM EST Office Visit [facility] [address] [place] [address] Lee King, DO 4 [facility], [place] [address] Jessa Sanchez, PT 8 [place] [address] 03/14/2025 1:30 PM EST Appointment [facility], Ct Scan - [address] [address] Sabino Green MD, MS [address] [address] 03/14/2025 2:00 PM EST Appointment [facility] [address] [place] [id number] Sabino Green MD, MS [address] [phone] 04/03/2025 11:45 AM EST Office Visit [facility], Allergy and Critical Care Medicine [address] [place] [phone] Sabino Green MD, MS [address] [phone] documented as of this encounter Visit Diagnoses Not on filedocumented in this encounter Additional Health Concerns Infection Onset Date Last Indicated Resolved Time Metapneumovirus 10/10/2023 10/10/2023 10/17/2023 1 :22 AM EDT documented as of this encounter Care Teams Applied Technologist Relationship Specialty Start Date End Date Lan Dillon MD [address] [place] [address] [place] [address] PCP - General Internal Medicine 12/13/16 12/27/23 Sukumar Beltran MD 22 [facility], [address] [place] [address] [email or web address] PCP - General Family Medicine 12/28/23 documented as of this encounter Additional Source Comments The information contained in this document represents components of the legal health record. It is not the complete legal health record.[facility]
--- OUTSIDE RECORDS SUMMARY | 2024-12-24 11:02 | XMS_ITS | Encounter Summary ---
Author Organization [facility] Address [facility] [address] [place] [address] Phone Care Team Providers Care Diesel Engine Inspector Name Role Phone Lan Dillon MD Primary Care Provider Sukumar Beltran MD Primary Care Provider [phone]- [phone] Encounter Details Date Type Department Care Team (Late st Contact Info) Description 10/10/2023 Procedure Pass [facility] Admitting Dept Virtual Department 30 [place], [place] [id number] Social History Tobacco Use Types Packs/Day Years [...] st Contact Info) Description 12/13/2024 Procedure Pass [facility], Ct Scan - Main Hospital 30 [place] [address] 12/24/2024 1:00 PM EDT Home Care Visit [facility] 30 [place] [address] Mary Flores RN 168 [place] [address] 12/26/2024 1:00 AM EDT [facility] [address] [place] [phone] Mary Flores RN 168 [place] [address] 12/28/2024 12:30 AM EDT Appointment [facility] [address] [place] [phone] Mary Flores RN [address] [place] [address] 12/31/2024 3:00 PM EDT Office Visit [facility] Family Medicine 22 [place] [address] Sukumar Beltran MD 22 [facility], [address] [place] [address] 01/09/2025 2:30 PM EDT Office Visit [facility] Orthopedics & Sports Medicine [address] [place] [address] Lee King DO [address] [place] [address] Orthopedics & Sports Medicine, Inc. [place], [place] [phone] 01/10/2025 2:45 PM EDT Office Visit [facility] Rehabilitation Services 8 [place] [address] Lee King, DO 4 [facility], [facility] [place] [address] Jessa Sanchez, PT 8 [place] [address] 01/15/2025 11:30 AM EDT Office Visit [facility] [address] [place] [address] Lee King, DO 4 [facility], [place] [address] Jessa Sanchez, PT 8 [place] [address] 01/17/2025 2:00 PM EDT Office Visit [facility] [address] [place] [address] Lee King, DO 4 [facility], [place] [address] Jessa Sanchez, PT 8 [place] [address] 01/22/2025 11:30 AM EDT Office Visit [facility] [address] [place] [address] Lee King, DO 4 [facility], [facility] [place] [address] Jessa Sanchez, PT 8 [place] [address] 01/24/2025 2:00 PM EDT Office Visit [facility] [address] [place] [address] Lee King, DO 4 [facility] Orthopedics Sports [facility], [facility] [place] [address] Jessa Sanchez, PT 8 [place] [address] 01/29/2025 11:30 AM EST Office Visit [facility] [address] [place] [address] Lee King, DO 4 [facility], [facility] [place] [address] Jessa Sanchez, PT 8 [place] [address] 01/31/2025 2:00 PM EST Office Visit [address] [address] Lee King, DO 4 [facility] [place] [address] Jessa Sanchez, PT 8 [place] [address] 02/12/2025 11:30 AM EST Office Visit [facility] [address] [place] [address] Lee King, DO 4 [facility] [place] [address] [email or web address] [email or web address] Jessa, PT 8 [place] [address] [email or web address] 02/14/2025 2:00 PM EST Office Visit [facility] Rehabilitation Services 8 [place] [address] Lee King DO 4 [facility] Orthopedics [facility] Sports Medicine, [facility] [place] [address] [email or web address] Jessa Sanchez, PT 8 [place] [address] [email or web address] 03/14/2025 1:30 PM EST Appointment [facility], Ct Scan - [address] [address] Sabino Green MD, MS [address] [address] [email or web address] 03/14/2025 2:00 PM EST Appointment [facility] [address] [place] [address] Sabino Green MD, MS [address] [address] [email or web address] 04/03/2025 11:45 AM EST Office Visit [facility] All[facility] Critical [facility] Medicine [address] [place] [address] Sabino Green MD, MS [address] [address] documented as of this encounter Visit Diagnoses Not on filedocumented in this encounter Additional Health Concerns Infection Onset Date Last Indicated Resolved Time Metapneumovirus 10/10/2023 10/10/2023 10/17/2023 1 :22 AM EDT documented as of this encounter Care Teams Diesel Engine Inspector Relationship Specialty Start Date End Date Lan Dillon MD [address] [place] [address] [place] [address] PCP - General Internal Medicine 12/13/16 12/27/23 Sukumar Beltran MD [address] [place] [address], [address] [place] [address] [email or web address] PCP - General Family Medicine 12/28/23 documented as of this encounter Additional Source Comments The information contained in this document represents components of the legal health record. It is not the complete legal health record.[facility]
--- OUTSIDE RECORDS SUMMARY | 2024-12-24 11:02 | XMS_ITS | Encounter Summary ---
Author Organization [facility] Address [facility] [address] [place] [address] Phone Care Team Providers Care Cash Applications Analyst Name Role Phone Lan Dillon MD Primary Care Provider Sukumar Beltran MD Primary Care Provider +1- [phone] Encounter Details Date Type Department Care Team (Late st Contact Info) Description 12/03/2022 Ancillary Orders [address] [phone] Ashley Holden MD [address] [place] [address] Orthopedics & Sports Medicine, [place], [place] [phone] [email or web address] Left shoulder pain, unspecified chronicity Social History Tobacco Use Types Packs/Day Years [...] Contact Info) Description 12/13/2024 Procedure Pass [facility], Ct Scan - [address] [address] 12/24/2024 1:00 PM EDT Home Care Visit [facility] [place] [facility] [address] [place] [phone] Mary Flores RN [address] [place] [address] 12/26/2024 1:00 AM EDT [facility] [address] [place] [phone] Mary Flores RN [address] [place] [address] 12/28/2024 12:30 AM EDT [facility]ointment [facility] [address] [place] [phone] Mary Flores RN [address] [place] [address] 12/31/2024 3:00 PM EDT Office Visit [facility] Family Medicine [address] [place] [address] Sukumar Beltran MD [address] [place] [address], [address] [place] [address] 01/09/2025 2:30 PM EDT Office Visit [facility] Orthopedics & Sports Medicine [address] [place] [address] Lee King DO 4 [facility] [place] [address] 01/10/2025 2:45 PM EDT Office Visit [facility] [address] [place] [address] Lee King, DO 4 [facility] [place] [address] Jessa Sanchez, PT 8 [place] [address] 01/15/2025 11:30 AM EDT Office Visit [facility] 8 [place] [address] Lee King, DO 4 [facility] [place] [address] Jessa Sanchez, PT 8 [place] [address] 01/17/2025 2:00 PM EDT Office Visit [facility] [address] [place] [address] Lee King, DO 4 [facility] [place] [address] Jessa Sanchez, PT 8 [place] [address] 01/22/2025 11:30 AM EDT Office Visit [facility] [address] [place] [address] Lee King, DO 4 [facility] [place] [address] Jessa Sanchez, PT 8 [place] [address] 01/24/2025 2:00 PM EDT Office Visit [facility] [address] [place] [address] Lee King, DO 4 [facility], [facility] [place] [address] Jessa Sanchez, PT 8 [place] [address] 01/29/2025 11:30 AM EST Office Visit [facility] 8 [place] [address] Lee King, DO 4 [facility] [place] [address] Jessa Sanchez, PT 8 [place] [address] 01/31/2025 2:00 PM EST Office Visit [address] [place] [address] Lee King, DO 4 [facility] [place] [address] Jessa Sanchez, PT 8 [place] [address] 02/12/2025 11:30 AM EST Office Visit [facility] 8 [place] [address] Lee King DO [address] [facility] Orthopedics Sports [facility], [place] [address] Jessa Sanchez, PT 8 [place] [address] 02/14/2025 2:00 PM EST Office Visit [facility] 8 [place] [address] Lee King, [address] [facility] Orthopedics [facility], [place] [address] Jessa Sanchez, PT 8 [place] [address] 03/14/2025 1:30 PM EST Appointment [facility], Ct Scan - [address] [address] Sabino Green MD, MS [address] [address] 03/14/2025 2:00 PM EST Appointment [facility] [address] [place] [address] Sabino Green MD, MS [address] [address] 04/03/2025 11:45 AM EST Office Visit [facility] Allergy [facility] Critical Care Medicine [address] [place] [address] Sabino Green MD, MS [address] [phone] [email or web address] Pending Results Name Type Priority Associated Diagnoses Date /Time FL Guidance Needle Placement Non-Spine Imaging Routine Left shoulder pain, unspecified chronicity 12/07/2022 10:55 AM EDT Scheduled Orders Name Type Priority Associated Diagnoses Orde r Schedule FL Guidance Needle Placement Non-Spine Imaging Routine Left shoulder pain, unspecified chronicity 1 Occurrences starting 12/03/2022 until 03/04/2023 documented as of this encounter Visit Diagnoses Diagnosis Left shoulder pain, unspecified chronicity documented in this encounter Additional Health Concerns Infection Onset Date Last Indicated Resolved Time Metapneumovirus 10/10/2023 10/10/2023 10/17/2023 1 :22 AM EDT documented as of this encounter Care Teams Cash Applications Analyst Relationship Specialty Start Date End Date Lan Dillon MD [address] [place] [address] [place] [address] PCP - General Internal Medicine 12/13/16 12/27/23 Sukumar Beltran MD [address] [place] [address], [address] [place] [address] [email or web address] PCP - General Family Medicine 12/28/23 documented as of this encounter Additional Source Comments The information contained in this document represents components of the legal health record. It is not the complete legal health record.[facility]
--- OUTSIDE RECORDS SUMMARY | 2024-12-24 11:02 | XMS_ITS | Encounter Summary ---
Author Organization [facility] Address [address] [place] [address] Phone Care Team Providers Care Assistant Case Manager Name Role Phone Sukumar Beltran MD Primary Care Provider +1- [phone] Encounter Details Date Type Department Care Team (Late st Contact Info) Description 07/26/2024 Procedure Pass [facility], Ct Scan - [facility] [address] [place] [address] Social History Tobacco Use Types Packs/Day Years [...] Pass [facility] - [facility] [address] [place] [address] 12/24/2024 1:00 PM EDT Home Care Visit [facility] [address] [place] [address] Mary Flores, TAMELA [address] [place] [address] 12/26/2024 1:00 AM EDT Home Care Visit [facility] [address] [place] [address] Mary Flores RN [address] [place] [address] 12/28/2024 12:30 AM EDT Appointment [facility] [address] [place] [address] Mary Flores RN [address] [place] [address] 12/31/2024 3:00 PM EDT Office Visit [facility] Medicine [address] [place] [address] Sukumar Beltran MD 22 [facility], [address] [place] [address] 01/09/2025 2:30 PM EDT Office Visit [facility] Orthopedics & Sports Medicine [address] [place] [address] Lee King DO [address] [place] [address] Orthopedics & Sports [facility] [place] [address] 01/10/2025 2:45 PM EDT Office Visit [facility] [address] [place] [address] Lee King DO 4 [facility] Orthopedics Sports [facility] [place] [address] Jessa Sanchez, PT 8 [place] [address] 01/15/2025 11:30 AM EDT Office Visit [facility] [address] [place] [address] Lee King, DO 4 [facility] Sports [facility], [place] [address] Jessa Sanchez, PT 8 [place] [address] 01/17/2025 2:00 PM EDT Office Visit [facility] [address] [place] [address] Lee King, DO 4 [facility], [place] [address] Jessa Sanchez, PT 8 [place] [address] 01/22/2025 11:30 AM EDT Office Visit [facility] [address] [place] [address] Lee King, DO 4 [facility], [place] [address] Jessa Sanchez, PT 8 [place] [address] 01/24/2025 2:00 PM EDT Office Visit [facility] [address] [place] [address] Lee King, DO 4 [facility], [place] [address] Jessa Sanchez, PT 8 [place] [address] 01/29/2025 11:30 AM EST Office Visit [facility] [address] [place] [address] Lee King, DO 4 [facility] Orthopedics Sports [facility], [place] [address] Jessa Sanchez, PT 8 [place] [address] 01/31/2025 2:00 PM EST Office Visit [facility] 8 [place] [address] Lee King, DO 4 [facility], [place] [address] Jessa Sanchez, PT 8 [place] [address] 02/12/2025 11:30 AM EST Office Visit [facility] 8 [place] [address] Lee King, DO 4 [facility] Sports [facility] [place] [address] Jessa Sanchez, PT 8 [place] [address] 02/14/2025 2:00 PM EST Office Visit [facility] [address] [place] [address] Lee King, DO 4 [facility] Orthopedics Sports [facility] [place] [address] Jessa Sanchez, PT 8 [place] [address] 03/14/2025 1:30 PM EST Appointment [facility], Ct Scan - [address] [address] Sabino Green MD, MS [address] [address] 03/14/2025 2:00 PM EST Appointment [facility] [address] [place] [address] Sabino Green MD, MS [address] [address] 04/03/2025 11:45 AM EST Office Visit [facility] Allergy [facility] Critical Care Medicine [address] [place] [address] [phone] Sabino Green MD, MS [address] [phone] documented as of this encounter Visit Diagnoses Not on filedocumented in this encounter Additional Health Concerns Assessment Noted Time PHQ-2 Depression Total Score: 1 08/04/19 25 2:09 PM EDT documented as of this encounter Care Teams Assistant Case Manager Relationship Specialty Start Date End Date Sukumar Beltran MD 22 [facility], [address] [place] [address] PCP - General Family Medicine 12/28/23 documented as of this encounter Additional Source Comments The information contained in this document represents components of the legal health record. It is not the complete legal health record.[facility]
--- OUTSIDE RECORDS SUMMARY | 2024-12-24 11:02 | XMS_ITS | Encounter Summary ---
Author Organization [facility] Address [facility] [address] [place] [address] Phone Care Team Providers Care Glove Parts Cutter Name Role Phone Lan Dillon MD Primary Care Provider Sukumar Beltran MD Primary Care Provider +1- [phone] Encounter Details Date Type Department Care Team (Late st Contact Info) Description 12/03/2022 Ancillary Orders [facility] Orthopedics & Sports Medicine [address] [place] [address] [phone] Ashley Holden MD [address] [place] [address] Orthopedics & Sports Medicine, [facility] [place], [place] [phone] [email or web address] Social History Tobacco Use Types Packs/Day Years [...] st Contact Info) Description 12/13/2024 Procedure Pass [facility], Ct Scan - [address] [address] 12/24/2024 1:00 PM EDT Home Care Visit [facility] [address] [place] [phone] Mary Flores RN 168 [place] [address] 12/26/2024 1:00 AM EDT [facility] [address] [place] [phone] Mary Flores RN 168 [place] [address] 12/28/2024 12:30 AM EDT [facility]ointment [facility] [address] [place] [phone] Mary Flores RN 168 [place] [address] 12/31/2024 3:00 PM EDT Office Visit [facility] Family Medicine [address] [place] [address] Sukumar Beltran MD [address] [place] [address], [address] [place] [address] 01/09/2025 2:30 PM EDT Office Visit [facility] Orthopedics & Sports Medicine [address] [place] [address] [phone] Lee King DO [address] [place] [address] Orthopedics & Sports [place] [address] 01/10/2025 2:45 PM EDT Office Visit [facility] [facility] [address] [place] [address] Lee King, DO 4 [facility], [facility] [place] [address] Jessa Sanchez, PT 8 [place] [address] 01/15/2025 11:30 AM EDT Office Visit [address] [address] Lee King, DO 4 [facility], [facility] [place] [address] Jessa Sanchez, PT 8 [place] [address] 01/17/2025 2:00 PM EDT Office Visit [facility] 8 [place] [address] Lee King, DO 4 [facility] [place] [address] Jessa Sanchez, PT 8 [place] [address] 01/22/2025 11:30 AM EDT Office Visit [facility] [address] [place] [address] Lee King, DO 4 [facility] [place] [place] [address] Jessa Sanchez, PT 8 [place] [address] 01/24/2025 2:00 PM EDT Office Visit [facility] [address] [place] [address] Lee King, DO 4 [facility] Orthopedics Sports [facility], [facility] [place] [address] Jessa Sanchez, PT 8 [place] [address] 01/29/2025 11:30 AM EST Office Visit [address] [address] Lee King, DO 4 [facility], [facility] [place] [address] Jessa Sanchez, PT 8 [place] [address] 01/31/2025 2:00 PM EST Office Visit [facility] [address] [place] [address] Lee King, DO 4 [facility] Orthopedics [facility], [facility] [place] [address] Jessa Sanchez, PT 8 [place] [address] 02/12/2025 11:30 AM EST Office Visit [facility] [address] [place] [address] Lee King DO 4 [facility] Orthopedics [facility], [facility] [place] [address] Jessa Sanchez, PT 8 [place] [address] 02/14/2025 2:00 PM EST Office Visit [facility] [address] [place] [address] Lee King DO 4 [facility] Orthopedics [facility], [place] [address] Jessa Sanchez, PT 8 [place] [address] 03/14/2025 1:30 PM EST Appointment [facility], Ct Scan - [address] [address] Sabino Green MD, MS [address] [address] 03/14/2025 2:00 PM EST Appointment [facility] [address] [place] [address] Sabino Green MD, MS [address] [address] 04/03/2025 11:45 AM EST Office [place] [facility], Allergy and Critical Care Medicine [address] [place] [address] Sabino Green MD, MS [address] [address] [email or web address] documented as of this encounter Visit Diagnoses Not on filedocumented in this encounter Additional Health Concerns Infection Onset Date Last Indicated Resolved Time Metapneumovirus 10/10/2023 10/10/2023 10/17/2023 1 :22 AM EDT documented as of this encounter Care Teams Glove Parts Cutter Relationship Specialty Start Date End Date Lan Dillon MD [address] [place] [address] [place] [address] PCP - General Internal Medicine 12/13/16 12/27/23 Sukumar Beltran MD [address] [place] [address], [address] [place] [address] [email or web address] PCP - General Family Medicine 12/28/23 documented as of this encounter Additional Source Comments The information contained in this document represents components of the legal health record. It is not the complete legal health record.[facility]
--- OUTSIDE RECORDS SUMMARY | 2024-12-24 11:03 | XMS_ITS | Encounter Summary ---
Author Organization [facility] Address [address] [facility] [address] [place] [address] Phone Care Team Providers Care Lead Producer Name Role Phone Lan Dillon MD Primary Care Provider Sukumar Beltran MD Primary Care Provider [phone]- [phone] Encounter Details Date Type Department Care Team (Late st Contact Info) Description 06/16/2017 Procedure Pass [facility] Periop [address] [place] [address] Social History Tobacco Use Types Packs/Day Years [...] st Contact Info) Description 12/13/2024 Procedure Pass [facility], Ct Scan - [facility] [address] [place] [address] 12/24/2024 1:00 PM EDT Home Care Visit [facility] [address] [place] [phone] Mary Flores, TAMELA [address] [place], [place] [phone] 12/26/2024 1:00 AM EDT Home Care Visit [facility] [address] [place] [address] Mary Flores RN [address] [place] [address] 12/28/2024 12:30 AM EDT Appointment [facility] [address] [place] [address] Mary Flores RN [address] [place] [address] 12/31/2024 3:00 PM EDT Office Visit [facility] Medicine 22 [place] [address] Sukumar Beltran MD 22 [facility], [address] [place] [address] 01/09/2025 2:30 PM EDT Office Visit [facility] Orthopedics & Sports Medicine [address] [place] [address] Lee King DO [address] [place] [address] Orthopedics & Sports [facility], [place] [address] 01/10/2025 2:45 PM EDT Office Visit [facility] Services 8 [place] [address] Lee King DO 4 [facility] Orthopedics & Sports [facility], [place] [address] Jessa Sanchez, PT 8 [place] [address] 01/15/2025 11:30 AM EDT Office Visit [facility] [address] [place] [address] Lee King, DO 4 [facility] Sports [facility], [place] [address] Jessa Sanchez, PT 8 [place] [address] 01/17/2025 2:00 PM EDT Office Visit [facility] [address] [place] [address] Lee King, DO 4 [facility], [place] [address] Jessa Sanchez, PT 8 [place] [address] 01/22/2025 11:30 AM EDT Office Visit [facility] [address] [place] [address] Lee King, DO 4 [facility], [place] [address] Jessa Sanchez, PT 8 [place] [address] 01/24/2025 2:00 PM EDT Office Visit [facility] [address] [place] [address] Lee King, DO 4 [facility], [place] [address] Jessa Sanchez, PT 8 [place] [address] [email or web address] 01/29/2025 11:30 AM EST Office Visit [facility] [address] [place] [address] Lee King, DO 4 [facility] Orthopedics Sports [facility] [place] [address] Jessa Sanchez, PT 8 [place] [address] [email or web address] 01/31/2025 2:00 PM EST Office Visit [facility] 8 [place] [address] Lee King, DO 4 [facility] Sports [facility] [place] [address] [email or web address] Jessa Sanchez, PT 8 [place] [address] [email or web address] 02/12/2025 11:30 AM EST Office Visit [facility] [address] [place] [address] Lee King, DO 4 [facility] Sports [facility] [place] [address] [email or web address] Jessa Sanchez, PT 8 [place] [address] 02/14/2025 2:00 PM EST Office Visit [facility] [address] [place] [address] Lee King, DO 4 [facility] Orthopedics [facility] [place] [address] Jessa Sanchez, PT 8 [place] [address] 03/14/2025 1:30 PM EST Appointment [facility], Ct Scan - [address] [address] Sabino Green MD, MS [address] [address] 03/14/2025 2:00 PM EST Appointment [facility] [address] [place] [address] Sabino Green MD, MS [address] [address] 04/03/2025 11:45 AM EST Office Visit [facility] Pulmonary, Allergy and Critical Care Medicine [address] [place] [address] Sabino Green MD, MS [address] [address] documented as of this encounter Visit Diagnoses Not on filedocumented in this encounter Additional Health Concerns Infection Onset Date Last Indicated Resolved Time Metapneumovirus 10/10/2023 10/10/2023 10/17/2023 1 :22 AM EDT documented as of this encounter Care Teams Lead Producer Relationship Specialty Start Date End Date Lan Dillon MD [address] [place] [address] [place] [address] PCP - General Internal Medicine 12/13/16 12/27/23 Sukumar Beltran MD [address] [place] [address], [address] [place] [address] [email or web address] PCP - General Family Medicine 12/28/23 documented as of this encounter Additional Source Comments The information contained in this document represents components of the legal health record. It is not the complete legal health record.[facility]
--- OUTSIDE RECORDS SUMMARY | 2024-12-24 11:03 | XMS_ITS | Encounter Summary ---
Author Organization [facility] Address [address] [place] [address] Phone Care Team Providers Care Gold Charmer Name Role Phone Sukumar Beltran MD Primary Care Provider [phone]- [phone] Encounter Details Date Type Department Care Team (Late st Contact Info) Description 01/19/2024 Procedure Pass [facility], Ct Scan - [facility] [address] [place] [address] Social History Tobacco Use Types Packs/Day Years [...] st Contact Info) Description 12/13/2024 Procedure Pass [facility], [facility] Scan - [facility] 30 [place] [address] 12/24/2024 1:00 PM EDT Home Care Visit [facility] 30 [place] [address] Mary Flores, TAMELA [address] [place] [address] 12/26/2024 1:00 AM EDT Home Care Visit [facility] 30 [place] [address] Mary Flores RN [address] [place] [address] 12/28/2024 12:30 AM EDT Appointment [facility] 30 [place] [address] Mary Flores RN [address] [place] [address] 12/31/2024 3:00 PM EDT Office Visit [facility] 22 [place] [address] Sukumar Beltran MD 22 [facility], [address] [place] [address] 01/09/2025 2:30 PM EDT Office Visit [facility] Orthopedics & Sports Medicine [address] [place] [address] Lee King DO [address] [place] [address] Orthopedics & Sports [facility] [address] 01/10/2025 2:45 PM EDT Office Visit [facility] [address] [place] [address] Lee King DO 4 [facility] Orthopedics Sports [facility] [place] [address] Jessa Sanchez, PT 8 [place] [address] 01/15/2025 11:30 AM EDT Office Visit [facility] [address] [place] [address] Lee King, DO 4 [facility] Sports [facility], [facility] [place] [address] Jessa Sanchez, PT 8 [place] [address] 01/17/2025 2:00 PM EDT Office Visit [facility] [address] [place] [address] Lee King, DO 4 [facility], [place] [address] Jessa Sanchez, PT 8 [place] [address] 01/22/2025 11:30 AM EDT Office Visit [facility] [address] [place] [address] Lee Kign, DO 4 [facility], [place] [address] Jessa Sanchez, PT 8 [place] [address] 01/24/2025 2:00 PM EDT Office Visit [facility] [address] [place] [address] Lee King, DO 4 [facility], [place] [address] Jessa Sanchez, PT 8 [place] [address] 01/29/2025 11:30 AM EST Office Visit [facility] [address] [place] [address] Lee King, DO 4 [facility] Orthopedics Sports [facility], [facility] [place] [address] Jessa Sanchez, PT 8 [place] [address] 01/31/2025 2:00 PM EST Office Visit [facility] 8 [place] [address] Lee King, DO 4 [facility], [facility] [place] [address] Jessa Sanchez, PT 8 [place] [address] 02/12/2025 11:30 AM EST Office Visit [facility] 8 [place] [address] Lee King, DO 4 [facility] [place] [address] Jessa Sanchez, PT 8 [place] [address] 02/14/2025 2:00 PM EST Office Visit [facility] [address] [place] [address] Lee King, DO 4 [facility] Orthopedics Sports [facility] [place] [address] Jessa Sanchez, PT 8 [place] [address] 03/14/2025 1:30 PM EST Appointment [facility], Ct Scan - [address] [address] Sabino Green MD, MS [address] [address] 03/14/2025 2:00 PM EST Appointment [facility] [address] [place] [address] Sabino Green MD, MS [address] [address] 04/03/2025 11:45 AM EST Office Visit [facility] All[facility] Critical [facility] Medicine [address] [place] [address] [phone] Sabino Green MD, MS [address] [phone] documented as of this encounter Visit Diagnoses Not on filedocumented in this encounter Additional Health Concerns Assessment Noted Time PHQ-2 Depression Total Score: 1 12/28/19 11:18 AM EDT documented as of this encounter Care Teams Gold Charmer Relationship Specialty Start Date End Date Sukumar Beltran MD 22 [facility], [address] [place] [address] PCP - General Family Medicine 12/28/23 documented as of this encounter Additional Source Comments The information contained in this document represents components of the legal health record. It is not the complete legal health record.[facility]
--- OUTSIDE RECORDS SUMMARY | 2024-12-24 11:04 | XMS_ITS | Encounter Summary ---
Author Organization [facility] Address [facility] [address] [place] [address] Phone Care Team Providers Care Truck Mechanic Name Role Phone Lan Dillon MD Primary Care Provider Sukumar Beltran MD Primary Care Provider [phone]- [phone] Encounter Details Date Type Department Care Team (Late st Contact Info) Description 01/09/2021 Ancillary [address] [facility],Outside Imaging [address] [place] [address] System, Provider [place] In, [place] [address] Social History Tobacco Use Types Packs/Day Years [...] (Late Contact Info) Description 12/13/20[address] Procedure [address] [facility], Ct Scan - [facility] 30 [place] [address] 12/24/2024 1:00 PM EDT Home Care Visit [facility] 30 [place] [address] Mary Flores RN 168 [place] [address] 12/26/2024 1:00 AM EDT Home Care Visit [facility] 30 [place] [address] Mary Flores RN 168 [place] [address] 12/28/2024 12:30 AM EDT Appointment [facility] 30 [place], [place] [phone] Mary Flores RN 168 [place] [address] 12/31/2024 3:00 PM EDT Office Visit [facility] Medicine 22 [place] [address] Sukumar Beltran MD 22 [facility], [address] [place] [address] 01/09/2025 2:30 PM EDT Office Visit [facility] Orthopedics & Sports Medicine [address] [place] [address] Lee King DO 4 [facility] Orthopedics & Sports Medicine, [place] [address] 01/10/2025 2:45 PM EDT Office Visit [facility] Rehabilitation Services 8 [place] [address] Lee King DO 4 [facility] Orth[facility]ics [facility] Sports [facility], [place] [address] Jessa Sanchez, PT 8 [place] [address] 01/15/2025 11:30 AM EDT Office Visit [facility] [address] [place] [address] Lee King, DO 4 [facility], [place] [address] Jessa Sanchez, PT 8 [place] [address] 01/17/2025 2:00 PM EDT Office Visit [facility] 8 [place] [address] Lee King, DO 4 [facility], [place] [address] Jessa Sanchez, PT 8 [place] [address] 01/22/2025 11:30 AM EDT Office Visit [facility] [address] [place] [address] Lee King, DO 4 [facility], [facility] [place] [address] Jessa Sanchez, PT 8 [place] [address] 01/24/2025 2:00 PM EDT Office Visit [facility] [address] [place] [address] Lee King, DO 4 [facility], [place] [address] Jessa Sanchez, PT 8 [place] [address] 01/29/2025 11:30 AM EST Office Visit [facility] [address] [place] [address] Lee King, DO 4 [facility] Orthopedics Sports [facility] [place] [address] Jessa Sanchez, PT 8 [place] [address] 01/31/2025 2:00 PM EST Office Visit [facility] [address] [place] [address] Lee King, DO 4 [facility], [facility] [place] [address] Jessa Sanchez, PT 8 [place] [address] 02/12/2025 11:30 AM EST Office Visit [facility] [address] [place] [address] Lee King, DO 4 [facility] [place] [address] Jessa Sanchez, PT 8 [place] [address] 02/14/2025 2:00 PM EST Office Visit [facility] 8 [place] [address] Lee King DO 4 [facility] Orthopedics & Sports Medicine, [facility] [place] [address] Rubensbelén Jessa, PT 8 [place] [address] 03/14/2025 1:30 PM EST Appointment [facility], Ct Scan - [address] [address] Sabino Green MD, MS [address] [id number] 03/14/2025 2:00 PM EST Appointment [facility] [address] [place] [address] Sabino Green MD, MS [address] [address] 04/03/2025 11:45 AM EST Office Visit [facility] [address] [place] [address] [phone] Sabino Green MD, MS [address] [phone] documented as of this encounter Results * US Upper/Lower Extremity Non-Vascular Outside (No Interpretation) (01/07/2021 12:00 AM EDT) Narrative SYSTEMGENERATED, DOCUMENTATION - 01/09/2021 7:58 AM EDT This study is for PACS storage only and not for interpretation. us Provider Not In System PhD IMG OUTSIDE IMAGING W /OUT INTERPRETATION Final Result documented in this encounter Visit Diagnoses Not on filedocumented in this encounter Additional Health Concerns Infection Onset Date Last Indicated Resolved Time Metapneumovirus 10/10/2023 10/10/2023 10/17/2023 1 :22 AM EDT documented as of this encounter Care Teams Truck Mechanic Relationship Specialty Start Date End Date Lan Dillon MD [address] [place] [address] [facility] [place] [address] PCP - General Internal Medicine 12/13/16 12/27/23 Sukumar Beltran MD [address] [place] [address], [address] [place] [address] [email or web address] PCP - General Family Medicine 12/28/23 documented as of this encounter Additional Source Comments The information contained in this document represents components of the legal health record. It is not the complete legal health record.[facility]
--- OUTSIDE RECORDS SUMMARY | 2024-12-24 11:04 | XMS_ITS | Encounter Summary ---
Author Organization [facility] Address [facility] Image Searcher [facility] [address] [place] [address] Phone Care Team Providers Care Land Management Forester Name Role Phone Lan Dillon MD Primary Care Provider Sukumar Beltran MD Primary Care Provider [phone]- [phone] Encounter Details Date Type Department Care Team (Latest Contact Info) Description 03/25/2023 Ancillary Orders [address] [phone] Ashley Holden MD [address] [place] [address] Orthopedics & Sports Medicine, [place], [place] [phone] [email or web address] Localized osteoarthritis of shoulder regions, bilateral (Primary Dx) Social History Tobacco Use Types [...] st Contact Info) Description 12/13/2024 Procedure Pass [facility], Ct Scan - [address] [address] 12/24/2024 1:00 PM EDT [facility] [address] [place] [phone] Mary Flores RN [address] [place] [address] 12/26/2024 1:00 AM EDT [facility] [address] [place] [phone] Mary Flores RN [address] [place] [address] 12/28/2024 12:30 AM EDT Appointment [facility] [address] [place] [phone] Mary Flores RN [address] [place] [address] 12/31/2024 3:00 PM EDT Office Visit [facility] [address] [place] [address] Sukumar Beltran MD [address] [place] [address], [address] [place] [address] 01/09/2025 2:30 PM EDT Office Visit [facility] Orthopedics & Sports Medicine [address] [place] [address] Lee King DO 4 [facility], [facility] [place] [address] 01/10/2025 2:45 PM EDT Office Visit [facility] [address] [place] [address] Lee King, DO 4 [facility], [facility] [place] [address] Jessa Sanchez, PT 8 [place] [address] 01/15/2025 11:30 AM EDT Office Visit [facility] 8 [place] [address] Lee Knig, DO 4 [facility], [facility] [place] [address] Jessa Sanchez, PT 8 [place] [address] 01/17/2025 2:00 PM EDT Office Visit [facility] [address] [place] [address] Lee King, DO 4 [facility], [facility] [place] [address] Jessa Sanchez, PT 8 [place] [address] 01/22/2025 11:30 AM EDT Office Visit [facility] [address] [place] [address] Lee King DO 4 [facility] [place] [address] Jessa Sanchez, PT 8 [place] [address] 01/24/2025 2:00 PM EDT Office Visit [facility] [address] [place] [address] Lee King, DO 4 [facility] [place] [address] Jessa Sanchez, PT 8 [place] [address] 01/29/2025 11:30 AM EST Office Visit [facility] 8 [place] [address] Lee King, DO 4 [facility], [facility] [place] [address] Jessa Sanchez, PT 8 [place] [address] 01/31/2025 2:00 PM EST Office Visit [facility] [address] [place] [address] Lee King, DO 4 [facility], [facility] [place] [address] Jessa Sanchez, PT 8 [place] [address] 02/12/2025 11:30 AM EST Office Visit [facility] 8 [place] [address] Lee King DO 4 [facility] Sports [facility], [facility] [place] [address] Jessa Sanchez, PT 8 [place] [address] 02/14/2025 2:00 PM EST Office Visit [facility] 8 [place] [address] Lee King, 4 [facility] Orthopedics [facility], [place] [address] Jessa Sanchez, PT 8 [place] [address] 03/14/2025 1:30 PM EST Appointment [facility], Ct Scan - [address] [address] Sabnio Green MD, MS [address] [address] 03/14/2025 2:00 PM EST Appointment [facility] [address] [place] [address] Sabino Green MD, MS [address] [address] 04/03/2025 11:45 AM EST Office Visit [facility] [address] [place] [address] Sabino Green MD, MS [address] [address] [email or web address] Pending Results Name Type Priority Associated Diagnoses Date /Time FL Guidance Needle Placement Non-Spine Imaging Routine Localized osteoarthritis of shoulder regions, bilateral 03/29/2023 11:15 AM EST Scheduled Orders Name Type Priority Associated Diagnoses Orde r Schedule FL Guidance Needle Placement Non-Spine Imaging Routine Localized osteoarthritis of shoulder regions, bilateral 1 Occurrences starting 03/25/2023 until 06/24/2023 documented as of this encounter Visit Diagnoses Diagnosis Localized osteoarthritis of shoulder regions, bilateral- Primary documented in this encounter Additional Health Concerns Infection Onset Date Last Indicated Resolved Time Metapneumovirus 10/10/2023 10/10/2023 10/17/2023 1 :22 AM EDT documented as of this encounter Care Teams Land Management Forester Relationship Specialty Start Date End Date Lan Dillon MD [address] [place] [address] [place] [address] PCP - General Internal Medicine 12/13/16 12/27/23 Sukumar Beltran MD [address] [place] [address], [address] [place] [address] [email or web address] PCP - General Family Medicine 12/28/23 documented as of this encounter Additional Source Comments The information contained in this document represents components of the legal health record. It is not the complete legal health record.[facility]
--- OUTSIDE RECORDS SUMMARY | 2024-12-24 11:04 | XMS_ITS | Encounter Summary ---
Author Organization [facility] Address Critical access hospital [facility] [address] [place] [address] Phone Care Team Providers Care Crab Picker Name Role Phone Lan Dillon MD Primary Care Provider Sukumar Beltran MD Primary Care Provider [phone]- [phone] Encounter Details Date Type Department Care Team (Late st Contact Info) Description 01/09/2021 Ancillary Orders [facility],Outside Imaging [address] [place] [address] System, Provider [place] In, [place] [address] Social History Tobacco Use Types Packs/Day Years [...] (Late Contact Info) Description 12/13/2024 Procedure Pass [facility], Ct [facility] - [facility] 30 [place] [address] 12/24/2024 1:00 PM EDT Home Care Visit [facility] 30 [place] [address] Mary Flores RN 168 [place] [address] 12/26/2024 1:00 AM EDT Home Care Visit [facility] 30 [place] [address] Mary Flores RN 168 [place] [address] 12/28/2024 12:30 AM EDT Appointment [facility] 30 [place], [place] [phone] Mary Flores RN 168 [place] [address] 12/31/2024 3:00 PM EDT Office Visit [facility] Family Medicine 22 [place] [address] Sukumar Beltran MD 22 [facility], [address] [place] [address] 01/09/2025 2:30 PM EDT Office Visit [facility] Orthopedics & Sports Medicine [address] [place] [address] Lee King DO 4 [facility] Orthopedics & Sports [place] [address] 01/10/2025 2:45 PM EDT Office Visit [facility] Rehabilitation Services 8 [place] [address] Lee King DO 4 [facility] Orthopedics & Sports [place] [address] Jessa Sanchez, PT 8 [place] [address] 01/15/2025 11:30 AM EDT Office Visit [facility] [address] [place] [address] Lee King, DO 4 [facility], [place] [address] Jessa Sanchez, PT 8 [place] [address] 01/17/2025 2:00 PM EDT Office Visit [facility] 8 [place] [address] Lee King, DO 4 [facility], [place] [address] Jessa Sanchez, PT 8 [place] [address] 01/22/2025 11:30 AM EDT Office Visit [facility] [address] [place] [address] Lee King, DO 4 [facility], [facility] [place] [address] Jessa Sanchez, PT 8 [place] [address] 01/24/2025 2:00 PM EDT Office Visit [facility] [address] [place] [address] Lee King, DO 4 [facility], [place] [address] Jessa Sanchez, PT 8 [place] [address] 01/29/2025 11:30 AM EST Office Visit [facility] [address] [place] [address] Lee King, DO 4 [facility] Orthopedics Sports [facility] [place] [address] Jessa Sanchez, PT 8 [place] [address] 01/31/2025 2:00 PM EST Office Visit [facility] [address] [place] [address] Lee King, DO 4 [facility], [facility] [place] [address] Jessa Sanchez, PT 8 [place] [address] 02/12/2025 11:30 AM EST Office Visit [facility] [address] [place] [address] Lee King, DO 4 [facility] [place] [address] Jessa Sanchez, PT 8 [place] [address] 02/14/2025 2:00 PM EST Office Visit [facility] 8 [place] [address] Lee King DO 4 [facility] Orthopedics & Sports [place] [address] Rubensbelén Jessa, PT 8 [place] [address] 03/14/2025 1:30 PM EST Appointment [facility], Ct Scan - [address] [address] Sabino Green MD, MS [address] [phone] 03/14/2025 2:00 PM EST Appointment [facility] [address] [place] [address] Sabino Green MD, MS [address] [address] 04/03/2025 11:45 AM EST Office Visit [facility] [address] [place] [address] [phone] Sabino Green MD, MS [address] [phone] documented as of this encounter Results * US Upper/Lower Extremity Non-Vascular Outside (No Interpretation) (01/07/2021 12:05 AM EDT) Narrative SYSTEMGENERATED, DOCUMENTATION - 01/09/2021 7:59 AM EDT This study is for PACS [...] documented as of this encounter Care Teams Crab Picker Relationship Specialty Start Date End Date Lan Dillon MD [address] [place] [address] [facility] [place] [address] PCP - General Internal Medicine 12/13/16 12/27/23 Sukumar Beltran MD [address] [place] [address], [address] [place] [address] [email or web address] PCP - General Family Medicine 12/28/23 documented as of this encounter Additional Source Comments The information contained in this document represents components of the legal health record. It is not the complete legal health record.[facility]
--- OUTSIDE RECORDS SUMMARY | 2024-12-24 11:04 | XMS_ITS | Encounter Summary ---
Author Organization [facility] Address [address] [facility] [address] [place] [address] Phone Care Team Providers Care Sorter/Assay Tech Name Role Phone Lan Dillon MD Primary Care Provider Sukumar Beltran MD Primary Care Provider [phone]- [phone] Encounter Details Date Type Department Care Team (Late st Contact Info) Description 12/29/2016 Procedure Pass [facility] [address] [place] [address] Social History Tobacco Use Types Packs/Day Years Used Date Smoking Tobacco: Never Assessed Sex and Gender Information Value Date Recorded Sex Assigned at Not on file Legal Sex Male 5:09 PM EST Gender Identity Not on file Sexual Orientation Not on file documented as of this encounter Plan of Treatment Upcoming Encounters Date Type Department Care Team (Late st Contact Info) Description 12/13/2024 Procedure Pass [facility], Ct Scan - [facility] [address] [place] [address] 12/24/2024 1:00 PM EDT Home Care Visit [facility] [address] [place] [phone] Mary Flores, TAMELA [address] [place] [address] 12/26/2024 1:00 AM EDT Home Care Visit [facility] [address] [place] [address] Mary Flores RN [address] [place] [address] 12/28/2024 12:30 AM EDT Appointment [facility] [address] [place] [address] Mary Flores RN [address] [place] [address] 12/31/2024 3:00 PM EDT Office Visit [facility] Medicine [address] [place] [address] Sukumar Beltran MD 22 [facility], [address] [place] [address] 01/09/2025 2:30 PM EDT Office Visit [facility] Medicine [address] [place] [address] Lee King DO [address] [place] [address] [facility] [place] [address] 01/10/2025 2:45 PM EDT Office Visit [facility] Services 8 [place] [address] Lee King DO 4 [facility], [facility] [place], [place] [id number] Jessa Sanchez, PT 8 [place] [address] 01/15/2025 11:30 AM EDT Office Visit [facility] 8 [place] [address] Lee King, DO 4 [facility], [place] [address] Jessa Sanchez, PT 8 [place] [address] 01/17/2025 2:00 PM EDT Office Visit [facility] [address] [place] [address] Lee King, DO 4 [facility], [place] [address] Jessa Sanchez, PT 8 [place] [address] 01/22/2025 11:30 AM EDT Office Visit [facility] [address] [place] [address] Lee King, DO 4 [facility], [place] [address] Jessa Sanchez, PT 8 [place] [address] 01/24/2025 2:00 PM EDT Office Visit [facility] [address] [place] [address] Lee King, 4 [facility], [place] [address] Jessa Sanchez, PT 8 [place] [address] [email or web address] 01/29/2025 11:30 AM EST Office Visit [facility] 8 [place] [address] Lee King, DO 4 [facility] Sports [facility], [place] [address] Jessa Sanchez, PT 8 [place] [address] 01/31/2025 2:00 PM EST Office Visit [facility] [address] [place] [address] Lee King, DO 4 [facility], [place] [address] [email or web address] Jessa Sanchez, PT 8 [place] [address] 02/12/2025 11:30 AM EST Office Visit [facility] [address] [place] [address] Lee King, DO 4 [facility], [place] [address] Jessa Sanchez, PT 8 [place] [address] 02/14/2025 2:00 PM EST Office Visit [facility] [address] [place] [address] Lee King, DO 4 [facility], [place] [address] Jessa Sanchez, PT 8 [place] [address] 03/14/2025 1:30 PM EST Appointment [facility], Ct Scan - [address] [address] Sabino Green MD, MS [address] [address] 03/14/2025 2:00 PM EST Appointment [facility] [address] [place] [address] Sabino Green MD, MS [address] [address] 04/03/2025 11:45 AM EST Office Visit [facility] [address] [place] [address] Sabino Green MD, MS [address] [address] documented as of this encounter Visit Diagnoses Not on filedocumented in this encounter Additional Health Concerns Infection Onset Date Last Indicated Resolved Time Metapneumovirus 10/10/2023 10/10/2023 10/17/2023 1 :22 AM EDT documented as of this encounter Care Teams Sorter/Assay Tech Relationship Specialty Start Date End Date Lan Dillon MD [address] [place] [address] [place] [address] PCP - General Internal Medicine 12/13/16 12/27/23 Sukumar Beltran MD 22 [facility], [address] [place] [address] ([email or web address]) [email or web address] PCP - General Family Medicine 12/28/23 documented as of this encounter Additional Source Comments The information contained in this document represents components of the legal health record. It is not the complete legal health record.[facility]
--- OUTSIDE RECORDS SUMMARY | 2024-12-24 11:04 | XMS_ITS | Patient Health Record ---
Author Organization [facility] Address [address] [place] [address] Care Team Providers Care Sales Ledger Administrator Name Role Phone Sukumar Beltran MD Primary Care Provider Meghana De La Rosa Unavailable [phone] Allergies Allergen (clinical drug ingredient) Drug/Non Drug Allergy documented on EMR Reaction Allergy Type Onset Date Status sulfamethoxazole / trimethoprim Bactrim hives, swelling Drug Allergy Active Latex Latex skin irritation Allergy Acti ve Results Component Value Reference Range Notes HEMOGLOBIN A1C (GLYCOHEMOGLO BIN) Reviewed date:04/02/2024 08:05:35 AM Interpretation: Performing Lab: Notes/Report: HEMOGLOBIN A1C % (HH) 6.4 HEMOGLOBIN A1C (GLYCOHEMOGLO BIN) Reviewed date:01/23/2024 03:14:07 PM Interpretation: Performing Lab: Notes/Report: TOTAL HEMOGLOBIN (HGBA1C) 6.4 HEMOGLOBIN A1C (GLYCOHEMOGLO BIN) Reviewed date:04/26/2024 03:04:52 PM Interpretation: Performing Lab: Notes/Report: HEMOGLOBIN A1C % (HH) 5.7 Reason For Referral No Information Medications Medication SIG (Take, Route, Frequency, Duration) Notes Start Date End Date Status Ammonium Lactate 12 % 1 application Externally to affected areas of dry skin to feet except for between the toes Twice a day; Duration: 30 days Active diazePAM 5 MG Orally Active Atorvastatin Calcium 20 MG 1 tablet Oral ly Once a day; Duration: 30 day(s) Not-Taking Gabapentin 300 MG Orally 4 tabs daily Active Effexor XR 150 MG 1 capsule with food Orally Once a day; Duration: 30 day(s) Not-Taking Losartan Potassium 100 MG as directed Orally Active Cipro 500 MG 1 tablet Orally every 12 hrs; Duration: 7 days 08/28/2018 Not-Taking Atorvastatin Calcium 80 MG Orally Active Doxycycline Hyclate 100 MG 1 capsule Ora lly Twice a day; Duration: 7 days 08/22/2018 Not-Taking Ciclopirox Olamine 0.77 % 1 application to affected area Externally Twice a day; Duration: 14 days Not-Taking Ciclopirox Olamine 0.77 % 1 application to affected area Externally to feet Twice a day; Duration: 30 days Not-Taking Effexor 150 mg BID Active Carvedilol 12.5 MG as directed Orally Active Ciclopirox Olamine 0.77 % 1 application to affected area Externally to feet Twice a day; Duration: 30 days Not-Taking Aspirin 81 MG Orally Active Melatonin 3 MG 1 tablet at bedtime as needed Orally Once a day; Duration: 30 day(s) Active Lisinopril 10 MG 1 tablet Orally Once a day Not-Taking Celecoxib 200 MG 1 capsule with food Orally Once a day; Duration: 30 day(s) Active Cipro 500 MG 1 tablet Orally every 12 hrs; Duration: 10 days 11/15/2018 Not-Taking flonase PRN Active Iron Not-Taking Mucinex 600 MG 1 tablet as needed Orally every 12 hrs Active Brilinta 90 MG Orally Twice a day Not-Taking hydrALAZINE HCl 25 MG 1 tablet with food Orally Three times a day Active Clotrimazole-Betamethasone 1-0.05 % APPLY TOPICALLY TO THE AFFECTED AREA ON FEET TWICE DAILY.; Duration: 30 Not-Taking glipiZIDE Active Ammonium Lactate 12 % 1 application to affected area Externally to feet Once a day; Duration: 30 days Not-Taking OT Refurbishment Refurbish with full length extensions Hammertoes and pes planus b/l 12/15/2018 Not-Taking Vitamin B12 Active Betamethasone Dipropionate Aug 0.05 % 1 application to affected area Externally Once a day; Duration: 30 days 12/27/2018 Not-Taking Meloxicam 15 MG 1 tablet Orally Once a day; Duration: 30 day(s) Not-Taking Stool Softener Not-T aking clonazePAM 1 MG 1 tablet Orally Once a day Not-Taking Citrucel Active MiraLax Active Spironolactone 25 MG 1 tablet Orally Active amLODIPine Besylate 5 MG Orally Not-Taking Trelegy Ellipta Acti ve Move Free Joint Health Advance Not-Taking hydroCHLOROthiazide 12.5 MG as directed Orally Once a day; Duration: 30 days Not-Taking Stool Softener 100 MG [...] Problem Acquired hammer toe of right foot (2378589463151474) Other hammer toe(s) (acquired), right foot (M20.41) Active confirmed Problem Acquired hammer toe of left foot (3925725349187711) Other hammer toe(s) (acquired), left foot (M20.42) Active confirmed Problem Acquired hallux valgus (04030063) Hallux valgus (acquired), left foot (M20.12) Active confirmed Problem Type II diabetes mellitus without complication (107684890) Type 2 diabetes mellitus without complications (E11.9) Active confirmed Problem Raynaud's disease (058951028) Raynaud's disease without gangrene (I73.00) Active confirmed Problem Localized, primary osteoarthritis of the ankle and/or foot () Osteoarthritis of left ankle and foot (M19.072) Active confirmed Problem Bilateral atherosclerosis of arteries of lower limbs (disorder) (75835556523487543 ) Atherosclerosis of nikolski artery of both lower extremities, with unspecified presence of clinical manifestation (I70.203) Active confirmed Q7(A), Q8(2B), Q9(1B,2 C) Problem 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) Active confirmed Problem Localized, primary [...] Ordered Date Performed Result Body Sit e 42560-IIJZONQ NAIL, 6 OR MORE 01/23/2024 N/A 22190-VGAL SKIN LESIONS, OVER 4 01/23/2024 N/A 08071-DAERNII NAIL, 6 OR MORE 04/26/2024 N/A 21844-NEAH SKIN LESIONS, OVER 4 04/26/2024 N/A Encounters Encounter Location Date Provider Diagnosis [facility] [address] [place] [address] 01/23/2024 Meghana Black Tinea unguium B35.1 ; [...] toe, initial encounter S93.149A ; Atherosclerosis of nikolski artery of both lower extremities, with unspecified presence of clinical manifestation I70.203 and Diabetes mellitus with peripheral vascular disease E11.[address] [address] 04/26/2024 Meghana Doty Tinea unguium B35.1 ; Atherosclerosis of nikolski artery of both lower extremities, with unspecified presence of clinical manifestation I70.203 ; Pain in right toe(s) M79.674 ; Pain in left toe(s) M79.675 ; Diabetes mellitus with peripheral vascular disease E11.51 and Xerosis of skin L85.[address] [address] 07/26/2024 Meghana Doty [address] [address] 10/25/2024 Meghana Doty Assessments Encounter Date Diagnosis (ICD Code) Assessment Notes Treatment Notes Treatment Clinical Notes Section Notes 01/23/2024 Tinea unguium (ICD-1 0 - B35.1) 01/23/2024 Pain in right toe(s) (ICD-10 - M79.674) 04/26/2024 Tinea unguium (ICD-1 0 - B35.1) 04/26/2024 Atherosclerosis of nikolski artery of both lower extremities, with unspecified presence of clinical manifestation (ICD-10 - I70.203) Q7(A), Q8(2B), Q9(1B,2C) 04/26/2024 Pain in right toe(s) (ICD-10 - M79.674) 01/23/2024 Pain in left toe(s) (ICD-10 - M79.675) 01/23/2024 Other hammer toe(s) (acquired), right foot (ICD-10 - M20.41) 04/26/2024 Pain in left toe(s) (ICD-10 - M79.675) 01/23/2024 Arthritis of joint o f lesser toe, right (ICD-10 - M19.071) 04/26/2024 Diabetes mellitus wi th peripheral vascular disease (ICD-10 - E11.51) 01/23/2024 Other hammer toe(s) (acquired), left foot (ICD-10 - M20.42) 04/26/2024 Xerosis of skin (ICD -10 - L85.3) 01/23/2024 Arthritis of joint o f lesser toe, left (ICD-10 - M19.072) 01/23/2024 Subluxation of metatarsophalangeal joint of toe, initial encounter (ICD-10 - S93.149A) 01/23/2024 Atherosclerosis of nikolski artery of both lower extremities, with unspecified presence of clinical manifestation (ICD-10 - I70.203) Q7(A), Q8(2B), Q9(1B,2C) 01/23/2024 Diabetes mellitus wi th peripheral vascular disease (ICD-10 - E11.51) Plan Of Treatment Pending Test Test Name Order Date X ray : Foot, left 3V 08/16/2012 01605-AJNRMVC NAIL, 6 OR MORE 02/10/2023 90935-TNXLIHD NAIL, 6 OR MORE 05/26/2023 31371-MTKXFGY NAIL, 6 OR MORE 10/17/2023 33106-RYJXLLW NAIL, 6 OR MORE 01/23/2024 66543-XIIMEFX NAIL, 6 OR MORE 04/26/2024 02075- Debride <25 sq cm 12/06/2022 38164 I&D ABSCESS- SIMPLE,SINGLE 023 30384-AREO SKIN LESIONS, OVER 4 10/17/19 24 82899-RIDI SKIN LESIONS, OVER 4 01/23/20 24 46825-GIHL SKIN LESIONS, OVER 4 04/26/19 25 65310-RVBHBMOJ OF HEMATOMA/FLUID 019 Insurance Providers Payer Name Payer Address Payer Phone Subscriber Number Group Number Insured Name Patient Relationship to Insured Coverage Start Date Coverage End Date Medicare National Govt Sv[employer] [address] [place] [address] [phone] [id number] Lazaro Esparza Self - patient is the insured [employer] [address] [place] [address] [phone] [id number] Lazaro Esparza Self - patient is the [...]
--- OUTSIDE RECORDS SUMMARY | 2024-12-24 11:04 | XMS_ITS | Encounter Summary ---
Author Organization [facility] Address [facility] [address] [place] [address] Phone Care Team Providers Care Investigative Shopper Name Role Phone Lan Dillon MD Primary Care Provider Sukumar Beltran MD Primary Care Provider [phone]- [phone] Encounter Details Date Type Department Care Team (Latest Contact Info) Description 12/09/2021 Transcribe Orders [facility] [address] [id number] Maggie Jolley LUMBER YARD WORKER [address] [place], [place] [phone] [email or web address] Constipation, unspecified constipation type (Primary Dx); Nausea; Change in bowel habits Social History Tobacco Use Types Packs/Day Years Used Date Smoking Tobacco: Never Smokeless Tobacco: Never Alcohol Use Standard Drinks/Week Comments Not Currently 2 (1 standard drink = 0.6 oz pur e alcohol) Sex and Gender Information Value Date Recorded Sex Assigned at Not on file Legal Sex Male 5:09 PM EST Gender Identity Not on file Sexual Orientation Not on file documented as of this encounter Plan of Treatment Upcoming Encounters Date Type Department Care Team (Late st Contact Info) Description 12/13/2024 Procedure Pass [facility], Ct Scan - [address] [id number] 12/24/2024 1:00 PM EDT Home Care Visit [facility] [address] [place] [address] Mary Flores RN [address] [place] [address] 12/26/2024 1:00 AM EDT Home Care Visit [facility] [address] [place] [address] Mary Flores RN [address] [place] [address] 12/28/2024 12:30 AM EDT Appointment [facility] [address] [place] [address] Mary Flores RN [address] [place] [address] 12/31/2024 3:00 PM EDT Office Visit [facility] [address] [place] [address] Sukumar Beltran MD 22 [facility], [address] [place] [address] 01/09/2025 2:30 PM EDT Office Visit [facility] Medicine [address] [place] [address] Lee King DO [address] [facility] Orthopedics & [facility] [place] [address] 01/10/2025 2:45 PM EDT Office Visit [facility] [address] [place] [address] Lee King DO [address] [facility] [place] [address] Jessa Sanchez, PT 8 [place] [address] 01/15/2025 11:30 AM EDT Office Visit [facility] [address] [place] [address] Lee King, DO [address] [facility] Orthopedics Sports [facility] [place] [address] Jessa Sanchez, PT 8 [place] [address] 01/17/2025 2:00 PM EDT Office Visit [facility] [address] [place] [address] Lee King, DO 4 [facility] [place] [address] Jessa Sanchez, PT 8 [place] [address] 01/22/2025 11:30 AM EDT Office Visit [facility] [address] [place] [address] Lee King, DO 4 [facility] [place] [address] Jessa Sanchez, PT 8 [place] [address] 01/24/2025 2:00 PM EDT Office Visit [facility] [address] [place] [address] Lee King, DO 4 [facility] [place] [address] Jessa Sanchez, PT 8 [place] [address] 01/29/2025 11:30 AM EST Office Visit [facility] [address] [place] [address] Lee King DO 4 [facility], [place] [address] Jessa Sanchez, PT 8 [place] [address] 01/31/2025 2:00 PM EST Office Visit [address] [place] [address] Lee King, DO 4 [facility], [place] [address] Jessa Sanchez, PT 8 [place] [address] 02/12/2025 11:30 AM EST Office Visit [address] [place] [address] Lee King DO 4 [facility], [place] [address] Jessa Sanchez, PT 8 [place] [address] 02/14/2025 2:00 PM EST Office Visit [facility] [address] [place] [address] Lee King DO [address] [facility] [place] [address] Jessa Sanchez, PT 8 [place] [address] 03/14/2025 1:30 PM EST Appointment [facility], Ct Scan - [address] [address] Sabino Green MD, MS [address] [id number] 03/14/2025 2:00 PM EST Appointment [facility] [address] [place] [address] Sabino rGeen MD, MS [address] [id number] 04/03/2025 11:45 AM EST Office Visit [facility] [address] [place] [address] Sabino Green MD, MS [address] [address] documented as of this encounter Results * (ABNORMAL) Comprehensive metabolic panel (12/09/2021 4:12 PM EDT) SODIUM 126(L) 133 - 146 mmol/L [facility] POTASSIUM 3.7 3.3 - 5.1 mmol/L [facility] CHLORIDE 88(L) 96 - 108 mmol/L [facility] CO2 26 21 - 35 mmol/L [facility] BUN 10 6 - 19 mg/dL [facility] CREATININE 1.10 0.5 - 1.5 mg/dL [facility] GLUCOSE 140(H) 70 - 99 mg/dL [facility] ALBUMIN 4.7 3.9 - 4.8 g/dL [facility] TOTAL PROTEIN 7.2 6.5 - 8.0 g/dL [facility] CALCIUM 9.5 8.4 - 10.3 mg/dL [facility] ALKALINE PHOSPHATASE 105 39 - 117 U/L [facility] TOTAL BILIRUBIN 0.4 0.0 - 1.2 mg/dL [facility] AST 21 0 - 37 U/L [facility] ALT 20 0 - 40 U/L [facility] GLOBULIN 2.5 1 - 4.8 g/dL [facility] EGFR 70 >59 mL/min/1.7 3m2 [facility] Comment:Estimated glomerular filtration rate calculated using the CKD-EPI refit equation. ANION GAP 16 10 - 20 mmol/L [facility] Blood 12/09/2021 4:12 PM EDT 12/09/2021 4:17 PM EDT us Maggie Jolley CNP LAB BLOOD ORDERABLES Final Result Performing Organization Address City/State/[facility] Co de Phone Number [facility] [address] [place] [address] * (ABNORMAL) CBC and differential (12/09/2021 4:12 PM EDT) WBC 12.66(H) 4.00 - 11.00 K/uL [facility] RBC 5.08 3.90 - 5.69 M/uL [facility] HGB 15.4 12.4 - 17.3 g/dL [facility] HCT 44.4 37.0 - 51.0 % [facility] PLT 292 140 - 430 K/uL [facility] MCV 87.4 78.0 - 97.0 fL [facility] MCH 30.3 25.0 - 33.0 pg [facility] MCHC 34.7 32.0 - 36.0 g/dL [facility] RDW 12.7 11.0 - 15.0 % [facility] MPV 9.3 8.4 - 12.8 fl [facility] DIFF METHOD Auto [facility] NEUTS 70.7 43.0 - 75.0 % [facility] LYMPHS 22.2 18.2 - 47.4 % [facility] MONOS 5.8 4.00 - 11.00 % [facility] EOS 0.6 0.0 - 8.0 % [facility] BASOS 0.2 0.0 - 2.0 % [facility] Granulocytes, immature (%) 0.5 0.0 - 0.9 % [facility] ABSOLUTE NEUTS 8.95(H) 1.80 - 7.70 K/uL [facility] ABSOLUTE LYMPHS 2.81 1.00 - 3.10 K/uL [facility] ABSOLUTE MONOS 0.73 0.20 - 0.80 K/uL [facility] ABSOLUTE EOS 0.08 0.00 - 0.80 K/uL [facility] ABSOLUTE BASOS 0.03 0.00 - 0.09 K/uL [facility] Granulocytes, immature 0.06(H) 0.00 - 0.05 K/uL [facility] Blood 12/09/2021 4:12 PM EDT 12/09/2021 4:17 PM EDT us Maggie Noreenranjit Jolley LUMBER YARD WORKER LAB BLOOD ORDERABLES Final Result Performing Organization Address City/State/[facility] Co de Phone Number [facility] [address] [place] [address] documented in this encounter Visit Diagnoses Diagnosis Constipation, unspecified constipation type- Primary Nausea Nausea alone Change in bowel habits Other symptoms involving digestive system documented in this encounter Additional Health Concerns Infection Onset Date Last Indicated Resolved Time Metapneumovirus 10/10/2023 10/10/2023 10/17/2023 1 :22 AM EDT documented as of this encounter Care Teams Investigative Shopper Relationship Specialty Start Date End Date Lan Dillon MD [address] [place] [address] [place] [address] PCP - General Internal Medicine 12/13/16 12/27/23 Sukumar Beltran MD [address] [place] [address], [address] [place] [address] [email or web address] PCP - General Family Medicine 12/28/23 documented as of this encounter Additional Source Comments The information contained in this document represents components of the legal health record. It is not the complete legal health record.[facility]
--- OUTSIDE RECORDS SUMMARY | 2024-12-24 11:04 | XMS_ITS | Encounter Summary ---
Author Organization [facility] Address [address] [place] [address] Phone Care Team Providers Care Stretch Machine Operator Name Role Phone Sukumar Beltran MD Primary Care Provider [phone]- [phone] Encounter Details Date Type Department Care Team (Late st Contact Info) Description 04/24/2024 Procedure Pass [facility], [address] [place] [address] Social History Tobacco Use Types Packs/Day Years [...] housing situation today? I have katerina sing 12/28/2023 How many times have you move [...] st Contact Info) Description 12/13/2024 Procedure Pass [facility], Ct Scan - Main [facility] [address] [place] [address] 12/24/2024 1:00 PM EDT Home Care Visit [facility] [address] [place] [address] Mary Flores, TAMELA [address] [place] [address] 12/26/2024 1:00 AM EDT Home Care Visit [facility] [address] [place] [address] Mary Flores RN [address] [place] [address] 12/28/2024 12:30 AM EDT Appointment [facility] [address] [place] [address] Mary Flores RN [address] [place] [address] 12/31/2024 3:00 PM EDT Office Visit [facility] Medicine [address] [place] [address] Sukumar Beltran MD 22 [facility], [address] [place] [address] 01/09/2025 2:30 PM EDT Office Visit [facility] [address] [place] [address] Lee King DO [address] [place] [address] [facility] [place] [address] 01/10/2025 2:45 PM EDT Office Visit [facility] [address] [place] [address] Lee King DO 4 [facility] [place] [address] Jessa Sanchez, PT 8 [place] [address] 01/15/2025 11:30 AM EDT Office Visit [facility] [address] [place] [address] Lee King, DO 4 [facility] Sports [facility], [facility] [place] [address] Jessa Sanchez, PT 8 [place] [address] 01/17/2025 2:00 PM EDT Office Visit [facility] [address] [place] [address] Lee King, DO 4 [facility], [place] [address] Jessa Sanchez, PT 8 [place] [address] 01/22/2025 11:30 AM EDT Office Visit [facility] [address] [place] [address] Lee King, DO 4 [facility], [place] [address] Jessa Sanchez, PT 8 [place] [address] 01/24/2025 2:00 PM EDT Office Visit [facility] [address] [place] [address] Lee King, DO 4 [facility], [facility] [place] [address] Jessa Sanchez, PT 8 [place] [address] 01/29/2025 11:30 AM EST Office Visit [facility] [address] [place] [address] Lee King, DO 4 [facility] Orthopedics Sports [facility], [facility] [place] [address] Jessa Sanchez, PT 8 [place] [address] 01/31/2025 2:00 PM EST Office Visit [facility] 8 [place] [address] Lee King, DO 4 [facility], [facility] [place] [address] Jessa Sanchez, PT 8 [place] [address] 02/12/2025 11:30 AM EST Office Visit [facility] 8 [place] [address] Lee King, DO 4 [facility] Sports [facility] [place] [address] Jessa Sanchez, PT 8 [place] [address] 02/14/2025 2:00 PM EST Office Visit [facility] [address] [place] [address] Lee King, DO 4 [facility] Sports [facility], [facility] [place] [address] Jessa Sanchez, PT 8 [place] [address] 03/14/2025 1:30 PM EST Appointment [facility], Ct Scan - [address] [address] Sabino Green MD, MS [address] [address] 03/14/2025 2:00 PM EST Appointment [facility] [address] [place] [address] Sabino Green MD, MS [address] [address] 04/03/2025 11:45 AM EST Office Visit [facility] 10 [place] [address] Sabino Green MD, MS [address] [phone] documented as of this encounter Visit Diagnoses Not on filedocumented in this encounter Additional Health Concerns Assessment Noted Time PHQ-2 Depression Total Score: 1 12/28/19 11:18 AM EDT documented as of this encounter Care Teams Stretch Machine Operator Relationship Specialty Start Date End Date Sukumar Beltran MD 22 [facility], [address] [place] [address] PCP - General Family Medicine 12/28/23 documented as of this encounter Additional Source Comments The information contained in this document represents components of the legal health record. It is not the complete legal health record.[facility]
--- OUTSIDE RECORDS SUMMARY | 2024-12-24 11:04 | XMS_ITS | Encounter Summary ---
Author Organization [facility] Address [facility] [address] [place] [address] Phone Care Team Providers Care Die Developer Name Role Phone Lan Dillon MD Primary Care Provider Sukumar Beltran MD Primary Care Provider [phone]- [phone] Encounter Details Date Type Department Care Team (Late st Contact Info) Description 01/09/2021 Ancillary Orders [facility],Outside Imaging [address] [place] [address] System, Provider Not In, [place] [address] Social History Tobacco Use Types Packs/Day Years [...] (Late Contact Info) Description 12/13/2024 Procedure Pass [facility], Ct Scan - [facility] [address] [place] [address] 12/24/2024 1:00 PM EDT Home Care Visit [facility] [address] [place] [address] Mary Flores RN 168 [place] [address] 12/26/2024 1:00 AM EDT Home Care Visit [facility] [address] [place] [address] Mray Flores RN [address] [place] [address] 12/28/2024 12:30 AM EDT Appointment [facility] [address] [place], [place] [phone] Mary Flores RN 168 [place] [address] 12/31/2024 3:00 PM EDT Office Visit [facility] 22 [place] [address] Sukumar Beltran MD 22 [facility], [address] [place] [address] 01/09/2025 2:30 PM EDT Office Visit [facility] Orthopedics & Sports Medicine [address] [place] [address] Lee King DO 4 [facility] Orthoped[facility] & Sports Medicine, [place] [address] 01/10/2025 2:45 PM EDT Office Visit [facility] Rehabilitation Services [address] [place] [address] Lee King DO 4 [facility] [place] [address] Jessa Sanchez, PT 8 [place] [address] 01/15/2025 11:30 AM EDT Office Visit [facility] [address] [place] [address] Lee King, DO 4 [facility], [place] [address] Jessa Sanchez, PT 8 [place] [address] 01/17/2025 2:00 PM EDT Office Visit [facility] 8 [place] [address] Lee King, DO 4 [facility], [place] [address] Jessa Sanchez, PT 8 [place] [address] 01/22/2025 11:30 AM EDT Office Visit [facility] [address] [place] [address] Lee King, DO 4 [facility], [facility] [place] [address] Jessa Sanchez, PT 8 [place] [address] 01/24/2025 2:00 PM EDT Office Visit [facility] [address] [place] [address] Lee King, DO 4 [facility], [place] [address] Jessa Sanchez, PT 8 [place] [address] 01/29/2025 11:30 AM EST Office Visit [facility] [address] [place] [address] Lee King, DO 4 [facility] Orthoped[facility] Sports [facility] [place] [address] Jessa Sanchez, PT 8 [place] [address] 01/31/2025 2:00 PM EST Office Visit [facility] [address] [place] [address] Lee King, DO 4 [facility], [facility] [place] [address] Jessa Sanchez, PT 8 [place] [address] 02/12/2025 11:30 AM EST Office Visit [facility] [address] [place] [address] Lee King, DO 4 [facility] [place] [address] Jessa Sanchez, PT 8 [place] [address] 02/14/2025 2:00 PM EST Office Visit [facility] [address] [place] [address] Lee King DO 4 [facility] [place] [address] Rubensbelén Jessa, PT 8 [place] [address] 03/14/2025 1:30 PM EST Appointment [facility], Ct Scan - [address] [address] Sabino Green MD, MS [address] [address] 03/14/2025 2:00 PM EST Appointment [facility] [address] [place] [address] Sabino Green MD, MS [address] [address] 04/03/2025 11:45 AM EST Office Visit [facility] [address] [place] [address] [phone] Sabino Green MD, MS [address] [phone] documented as of this encounter Results * XR Chest Outside (No Interpretation) (11/28/2020 12:05 AM EDT) Narrative SYSTEMGENERATED, DOCUMENTATION - 01/09/2021 3:03 PM EDT This study is for PACS storage only and not for interpretation. us Provider Not In System PhD IMG OUTSIDE IMAGING W /OUT INTERPRETATION Final Result * CT Chest Outside (No Interpretation) (11/28/2020 12:00 AM EDT) Narrative SYSTEMGENERATED, DOCUMENTATION - 01/09/2021 3:02 PM EDT This study is for PACS storage only and not for interpretation. us Provider Not In System PhD IMG OUTSIDE IMAGING W /OUT INTERPRETATION Final Result documented in this encounter Visit Diagnoses Not on filedocumented in this encounter Additional Health Concerns Infection Onset Date Last Indicated Resolved Time Metapneumovirus 10/10/2023 10/10/2023 10/17/2023 1 :22 AM EDT documented as of this encounter Care Teams Die Developer Relationship Specialty Start Date End Date Lan Dillon MD [address] [place] [address] [place] [address] PCP - General Internal Medicine 12/13/16 12/27/23 Sukumar Beltran MD [address] [place] [address], [address] [place] [address] [email or web address] PCP - General Family Medicine 12/28/23 documented as of this encounter Additional Source Comments The information contained in this document represents components of the legal health record. It is not the complete legal health record.[facility]
--- OUTSIDE RECORDS SUMMARY | 2024-12-24 11:04 | XMS_ITS | Encounter Summary ---
Author Organization [facility] Address [address] [facility] [address] [place] [address] Phone Care Team Providers Care Comber Operator Name Role Phone Lan Dillon MD Primary Care Provider Sukumar Beltran MD Primary Care Provider [phone]- [phone] Encounter Details Date Type Department Care Team (Late st Contact Info) Description 12/29/2016 Procedure Pass [facility] MR Imaging, [place] [address] [place] [address] Social History Tobacco Use Types Packs/Day Years [...] st Contact Info) Description 12/13/2024 Procedure Pass [facility], Ct Scan - [facility] [address] [place] [address] 12/24/2024 1:00 PM EDT Home Care Visit [facility] [address] [place] [phone] Mary Flores RN [address] [place] [address] 12/26/2024 1:00 AM EDT Home Care Visit [facility] [address] [place] [address] Mary Flores RN 168 [place] [address] 12/28/2024 12:30 AM EDT Appointment [facility] [address] [place] [address] Mary Flores RN [address] [place] [address] 12/31/2024 3:00 PM EDT Office Visit [facility] Family Medicine [address] [place] [address] Sukumar Beltran MD 22 [facility], [address] [place] [address] 01/09/2025 2:30 PM EDT Office Visit [facility] Sports Medicine [address] [place] [address] Lee King, DO [address] [place] [address] [facility] [place] [address] 01/10/2025 2:45 PM EDT Office Visit [facility] 8 [place] [address] Lee King DO 4 [facility] Orthoped[facility] Sports [place] [address] Jessa Sanchez, PT 8 [place] [address] 01/15/2025 11:30 AM EDT Office Visit [facility] [address] [place] [address] Lee King, DO 4 [facility], [facility] [place] [address] Jessa Sanchez, PT 8 [place] [address] 01/17/2025 2:00 PM EDT Office Visit [facility] [address] [place] [address] Lee King, DO 4 [facility], [place] [address] Jessa Sanchez, PT 8 [place] [address] 01/22/2025 11:30 AM EDT Office Visit [facility] [address] [place] [address] Lee King, DO 4 [facility], [place] [address] Jessa Sanchez, PT 8 [place] [address] 01/24/2025 2:00 PM EDT Office Visit [facility] [address] [place] [address] Lee King, DO 4 [facility], [place] [address] Jessa Sanchez, PT 8 [place] [address] 01/29/2025 11:30 AM EST Office Visit [facility] [address] [place] [address] Lee King, DO 4 [facility], [place] [address] Jessa Sanchez, PT 8 [place] [address] 01/31/2025 2:00 PM EST Office Visit [facility] 8 [place] [address] Lee King, DO 4 [facility], [place] [address] Jessa Sanchez, PT 8 [place] [address] 02/12/2025 11:30 AM EST Office Visit [facility] [address] [place] [address] Lee King, DO 4 [facility], [place] [address] Jessa Sanchez, PT 8 [place] [address] 02/14/2025 2:00 PM EST Office Visit [facility] [address] [place] [address] Lee King, DO 4 [facility], [place] [address] Jessa Sanchez, PT 8 [place] [address] 03/14/2025 1:30 PM EST Appointment [facility], Ct Scan - [address] [address] Sabino Green MD, MS [address] [address] 03/14/2025 2:00 PM EST Appointment [facility] [address] [place] [address] [phone] Sabino Green MD, MS [address] [phone] 04/03/2025 11:45 AM EST Office Visit [facility] [address] [place] [address] [phone] Sabino Green MD, MS [address] [phone] documented as of this encounter Visit Diagnoses Not on filedocumented in this encounter Additional Health Concerns Infection Onset Date Last Indicated Resolved Time Metapneumovirus 10/10/2023 10/10/2023 10/17/2023 1 :22 AM EDT documented as of this encounter Care Teams Comber Operator Relationship Specialty Start Date End Date Lan Dillon MD [address] [place] [address] [place] [address] PCP - General Internal Medicine 12/13/16 12/27/23 Sukumar Beltran MD 22 [facility], [address] [place] [address] [email or web address] PCP - General Family Medicine 12/28/23 documented as of this encounter Additional Source Comments The information contained in this document represents components of the legal health record. It is not the complete legal health record.[facility]
--- OUTSIDE RECORDS SUMMARY | 2024-12-24 11:04 | XMS_ITS | Encounter Summary ---
Author Organization [facility] Address [facility] [address] [place] [address] Phone Care Team Providers Care Hog Driver Name Role Phone Lan Dillon MD Primary Care Provider Sukumar Beltran MD Primary Care Provider [phone]- [phone] Reason for Referral * MRI/CAT Scan - Closed Specialty Diagnoses / Procedures Referred By Contac t Referred To Contact Procedures MRI Outside Upper Extremity (No Interpretation) June Hernandez MD Referral ID Status Reason Start Date Expiration Date Visits Re quested Visits Authorized [id number] Closed 12/29/2016 12/29/2017 1 1 Encounter Details Date Type Department Care Team (Late st Contact Info) Description 12/29/2016 Transcribe Orders [facility] [address] [address] [email or web address] Social History Tobacco Use Types Packs/Day Years [...] st Contact Info) Description 12/13/2024 Procedure Pass [facility], Ct Scan - Main Hospital [address] [place] [address] 12/24/2024 1:00 PM EDT Home Care Visit [facility] [address] [place] [address] Mary Flores RN [address] [place] [address] 12/26/2024 1:00 AM EDT Home Care Visit [facility] [address] [place] [address] Mary Flores RN [address] [place] [address] 12/28/2024 12:30 AM EDT Appointment [facility] [address] [place] [phone] Mary Flores RN [address] [place] [address] 12/31/2024 3:00 PM EDT Office Visit [facility] Medicine 22 [place] [address] Sukumar Beltran MD 22 [facility], [address] [place] [address] 01/09/2025 2:30 PM EDT Office Visit [facility] Orth[facility]ics [facility] Sports Medicine [address] [place] [address] Lee King DO [address] [place] [address] Orthopedics & Sports Medicine, [place] [address] 01/10/2025 2:45 PM EDT Office Visit [facility] Rehabilitation Services [address] [place] [address] Lee King DO 4 [facility], [facility] [place] [address] Jessa Sanchez, PT 8 [place] [address] 01/15/2025 11:30 AM EDT Office Visit [facility] [address] [place] [address] Lee King, DO 4 [facility], [place] [address] Jessa Sanchez, PT 8 [place] [address] 01/17/2025 2:00 PM EDT Office Visit [address] [address] Lee King, DO 4 [facility], [place] [address] Jessa Sanchez, PT 8 [place] [address] 01/22/2025 11:30 AM EDT Office Visit [facility] [address] [place] [address] Lee King, DO 4 [facility], [facility] [place] [address] Jessa Sanchez, PT 8 [place] [address] 01/24/2025 2:00 PM EDT Office Visit [facility] [address] [place] [address] Lee King, DO 4 [facility] Sports [facility], [facility] [place] [address] Jessa Sanchez, PT 8 [place] [address] 01/29/2025 11:30 AM EST Office Visit [facility] [address] [place] [address] Lee King, DO 4 [facility], [place] [address] Jessa Sanchez, PT 8 [place] [address] 01/31/2025 2:00 PM EST Office Visit [facility] [address] [place] [address] Lee King, DO 4 [facility], [facility] [place] [address] Jessa Sanchez, PT 8 [place] [address] 02/12/2025 11:30 AM EST Office Visit [facility] [address] [place] [address] Lee King, DO 4 [facility], [facility] [place] [address] Jessa Sanchez, PT 8 [place] [address] 02/14/2025 2:00 PM EST Office Visit [facility] Services 8 [place] [address] Lee King DO 4 [facility] Orth[facility]ics [facility] Sports Medicine, [facility] [place] [address] Jessa Sanchez, PT 8 [place] [address] 03/14/2025 1:30 PM EST Appointment [facility], Ct Scan - [address] [address] Sabino Green MD, MS [address] [address] 03/14/2025 2:00 PM EST Appointment [facility] [address] [place] [address] Sabino Green MD, MS [address] [address] 04/03/2025 11:45 AM EST Office Visit [facility] [address] [place] [address] [phone] Sabino Green MD, MS [address] [phone] documented as of this encounter Results * MRI Outside Upper Extremity (No Interpretation) (12/29/2016 12:00 AM EDT) Narrative BRENT_[facility]ADISON - 12/29/2016 12:58 PM EDT This study is for PACS storage only and not for interpretation. us June Hernandez MD IMG OUTSIDE IMAGING W /OUT INTERPRETATION Final Result [facility] documented in this encounter Visit Diagnoses Not on filedocumented in this encounter Additional Health Concerns Infection Onset Date Last Indicated Resolved Time Metapneumovirus 10/10/2023 10/10/2023 10/17/2023 1 :22 AM EDT documented as of this encounter Care Teams Hog Driver Relationship Specialty Start Date End Date Lan Dillon MD [address] [place] [address] [place] [address] PCP - General Internal Medicine 12/13/16 12/27/23 Sukumar Beltran MD [address] [place] [address], [address] [place] [address] [email or web address] PCP - General Family Medicine 12/28/23 documented as of this encounter Additional Source Comments The information contained in this document represents components of the legal health record. It is not the complete legal health record.[facility]
--- OUTSIDE RECORDS SUMMARY | 2024-12-24 11:04 | XMS_ITS | Encounter Summary ---
Author Organization [facility] Address [address] [facility] [address] [place] [address] Phone Care Team Providers Care Filler Picker Name Role Phone Lan Dillon MD Primary Care Provider Sukumar Beltran MD Primary Care Provider +1- [phone] Encounter Details Date Type Department Care Team (Late st Contact Info) Description 12/16/2021 Procedure Pass [facility] Endoscopy Admitting Dept Virtual Department [address] [place], [place] [id number] Social History Tobacco Use Types Packs/Day Years [...] st Contact Info) Description 12/13/2024 Procedure Pass [facility], Ct Scan - [facility] 30 [place] [address] 12/24/2024 1:00 PM EDT Home Care Visit [facility] 30 [place] [address] Mary Flores RN [address] [place] [address] 12/26/2024 1:00 AM EDT Home Care Visit [facility] [address] [place] [address] Mary Flores RN [address] [place] [address] 12/28/2024 12:30 AM EDT Appointment [facility] 30 [place] [address] Mary Flores, ATMELA [address] [place] [address] 12/31/2024 3:00 PM EDT Office Visit [facility] Medicine 22 [place] [address] Sukumar Beltran MD 22 [facility], [address] [place] [address] 01/09/2025 2:30 PM EDT Office Visit [facility] Orth[facility]ics & Sports Medicine [address] [place] [address] Lee King DO [address] [place] [address] Orthopedics & Sports [facility], [facility] [place] [address] 01/10/2025 2:45 PM EDT Office Visit [facility] Rehabilitation Services 8 [place] [address] Lee King DO 4 [facility] Orthopedics & Sports [facility] [place] [address] Jessa Sanchez, PT 8 [place] [address] 01/15/2025 11:30 AM EDT Office Visit [facility] [address] [place] [address] Lee King, DO 4 [facility], [facility] [place] [address] Jessa Sanchez, PT 8 [place] [address] 01/17/2025 2:00 PM EDT Office Visit [facility] [address] [place] [address] Lee King, DO 4 [facility], [facility] [place] [address] Jessa Sanchez, PT 8 [place] [address] 01/22/2025 11:30 AM EDT Office Visit [facility] [address] [place] [address] Lee King, DO 4 [facility], [facility] [place] [address] Jessa Sanchez, PT 8 [place] [address] 01/24/2025 2:00 PM EDT Office Visit [facility] [address] [place] [address] Lee King, DO 4 [facility], [facility] [place] [address] Jessa Sanchez, PT 8 [place] [address] 01/29/2025 11:30 AM EST Office Visit [facility] [address] [place] [address] Lee King, DO 4 [facility], [facility] [place] [address] Jessa Sanchez, PT 8 [place] [address] 01/31/2025 2:00 PM EST Office Visit [facility] [address] [place] [address] Lee King, DO 4 [facility], [facility] [place] [address] [email or web address] Jessa Sanchez, PT 8 [place] [address] 02/12/2025 11:30 AM EST Office Visit [facility] 8 [place] [address] Lee King, DO 4 [facility], [facility] [place] [address] [email or web address] Jessa Sanchez, PT 8 [place] [address] 02/14/2025 2:00 PM EST Office Visit [facility] [address] [place] [address] Lee King DO 4 [facility] Orthopedics [facility] Sports [place] [place] [address] Jessa Sanchez, PT 8 [place] [address] 03/14/2025 1:30 PM EST Appointment [facility], Ct Scan - [address] [address] Sabino Green MD, MS [address] [address] 03/14/2025 2:00 PM EST Appointment [facility] [address] [place] [address] Sabino Green MD, MS [address] [address] 04/03/2025 11:45 AM EST Office Visit [facility] Pulmonary, Allergy [facility] Critical Care Medicine [address] [place] [address] Sabino Green MD, MS [address] [address] [email or web address] documented as of this encounter Visit Diagnoses Not on filedocumented in this encounter Additional Health Concerns Infection Onset Date Last Indicated Resolved Time Metapneumovirus 10/10/2023 10/10/2023 10/17/2023 1 :22 AM EDT documented as of this encounter Care Teams Filler Picker Relationship Specialty Start Date End Date Lan Dillon MD [address] [place] [address] [place] [address] PCP - General Internal Medicine 12/13/16 12/27/23 Sukumar Beltran MD [address] [place] [address], [address] [place] [address] [email or web address] PCP - General Family Medicine 12/28/23 documented as of this encounter Additional Source Comments The information contained in this document represents components of the legal health record. It is not the complete legal health record.[facility]
--- OUTSIDE RECORDS SUMMARY | 2024-12-24 11:05 | XMS_ITS | Encounter Summary ---
Author Organization [facility] Address [facility] [address] [place] [address] Phone Care Team Providers Care Window Installer Name Role Phone Lan Dillon MD Primary Care Provider Sukumar Beltran MD Primary Care Provider [phone]- [phone] Encounter Details Date Type Department Care Team (Late st Contact Info) Description 02/06/2021 Ancillary Orders [facility],Outside Imaging [address] [place] [address] System, Provider [place] In, [place] [address] Social History Tobacco Use Types Packs/Day Years [...] (Late Contact Info) Description 12/13/2024 Procedure Pass [facility], Ct Scan - [facility] 30 [place] [address] 12/24/2024 1:00 PM EDT Home Care Visit [facility] 30 [place] [address] Mary Flores RN 168 [place] [address] 12/26/2024 1:00 AM EDT Home Care Visit [facility] 30 [place] [address] Mary Flores RN 168 [place] [address] 12/28/2024 12:30 AM EDT Appointment [facility] 30 [place], [place] [phone] Mary Flores RN 168 [place] [address] 12/31/2024 3:00 PM EDT Office Visit [facility] Family Medicine 22 [place] [address] Sukumar Beltran MD 22 [facility], [address] [place] [address] 01/09/2025 2:30 PM EDT Office Visit [facility] Orthopedics & Sports Medicine [address] [place] [address] Lee King DO 4 [facility] [place] [address] 01/10/2025 2:45 PM EDT Office Visit [facility] Rehabilitation Services 8 [place] [address] Lee King DO 4 [facility] [address] Jessa Sanchez, PT 8 [place] [address] 01/15/2025 11:30 AM EDT Office Visit [facility] [address] [place] [address] Lee King, DO 4 [facility] [place] [address] Jessa Sanchez, PT 8 [place] [address] 01/17/2025 2:00 PM EDT Office Visit [facility] 8 [place] [address] Lee King, DO 4 [facility], [place] [address] Jessa Sanchez, PT 8 [place] [address] 01/22/2025 11:30 AM EDT Office Visit [facility] [address] [place] [address] Lee King, DO 4 [facility], [facility] [place] [address] Jessa Sanchez, PT 8 [place] [address] 01/24/2025 2:00 PM EDT Office Visit [facility] [address] [place] [address] Lee King, DO 4 [facility] [place] [address] Jessa Sanchez, PT 8 [place] [address] 01/29/2025 11:30 AM EST Office Visit [facility] [address] [place] [address] Lee King, DO 4 [facility] Orthopedics Sports [facility] [place] [address] Jessa Sanchez, PT 8 [place] [address] 01/31/2025 2:00 PM EST Office Visit [facility] [address] [place] [address] Lee King, DO 4 [facility], [facility] [place] [address] Jessa Sanchez, PT 8 [place] [address] 02/12/2025 11:30 AM EST Office Visit [facility] [address] [place] [address] Lee King, DO 4 [facility] [place] [address] Jessa Sanchez, PT 8 [place] [address] 02/14/2025 2:00 PM EST Office Visit [facility] 8 [place] [address] Lee King DO 4 [facility] [place] [address] Rubensbelén Jessa, PT 8 [place] [address] 03/14/2025 1:30 PM EST Appointment [facility], Ct Scan - [address] [address] Sabino Green MD, MS [address] [address] 03/14/2025 2:00 PM EST Appointment [facility] [address] [place] [address] Sabino Green MD, MS [address] [address] 04/03/2025 11:45 AM EST Office Visit [facility], Allergy [facility] Critical Care Medicine [address] [place] [address] Sabino Green MD, MS [address] [phone] documented as of this encounter Results * XR Chest Outside (No Interpretation) (11/28/2020 12:00 AM EDT) Narrative SYSTEMGENERATED, DOCUMENTATION - 02/06/2021 11:45 AM EST This study is for PACS [...] documented as of this encounter Care Teams Window Installer Relationship Specialty Start Date End Date Lan Dillon MD [address] [place] [address] [place] [address] PCP - General Internal Medicine 12/13/16 12/27/23 Sukumar Beltran MD [address] [place] [address], [address] [place] [address] [email or web address] PCP - General Family Medicine 12/28/23 documented as of this encounter Additional Source Comments The information contained in this document represents components of the legal health record. It is not the complete legal health record.[facility]
--- OUTSIDE RECORDS SUMMARY | 2024-12-24 11:05 | XMS_ITS | Encounter Summary ---
Author Organization [facility] Address [facility], [address] [facility] [address] [place] [address] Phone Care Team Providers Care Lock Expert Name Role Phone Lan Dillon MD Primary Care Provider Sukumar Beltran MD Primary Care Provider [phone]- [phone] Encounter Details Date Type Department Care Team (Late st Contact Info) Description 02/06/2021 Ancillary Orders [facility],Outside Imaging [address] [place] [address] System, Provider [place] In, [place] [address] Social History Tobacco Use Types Packs/Day Years [...] Medical Center, Ct Scan - [facility] 30 [place] [address] 12/24/2024 1:00 PM EDT Home Care Visit [facility] 30 [place] [address] Mary Flores RN 168 [place] [address] 12/26/2024 1:00 AM EDT Home Care Visit [facility] 30 [place] [address] Mary Flores RN 168 [place] [address] 12/28/2024 12:30 AM EDT Appointment [facility] 30 [place], [place] [phone] Mary Flores RN 168 [place] [address] 12/31/2024 3:00 PM EDT Office Visit [facility] Family Medicine [address] [place] [address] Sukumar Beltran MD 22 [facility], [address] [place] [address] 01/09/2025 2:30 PM EDT Office Visit [facility] Orthopedics & Sports Medicine [address] [place] [address] Lee King DO 4 [facility] Orthopedics & Sports [facility] [place] [address] 01/10/2025 2:45 PM EDT Office Visit [facility] Rehabilitation Services 8 [place] [address] Lee King DO 4 [facility], [place] [address] Jessa Sanchez, PT 8 [place] [address] 01/15/2025 11:30 AM EDT Office Visit [facility] [address] [place] [address] Lee King, DO 4 [facility], [place] [address] Jessa Sanchez, PT 8 [place] [address] 01/17/2025 2:00 PM EDT Office Visit [facility] 8 [place] [address] Lee King, DO 4 [facility], [place] [address] Jessa Sanchez, PT 8 [place] [address] 01/22/2025 11:30 AM EDT Office Visit [facility] [address] [place] [address] Lee King, DO 4 [facility], [facility] [place] [address] Jessa Sanchez, PT 8 [place] [address] 01/24/2025 2:00 PM EDT Office Visit [facility] [address] [place] [address] Lee King, DO 4 [facility], [place] [address] [email or web address] Jessa Sanchez, PT 8 [place] [address] [email or web address] 01/29/2025 11:30 AM EST Office Visit [facility] [address] [place] [address] Lee King, DO 4 [facility] Orthopedics Sports [facility] [place] [address] Jessa Sanchez, PT 8 [place] [address] 01/31/2025 2:00 PM EST Office Visit [facility] [address] [place] [address] Lee King, DO 4 [facility], [facility] [place] [address] Jessa Sanchez, PT 8 [place] [address] [email or web address] 02/12/2025 11:30 AM EST Office Visit [facility] [address] [place] [address] Lee King, DO 4 [facility] [place] [address] Jessa Sanchez, PT 8 [place] [address] 02/14/2025 2:00 PM EST Office Visit [facility] 8 [place] [address] Lee King DO 4 [facility] Orth[facility] Sports [facility] [place] [address] Rubensbelén Jessa, PT 8 [place] [address] 03/14/2025 1:30 PM EST Appointment [facility], Ct Scan - [address] [address] Sabino Green MD, MS [address] [address] 03/14/2025 2:00 PM EST Appointment [facility] [address] [place] [address] Sabino Green MD, MS [address] [address] 04/03/2025 11:45 AM EST Office Visit [facility] All[facility] Medicine [address] [place] [address] Sabino Green MD, MS [address] [address] documented as of this encounter Results * XR Chest Outside (No Interpretation) (11/28/2020 12:10 AM EDT) Narrative SYSTEMGENERATED, DOCUMENTATION - 02/06/2021 11:49 AM EST This study is for PACS [...] documented as of this encounter Care Teams Lock Expert Relationship Specialty Start Date End Date Lan Dillon MD [address] [place] [address] [place] [address] PCP - General Internal Medicine 12/13/16 12/27/23 Sukumar Beltran MD [address] [place] [address], [address] [place] [address] [email or web address] PCP - General Family Medicine 12/28/23 documented as of this encounter Additional Source Comments The information contained in this document represents components of the legal health record. It is not the complete legal health record.[facility]
--- OUTSIDE RECORDS SUMMARY | 2024-12-24 11:05 | XMS_ITS | Encounter Summary ---
Author Organization [facility] Address [facility] [employer] [facility] [address] [place] [address] Phone Care Team Providers Care Filter Plant Supervisor Name Role Phone Lan Dillon MD Primary Care Provider Sukumar Beltran MD Primary Care Provider [phone]- [phone] Reason for Referral * Consultation (Elective) - Closed Specialty Diagnoses / Procedures Referred By Contuyen t Referred To Contact Pulmonary Disease Lan Dillon MD [address] [place] [address] [place] [address] Phone: tel: fax: [address] [address] Phone: tel: Referral ID Status Reason Start Date Expiration Date Visits Re quested Visits Authorized [id number] Closed 12/16/2020 12/16/2021 1 1 Encounter Details Date Type Department Care Team (Late st Contact Info) Description 12/16/2020 Transcribe Orders [facility] Pulmonary, Allergy and Critical Care Medicine [address] [place] [address] [place] [address] Lan Dillon MD [address] [place] [address] [place] [address] Social History Tobacco Use Types Packs/Day Years [...] st Contact Info) Description 12/13/2024 Procedure Pass [facility], Ct Scan - [address] [address] 12/24/2024 1:00 PM EDT Home Care Visit [facility] [address] [place] [phone] Mary Flores RN [address] [place] [address] 12/26/2024 1:00 AM EDT Home Care Visit [facility] [address] [place] [phone] Mary Flores RN [address] [place] [address] 12/28/2024 12:30 AM EDT [facility] [address] [place] [phone] Mary Flores RN [address] [place] [address] 12/31/2024 3:00 PM EDT Office Visit [facility] Family Medicine [address] [place] [address] Sukumar Beltran MD 22 [facility], 201 [place] [address] 01/09/2025 2:30 PM EDT Office Visit [facility] Orthopedics & Sports Medicine [address] [place] [address] Lee King, DO 4 [facility] Orthopedics Sports [facility] [place] [address] 01/10/2025 2:45 PM EDT Office Visit [address] [place] [address] Lee King, DO 4 [facility] Orthopedics Sports [facility], [facility] [place] [address] Jessa Sanchez, PT 8 [place] [address] 01/15/2025 11:30 AM EDT Office Visit [address] [address] Lee King, DO 4 [facility] Orthopedics Sports [facility], [place] [address] Jessa Sanchez, PT 8 [place] [address] 01/17/2025 2:00 PM EDT Office Visit [facility] [address] [place] [address] Lee King, DO [address] [place] [address] Orthopedics Sports [facility], [place] [address] Jessa Sanchez, PT 8 [place] [address] 01/22/2025 11:30 AM EDT Office Visit [address] [place] [address] Lee King, DO 4 [facility], [place] [address] Jessa Sanchez, PT 8 [place] [address] 01/24/2025 2:00 PM EDT Office Visit [facility] [address] [place] [address] Lee King, DO 4 [facility], [place] [address] Jessa Sanchez, PT 8 [place] [address] 01/29/2025 11:30 AM EST Office Visit [facility] [address] [place] [address] Lee King, DO 4 [facility], [place] [address] Jessa Sanchez, PT 8 [place] [address] 01/31/2025 2:00 PM EST Office Visit [facility] [address] [place] [address] Lee King, 4 [facility], [place] [address] Jessa Sanchez, PT 8 [place] [address] 02/12/2025 11:30 AM EST Office Visit [facility] [address] [place] [address] Lee King, DO 4 [facility] Orthopedics Sports [facility] [place] [address] Jessa Sanchez, PT 8 [place] [address] 02/14/2025 2:00 PM EST Office Visit [facility] 8 [place] [address] Lee King, DO [address] [facility], [place] [address] Jessa Sanchez, PT 8 [place] [address] 03/14/2025 1:30 PM EST Appointment [facility], Ct Scan - [address] [address] Sabino Green MD, MS [address] [address] 03/14/2025 2:00 PM EST Appointment [facility] [address] [place] [address] Sabino Green MD, MS [address] [address] 04/03/2025 11:45 AM EST Office Visit [facility] Allergy and Critical Care Medicine [address] [place] [address] Sabino Green MD, MS [address] [address] [email or web address] Scheduled Referrals Name Type Priority Associated Diagnoses Order Schedule Ambulatory referral to [facility] Pulmonology Outpatient Referral Routine Ordered: 12/16/2020 documented as of this encounter Visit Diagnoses Not on filedocumented in this encounter Additional Health Concerns Infection Onset Date Last Indicated Resolved Time Metapneumovirus 10/10/2023 10/10/2023 10/17/2023 1 :22 AM EDT documented as of this encounter Care Teams Filter Plant Supervisor Relationship Specialty Start Date End Date Lan Dillon MD [address] [place] [address] [place] [address] PCP - General Internal Medicine 12/13/16 12/27/23 Sukumar Beltran MD [address] [place] [address], [address] [place] [address] [email or web address] PCP - General Family Medicine 12/28/23 documented as of this encounter Additional Source Comments The information contained in this document represents components of the legal health record. It is not the complete legal health record.[facility]
--- OUTSIDE RECORDS SUMMARY | 2024-12-24 11:06 | XMS_ITS | Encounter Summary ---
Author Organization [facility] Address [facility] [address] [place] [address] Phone Care Team Providers Care Industrial Psychology Teacher Name Role Phone Lan Dillon MD Primary Care Provider Sukumar Beltran MD Primary Care Provider [phone]- [phone] Encounter Details Date Type Department Care Team (Late st Contact Info) Description 08/31/2021 Procedure Pass OR Admitting Dept - Virtual Department [address] [place], [place] [id number] Social History Tobacco Use Types Packs/Day Years [...] Date of Assessment Author No Risk Indicated 08/31/2021 7:00 PM Sharath Manuel RN * [place] Suicide Severity Rating Scale (Screener/Recent Self-Report) Question Answer Date of Assessment Author 1. Wish to be (Past 1 Month) No 022 7:00 PM Tanesha Manuel RN 2. Non-Specific Active Suici danika Thoughts (Past 1 Month) No 08/31/2021 7:00 PM EDT Tanesha Gongora RN 6. Suicidal Behavior (Lifetime) No 7:00 PM EDT Tanesha Gongora RN documented as of this encounter Plan of Treatment Upcoming Encounters Date Type Department Care Team (Late st Contact Info) Description 12/13/2024 Procedure Pass [facility], Ct Scan - [address] [address] 12/24/2024 1:00 PM EDT [facility] [address] [place] [phone] Mary Flores RN [address] [place] [address] 12/26/2024 1:00 AM EDT Home [facility] [address] [place] [phone] Mary Flores RN [address] [place] [address] 12/28/2024 12:30 AM EDT Appointment [facility] [address] [place] [phone] Mary Flores RN [address] [place] [address] 12/31/2024 3:00 PM EDT Office Visit [facility] Family Medicine [address] [place] [address] Sukumar Bletran MD [address] [place] [address], [address] [place] [address] 01/09/2025 2:30 PM EDT Office Visit [facility] Orthopedics & Sports Medicine [address] [place] [address] Lee King DO [address] [place] [address] Orthopedics & Sports Medicine, [facility] [place] [address] 01/10/2025 2:45 PM EDT Office Visit [facility] [address] [place] [address] Lee King, DO 4 [facility], [facility] [place] [address] Jessa Sanchez, PT [address] [place] [address] 01/15/2025 11:30 AM EDT Office Visit [facility] 8 [place] [address] Lee King, DO 4 [facility], [facility] [place] [address] Jessa Sanchez, PT [address] [place] [address] 01/17/2025 2:00 PM EDT Office Visit [facility] 8 [place] [address] Lee King, DO 4 [facility] [place] [address] Jessa Sanchez, PT [address] [place] [address] 01/22/2025 11:30 AM EDT Office Visit [facility] [address] [place] [address] Lee King, DO 4 [facility] [place] [address] Jessa Sanchez, PT [address] [place] [address] 01/24/2025 2:00 PM EDT Office Visit [facility] [address] [place] [address] Lee King, 4 [facility], [facility] [place] [address] Jessa Sanchez, PT [address] [place] [address] 01/29/2025 11:30 AM EST Office Visit [facility] [address] [place] [address] Lee King, DO 4 [facility], [facility] [place] [address] Jessa Sanchez, PT [address] [place] [address] 01/31/2025 2:00 PM EST Office Visit [facility] [address] [place] [address] Lee King DO 4 [facility], [facility] [place] [address] Jessa Sanchez, PT [address] [place] [address] 02/12/2025 11:30 AM EST Office Visit [facility] [address] [place] [address] Lee King DO 4 [facility] Orthopedics Sports [facility], [facility] [place] [address] Jessa Sanchez, PT [address] [place] [address] 02/14/2025 2:00 PM EST Office Visit [facility] 8 [place] [address] Lee King, 4 [facility], [place] [address] Jessa Sanchze, PT 8 [place] [address] 03/14/2025 1:30 PM EST Appointment [facility], Ct Scan - [address] [address] Sabino Green MD, MS [address] [address] 03/14/2025 2:00 PM EST Appointment [facility] [address] [place] [address] Sabino Green MD, MS [address] [address] 04/03/2025 11:45 AM EST Office Visit [facility] Pulmonary, Allergy and Critical Care Medicine [address] [place] [address] Sabino Green MD, MS [address] [address] [email or web address] documented as of this encounter Visit Diagnoses Not on filedocumented in this encounter Additional Health Concerns Infection Onset Date Last Indicated Resolved Time Metapneumovirus 10/10/2023 10/10/2023 10/17/2023 1 :22 AM EDT documented as of this encounter Care Teams Industrial Psychology Teacher Relationship Specialty Start Date End Date Lan Dillon MD [address] [place] [address] [place] [address] PCP - General Internal Medicine 12/13/16 12/27/23 Sukumar Beltran MD [address] [place] [address], [address] [place] [address] [email or web address] PCP - General Family Medicine 12/28/23 documented as of this encounter Additional Source Comments The information contained in this document represents components of the legal health record. It is not the complete legal health record.[facility]
--- OUTSIDE RECORDS SUMMARY | 2024-12-24 11:07 | XMS_ITS | Encounter Summary ---
Author Organization [facility] Address [facility] [address] [place] [address] Phone Care Team Providers Care Cyber Engineer Name Role Phone Lan Dillon MD Primary Care Provider Sukumar Beltran MD Primary Care Provider [phone]- [phone] Encounter Details Date Type Department Care Team (Late st Contact Info) Description 02/03/2021 Ancillary Orders [facility]monary, Allergy and Critical Care Medicine 10 [facility] [address] [place], [place] [phone] Sabino Green MD, MS 10 [facility] 2nd floor [place], [place] [phone] [email or web address] Abnormal chest CT; Recurrent pneumonia Social History Tobacco Use Types Packs/Day Years [...] [facility], Ct Scan - [address] [id number] 12/24/2024 1:00 PM EDT Home Care Visit [facility] [address] [place] [phone] Mary Flores RN 168 [place] [address] 12/26/2024 1:00 AM EDT Home Care Visit [facility] [address] [place] [address] Mary Flores RN [address] [place] [address] 12/28/2024 12:30 AM EDT Appointment [facility] [address] [place] [address] Mary Flores RN [address] [place] [address] 12/31/2024 3:00 PM EDT Office Visit [facility] Medicine [address] [place] [address] Sukumar Beltran MD 22 [facility]201 [place] [address] 01/09/2025 2:30 PM EDT Office Visit [facility] Orthopedics & Sports Medicine [address] [place] [address] Lee King, 4 [facility] Orthopedics & Sports [place] [address] 01/10/2025 2:45 PM EDT Office Visit [facility] Rehabilitation Services 8 [place] [address] Lee King DO 4 [facility] [place] [address] Jessa Sanchez, PT [address] [place] [address] 01/15/2025 11:30 AM EDT Office Visit [facility] [address] [place] [address] Lee King, DO 4 [facility] Orthopedics Sports [facility] [place] [address] Jessa Sanchez, PT [address] [place] [address] 01/17/2025 2:00 PM EDT Office Visit [facility] [address] [place] [address] Lee King, DO 4 [facility], [place] [address] Jessa Sanchez, PT [address] [place] [address] 01/22/2025 11:30 AM EDT Office Visit [facility] [address] [place] [address] eLe King, DO 4 [facility], [place] [address] Jessa Sanchez, PT [address] [place] [address] 01/24/2025 2:00 PM EDT Office Visit [facility] [address] [place] [address] Lee King, DO 4 [facility], [place] [address] Jessa Sanchez, PT 8 [place] [address] 01/29/2025 11:30 AM EST Office Visit [facility] [address] [place] [address] Lee King, DO 4 [facility], [place] [address] Jessa Sanchez, PT 8 [place] [address] 01/31/2025 2:00 PM EST Office Visit [facility] [address] [place] [address] Lee King, DO 4 [facility], [place] [address] Jessa Sanchez, PT 8 [place] [address] 02/12/2025 11:30 AM EST Office Visit [facility] [address] [place] [address] Lee King, 4 [facility], [place] [address] Jessa Sanchez, PT [address] [place] [address] 02/14/2025 2:00 PM EST Office Visit [facility] Rehabilitation Services [address] [place] [address] Lee King DO 4 [facility] Orthopedics & Sports Medicine, [place] [address] Jessa Sanchez, PT 8 [place] [address] 03/14/2025 1:30 PM EST Appointment [facility], Ct Scan - [address] [address] Sabino Green MD, MS [address] [address] 03/14/2025 2:00 PM EST Appointment [facility] [address] [place] [address] Sabino Green MD, MS [address] [phone] 04/03/2025 11:45 AM EST Office Visit [facility] Pulmonary, Allergy and Critical Care Medicine [address] [place] [address] Sabino Green MD, MS [address] [address] documented as of this encounter Results * XR CHEST PA AND LATERAL 2 VIEWS (02/03/2021 10:44 AM EST) Anatomical Region Laterality Modality Chest Computed Radiogr aphy 02/03/2021 12:5 9 PM EST Addenda Addendum by Issa Carson MD on 02/06/2021 12:56 PM EST ADDENDUM: Comparison is now made with outside chest radiographs and CT dated 11/28/2020. On the frontal view there appears to have been equivocal slight clearing of the left basilar airspace opacities although the lateral view seems overall stable. No other interval change suggested. Impressions 02/03/2021 1:01 PM EST Mild streaky lower lobe parenchymal opacities which could reflect residual infiltration. Prior studies not currently available for comparison. Follow-up radiographs could be considered for surveillance if symptoms persist. POS [id number] Narrative 02/03/2021 1:01 PM EST COMPARISON: None FINDINGS: PA and lateral views reveal lungs to be moderately well-expanded. There is minimal streaky opacity seen in the posterior lung base on the lateral view, difficult to localize on the frontal projection. Upper lobes and right middle lobe are clear. No pleural effusion demonstrated. Heart and pulmonary vessels within normal limits in size. No pulmonary edema pattern. 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 Procedure Note Issa Carson MD - 02/03/2021 COMPARISON: None FINDINGS: PA and lateral views reveal lungs to be moderately well-expanded. Thereis minimal streaky opacity seen in the posterior lung base on the lateralview, difficult to localize on the frontal projection. Upper lobes andright middle lobe are clear. No pleural effusion demonstrated. Heart andpulmonary vessels within normal limits in size. No pulmonary edemapattern. Visualized bony thorax intact with ossification of the anteriorlongitudinal ligament seen. IMPRESSION: Mild streaky lower lobe parenchymal opacities which could reflect residualinfiltration. Prior studies not currently available for comparison.Follow-up radiographs could be considered for surveillance if symptomspersist. POS [id number] Sabino Green MD, MS IMG XR CHEST Edited R esult - Final documented in this encounter Visit Diagnoses Diagnosis Abnormal chest CT Nonspecific (abnormal) findings on radiological and other examination of other intrathoracic organs Recurrent pneumonia Pneumonia, organism unspecified Abnormal chest CT Nonspecific (abnormal) findings on radiological and other examination of other intrathoracic organs Recurrent pneumonia Pneumonia, organism unspecified documented in this encounter Additional Health Concerns Infection Onset Date Last Indicated Resolved Time Metapneumovirus 10/10/2023 10/10/2023 10/17/2023 1 :22 AM EDT documented as of this encounter Care Teams Cyber Engineer Relationship Specialty Start Date End Date Lan Dillon MD [address] [place] [address] [place] [address] PCP - General Internal Medicine 12/13/16 12/27/23 Sukumar Beltran MD [address] [place] [address], [address] [place] [address] [email or web address] PCP - General Family Medicine 12/28/23 documented as of this encounter Additional Source Comments The information contained in this document represents components of the legal health record. It is not the complete legal health record.[facility]
--- OUTSIDE RECORDS SUMMARY | 2024-12-24 11:07 | XMS_ITS | Encounter Summary ---
Author Organization [facility] Address [facility] [employer] [facility] [address] [place] [address] Phone Care Team Providers Care Associate [employer] Name Role Phone Lan Dillon MD Primary Care Provider Sukumar Beltran MD Primary Care Provider [phone]- [phone] Encounter Details Date Type Department Care Team (Late st Contact Info) Description 01/20/2021 Ancillary Orders [facility] Imaging [address] [place] [address] System, Provider Not In, [place] [address] Social History Tobacco Use Types Packs/Day Years [...] (Late Contact Info) Description 12/13/2024 Procedure Pass [facility], Ct Scan - [facility] [address] [place] [address] 12/24/2024 1:00 PM EDT Home Care Visit [facility] [address] [place] [address] Mary Flores RN [address] [place] [address] 12/26/2024 1:00 AM EDT Home Care Visit [facility] [address] [place] [address] Mary Flores RN [address] [place] [address] 12/28/2024 12:30 AM EDT Appointment [facility] [address] [place], [place] [phone] Mary Flores RN [address] [place] [address] 12/31/2024 3:00 PM EDT Office Visit [facility] [address] [place] [address] Sukumar Beltran MD 22 [facility], [address] [place] [address] 01/09/2025 2:30 PM EDT Office Visit [facility] Orthopedics & Sports Medicine [address] [place] [address] Lee King DO 4 [facility] Orthopedics & Sports [place], [place] [address] 01/10/2025 2:45 PM EDT Office Visit [facility] Rehabilitation Services 8 [place] [address] Lee King DO 4 [facility] Orthopedics & Sports Medicine, [place] [address] Jessa Sanchez, PT 8 [place] [address] 01/15/2025 11:30 AM EDT Office Visit [facility] [address] [place] [address] Lee King, DO 4 [facility], [place] [address] Jessa Sanchez, PT 8 [place] [address] 01/17/2025 2:00 PM EDT Office Visit [facility] 8 [place] [address] Lee King, DO 4 [facility], [place] [address] Jessa Sanchez, PT 8 [place] [address] 01/22/2025 11:30 AM EDT Office Visit [facility] [address] [place] [address] Lee King, DO 4 [facility], [facility] [place] [address] Jessa Sanchez, PT 8 [place] [address] 01/24/2025 2:00 PM EDT Office Visit [facility] [address] [place] [address] Lee King, DO 4 [facility], [place] [address] [email or web address] Jessa Sanchez, PT 8 [place] [address] [email or web address] 01/29/2025 11:30 AM EST Office Visit [facility] [address] [place] [address] Lee King, DO 4 [facility] Orthopedics Sports [facility] [place] [address] Jessa Sanchez, PT [address] [place] [address] 01/31/2025 2:00 PM EST Office Visit [facility] [address] [place] [address] Lee King, DO 4 [facility], [facility] [place] [address] Jessa Sanchez, PT [address] [place] [address] [email or web address] 02/12/2025 11:30 AM EST Office Visit [facility] [address] [place] [address] Lee King, DO 4 [facility] [place] [address] Jessa Sanchez, PT 8 [place] [address] 02/14/2025 2:00 PM EST Office Visit [facility] [address] [place] [address] Lee King DO 4 [facility] Orthopedics & Sports Medicine, [facility] [place] [address] Rubensbelén Jessa, PT 8 [place] [address] 03/14/2025 1:30 PM EST Appointment [facility], Ct Scan - [address] [address] Sabino Green MD, MS [address] [address] 03/14/2025 2:00 PM EST Appointment [facility] [address] [place] [address] Sabino Green MD, MS [address] [address] 04/03/2025 11:45 AM EST Office Visit [facility] Pulmonary, Allergy and Critical Care Medicine [address] [place] [address] Sabino Green MD, MS [address] [address] documented as of this encounter Visit Diagnoses Not on filedocumented in this encounter Additional Health Concerns Infection Onset Date Last Indicated Resolved Time Metapneumovirus 10/10/2023 10/10/2023 10/17/2023 1 :22 AM EDT documented as of this encounter Care Teams Associate [employer] Relationship Specialty Start Date End Date Lan Dillon MD [address] [place] [address] [place] [address] PCP - General Internal Medicine 12/13/16 12/27/23 Sukumar Beltran MD [address] [place] [address], [address] [place] [address] [email or web address] PCP - General Family Medicine 12/28/23 documented as of this encounter Additional Source Comments The information contained in this document represents components of the legal health record. It is not the complete legal health record.[facility]
--- OUTSIDE RECORDS SUMMARY | 2024-12-24 11:07 | XMS_ITS | Encounter Summary ---
Author Organization [facility] Address [facility] [address] [place] [address] Phone Care Team Providers Care Residential Real Estate Agent Name Role Phone Lan Dillon MD Primary Care Provider Sukumar Beltran MD Primary Care Provider [phone] Encounter Details Date Type Department Care Team (Late st Contact Info) Description 02/20/2020 Ancillary Orders [facility] [place],Outside Imaging [address] [place] [address] System, Provider [place] In, [place] [address] Social History Tobacco Use Types Packs/Day Years [...] Contact Info) Description 12/13/2024 Procedure Pass [facility] [place], Ct Scan - [facility] [address] [place] [address] 12/24/2024 1:00 PM EDT Home Care Visit [facility] [address] [place] [address] Mary Flores RN [address] [place] [address] 12/26/2024 1:00 AM EDT Home Care Visit [facility] [address] [place] [address] Mary Flores RN [address] [place] [address] 12/28/2024 12:30 AM EDT Appointment [facility] [address] [place] [address] Mary Flores RN [address] [place] [address] 12/31/2024 3:00 PM EDT Office Visit [facility] [address] [place] [address] Sukumar Beltran MD 22 [facility], [address] [place] [address] 01/09/2025 2:30 PM EDT Office Visit [facility] [address] [place] [address] Lee King DO [address] [place] [address] [facility] [place] [address] 01/10/2025 2:45 PM EDT Office Visit [facility] [address] [place] [address] Lee King DO 4 [facility] [place] [address] Jessa Sanchez, PT 8 [place] [address] 01/15/2025 11:30 AM EDT Office Visit [facility] [address] [place] [address] Lee King, DO 4 [facility], [place] [address] Jessa Sanchez, PT 8 [place] [address] 01/17/2025 2:00 PM EDT Office Visit [facility] [address] [place] [address] Lee King, DO 4 [facility], [place] [address] Jessa Sanchez, PT 8 [place] [address] 01/22/2025 11:30 AM EDT Office Visit [facility] [address] [place] [address] Lee King, DO 4 [facility], [facility] [place] [address] Jessa Sanchez, PT 8 [place] [address] 01/24/2025 2:00 PM EDT Office Visit [facility] [address] [place] [address] Lee King, DO 4 [facility], [place] [address] Jessa Sanchez, PT 8 [place] [address] 01/29/2025 11:30 AM EST Office Visit [facility] [address] [place] [address] Lee King, DO 4 [facility] [place] [address] Jessa Sanchez, PT 8 [place] [address] 01/31/2025 2:00 PM EST Office Visit [facility] [address] [place] [address] Lee King, DO 4 [facility] [place] [address] Jessa Sanchez, PT 8 [place] [address] 02/12/2025 11:30 AM EST Office Visit [facility] [address] [place] [address] Lee King, DO 4 [facility] [place] [address] Jessa Sanchez, PT 8 [place] [address] 02/14/2025 2:00 PM EST Office Visit [facility] [address] [place] [address] Lee King, DO 4 [facility] [place] [address] Adeolabelén Jessa, PT 8 [place] [address] 03/14/2025 1:30 PM EST Appointment [facility] [place], Ct Scan - [address] [address] Sabino Green MD, [place] [address] [address] 03/14/2025 2:00 PM EST Appointment [facility] [address] [place] [address] Sabino Green MD, [place] [address] [address] 04/03/2025 11:45 AM EST Office Visit [facility] [address] [place] [address] Sabino Green MD, MS [address] [phone] documented as of this encounter Results * MRI Lower Extremity Outside (No Interpretation) (02/07/2020 12:00 AM EST) Narrative SYSTEMGENERATED, DOCUMENTATION - 02/20/2020 4:55 PM EST This study is for PACS storage only and not for interpretation. us Provider Not In System PhD IMG OUTSIDE IMAGING W /OUT INTERPRETATION Final Result * XR Lower Extremity Outside (No Interpretation) (01/14/2020 12:00 AM EDT) Narrative SYSTEMGENERATED, DOCUMENTATION - 02/20/2020 4:57 PM EST This study is for PACS storage only and not for interpretation. us Provider Not In System PhD IMG OUTSIDE IMAGING W /OUT INTERPRETATION Final Result * XR Lower Extremity Outside (No Interpretation) (09/20/2019 12:05 AM EDT) Narrative SYSTEMGENERATED, DOCUMENTATION - 02/20/2020 4:56 PM EST This study is for PACS storage only and not for interpretation. us Provider Not In System PhD IMG OUTSIDE IMAGING W /OUT INTERPRETATION Final Result * XR Lower Extremity Outside (No Interpretation) (09/20/2019 12:00 AM EDT) Narrative SYSTEMGENERATED, DOCUMENTATION - 02/20/2020 4:56 PM EST This study is for PACS storage only and not for interpretation. us Provider Not In System PhD IMG OUTSIDE IMAGING W /OUT INTERPRETATION Final Result documented in this encounter Visit Diagnoses Not on filedocumented in this encounter Additional Health Concerns Infection Onset Date Last Indicated Resolved Time Metapneumovirus 10/10/2023 10/10/2023 10/17/2023 1 :22 AM EDT documented as of this encounter Care Teams Residential Real Estate Agent Relationship Specialty Start Date End Date Lan Dillon MD [address] [place] [address] [place] [address] PCP - General Internal Medicine 12/13/16 12/27/23 Sukumar Beltran MD [address] [place] [address], [address] [place] [address] [email or web address] PCP - General Family Medicine 12/28/23 documented as of this encounter Additional Source Comments The information contained in this document represents components of the legal health record. It is not the complete legal health record.[facility]
--- OUTSIDE RECORDS SUMMARY | 2024-12-24 11:07 | XMS_ITS | Encounter Summary ---
Author Organization [facility] Address [facility] [employer] [facility] [address] [place] [address] Phone Care Team Providers Care Shipfitter Name Role Phone Lan Dillon MD Primary Care Provider Sukumar Beltran MD Primary Care Provider [phone]- [phone] Encounter Details Date Type Department Care Team (Late st Contact Info) Description 01/20/2021 Ancillary Orders [facility],Outside Imaging [address] [place] [address] System, Provider [place] In, [place] [address] Social History Tobacco Use Types Packs/Day Years [...] (Late Contact Info) Description 12/13/2024 Procedure Pass [facility], Ct Scan - [facility] [address] [place] [address] 12/24/2024 1:00 PM EDT Home Care Visit [facility] [address] [place] [address] Mary Flores RN [address] [place] [address] 12/26/2024 1:00 AM EDT Home Care Visit [facility] [address] [place] [address] Mary Flores RN [address] [place] [address] 12/28/2024 12:30 AM EDT Appointment [facility] [address] [place], [place] [phone] Mary Flores RN [address] [place] [address] 12/31/2024 3:00 PM EDT Office Visit [facility] [address] [place] [address] Sukumar Beltran MD 22 [facility], [address] [place] [address] 01/09/2025 2:30 PM EDT Office Visit [facility] [address] [place] [address] Lee King DO 4 [facility] [place] [address] 01/10/2025 2:45 PM EDT Office Visit [facility] 8 [place] [address] Lee King DO 4 [facility] [place] [address] Jessa Sanchez, PT 8 [place] [address] 01/15/2025 11:30 AM EDT Office Visit [facility] [address] [place] [address] Lee King, DO 4 [facility], [place] [address] Jessa Sanchez, PT 8 [place] [address] 01/17/2025 2:00 PM EDT Office Visit [facility] 8 [place] [address] Lee King, DO 4 [facility], [place] [address] Jessa Sanchez, PT 8 [place] [address] 01/22/2025 11:30 AM EDT Office Visit [facility] [address] [place] [address] Lee King, DO 4 [facility], [facility] [place] [address] Jessa Sanchez, PT 8 [place] [address] 01/24/2025 2:00 PM EDT Office Visit [facility] [address] [place] [address] Lee King, DO 4 [facility], [place] [address] [email or web address] Jessa Sanchez, PT 8 [place] [address] [email or web address] 01/29/2025 11:30 AM EST Office Visit [facility] [address] [place] [address] Lee King, DO 4 [facility] Sports [facility] [place] [address] Jessa Sanchez, PT 8 [place] [address] 01/31/2025 2:00 PM EST Office Visit [facility] [address] [place] [address] Lee King, DO 4 [facility], [facility] [place] [address] Jessa Sanchez, PT 8 [place] [address] [email or web address] 02/12/2025 11:30 AM EST Office Visit [facility] [address] [place] [address] Lee King, DO 4 [facility] [place] [address] Jessa Sanchez, PT 8 [place] [address] 02/14/2025 2:00 PM EST Office Visit [facility] 8 [place] [address] Lee King DO 4 [facility], [facility] [place] [address] Rubensbelén Jessa, PT 8 [place] [address] 03/14/2025 1:30 PM EST Appointment [facility], Ct Scan - [address] [address] Sabino Green MD, MS [address] [address] 03/14/2025 2:00 PM EST Appointment [facility] [address] [place] [address] Sabino Green MD, MS [address] [address] 04/03/2025 11:45 AM EST Office Visit [facility] [address] [place] [address] [id number] Sabino Green MD, MS [address] [phone] documented as of this encounter Results * CT Chest Outside (No Interpretation) (03/09/2019 12:05 AM EST) Narrative SYSTEMGENERATED, DOCUMENTATION - 01/20/2021 4:51 PM EDT This study is for PACS [...] documented as of this encounter Care Teams Shipfitter Relationship Specialty Start Date End Date Lan Dillon MD [address] [place] [address] [facility] [place] [address] PCP - General Internal Medicine 12/13/16 12/27/23 Sukumar Beltran MD [address] [place] [address], [address] [place] [address] [email or web address] PCP - General Family Medicine 12/28/23 documented as of this encounter Additional Source Comments The information contained in this document represents components of the legal health record. It is not the complete legal health record.[facility]
== END 2024-12-24 10:42 | disposition home or self-care (01) ==
PROVIDERS: PCP Internal Medicine; Visit Provider Internal Medicine Cardiovascular Disease
DX: I20.89 Other forms of angina pectoris (principal); I10 Essential (primary) hypertension
CPT/HCPCS: 99214

== ENCOUNTER → 2024-12-24 10:01 | Outpatient (BNVA) | payer MEDICARE, SELFPAY | PROVIDERS: PCP Internal Medicine; Visit Provider Internal Medicine Cardiovascular Disease | DX: I10 Essential (primary) hypertension (principal); I20.89 Other forms of angina pectoris | CPT/HCPCS: 99212 ==